=== PATIENT | female | born 1970 | race Caucasian/White ===

== ENCOUNTER → 2020-03-27 08:50 | Outpatient (BNVA) | payer OTHER, SELFPAY | PROVIDERS: PCP Internal Medicine; Visit Provider Student in an Organized Health Care Education/Training Program | DX: Z76.89 Persons encountering health services in other specified circumstances (principal) ==

== ENCOUNTER → 2020-04-16 16:22 | Outpatient (BNVA) | payer OTHER, SELFPAY | PROVIDERS: PCP Internal Medicine; Referring Provider Internal Medicine; Visit Provider Student in an Organized Health Care Education/Training Program | DX: M25.562 Pain in left knee (principal) | CPT/HCPCS: 20610; 99211 ==

== ENCOUNTER → 2020-08-21 09:27 | Outpatient (BNVA) | payer OTHER, SELFPAY | PROVIDERS: PCP Internal Medicine; Visit Provider Student in an Organized Health Care Education/Training Program | DX: M25.562 Pain in left knee (principal) | CPT/HCPCS: 20610; 99212 ==

== ENCOUNTER 2020-08-23 09:09 | Outpatient (REF) | payer OTHER, SELFPAY ==
--- NOTE | ~2020-08-23 | XR_ITS ---
EXAMINATION: XR knee standing BI, XR knee RT 2V, XR knee LT 2V CLINICAL INFORMATION: Reason for Exam M25.569 - Pain in unspecified knee COMPARISON: None available at the time of this dictation. TECHNIQUE: frontal, lateral, tunnel and patella sunrise views FINDINGS: BONES: No fracture or dislocation is present. JOINTS: Narrowing of joint spaces and developed osteophytes from the edges of articular surfaces suggest degenerative osteoarthritis. SOFT TISSUE: Normal XR/XR knee LT 2V IMPRESSION: Bilateral moderate to severe degenerative osteoarthritis involving primarily medial compartments left more than right knee. Degenerative osteoarthritis of the patellofemoral joints. No joint effusions.
--- NOTE | ~2020-08-23 | XR_ITS ---
EXAMINATION: XR knee standing BI, XR knee RT 2V, XR knee LT 2V CLINICAL INFORMATION: Reason for Exam M25.569 - Pain in unspecified knee COMPARISON: None available at the time of this dictation. TECHNIQUE: frontal, lateral, tunnel and patella sunrise views FINDINGS: BONES: No fracture or dislocation is present. JOINTS: Narrowing of joint spaces and developed osteophytes from the edges of articular surfaces suggest degenerative osteoarthritis. SOFT TISSUE: Normal XR/XR knee RT 2V IMPRESSION: Bilateral moderate to severe degenerative osteoarthritis involving primarily medial compartments left more than right knee. Degenerative osteoarthritis of the patellofemoral joints. No joint effusions.
--- NOTE | ~2020-08-23 | XR_ITS ---
EXAMINATION: XR knee standing BI, XR knee RT 2V, XR knee LT 2V CLINICAL INFORMATION: Reason for Exam M25.569 - Pain in unspecified knee COMPARISON: None available at the time of this dictation. TECHNIQUE: frontal, lateral, tunnel and patella sunrise views FINDINGS: BONES: No fracture or dislocation is present. JOINTS: Narrowing of joint spaces and developed osteophytes from the edges of articular surfaces suggest degenerative osteoarthritis. SOFT TISSUE: Normal XR/XR knee standing BI IMPRESSION: Bilateral moderate to severe degenerative osteoarthritis involving primarily medial compartments left more than right knee. Degenerative osteoarthritis of the patellofemoral joints. No joint effusions.
== END 2020-08-23 09:10 | disposition home or self-care (01) ==
LOC: HO.HOSX 09:09
PROVIDERS: Visit Provider Orthopaedic Surgery
DX: M17.0 Bilateral primary osteoarthritis of knee (principal)
CPT/HCPCS: 73560; 73565; 99202

== ENCOUNTER 2020-11-14 10:04 | Outpatient (REF) | payer MEDICARE, MEDICAID, SELFPAY ==
--- NOTE | 2020-11-14 11:30 | ECG_ITS ---
Test Reason : Z01.810 Blood Pressure : / mmHG Vent. Rate : 116 BPM Atrial Rate : 117 BPM P-R Int : 156 ms QRS Dur : 088 ms QT Int : 352 ms P-R-T Axes : 073 061 058 degrees QTc Int : 489 ms Sinus tachycardia Biatrial enlargement Abnormal ECG No previous ECGs available Referred By: John Stewart Electronically Signed By:MALLORY MCNEAL
[2020-11-14 12:23] LABS: MANUAL DIFF FLAG NO
[2020-11-14 12:33] LABS: Basophils Absolute Auto 0.1 X10*3/uL (0.0-0.2); Basophils Percent Auto 0.6 % (0-2); Eosinophils Absolute Auto 0.1 X10*3/uL (0.0-0.4); Hematocrit 47.1 % (37-47); Hemoglobin 16.3 g/dl (12.0-16.0); Imm Gran Abs Auto 0.03 X10*3/uL (0.00-0.03); Imm Gran Pct Auto 0.3 % (0.0-0.4); Lymphocytes Absolute Auto 2.8 X10*3/uL (1.2-4.9); Lymphocytes Percent Auto 27.3 % (20-40); Mean Corpuscular HGB Conc 34.6 g/dl (31.0-35.0); Mean Corpuscular Volume 89.7 fL (80-98); Mean Platelet Volume 9.7 fL (9.4-12.3); Monocytes Absolute Auto 0.7 X10*3/uL (0.1-1.2); Monocytes Percent Auto 6.3 % (2-11); Neutrophils Absolute Auto 6.6 X10*3/uL (2.0-8.3); Neutrophils Percent Auto 64.5 % (45-73); Platelet Count 290 X10*3/uL (160-400); Red Blood Count 5.25 X10*6/uL (4.20-5.50); Red Cell Distribution Width 12.5 % (11.0-16.0); White Blood Count 10.3 X10*3/uL (4.8-10.8)
[2020-11-14 12:44] LABS: Anion Gap 16 (12-20); Blood Urea Nitrogen 12 mg/dL (9-16); Calcium 9.3 mg/dL (8.4-10.2); Carbon Dioxide 21 mmol/L (22-29); Chloride 106 mmol/L (96-108); Estimated Glomerular Filt Rate > 60; Glucose Random 100 mg/dL (60-115); Potassium 4.5 mmol/L (3.3-5.1); Sodium 138 mmol/L (135-145)
== END 2020-11-14 10:05 | disposition home or self-care (01) ==
LOC: HO.LAB 10:04
PROVIDERS: PCP Internal Medicine; Visit Provider Orthopaedic Surgery
DX: Z01.810 Encounter for preprocedural cardiovascular examination (principal); Z01.812 Encounter for preprocedural laboratory examination
CPT/HCPCS: 36415; 80048; 85025; 93005

== ENCOUNTER → 2020-12-16 12:20 | Outpatient (BNVA) | payer MEDICARE, MEDICAID, SELFPAY | PROVIDERS: Visit Provider Physician Assistant | DX: M17.12 Unilateral primary osteoarthritis, left knee (principal) | CPT/HCPCS: 99212 ==

== ENCOUNTER 2020-12-17 08:31 | Inpatient (IN) | payer MEDICARE, MEDICAID, SELFPAY ==
--- NOTE | 2020-11-29 | ECG_ITS ---
Test Reason : PREOP Blood Pressure : / mmHG Vent. Rate : 123 BPM Atrial Rate : 123 BPM P-R Int : 152 ms QRS Dur : 086 ms QT Int : 322 ms P-R-T Axes : 074 057 045 degrees QTc Int : 460 ms Sinus tachycardia Possible Left atrial enlargement Low voltage QRS Nonspecific ST abnormality Borderline ECG When compared with ECG of 14-NOV-2020 11:39, No significant change was found Referred By: Jerrell Quinones Electronically Signed By:MALLORY MCNEAL
[2020-11-29 11:56] VITALS: BP 140/95; PULSE 126; RESP 16; O2SAT 97; BMI 40.7
[2020-11-29 15:21] LABS: MRSA Nasal PCR NEGATIVE (Negative); SA Nasal PCR NEGATIVE (Negative)
[2020-12-17] VITALS (13 sets, daily range): BP systolic 95–139; BP diastolic 50–98; PULSE 68–115; RESP 16–20; TEMP 36.2–36.9; O2SAT 91–99
--- NOTE | ~2020-12-17 | XR_ITS ---
EXAMINATION: XR KNEE, LEFT CLINICAL INFORMATION: Left total knee arthroplasty. COMPARISON: None TECHNIQUE: Portable AP and cross-table lateral views of the left knee. FINDINGS: The left total knee arthroplasty components appear well seated in near-anatomic alignment. There is a moderate joint effusion. There is air in the joint and the surrounding soft tissues. There are anterior skin britany. XR/XR knee LT 2V IMPRESSION: Intact-appearing left total knee arthroplasty. Expected postoperative changes.
--- NOTE | 2020-12-17 08:33 | ECG_ITS ---
Test Reason : RECHECK RHYTHM Blood Pressure : / mmHG Vent. Rate : 116 BPM Atrial Rate : 116 BPM P-R Int : 146 ms QRS Dur : 088 ms QT Int : 356 ms P-R-T Axes : 061 038 035 degrees QTc Int : 494 ms Sinus tachycardia Nonspecific ST and T wave abnormality Abnormal ECG When compared with ECG of 29-NOV-2020 12:34, Nonspecific T wave abnormality now evident in Anterior leads Referred By: Jerrell Quinones Electronically Signed By:MALIKA MILLER
[2020-12-17 09:15] LABS: COVID-19 Test Negative (Negative)
--- NOTE | 2020-12-17 10:10 | MHC.SHP ---
Pre-Procedural Eval Section A Date of Service: 12/17/20 The patient is an INPATIENT: No Changes since office visit: Yes Patient answered all questions; No Cold of Flu in the past 2 weeks, No New Medical Problems and No Changes in Medication The History & Physical has been completed within 30 days and I have reviewed it.: Yes Section B Chief Complaint: Left total knee arthroplasty Allergies: Allergies Allergy/AdvReac Type Severity Reaction Status Date / Time Vicodin Allergy Severe hives Verified 12/17/20 08:38 Plan I have reviewed the history and physical and performed a pertinent physical examination on my patient. No changes have occurred unless specified.
--- NOTE | 2020-12-17 10:55 | HO.ANESPROP2 ---
HPI - Anesthesia Eval Consult details Narrative: [age] female for total knee replacement on the left History of polysubstance abuse, not using anything in recent past PMFSH Active Problems Active Problems: All Active Problems (Updated 12/16/20 @ 12:54 by Evin Fish PA-C) Osteoarthritis of left knee (Acute) Bilateral knee pain (Acute) Trigger finger of right hand (Acute) Trigger finger of left hand (Acute) Left anterior knee pain (Acute) Bilateral primary osteoarthritis of knee (Acute) Bipolar disorder (Acute) HTN (hypertension) (Acute) Back pain (Acute) Past Medical History Medical History Allergic rhinitis Anxiety Back pain Bipolar disorder Depression ETOH abuse HTN (hypertension) Opiate abuse, continuous Polysubstance abuse Tachycardia Family History Family History Mother Cervical cancer Sister Cervical cancer Family history of problems with anesthesia: No Surgical History Surgical History H/O foot surgery H/O: hysterectomy History of back surgery History of carpal tunnel surgery History of Problems with Anesthesia: No Social History Social History Housing: Apartment Are you a primary care worker to a significant other at home: No Do you presently have visiting nurse or other home services: No Alcohol intake: never Patient Tobacco Use Status: Former Tobacco user Quit Date: 07/2020 Tobacco use type: Cigarette e-Cigarette/Vaping Use: Former Use (July 2020) Have you been hit, kicked, punched, or otherwise hurt by someone within the past year? If so, by whom?: No Spiritual Healthcare Practices: none Jehovah'S Witness Healthcare Practices: none Cultural Healthcare Practices: none Are you DNR?: No Advance Directives: No Advance Directives Information Provided: No Advance Directives on File: No Recently lost weight without trying: No Patient : No FDLMP: 2019 : No Poor oral hygiene: No Current occupational status: unemployed Meds Allergies Allergy/AdvReac Type Severity Reaction Status Date / Time Vicodin Allergy Severe hives Verified 12/17/20 08:38 Home Medications Medication Instructions Recorded Confirmed Last Taken Type acamprosate 333 mg tablet,delayed 666 mg PO TID 04/16/20 11/29/20 12/17/20 07:30 History release amitriptyline 100 mg tablet 100 mg PO BEDTIME 11/27/20 11/29/20 Unknown History aripiprazole 20 mg tablet 20 mg PO DAILY 11/27/20 11/29/20 12/17/20 07:30 History trazodone 100 mg tablet 300 mg PO BEDTIME 11/27/20 11/29/20 Unknown History clonidine HCl 0.2 mg tablet 0.2 mg PO TID 11/29/20 11/29/20 12/17/20 07:30 History cyanocobalamin (vitamin B-12) 5,000 mcg SUBLINGUAL DAILY 11/29/20 11/29/20 Unknown History 5,000 mcg sublingual tablet (Vitamin B-12) magnesium oxide 400 mg PO BEDTIME 11/29/20 11/29/20 Unknown History hydroxyzine pamoate 25 mg capsule 25 mg PO BID PRN 12/11/20 12/11/20 12/17/20 07:30 History (Vistaril) Exam Exam Date and Time: December 17, 2020 1055 Height,Weight and Vital Signs: Height 5 ft 5 in Weight 245 lb Last Vital Signs Temp 97.9 F 12/17/20 09:18 Pulse 115 H 12/17/20 09:18 Resp 18 12/17/20 09:18 BP 139/98 H 12/17/20 09:18 Pulse Ox 96 12/17/20 09:18 Pertinent Lab Results Pertinent Lab Results: Laboratory Tests 11/29/20 12/17/20 12/17/20 12:30 08:41 08:49 Nasal Screen MRSA (PCR) NEGATIVE Nasal S. aureus Screen NEGATIVE Nasal MRSA/S.aureus Interp SEE NOTE COVID-19 (ANEL) Negative COVID-19 Clin Com See Note Blood Type O Positive Antibody Screen NEGATIVE Airway Mallampati Class: III TM Dist: >3cm Neck ROM: Full Loose/Missing/Broken Teeth: No Assessment and Plan Assessment Anesthesia Assessment: Anesthesia Plan Discussed and Chart Reviewed Final Anesthetic Review Family History of Problems with Anesthesia: No History of Problems with Anesthesia: No NPO: Yes ASA Class: III Final Preanesthetic Review: No Changes in Pt Med Stat, Meds/Allgs Chart Reviewed, Consent Obtained/Reviewed and Anes Risks/Benef Reviewed Patient Risk: High Procedure Risk: Low Anesthetic Plan Anesthetic Plan: MAC:, Spinal and Regional Block Disposition: Standard PACU
--- NOTE | 2020-12-17 12:22 | PM.OP ---
Brief Operative Note Date of Service: 12/17/20 Pre-op diagnosis: left knee OA Post-op diagnosis: same Procedure: Left TKA Implants: [employer] triathalon press fit CR 07/20/10 Surgeon: John Stewart MD Anesthesia: GETA and regional Was an Sexual Health Physician used for this Procedure?: Yes Sexual Health Physician: Evin Fish Estimated blood loss (mL): 200 IV fluids (mL): 1,100 Pathology: other Condition: stable Disposition: PACU
--- NOTE | 2020-12-17 13:15 | P.OP_ITS ---
Operative Note Operative Note Date of Service: 12/17/20 Narrative: Pre-op diagnosis: left knee OA Post-op diagnosis: same Procedure: Left TKA Implants: [place] triathalon press fit CR 07/20/10 Surgeon: John Stewart MD Anesthesia: GETA and regional Was an Aluminum Molding Machine Operator used for this Procedure?: Yes Aluminum Molding Machine Operator: Evin Fish Estimated blood loss (mL): 200 IV fluids (mL): 1,100 Pathology: other Condition: stable Disposition: PACU Procedure in detail: Patient was brought to the operating room and prepped and draped in standard sterile fashion. A time-out was called to identify proper site, proper procedure, proper surgeon and IV antibiotics were administered. 1 g of IV tranexamic acid was also administered. I began by making a midline incision to the retinaculum and performed a medial parapatellar arthrotomy. The patella was translated laterally and the knee was flexed up. The femur was eburnated medially as was the plateau with abundant osteophytes. I performed a small medial peel and resected the infrapatellar fat pad. [place]'s line was then used to drill my intramedullary femoral guide and my distal femur cut was made in 5 degrees of valgus. An additional 2 mm was taken off the distal femur becasue of a pre-operative flexion contracture of 10 deg. I then measured a # 4 femur and placed my cutting guide and made my anterior, posterior and chamfer cuts protecting the soft tissues at all times. Once I was satisfied with my cut I turned my attention to the tibia. I removed the meniscus and , using an external cutting guide, in line with the tibial crest and the third ray, I made my distal tibial cut ( 3 deg slope) while protecting the PCL the posterior soft tissues at all times. An extension block was used to confirm appropriate amount of bony resection. I then sized a #__3_ tibia and once I was satisfied that there was good tibial coverage I placed my trial and with the trial femur in place took the knee through range of motion. I was satisfied with the extension and flexion as well as the stability at 0, 30 and 90 degrees. I then turned my attention to the patella where I removed 1 cm from the undersurface of the patella and then trialed a __32a____ patella. Again the knee was taken through range of motion I was satisfied with the tracking. I then returned to the femur and drilled my femoral lug holes and prepared the tibia. Femoral bone plug was then placed and the knee was irrigated copiously. I then press fit the patella, tibia and femur in standard fashion. I trialed different inserts until I selected a #__11__ insert. The final insert was placed and a 3 minutes iodine soak with local TXA was performed. The knee was then closed with a running Quill suture, a 3 0 Vicryl and britany on the skin. Patient was then placed in sterile dressing and brought to recovery room in stable condition there were no known complications.
--- NOTE | 2020-12-17 14:52 | P.CONIM_ITS ---
History of Present Illness Data of Consult Service Date: 12/17/20 Primary Care Provider: Henny Huff MD HPI Reason for consult: post op medical mgmt This is a 50 yo F with a PMH as documented below who is admitted post operatively after elective L TKA under the medical services. Hospitalist consulted for post-op medical mgmt. Patient is seen and examined on Med/Surg. She reports no complaints at this time. No pain -- her block is still active. She denies cp or sob. She reports a prior alcohol use history, but has been sober >2 years with medications + therapy. Review of Systems Review of Systems: General - no fevers or chills Cardiovascular - no chest pain Respiratory - no shortness of breath or cough Abdominal- no abdominal pain, nausea, vomiting, diarrhea PMFSH Medical History Allergic rhinitis Anxiety Back pain Bipolar disorder Depression ETOH abuse HTN (hypertension) Opiate abuse, continuous Polysubstance abuse Tachycardia Family History Mother Cervical cancer Sister Cervical cancer Surgical History H/O foot surgery H/O: hysterectomy History of back surgery History of carpal tunnel surgery Social History Housing: Apartment Are you a primary field care advocate to a significant other at home: No Do you presently have visiting nurse or other home services: No Alcohol intake: never Patient Tobacco Use Status: Former Tobacco user Quit Date: 07/2020 Tobacco use type: Cigarette e-Cigarette/Vaping Use: Former Use (July 2020) Current occupational status: unemployed Meds Allergies Allergy/AdvReac Type Severity Reaction Status Date / Time Vicodin Allergy Severe hives Verified 12/17/20 08:38 Active Medications: Current Medications Generic Name Dose Route Start Last Admin Trade Name Freq PRN Reason Stop Dose Admin Acetaminophen 650 mg 12/17/20 14:17 Acetaminophen 325 Mg Tablet PO Q6H PRN Pain, Mild (Pain Scale 1-3) Amitriptyline HCl 100 mg 12/17/20 21:00 Amitriptyline Hcl 50 Mg Tablet PO BEDTIME MIGUELITO Aripiprazole 20 mg 12/18/20 09:00 Aripiprazole 20 Mg Tablet PO DAILY [facility] Celecoxib 200 mg 12/17/20 21:00 Celecoxib 200 Mg Capsule PO BID [facility] Clonidine HCl 0.2 mg 12/17/20 15:00 Clonidine Hcl 0.2 Mg Tablet PO TID [facility] Protocol Docusate Sodium 100 mg 12/17/20 21:00 Docusate Sodium 100 Mg Capsule PO BID [facility] Hydromorphone HCl 0.25 mg 12/17/20 14:17 Hydromorphone Hcl 0.5 Mg/0.5 Ml Syringe IVPUSH Q4H PRN Pain, Severe (Pain Scale 7-10) Protocol Hydroxyzine HCl 25 mg 12/17/20 14:47 Hydroxyzine Hcl 25 Mg Tablet PO BID PRN Anxiety Dextrose/Sodium Chloride 1,000 mls @ 80 mls/hr 12/17/20 14:17 D51/2ns IVCONT .[id number] [facility] Cefazolin Sodium 2 gm/ Sodium 50 mls @ 100 mls/hr 12/17/20 16:00 Chloride IV 12/17/20 16:29 POSTOP ONE Loratadine 10 mg 12/18/20 09:00 Loratadine 10 Mg Tablet PO DAILY [facility] Magnesium Oxide 400 mg 12/17/20 21:00 Magnesium Oxide 400 Mg Tablet PO BEDTIME [facility] Ondansetron HCl 4 mg 12/17/20 14:17 Ondansetron Hcl 4 Mg/2 Ml Vial IVPUSH Q8H PRN Nausea and Vomiting Oxycodone HCl 5 mg 12/17/20 14:17 Oxycodone Hcl Immed Release 5 Mg Tablet PO Q4H PRN Pain, Moderate (Pain Scale 4-6 Oxycodone HCl 10 mg 12/17/20 21:00 Oxycodone Hcl Er 10 Mg Tab.Er.12h PO BID [facility] Sodium Chloride 3 ml 12/17/20 16:00 0.9 % Sodium Chloride Flush 3 Ml Syringe IVFLUSH QSHIFT [facility] Trazodone HCl 300 mg 12/17/20 21:00 Trazodone Hcl 100 Mg Tablet PO BEDTIME [facility] Vitamin D 25 mcg 12/18/20 09:00 Cholecalciferol (Vitamin D3) 25 Mcg Tablet PO DAILY [facility] Home Medications Medication Instructions Recorded Confirmed Last Taken Type acamprosate 333 mg tablet,delayed 666 mg PO TID 12/11/29/20 12/17/20 07:30 History release amitriptyline 100 mg tablet 100 mg PO BEDTIME 11/27/20 11/29/20 Unknown History aripiprazole 20 mg tablet 20 mg PO DAILY 11/27/20 11/29/20 12/17/20 07:30 History trazodone 100 mg tablet 300 mg PO BEDTIME 11/27/20 11/29/20 Unknown History clonidine HCl 0.2 mg tablet 0.2 mg PO TID 11/29/20 11/29/20 12/17/20 07:30 History cyanocobalamin (vitamin B-12) 5,000 mcg SUBLINGUAL DAILY 11/29/20 11/29/20 Unknown History 5,000 mcg sublingual tablet (Vitamin B-12) magnesium oxide 400 mg PO BEDTIME 11/29/20 11/29/20 Unknown History hydroxyzine pamoate 25 mg capsule 25 mg PO BID PRN 12/11/20 12/11/20 12/17/20 07:30 History (Vistaril) Physical Exam Vital Signs and Narrative: Vital Signs: Last Vital Signs Temp 97.2 F 12/17/20 14:00 Pulse 82 12/17/20 14:00 Resp 18 12/17/20 14:00 BP 117/76 12/17/20 14:00 Pulse Ox 98 12/17/20 14:00 Body Mass Index 40.7 Const: Other: General - no acute distress, appears comfortable Cardiovascular - regular rate and rhythm, S1-S2 Lungs - normal respiratory effort, clear to auscultation bilaterally, no wheezin g Abdomen - soft, nontender, no rebound or guarding Extremities - no edema bilaterally Neuro - awake and alert, no focal deficits Results Labs Labs: Laboratory Results - last 24 hr 12/17/20 12/17/20 08:41 08:49 COVID-19 (ANEL) Negative COVID-19 Clin Com See Note Blood Type O Positive Antibody Screen NEGATIVE Imaging Radiologist's Impressions: Impressions Knee X-Ray 12/17/20 12:24 IMPRESSION: Intact-appearing left total knee arthroplasty. Expected postoperative changes. Assessment and Plan (1) Osteoarthritis of left knee: Status: Acute 50 yo F admitted under ortho services for L TKA. 1. HTN hold bp meds today (few low bp readings earlier), will restart tomorrow or upon d/c once bp stable 2. Alcohol use sober >2 years on acamprosate -- NF, can continue if patient able to brin 3. Bipolar disorder continue baseline meds 4. S/P L TKA mgmt per ortho Will follow up tomorrow
[2020-12-17] MEDS: Dextrose 5 % and 0.45 % NaCl 1,000 ML 80 ML IVCONT (14:53)
[2020-12-17] MEDS: oxyCODONE HCl Immed Release 5 MG TABLET PO ×2 (15:01→17:35)
[2020-12-17] MEDS: 0.9 % Sodium Chloride Flush 3 ML SYRINGE IVFLUSH (15:02)
[2020-12-17] MEDS: HYDROmorphone HCl 0.5 MG/0.5 ML SYRINGE 0.25 MG IVPUSH ×2 (15:59→21:56)
[2020-12-17] MEDS: Ketorolac Tromethamine 15 MG/ML VIAL IM (19:34)
[2020-12-17] MEDS: oxyCODONE HCl ER 10 MG TAB.ER.12H PO (21:50)
[2020-12-17] MEDS: Magnesium Oxide 400 MG TABLET PO (21:50)
[2020-12-17] MEDS: Celecoxib 200 MG CAPSULE PO (21:50)
[2020-12-17] MEDS: cloNIDine HCL 0.2 MG TABLET PO (21:50)
[2020-12-17] MEDS: Docusate Sodium 100 MG CAPSULE PO (21:50)
[2020-12-17] MEDS: traZODone HCL 100 MG TABLET 300 MG PO (21:50)
[2020-12-17] MEDS: Amitriptyline HCl 50 MG TABLET 100 MG PO (22:00)
[2020-12-18] VITALS (8 sets, daily range): BP systolic 98–133; BP diastolic 55–79; PULSE 88–102; RESP 14–20; TEMP 36–36.8; O2SAT 95–98
[2020-12-18] MEDS: HYDROmorphone HCl 0.5 MG/0.5 ML SYRINGE 0.25 MG IVPUSH (02:13)
[2020-12-18] MEDS: hydrOXYzine HCL 25 MG TABLET PO (02:16)
[2020-12-18] MEDS: Dextrose 5 % and 0.45 % NaCl 1,000 ML 80 ML IVCONT ×2 (06:41→16:31)
[2020-12-18 07:18] LABS: MANUAL DIFF FLAG NO
--- NOTE | 2020-12-18 07:21 | P.PNOP_ITS ---
Subjective Subjective Date of Service: 12/18/20 Interval history: POD 1 LT TKA No overnight events, resting in bed, has not been out of bed with PT but was given exercises, has attempted use of commode Denies cp, sob, palpitations. No concerns Physical Exam Vital Signs: Vital Signs: Last Vital Signs Temp 97.6 F 12/18/20 03:17 Pulse 88 12/18/20 03:17 Resp 14 12/18/20 03:17 BP 101/67 12/18/20 03:17 Pulse Ox 95 12/18/20 03:17 Body Mass Index 40.7 Const: General: cooperative, healthy appearing and no acute distress Resp: Effort & Inspection: normal respiratory effort and able to speak in complete sentences Cardio: Rate: regular rate Peripheral pulses: Peripheral pulses 2+ throughout GI: Palpation (GI): Soft to palpation Skin: General skin exam: no rashes or lesions noted Extrem: Other: bandage clean dry and intact. No erythema or joint effusion. Calf supple nontender. Neurovascularly intact. Procedures Date of Service Date of Service: 12/18/20 Progress Note: A&P Assessment and plan (1) Status post total left knee replacement: Status: Acute Assessment and Plan: * Continue pain mgmnt * Begin Aspirin for dvt ppx * begin PT for LT TKA * Dispo planning-Pending PT eval, pain mgmnt Fall Risk Details Current Medications: Current Medications Generic Name Dose Route Start Last Admin Trade Name Freq PRN Reason Stop Dose Admin Acetaminophen 650 mg 12/17/20 14:17 Acetaminophen 325 Mg Tablet PO Q6H PRN Pain, Mild (Pain Scale 1-3) Amitriptyline HCl 100 mg 12/17/20 21:00 12/17/20 22:00 Amitriptyline Hcl 50 Mg Tablet PO 100 mg BEDTIME MIGUELITO Administration Aripiprazole 20 mg 12/18/20 09:00 Aripiprazole 20 Mg Tablet PO DAILY MIGUELITO Celecoxib 200 mg 12/17/20 21:00 12/17/20 21:50 Celecoxib 200 Mg Capsule PO 200 mg BID MIGUELITO Administration Clonidine HCl 0.2 mg 12/17/20 15:00 12/17/20 21:50 Clonidine Hcl 0.2 Mg Tablet PO 0.2 mg TID MIGUELITO Administration Protocol Docusate Sodium 100 mg 12/17/20 21:00 12/17/20 21:50 Docusate Sodium 100 Mg Capsule PO 100 mg BID MIGUELITO Administration Hydromorphone HCl 0.25 mg 12/17/20 14:17 12/18/20 02:13 Hydromorphone Hcl 0.5 Mg/0.5 Ml Syringe IVPUSH 0.25 mg Q4H PRN Administration Pain, Severe (Pain Scale 7-10) Protocol Hydroxyzine HCl 25 mg 12/17/20 14:47 12/18/20 02:16 Hydroxyzine Hcl 25 Mg Tablet PO 25 mg BID PRN Administration Anxiety Dextrose/Sodium Chloride 1,000 mls @ 80 mls/hr 12/17/20 14:17 12/18/20 06:41 D51/2ns IVCONT 80 mls/hr .[id number] MIGUELITO Administration Loratadine 10 mg 12/18/20 09:00 Loratadine 10 Mg Tablet PO DAILY MIGUELITO Magnesium Oxide 400 mg 12/17/20 21:00 12/17/20 21:50 Magnesium Oxide 400 Mg Tablet PO 400 mg BEDTIME MIGUELITO Administration Ondansetron HCl 4 mg 12/17/20 14:17 Ondansetron Hcl 4 Mg/2 Ml Vial IVPUSH Q8H PRN Nausea and Vomiting Oxycodone HCl 10 mg 12/17/20 21:00 12/17/20 21:50 Oxycodone Hcl Er 10 Mg Tab.Er.12h PO 10 mg BID MIGUELITO Administration Oxycodone HCl 10 mg 12/17/20 17:02 Oxycodone Hcl Immed Release 5 Mg Tablet PO Q4H PRN Pain, Moderate (Pain Scale 4-6 Sodium Chloride 3 ml 12/17/20 16:00 12/18/20 00:41 0.9 % Sodium Chloride Flush 3 Ml Syringe IVFLUSH Not Given QSHIFT [facility] Trazodone HCl 300 mg 12/17/20 21:00 12/17/20 21:50 Trazodone Hcl 100 Mg Tablet PO 300 mg BEDTIME MIGUELITO Administration Vitamin D 25 mcg 12/18/20 09:00 Cholecalciferol (Vitamin D3) 25 Mcg Tablet PO DAILY [facility] Time Spent With Patient Time: Total time spent is greater than 50% in coordination of care (as docpatin robbie) at patient's floor/unit and/or counseling patient: Time with patient: less than 15 minutes Quality Stroke Does the patient have a stroke diagnosis?: No VTE Prior VTE?: No VTE Risk Level:: Surgical - high VTE Device Contraindication: N/A - Device Ordered VTE Drug Contraindication: N/A - Med Ordered
[2020-12-18 07:29] LABS: Basophils Percent Auto 0.2 % (0-2); Eosinophils Absolute Auto 0.1 X10*3/uL (0.0-0.4); Eosinophils Percent Auto 0.6 % (0-4); Hematocrit 36.4 % (37-47); Hemoglobin 12.2 g/dl (12.0-16.0); Imm Gran Abs Auto 0.06 X10*3/uL (0.00-0.03); Imm Gran Pct Auto 0.5 % (0.0-0.4); Lymphocytes Absolute Auto 2.8 X10*3/uL (1.2-4.9); Mean Corpuscular HGB Conc 33.5 g/dl (31.0-35.0); Mean Corpuscular Hemoglobin 30.7 pg (27.0-33.0); Mean Corpuscular Volume 91.7 fL (80-98); Mean Platelet Volume 9.5 fL (9.4-12.3); Monocytes Absolute Auto 1.2 X10*3/uL (0.1-1.2); Monocytes Percent Auto 9.8 % (2-11); Neutrophils Absolute Auto 8.2 X10*3/uL (2.0-8.3); Neutrophils Percent Auto 65.9 % (45-73); Platelet Count 244 X10*3/uL (160-400); Red Blood Count 3.97 X10*6/uL (4.20-5.50); Red Cell Distribution Width 12.2 % (11.0-16.0); White Blood Count 12.4 X10*3/uL (4.8-10.8)
[2020-12-18 07:50] LABS: Anion Gap 9 (12-20); Blood Urea Nitrogen 13 mg/dL (9-16); Calcium 8.4 mg/dL (8.4-10.2); Carbon Dioxide 25 mmol/L (22-29); Chloride 105 mmol/L (96-108); Creatinine Clr Calc Pharmacy 137.7; Estimated Glomerular Filt Rate > 60; Glucose Fasting 129 mg/dL (60-99); Potassium 3.4 mmol/L (3.3-5.1); Sodium 136 mmol/L (135-145)
[2020-12-18] MEDS: oxyCODONE HCl ER 10 MG TAB.ER.12H PO ×2 (08:41→20:39)
[2020-12-18] MEDS: Loratadine 10 MG TABLET PO (08:41)
[2020-12-18] MEDS: cloNIDine HCL 0.2 MG TABLET PO (08:41)
[2020-12-18] MEDS: Docusate Sodium 100 MG CAPSULE PO ×2 (08:42→20:39)
[2020-12-18] MEDS: ARIPiprazole 20 MG TABLET PO (08:42)
[2020-12-18] MEDS: Aspirin 325 MG TABLET PO ×2 (08:42→20:39)
[2020-12-18] MEDS: Cholecalciferol (Vitamin D3) 25 MCG TABLET PO (08:42)
[2020-12-18] MEDS: Celecoxib 200 MG CAPSULE PO ×2 (08:43→20:39)
[2020-12-18] MEDS: oxyCODONE HCl Immed Release 5 MG TABLET 10 MG PO ×3 (08:43→17:15)
--- NOTE | 2020-12-18 09:35 | HO.POSTANES ---
Post Anesthesia Evaluation Post Anesthesia Evaluation Vital Signs: Vital Signs Temp Pulse Resp BP Pulse Ox 12/18/20 07:52 97.2 F 99 19 133/79 97 12/18/20 03:17 97.6 F 88 14 101/67 95 12/17/20 23:57 97.4 F 96 16 123/78 91 L 12/17/20 21:50 83 135/86 Anesthesia: Spinal and Nerve Block (Left adductor canal block. States block wore off quickly.) Mental Status: Awake Pain Control: Satisfactory Nausea/Vomiting: None Hydration: Adequate Anesthesia-Related Issues: No Anes. Related Issues
--- NOTE | 2020-12-18 12:31 | MHC.CM.PN ---
CM MET WITH PT WHO REPORTS SHE LIVES ALONE AND HAS DAILY [employer] TO ASSIST WITH BOTH HOME AND PERSONAL CARE. PT REPORTS SHE HAS A CANE THAT SHE WAS USING [employer]IN[employer] BUT BEFORE HURTING HER KNEE DID NOT USE DME. PT REPORTS SHE HAS A HCP NAMING HER SISTER HER AGENT AND SHE CONFIRMS HER PCP IS ANAY ALMEIDA. PTS CURRENT DC PLAN IS HOME WITH RESUMPTION OF [employer] AND A NEW REFERRAL TO [facility] FOR HOME PT. PT ALSO REPORTS HER SISTER WILL BE STAYING WITH HER POST DC TO ASSIST PRN. PTS SISTER WILL TRANSPORT AT DC
[2020-12-18] MEDS: Acetaminophen 325 MG TABLET 650 MG PO (13:08)
[2020-12-18] MEDS: Amitriptyline HCl 50 MG TABLET 100 MG PO (20:38)
[2020-12-18] MEDS: Magnesium Oxide 400 MG TABLET PO (20:39)
[2020-12-18] MEDS: traZODone HCL 100 MG TABLET 300 MG PO (20:39)
[2020-12-18] MEDS: 0.9 % Sodium Chloride Flush 3 ML SYRINGE IVFLUSH (20:40)
[2020-12-19] MEDS: oxyCODONE HCl Immed Release 5 MG TABLET 10 MG PO ×2 (01:53→08:23)
[2020-12-19 04:00] VITALS: BP 120/73; PULSE 110; RESP 16; TEMP 36.2; O2SAT 94
[2020-12-19] MEDS: Dextrose 5 % and 0.45 % NaCl 1,000 ML 80 ML IVCONT (05:09)
[2020-12-19 07:25] VITALS: BP 126/73; PULSE 110; RESP 16; TEMP 36.4; O2SAT 95
[2020-12-19 08:20] LABS: MANUAL DIFF FLAG NO
[2020-12-19] MEDS: Cholecalciferol (Vitamin D3) 25 MCG TABLET PO (08:23)
[2020-12-19] MEDS: Aspirin 325 MG TABLET PO (08:23)
[2020-12-19] MEDS: Docusate Sodium 100 MG CAPSULE PO (08:23)
[2020-12-19] MEDS: ARIPiprazole 20 MG TABLET PO (08:23)
[2020-12-19] MEDS: Celecoxib 200 MG CAPSULE PO (08:23)
[2020-12-19 08:24] LABS: Basophils Absolute Auto 0.1 X10*3/uL (0.0-0.2); Basophils Percent Auto 0.6 % (0-2); Eosinophils Absolute Auto 0.3 X10*3/uL (0.0-0.4); Eosinophils Percent Auto 2.7 % (0-4); Hematocrit 34.6 % (37-47); Hemoglobin 11.7 g/dl (12.0-16.0); Imm Gran Abs Auto 0.03 X10*3/uL (0.00-0.03); Imm Gran Pct Auto 0.3 % (0.0-0.4); Lymphocytes Absolute Auto 2.7 X10*3/uL (1.2-4.9); Lymphocytes Percent Auto 27.3 % (20-40); Mean Corpuscular HGB Conc 33.8 g/dl (31.0-35.0); Mean Corpuscular Hemoglobin 30.9 pg (27.0-33.0); Mean Corpuscular Volume 91.3 fL (80-98); Mean Platelet Volume 9.4 fL (9.4-12.3); Monocytes Absolute Auto 0.8 X10*3/uL (0.1-1.2); Monocytes Percent Auto 7.6 % (2-11); Neutrophils Absolute Auto 6.1 X10*3/uL (2.0-8.3); Neutrophils Percent Auto 61.5 % (45-73); Platelet Count 227 X10*3/uL (160-400); Red Blood Count 3.79 X10*6/uL (4.20-5.50); Red Cell Distribution Width 12.3 % (11.0-16.0); White Blood Count 9.9 X10*3/uL (4.8-10.8)
[2020-12-19] MEDS: oxyCODONE HCl ER 10 MG TAB.ER.12H PO (08:24)
[2020-12-19] MEDS: Loratadine 10 MG TABLET PO (08:24)
[2020-12-19] MEDS: hydrOXYzine HCL 25 MG TABLET PO (08:27)
[2020-12-19 08:43] LABS: Anion Gap 10 (12-20); Blood Urea Nitrogen 9 mg/dL (9-16); Calcium 8.1 mg/dL (8.4-10.2); Carbon Dioxide 26 mmol/L (22-29); Chloride 104 mmol/L (96-108); Creatinine Clr Calc Pharmacy 137.7; Estimated Glomerular Filt Rate > 60; Glucose Fasting 132 mg/dL (60-99); Potassium 3.1 mmol/L (3.3-5.1); Sodium 137 mmol/L (135-145)
[2020-12-19 09:08] VITALS: BP 126/73; PULSE 110; O2SAT 95
--- NOTE | 2020-12-19 09:34 | P.DS_ITS ---
DS: Providers Provider Date of Service: 12/19/20 Date of admission: 12/17/20 08:31 Primary care physician: Henny Huff MD Consults: 12/17/20 14:17 Consult to Hospitalist Routine Consulting Provider: Hospitalist Reason For Exam: post op medical managment DS: Diagnosis Discharge Diagnosis (1) Status post total left knee replacement: Status: Acute DS: Summary Hospital Course Hospital Course: The patient underwent a successful left total knee arthroplasty, was transferred to PACU and then to the floor to recover. During their stay, their vitals were stable, afebrile at 97.5. Labs were unremarkable, H/H11.7/34.6 . POD 1 she was started onASA for DVT ppx, they also received PT services twice a day. Prior to discharge, their dressing was change, incision clean dry and intact, new Aquacel dressing applied and the plan was to be discharged home with vna Time Spent with Patient Time attestation: Total time spent providing and/or coordinating discharge services: Discharge coordination time: Less than 30 minutes Quality: Stroke Does the patient have a stroke diagnosis?: No Physical Exam Vital Signs: Vital Signs: Last Vital Signs Temp 97.5 F 12/19/20 07:25 Pulse 110 H 12/19/20 09:08 Resp 16 12/19/20 07:25 BP 126/73 12/19/20 09:08 Pulse Ox 95 12/19/20 09:08 Body Mass Index 40.7 Const: General: cooperative, healthy appearing and no acute distress Resp: Effort & Inspection: normal respiratory effort and able to speak in complete sentences Cardio: Rate: regular rate Peripheral pulses: Peripheral pulses 2+ throughout GI: Palpation (GI): Soft to palpation Skin: General skin exam: no rashes or lesions noted Extrem: Other: incision clean dry and intact. Noemi intact. No erythema or joint effusion. Calf supple nontender. Neurovascularly intact. DS: Data Data Completed and Pending Pending studies at discharge: Pending at discharge 12/17/20 11:52 Surgical [PTH] Routine Labs on day of discharge: Laboratory Results - last 24 hr 12/19/20 12/19/20 08:15 08:15 WBC 9.9 RBC 3.79 L Hgb 11.7 L Hct 34.6 L MCV 91.3 MCH 30.9 MCHC 33.8 RDW 12.3 Plt Count 227 MPV 9.4 Immature Gran % (Auto) 0.3 Neut % (Auto) 61.5 Lymph % (Auto) 27.3 [place] % (Auto) 7.6 Eos % (Auto) 2.7 Baso % (Auto) 0.6 Lymph # (Auto) 2.7 [place] # (Auto) 0.8 Eos # (Auto) 0.3 Baso # (Auto) 0.1 Abs Immat Gran (auto) 0.03 Absolute Neuts (auto) 6.1 Absolute Nucleated RBC 0.000 Nucleated RBC % (auto) 0.0 Sodium 137 Potassium 3.1 L Chloride 104 Carbon Dioxide 26 Anion Gap 10 L BUN 9 Creatinine 0.62 Estim Creat Clear Calc 137.7 Estimated GFR > 60 Fasting Glucose 132 H Calcium 8.1 L Discharge Plan Discharge Patient Disposition: Home Health Service Discharge Diagnosis: LT TKA Referrals: [facility] [Outside] - 1 Week Evin Fish PA-C [Physician Risk Professional] - 2 Weeks (01/02/21 1:45 [facility] [place] [facility] Evin Fish PA-C) Discharge Medications: New docusate sodium 100 mg Capsule 100 mg PO BID 14 Days Qty: 28 RF: 0 celecoxib 200 mg Capsule 200 mg PO BID 30 Days Qty: 60 RF: 0 aspirin 325 mg Tablet 325 mg PO BID@1000,2200 28 Days Qty: 56 RF: 0 acetaminophen 325 mg Tablet 650 mg PO Q6H PRN (Reason: Pain, Mild (Pain Scale 1-3)) 30 Days Qty: 240 RF: 0 Continued hydrochlorothiazide 25 mg tablet 12.5 mg PO DAILY Qty: 28 RF: 6 Hold Instructions: Dose Change amlodipine 2.5 mg tablet 2.5 mg PO DAILY Qty: 90 RF: 3 cetirizine 10 mg tablet 10 mg PO DAILY Qty: 90 RF: 3 cholecalciferol (vitamin D3) 25 mcg (1,000 unit) capsule 25 mcg PO DAILY Qty: 90 RF: 3 clonidine HCl 0.2 mg Tablet 0.2 mg PO TID RF: 0 cyanocobalamin (vitamin B-12) [Vitamin B-12] 5,000 mcg Tablet, Sublingual 5,000 mcg SUBLINGUAL DAILY RF: 0 magnesium oxide 400 mg magnesium Capsule 400 mg PO BEDTIME RF: 0 hydroxyzine pamoate [Vistaril] 25 mg Capsule 25 mg PO BID PRN (Reason: Anxiety) RF: 0 trazodone 100 mg tablet 300 mg PO BEDTIME RF: 0 aripiprazole 20 mg tablet 20 mg PO DAILY RF: 0 amitriptyline 100 mg tablet 100 mg PO BEDTIME RF: 0 acamprosate 333 mg tablet,delayed release (DR/EC) 666 mg PO TID RF: 0 No Action oxycodone 5 mg tablet 10 mg PO Q4H PRN (Reason: Pain, Moderate (Pain Scale 4-6) 7 Days Qty: 84 RF: 0 Discharge Orders: Discharge Order (Routine); Ordered 12/19/20 Ordered By: Evin Fish Diet: regular diet Activity on Discharge: Use cane or walker Stand Alone Forms: Patient Portal Discharge page Care Plan Goals: Restore function of joint Health Concerns: none Plan of Treatment: Physical Therapy Pain management DVT prophylaxis Assessment: * Physical Therapy for Total knee arthroplasty: gait training, ROM 0-12, quad strength * Limit stair climbing * No showering, no tub bath-keep dressing clean, dry and intact * No driving x6 weeks * Continue Aspirin twice a day x 4 weeks * Follow up with [facility] [place] Orth[facility] in 2 weeks Discharge Date/Time: 12/19/20 11:00
--- NOTE | 2020-12-19 09:43 | MHC.CM.PN ---
PT CLEARED TO DC HOME TODAY WITH [facility] FOR HOME PT. PTS SISTER WILL TRANSPORT
== END 2020-12-19 11:00 | disposition home health service (06) | DRG 470 ==
LOC: HO.SSSA 08:37 → HO.S3 13:05
PROVIDERS: Physician Assistant; Admitting Provider Orthopaedic Surgery; PCP Internal Medicine; Visit Provider Orthopaedic Surgery
PROC: 0SRD0JA Replacement of Left Knee Joint with Synthetic Substitute, Uncemented, Open Approach (ICD-10-PCS; CPT 27447; principal; 2020-12-17 10:00)
DX: M17.12 Unilateral primary osteoarthritis, left knee (principal); I10 Essential (primary) hypertension; F31.9 Bipolar disorder, unspecified; Z20.822 Contact with and (suspected) exposure to COVID-19; Z87.891 Personal history of nicotine dependence; Z88.5 Allergy status to narcotic agent; Z79.899 Other long term (current) drug therapy
CPT/HCPCS: 27447; 36415; 73560; 80048; 85025; 86850; 86900; 86901; 87635; 87640; 87641; 88305; 88311; 93005; 97110; 97116; 97161; 99212; C1776; J0690; J1100; J1170; J1885; J2250; J2370; J3010

== ENCOUNTER → 2020-12-26 13:47 | Outpatient (BNVA) | payer MEDICARE, MEDICAID, SELFPAY | PROVIDERS: PCP Internal Medicine; Visit Provider Physician Assistant ==

== ENCOUNTER → 2021-01-02 13:36 | Outpatient (BNVA) | payer MEDICARE, MEDICAID, SELFPAY | PROVIDERS: PCP Internal Medicine; Visit Provider Physician Assistant | DX: Z47.1 Aftercare following joint replacement surgery (principal); Z96.652 Presence of left artificial knee joint | CPT/HCPCS: 99212 ==

== ENCOUNTER → 2021-02-10 14:55 | Outpatient (BNVA) | payer MEDICARE, MEDICAID, SELFPAY | PROVIDERS: Visit Provider Orthopaedic Surgery | DX: Z47.1 Aftercare following joint replacement surgery (principal); Z96.652 Presence of left artificial knee joint | CPT/HCPCS: 99212 ==

== ENCOUNTER 2021-03-24 08:45 | Outpatient (REF) | payer MEDICARE, MEDICAID, SELFPAY | END 2021-03-24 08:46 | disposition home or self-care (01) | LOC: HO.HOSX 08:45 | PROVIDERS: Visit Provider Orthopaedic Surgery | DX: Z13.89 Encounter for screening for other disorder (principal) ==

== ENCOUNTER 2021-07-22 23:03 | Inpatient (IN) | payer MEDICARE, MEDICAID, SELFPAY ==
--- NOTE | ~2021-07-22 | NM_ITS ---
EXAMINATION: PULMONARY PERFUSION STUDY CLINICAL INFORMATION: Shortness of breath, tachycardia, elevated d-dimer COMPARISON: No previous lung scan is available for comparison. A radiograph of the chest dated 07/23/2021, the same date as this lung scan, is available for comparison. TECHNIQUE: Following the intravenous injection of 4.0 mCi Tc-99m MAA, an 8-view perfusion study was performed using a gamma scintillation camera. FINDINGS: No segmental perfusion defects are present. There is homogeneous distribution of activity bilaterally. There are no focal anatomic appearing perfusion defects present. NM/NM pul perfusion IMPRESSION: Normal radionuclide lung perfusion scan.
--- NOTE | ~2021-07-22 | XR_ITS ---
EXAMINATION: XR CHEST CLINICAL INFORMATION: Chest pain COMPARISON: None TECHNIQUE: Frontal view of the chest was obtained. FINDINGS: The lungs are clear with no focal consolidation. No evidence of pneumothorax, pulmonary edema, or pleural effusions. The cardiomediastinal silhouette is unremarkable. No acute osseous findings. Degenerative changes are noted in the spine. XR/XR chest 1V IMPRESSION: No acute cardiopulmonary findings.
--- NOTE | ~2021-07-22 | CT_ITS ---
EXAMINATION: CT ABDOMEN AND PELVIS WITH CONTRAST CLINICAL INFORMATION: Elevated liver enzymes, question cholecystitis or pancreatitis COMPARISON: None TECHNIQUE: Multidetector volumetric images were obtained from the superior aspect of the liver through the pubic symphysis following administration 85 mL of Omnipaque 350 intravenous contrast. Sagittal and coronal reformatted images were obtained on the technologist's workstation. Oral contrast: No This CT examination was performed using dose optimization techniques as appropriate, variously including the following: *Automated exposure control *Adjustment of mA and/or kV according to patient size (this includes techniques or standardized protocols for targeted exams where dose is matched to indication/reason for exam; i.e. extremities or head) *Use of iterative reconstruction technique DLP: 1054 mGy-cm FINDINGS: LUNG BASES: The visualized lung bases are unremarkable. LIVER, GALLBLADDER, AND BILIARY TREE: There is diffuse hepatic hypoattenuation consistent with steatosis. No intrahepatic biliary ductal dilatation. The gallbladder is unremarkable with no evidence of radiopaque gallstones, gallbladder wall thickening, or obvious pericholecystic inflammatory changes. PANCREAS: Mild fatty atrophy noted. No appreciable peripancreatic inflammation. SPLEEN: Unremarkable. ADRENAL GLANDS: Unremarkable. KIDNEYS AND URETERS: Bilateral nephrograms are symmetric. No hydronephrosis or obstructing calculus. BLADDER: Unremarkable. GASTROINTESTINAL TRACT: There is prominent submucosal fat within some segments of the colon, which can be seen as sequelae of prior inflammation. No convincing evidence for acute colitis. No evidence of bowel obstruction. The appendix is unremarkable. No free fluid or free air is seen. ABDOMINAL WALL: No significant hernia is appreciated. LYMPH NODES: Normal. VASCULAR: Trace atherosclerotic calcification is noted. PELVIC VISCERA: Patient is status post hysterectomy. OSSEOUS STRUCTURES: Degenerative changes noted in the spine. CT/CT abdomen pelvis w con IMPRESSION: No acute findings identified in the abdomen/pelvis. Hepatic steatosis. Fleischner guidelines were followed.
[2021-07-22 23:10] VITALS: BP 139/93; BP 141/88; PULSE 124; PULSE 127; RESP 20; TEMP 36.8; O2SAT 95; O2SAT 96; BMI 42.2
[2021-07-23] VITALS (16 sets, daily range): BP systolic 133–149; BP diastolic 84–98; PULSE 96–128; RESP 15–34; TEMP 36–36.9; O2SAT 89–99
[2021-07-23] MEDS: chlordiazePOXIDE HCl 25 MG CAPSULE 50 MG PO (00:03)
[2021-07-23 00:12] LABS: MANUAL DIFF FLAG NO
[2021-07-23 00:13] LABS: Basophils Percent Auto 0.5 % (0-2); Eosinophils Percent Auto 0.2 % (0-4); Hematocrit 43.1 % (37.0-47.0); Hemoglobin 14.5 g/dl (12.0-16.0); Imm Gran Abs Auto 0.01 X10*3/uL (0.00-0.03); Imm Gran Pct Auto 0.2 % (0.0-0.4); Lymphocytes Absolute Auto 1.3 X10*3/uL (1.2-4.9); Lymphocytes Percent Auto 21.8 % (20-40); Mean Corpuscular HGB Conc 33.6 g/dl (31.0-35.0); Mean Corpuscular Hemoglobin 30.6 pg (27.0-33.0); Mean Corpuscular Volume 90.9 fL (80.0-98.0); Mean Platelet Volume 8.9 fL (9.4-12.3); Monocytes Absolute Auto 0.4 X10*3/uL (0.1-1.2); Monocytes Percent Auto 6.1 % (2-11); Neutrophils Absolute Auto 4.1 x10*3/uL (2.0-8.3); Neutrophils Percent Auto 71.2 % (45-73); Platelet Count 154 X10*3/uL (160-400); Red Blood Count 4.74 X10*6/uL (4.20-5.50); White Blood Count 5.7 X10*3/uL (4.8-10.8)
--- NOTE | 2021-07-23 00:31 | ECG_ITS ---
Test Reason : TACHYCARDIA Blood Pressure : / mmHG Vent. Rate : 122 BPM Atrial Rate : 122 BPM P-R Int : 142 ms QRS Dur : 096 ms QT Int : 338 ms P-R-T Axes : 071 056 073 degrees QTc Int : 481 ms Sinus tachycardia Otherwise normal ECG When compared with ECG of 17-DEC-2020 08:41, Nonspecific T wave abnormality no longer evident in Inferior leads Nonspecific T wave abnormality, improved in Anterior leads Referred By: Allan White Electronically Signed By:DARYL BRIGGS MD
[2021-07-23] MEDS: Lidocaine HCl Viscous 2 % 15 ML SOLUTION MUCOUS MEM (00:33)
[2021-07-23] MEDS: PHENobarb/Hyoscy/Atropine/Scop 10 ML ELIXIR PO (00:33)
[2021-07-23] MEDS: Famotidine/PF 20 MG/2 ML VIAL IVPUSH (00:34)
[2021-07-23] MEDS: ondansetron HCL 4 MG/2 ML VIAL IVPUSH (00:34)
[2021-07-23 00:35] LABS: Alanine Aminotransferase 154 U/L (0-31); Albumin Level 4.3 g/dL (3.5-5.0); Alkaline Phosphatase 140 U/L (39-117); Anion Gap 22 (12-20); Aspartate Amino Transferase 231 U/L (5-31); Bilirubin Total 0.9 mg/dL (0.0-1.0); Blood Urea Nitrogen 9 mg/dL (9-16); Calcium 8.6 mg/dL (8.4-10.2); Carbon Dioxide 24 mmol/L (22-29); Chloride 99 mmol/L (96-108); Creatinine Clr Calc Pharmacy 136.1; Estimated Glomerular Filt Rate > 60; Glucose Random 97 mg/dL (60-115); Potassium 3.2 mmol/L (3.3-5.1); Sodium 142 mmol/L (135-145); Total Protein 7.4 g/dL (6.5-8.0)
--- NOTE | 2021-07-23 00:50 | ED.GENADULT ---
HPI - General Adult General Chief complaint: Nausea/Vomiting/Diarrhea Stated complaint: coffee ground emesis Time Seen by Provider: 07/23/21 00:20 Source: patient Mode of arrival: ambulatory Limitations: no limitations History of Present Illness HPI narrative: 50-year-old female with history of alcohol abuse presents to ED for possible coffee-ground emesis. Patient states she drank some great juice and then she vomited the grape and the nurses came into the room and so when she vomited and thought she might have had coffee-ground emesis so they sent her to the ED for evaluation. Patient denies any rectal bleeding. Patient states she vomited juice but the nurses 1 her to be evaluated. Vomiting occurred around 21:00 last night. Related Data Home Medications Medication Instructions Recorded Confirmed acamprosate 333 mg tablet,delayed 666 mg PO TID 04/16/20 11/29/20 release amitriptyline 100 mg tablet 100 mg PO BEDTIME 11/27/20 11/29/20 aripiprazole 20 mg tablet 20 mg PO DAILY 11/27/20 11/29/20 trazodone 100 mg tablet 300 mg PO BEDTIME 11/27/20 11/29/20 clonidine HCl 0.2 mg tablet 0.2 mg PO TID 11/29/20 11/29/20 cyanocobalamin (vitamin B-12) 5,000 mcg SUBLINGUAL DAILY 11/29/20 11/29/20 5,000 mcg sublingual tablet (Vitamin B-12) magnesium oxide 400 mg PO BEDTIME 11/29/20 11/29/20 hydroxyzine pamoate 25 mg capsule 25 mg PO BID PRN 12/11/20 12/11/20 (Vistaril) Previous Rx's Medication Instructions Recorded hydrochlorothiazide 25 mg tablet 12.5 mg PO DAILY #28 tab 08/26/20 amlodipine 2.5 mg tablet 2.5 mg PO DAILY #90 tab 11/09/20 cetirizine 10 mg tablet 10 mg PO DAILY #90 tab 11/09/20 cholecalciferol (vitamin D3) 25 25 mcg PO DAILY #90 cap 11/11/20 mcg (1,000 unit) capsule acetaminophen 325 mg tablet 650 mg PO Q6H PRN 30 Days #240 tab 12/19/20 aspirin 325 mg tablet 325 mg PO BID@1000,2200 28 Days 09/02/21 #56 tab celecoxib 200 mg capsule 200 mg PO BID 30 Days #60 cap 12/19/20 docusate sodium 100 mg capsule 100 mg PO BID 14 Days #28 cap 12/19/20 oxycodone 5 mg tablet 5 mg PO Q6H PRN 7 Days #28 tab 01/13/21 amoxicillin 500 mg tablet 2,000 mg PO ONCE 1 Days #4 tab 01/15/21 Allergies Allergy/AdvReac Type Severity Reaction Status Date / Time Vicodin Allergy Severe hives Verified 12/17/20 08:38 Review of Systems Review of Systems: Vomitted grape juice. Yes all other systems are reviewed and are negative [facility] Past Medical History Medical History (Updated 07/23/21 @ 03:00 by HERVE Pathak) Allergic rhinitis Anxiety Back pain Bipolar disorder Depression ETOH abuse HTN (hypertension) Opiate abuse, continuous Osteoarthritis of left knee Polysubstance abuse Tachycardia Surgical History (Updated 12/18/20 @ 07:23 by Evin Fish PA-C) H/O foot surgery H/O: hysterectomy History of back surgery History of carpal tunnel surgery Family History Family History Mother Cervical cancer Sister Cervical cancer Social History Social History Housing: Apartment Are you a primary resident care director to a significant other at home: No Do you presently have visiting nurse or other home services: No Alcohol intake: never Patient Tobacco Use Status: Former Tobacco user Quit Date: 07/2020 Tobacco use type: Cigarette e-Cigarette/Vaping Use: Former Use (July 2020) Advance Directives: No Patient : No service: No Current occupational status: unemployed Physical Exam ED Vital Signs: Vital Signs - 24 hr 07/22/21 23:10 07/23/21 00:41 07/23/21 02:04 Temperature 98.3 F Pulse Rate 124 H 125 H 126 H Respiratory Rate 20 20 26 H Blood Pressure 141/88 H 144/92 H 133/87 Pulse Oximetry 95 95 95 BMI result Body Mass Index 42.2 Const General: cooperative, healthy appearing, comfortable, no acute distress, well developed, alert, awake and Physically active Orientation/consciousness: patient oriented x3 HENMT Other: Oral exam negative for any dry blood. Head: Yes normal to inspection, Yes No palpable skull fracture present, Yes normocephalic, Yes atraumatic and No abrasion Eyes General: appearance normal, both eyes and all related structures Neck Neck: Yes normal visual inspection, Yes full ROM, Yes no lymphadenopathy, Yes no meningeal signs, Yes trachea midline, Yes supple, No anterior neck swelling and No tender Chest Chest palpation & inspection: normal inspection of the chest and normal palpation of entire chest wall Resp Effort & Inspection: normal respiratory effort and able to speak in complete sentences Auscultation: clear to auscultation bilaterally Cardio Jugular venous distension: no JVD Heart sounds: S1 normal heart sound present and S2 normal heart sound present GI Other: Rectal exam negative for any sina blood, melena, black stool, or bright red blood. Inspection: Yes normal to inspection and No abdominal wall ecchymosis Palpation (GI): Soft to palpation, not firm, nontender, no guarding and not rigid General: No CVA tenderness and Yes no CVA tenderness Back/Spine/Pelvis Back: no CVA tenderness, No CVA tenderness and No back tenderness Skin General skin exam: no rashes or lesions noted and elasticity normal Neuro Other: Tremors. General: patient oriented x3, gait normal, no meningeal signs and CN's II-XI intact bilaterally Cranial nerves: Yes CN's II-XII intact bilaterally Extrem General: Yes normal to inspection and Yes full ROM Psych Appearance: grossly normal, well kempt and not disheveled Course Course Course Narrative: Patient tachycardic and vomiting. Patient last had a drink 15:00 yesterday. Patient is at [facility] detox program but has not been given anything for her alcoholism. Librium ordered. Reevaluation(s) Reevaluation #1: Patient's tremor is getting worse Ativan given. Fluids ordered. Zofran Pepcid ordered. Patient did not have any vomiting of coffee-ground emesis in the ED. EKG sinus tach. First troponin 9.5. Elevated liver enzymes possibly due to alcoholism. Painful lipase. Time: 01:13 Reevaluation #2: Abdominal ultrasound ordered to rule out any cholecystitis. Occult stool negative. Patient never vomited during ED had any coffee emesis. Patient is in withdrawal. Patient having severe tremors of upper extremities and tachycardic. Patient last drink was 15:00 yesterday. Ativan fluids ordered. Time: 01:42 Reevaluation #3: Patient sent for abdominal CT scan is of the ultrasound return for pancreas, liver, and cholecystitis. ( patient states mild epigastric pain during evaluation) Patient given 2nd dose of Ativan. Planus order repeat CBC and repeat troponin. Signed out to Dr. Hodges Patient states she had total hysterectomy. Time: 02:46 Medical Decision Making MDM Narrative Medical decision making narrative: Alcohol withdrawal Lab Data Result diagrams: 07/23/21 00:08 07/23/21 00:08 Labs: Lab Results 07/23/21 07/23/21 07/23/21 Range/Units 00:08 00:08 00:24 WBC 5.7 (4.8-10.8) X10*3/uL RBC 4.74 (4.20-5.50) X10*6/uL Hgb 14.5 (12.0-16.0) g/dl Hct 43.1 (37.0-47.0) % MCV 90.9 (80.0-98.0) fL MCH 30.6 (27.0-33.0) pg MCHC 33.6 (31.0-35.0) g/dl RDW 14.0 (11.0-16.0) % Plt Count 154 L (160-400) X10*3/uL MPV 8.9 L (9.4-12.3) fL Immature Gran % (Auto) 0.2 (0.0-0.4) % Neut % (Auto) 71.2 (45-73) % Lymph % (Auto) 21.8 (20-40) % [place] % (Auto) 6.1 (2-11) % Eos % (Auto) 0.2 (0-4) % Baso % (Auto) 0.5 (0-2) % Lymph # (Auto) 1.3 (1.2-4.9) X10*3/uL [place] # (Auto) 0.4 (0.1-1.2) X10*3/uL Eos # (Auto) 0.0 (0.0-0.4) X10*3/uL Baso # (Auto) 0.0 (0.0-0.2) X10*3/uL Abs Immat Gran (auto) 0.01 (0.00-0.03) X10*3/uL Absolute Neuts (auto) 4.1 (2.0-8.3) x10*3/uL Absolute Nucleated RBC 0.000 (0.0-0.012) X10*3/uL Nucleated RBC % (auto) 0.0 (0.0-0.2) /100WBC PT 12.3 (9.9-13.0) SEC INR 1.1 (0.9-1.1) APTT 35.7 (24.1-38.0) SEC Sodium 142 (135-145) mmol/L Potassium 3.2 L (3.3-5.1) mmol/L Chloride 99 (96-108) mmol/L Carbon Dioxide 24 (22-29) mmol/L Anion Gap 22 H (12-20) BUN 9 (9-16) mg/dL Creatinine 0.64 (0.5-1.4) mg/dL Estim Creat Clear Calc 136.1 Estimated GFR > 60 Random Glucose 97 (60-115) mg/dL Calcium 8.6 D (8.4-10.2) mg/dL Total Bilirubin 0.9 (0.0-1.0) mg/dL AST 231 H (5-31) U/L ALT 154 H (0-31) U/L Alkaline Phosphatase 140 H (39-117) U/L Troponin I High Sens (<3.5-17.0) ng/L Total Protein 7.4 (6.5-8.0) g/dL Albumin 4.3 (3.5-5.0) g/dL Lipase 18 (8-78) U/L Stool Occult Blood (NEGATIVE) 07/23/21 07/23/21 Range/Units 00:24 01:28 WBC (4.8-10.8) X10*3/uL RBC (4.20-5.50) X10*6/uL Hgb (12.0-16.0) g/dl Hct (37.0-47.0) % MCV (80.0-98.0) fL MCH (27.0-33.0) pg MCHC (31.0-35.0) g/dl RDW (11.0-16.0) % Plt Count (160-400) X10*3/uL MPV (9.4-12.3) fL Immature Gran % (Auto) (0.0-0.4) % Neut % (Auto) (45-73) % Lymph % (Auto) (20-40) % [place] % (Auto) (2-11) % Eos % (Auto) (0-4) % Baso % (Auto) (0-2) % Lymph # (Auto) (1.2-4.9) X10*3/uL [place] # (Auto) (0.1-1.2) X10*3/uL Eos # (Auto) (0.0-0.4) X10*3/uL Baso # (Auto) (0.0-0.2) X10*3/uL Abs Immat Gran (auto) (0.00-0.03) X10*3/uL Absolute Neuts (auto) (2.0-8.3) x10*3/uL Absolute Nucleated RBC (0.0-0.012) X10*3/uL Nucleated RBC % (auto) (0.0-0.2) /100WBC PT (9.9-13.0) SEC INR (0.9-1.1) APTT (24.1-38.0) SEC Sodium (135-145) mmol/L Potassium (3.3-5.1) mmol/L Chloride (96-108) mmol/L Carbon Dioxide (22-29) mmol/L Anion Gap (12-20) BUN (9-16) mg/dL Creatinine (0.5-1.4) mg/dL Estim Creat Clear Calc Estimated GFR Random Glucose (60-115) mg/dL Calcium (8.4-10.2) mg/dL Total Bilirubin (0.0-1.0) mg/dL AST (5-31) U/L ALT (0-31) U/L Alkaline Phosphatase (39-117) U/L Troponin I High Sens 9.5 (<3.5-17.0) ng/L Total Protein (6.5-8.0) g/dL Albumin (3.5-5.0) g/dL Lipase (8-78) U/L Stool Occult Blood NEGATIVE (NEGATIVE) ECG Data Interpretation: Sinus tachycardia. Ventricular rate 122. Ferritin 142. QRS 96 QTC 481. Negative STEMI Discharge Plan Discharge Clinical Impression: Alcohol withdrawal Patient Disposition: Still a Patient Prescriptions: No Action hydrochlorothiazide 25 mg tablet 12.5 mg PO DAILY Qty: 28 6RF Hold Instructions: Dose Change amlodipine 2.5 mg tablet 2.5 mg PO DAILY Qty: 90 3RF cetirizine 10 mg tablet 10 mg PO DAILY Qty: 90 3RF cholecalciferol (vitamin D3) 25 mcg (1,000 unit) capsule 25 mcg PO DAILY Qty: 90 3RF oxycodone 5 mg tablet 5 mg PO Q6H PRN (Reason: Pain, Moderate (Pain Scale 4-6) 7 Days Qty: 28 0RF amoxicillin 500 mg tablet 2,000 mg PO ONCE 1 Days Qty: 4 3RF Rx Instructions: take 4 capsules 1 hr prior to dental procedure clonidine HCl 0.2 mg Tablet 0.2 mg PO TID 0RF cyanocobalamin (vitamin B-12) [Vitamin B-12] 5,000 mcg Tablet, Sublingual 5,000 mcg SUBLINGUAL DAILY 0RF magnesium oxide 400 mg magnesium Capsule 400 mg PO BEDTIME 0RF hydroxyzine pamoate [Vistaril] 25 mg Capsule 25 mg PO BID PRN (Reason: Anxiety) 0RF Label Comments: 1 or 2 BID for anxiety-new med given to me by my psychiatrist docusate sodium 100 mg Capsule 100 mg PO BID 14 Days Qty: 28 0RF celecoxib 200 mg Capsule 200 mg PO BID 30 Days Qty: 60 0RF aspirin 325 mg Tablet 325 mg PO BID@1000,2200 28 Days Qty: 56 0RF acetaminophen 325 mg Tablet 650 mg PO Q6H PRN (Reason: Pain, Mild (Pain Scale 1-3)) 30 Days Qty: 240 0RF trazodone 100 mg tablet 300 mg PO BEDTIME 0RF aripiprazole 20 mg tablet 20 mg PO DAILY 0RF amitriptyline 100 mg tablet 100 mg PO BEDTIME 0RF acamprosate 333 mg tablet,delayed release (DR/EC) 666 mg PO TID 0RF
[2021-07-23 00:52] LABS: INTERNATIONAL NORM RATIO 1.1 (0.9-1.1); Prothrombin Time 12.3 SEC (9.9-13.0)
[2021-07-23 00:55] LABS: Partial Thromboplastin Time 35.7 SEC (24.1-38.0)
[2021-07-23 00:56] LABS: Troponin-I High Sensitivity 9.5 ng/L (<3.5-17.0)
[2021-07-23 01:23] LABS: Lipase 18 U/L (8-78)
[2021-07-23 01:32] LABS: OBS Int Ctl Valid YES; OBS1 NEGATIVE (NEGATIVE)
[2021-07-23] MEDS: LORazepam 2 MG/ML VIAL IVPUSH ×2 (01:38→03:22)
[2021-07-23] MEDS: 0.9 % Sodium Chloride 1,000 ML 999 ML IV ×2 (01:39→01:43)
[2021-07-23] MEDS: iohexoL 350 MG/ML 100 ML INFUS..BTL 85 ML IV (03:10)
[2021-07-23] MEDS: Potassium Chloride Packet 20 MEQ PACKET 40 MEQ PO (03:21)
[2021-07-23 03:35] LABS: HCG Quantitative < 2 mIU/mL
[2021-07-23 03:54] LABS: Basophils Percent Auto 0.6 % (0-2); Eosinophils Percent Auto 0.4 % (0-4); Hematocrit 39.1 % (37.0-47.0); Hemoglobin 13.3 g/dl (12.0-16.0); Imm Gran Abs Auto 0.02 X10*3/uL (0.00-0.03); Imm Gran Pct Auto 0.4 % (0.0-0.4); Lymphocytes Absolute Auto 1.3 X10*3/uL (1.2-4.9); MANUAL DIFF FLAG NO; Mean Corpuscular Hemoglobin 31.1 pg (27.0-33.0); Mean Corpuscular Volume 91.6 fL (80.0-98.0); Mean Platelet Volume 8.8 fL (9.4-12.3); Monocytes Absolute Auto 0.3 X10*3/uL (0.1-1.2); Monocytes Percent Auto 6.3 % (2-11); Neutrophils Absolute Auto 3.6 x10*3/uL (2.0-8.3); Neutrophils Percent Auto 68.3 % (45-73); Platelet Count 133 X10*3/uL (160-400); Red Blood Count 4.27 X10*6/uL (4.20-5.50); Red Cell Distribution Width 14.3 % (11.0-16.0); White Blood Count 5.3 X10*3/uL (4.8-10.8)
[2021-07-23 04:13] LABS: Troponin-I High Sensitivity 10.5 ng/L (<3.5-17.0)
[2021-07-23 04:42] LABS: B Type Natriuretic Peptide < 10 pg/mL (<100)
[2021-07-23 06:30] LABS: VBG Base Excess 1.5 mmol/L; VBG HCO3 24 mmol/L (22-26); VBG pCO2 32 mmHg; VBG pH 7.47 (7.32-7.43); VBG pO2 105 mmHg
[2021-07-23 06:33] LABS: Venous Blood Gas Refer to POC result
[2021-07-23 06:39] LABS: COVID-19 Test Negative (Negative); IDNOW Serial# 08D9AD1C; Influenza A Negative (Negative); Influenza B2 Negative (Negative)
[2021-07-23 06:56] LABS: D Dimer High Sensitivity 365 NG/ML
--- NOTE | 2021-07-23 07:26 | PC.NURSE ---
Pt placed on room air per provider request. Pts O2 dropped to 89% when she was removed and fell asleep. MD at bedside. Respiratory called for ordered ABG on pt.
[2021-07-23 07:41] LABS: ABG HCO3 27 mmol/L (22-26); ABG pCO2 38 mmHg (32-45); ABG pH 7.44 (7.35-7.45); ABG pO2 64 mmHg (83-108)
--- NOTE | 2021-07-23 08:14 | PC.NURSE ---
pt heading to nuc med for ordered scan.
[2021-07-23 09:15] LABS: ABG Refer to POC result
[2021-07-23] MEDS: PHENobarbitaL 200 MG, PHENobarbitaL 60 MG, PHENobarbitaL 15 MG 275 MG PO (11:02)
[2021-07-23 11:03] LABS: Magnesium 1.7 mg/dL (1.6-2.6)
--- NOTE | 2021-07-23 11:21 | P.HPHOSP_ITS ---
History of Present Illness Date of Service: 07/23/21 Chief Complaint: vomiting This is a 50 yo F with a PMH as outlined below who presents to the ED from [facility] after she has an episode of coffee ground emesis during the evening/night prior to admission. The patient had checked her-self into alcohol rehab when this occurred. She reports that she has been drinking about 20 nips of vodka for the last 2 months. She reports mild prior alcohol withdrawal symptoms but never any seizures nor DTs. She reports that she had a 3 year period of sobriety, but started drinking again late last year and heavily for the last several months. Upon arrival to the ED -- the patient was evaluated for a upper GI bleed. A s tool occult test was negative. Her H/H was relatively stable x 2. She was given symptomatic treatment including antiemetics, H2 blockers and several doses of ativan. She was observed in the ED overnight, but this AM she had several readings of low oxygenation saturation. She started exhibiting signs of alcohol withdrawal including tachycardia, elevated BP, dizziness/lightheadedness. Her CIWA scale started to increase. She was placed on phenobarbital protocol for this. For her hypoxia, a VQ was completed which was read as normal. She has been placed on oxygen and now ill be admitted for further management. COVID vaccination status: Moderna x 3 Review of Systems Review of Systems: negative except HPI [facility] Medical History (Updated 07/23/21 @ 10:14 by Fidencio Medina MD) Allergic rhinitis Anxiety Back pain Bipolar disorder Depression ETOH abuse HTN (hypertension) Opiate abuse, continuous Osteoarthritis of left knee Polysubstance abuse Tachycardia Family History Mother Cervical cancer Sister Cervical cancer Surgical History (Updated 12/18/20 @ 07:23 by Evin Fish PA-C) H/O foot surgery H/O: hysterectomy History of back surgery History of carpal tunnel surgery Social History (Updated 07/23/21 @ 11:39 by Jett Gould MD) Housing: Apartment Are you a primary personal care home administrator to a significant other at home: No Do you presently have visiting nurse or other home services: No Alcohol intake: current Alcohol intake frequency: 3 or more drinks per day Alcohol type: hard liquor Patient Tobacco Use Status: Former Tobacco user Quit Date: 07/2020 Tobacco use type: Cigarette e-Cigarette/Vaping Use: Former Use (July 2020) Advance Directives: No Patient : No service: No Current occupational status: unemployed Meds Allergies Allergy/AdvReac Type Severity Reaction Status Date / Time Vicodin Allergy Severe hives Verified 12/17/20 08:38 Active Medications: Current Medications Magnesium Oxide (Magnesium Oxide 400 Mg Tablet) 400 mg [facility] [place] Omeprazole (Omeprazole 40 Mg Capsule.Dr) 40 mg PO BID@0630,1630 [facility] Ondansetron HCl (Ondansetron Hcl 4 Mg/2 Ml Vial) 4 mg IVPUSH Q8H PRN PRN Reason: Nausea and Vomiting Pantoprazole Sodium (Pantoprazole Sodium 40 Mg/10 Ml Vial) 40 mg IVPUSH ONCE ONE Stop: 07/23/21 11:16 Pharmacy Consult (Consult Rx Etoh Phenob Po Dose) 1 each MISCELLANE ONCE PRN; Protocol PRN Reason: Consult order Pharmacy Consult (Consult Rx Perform Med Rec) 1 each MISCELLANE ONCE PRN PRN Reason: Consult order Phenobarbital (Phenobarbital 15 Mg Tablet) 45 mg PO BID@1100,2300 [facility] Stop: 07/25/21 11:01 Phenobarbital (Phenobarbital 15 Mg Tablet) 15 mg PO BID@1100,2300 [facility] Stop: 07/27/21 11:01 Phenobarbital (Phenobarbital 15 Mg Tablet) 15 mg PO BEDTIME [facility] Stop: 07/28/21 21:01 Phenobarbital (Phenobarbital 100 Mg Tablet) 200 mg PO Q3H [facility] Stop: 07/23/21 17:01 Sodium Chloride (0.9 % Sodium Chloride Flush 3 Ml Syringe) 3 ml IVFLUSH QSHIFT [facility] Home Medications Medication Instructions Recorded Confirmed Last Taken Type acamprosate 333 mg tablet,delayed 666 mg PO TID 04/16/20 11/29/20 12/17/20 07:30 History release amitriptyline 100 mg tablet 100 mg PO BEDTIME 11/27/20 11/29/20 Unknown History aripiprazole 20 mg tablet 20 mg PO DAILY 11/27/20 11/29/20 12/17/20 07:30 Hi story trazodone 100 mg tablet 300 mg PO BEDTIME 11/27/20 11/29/20 Unknown History clonidine HCl 0.2 mg tablet 0.2 mg PO TID 11/29/20 11/29/20 12/17/20 07:30 History cyanocobalamin (vitamin B-12) 5,000 mcg SUBLINGUAL DAILY 11/29/20 11/29/20 Unknown History 5,000 mcg sublingual tablet (Vitamin B-12) magnesium oxide 400 mg PO BEDTIME 11/29/20 11/29/20 Unknown History hydroxyzine pamoate 25 mg capsule 25 mg PO BID PRN 12/11/20 12/11/20 12/17/20 07:30 History (Vistaril) Physical Exam Vital Signs and Narrative: Vital Signs: Last Vital Signs Temp 98.4 F 07/23/21 06:27 Pulse 115 H 07/23/21 10:00 Resp 22 H 07/23/21 10:00 BP 145/98 H 07/23/21 10:00 Pulse Ox 99 07/23/21 10:00 BMI result Body Mass Index 42.2 Const: Other: Constitutional - Awake and Alert, tremulous Eyes - PERRLA, EOMI, b/l conjunctival hyperemia without any discharge Cardiovascular - S1S2, tachycardic in the 110s Respiratory - Diminished sounds without any wheezing; no accessory muscle use, mild tachypnea with rates in the low 20s Gastrointestinal - NT / ND; +BS; No rebound or guarding - No CVA tenderness Extremities - no calf tenderness bilaterally, no swelling Musculoskeletal - Normal inspection, normal ROM Skin - Warm/Dry Neurological - Alert & oriented x3, No focal deficit Psychological - Appropriate affect Results Labs CBC and Chem 7: 07/23/21 03:50 07/23/21 00:08 Labs: Laboratory Results - last 24 hr 07/23/21 07/23/21 07/23/21 00:08 00:08 00:24 MCV 90.9 MCH 30.6 MCHC 33.6 RDW 14.0 Plt Count 154 L MPV 8.9 L Immature Gran % (Auto) 0.2 Neut % (Auto) 71.2 Lymph % (Auto) 21.8 Florence % (Auto) 6.1 Eos % (Auto) 0.2 Baso % (Auto) 0.5 Lymph # (Auto) 1.3 Florence # (Auto) 0.4 Eos # (Auto) 0.0 Baso # (Auto) 0.0 Abs Immat Gran (auto) 0.01 Absolute Neuts (auto) 4.1 Absolute Nucleated RBC 0.000 Nucleated RBC % (auto) 0.0 PT 12.3 INR 1.1 APTT 35.7 D-Dimer High Sensitivty 365 O2 Saturation ABG pH at Pt Temp ABG pCO2 at Pt Temp ABG pO2 at Pt Temp ABG HCO3 ABG Base Excess (Actual) VBG pH VBG pCO2 VBG pO2 VBG HCO3 VBG O2 Saturation VBG Base Excess Anion Gap 22 H Estim Creat Clear Calc 136.1 Estimated GFR > 60 Random Glucose 97 Calcium 8.6 D Magnesium 1.7 Total Bilirubin 0.9 AST 231 H ALT 154 H Alkaline Phosphatase 140 H Troponin I High Sens B-Natriuretic Peptide Total Protein 7.4 Albumin 4.3 Lipase 18 Beta HCG, Quant < 2 Stool Occult Blood COVID-19 (ANEL) COVID-19 Clin Com Influenza Type A (STEPHEN) Influenza Type B (STEPHEN) Influenza A & B Note 07/23/21 07/23/21 07/23/21 00:24 01:28 03:50 MCV 91.6 MCH 31.1 MCHC 34.0 RDW 14.3 Plt Count 133 L MPV 8.8 L Immature Gran % (Auto) 0.4 Neut % (Auto) 68.3 Lymph % (Auto) 24.0 Florence % (Auto) 6.3 Eos % (Auto) 0.4 Baso % (Auto) 0.6 Lymph # (Auto) 1.3 Florence # (Auto) 0.3 Eos # (Auto) 0.0 Baso # (Auto) 0.0 Abs Immat Gran (auto) 0.02 Absolute Neuts (auto) 3.6 Absolute Nucleated RBC 0.000 Nucleated RBC % (auto) 0.0 PT INR APTT D-Dimer High Sensitivty O2 Saturation ABG pH at Pt Temp ABG pCO2 at Pt Temp ABG pO2 at Pt Temp ABG HCO3 ABG Base Excess (Actual) VBG pH VBG pCO2 VBG pO2 VBG HCO3 VBG O2 Saturation VBG Base Excess Anion Gap Estim Creat Clear Calc Estimated GFR Random Glucose Calcium Magnesium Total Bilirubin AST ALT Alkaline Phosphatase Troponin I High Sens 9.5 B-Natriuretic Peptide Total Protein Albumin Lipase Beta HCG, Quant Stool Occult Blood NEGATIVE COVID-19 (ANEL) COVID-19 Clin Com Influenza Type A (STEPHEN) Influenza Type B (STEPHEN) Influenza A & B Note 07/23/21 07/23/21 07/23/21 03:50 06:15 06:15 MCV MCH MCHC RDW Plt Count MPV Immature Gran % (Auto) Neut % (Auto) Lymph % (Auto) Florence % (Auto) Eos % (Auto) Baso % (Auto) Lymph # (Auto) [place] # (Auto) Eos # (Auto) Baso # (Auto) Abs Immat Gran (auto) Absolute Neuts (auto) Absolute Nucleated RBC Nucleated RBC % (auto) PT INR APTT D-Dimer High Sensitivty O2 Saturation ABG pH at Pt Temp ABG pCO2 at Pt Temp ABG pO2 at Pt Temp ABG HCO3 ABG Base Excess (Actual) VBG pH VBG pCO2 VBG pO2 VBG HCO3 VBG O2 Saturation VBG Base Excess Anion Gap Estim Creat Clear Calc Estimated GFR Random Glucose Calcium Magnesium Total Bilirubin AST ALT Alkaline Phosphatase Troponin I High Sens 10.5 B-Natriuretic Peptide < 10 Total Protein Albumin Lipase Beta HCG, Quant Stool Occult Blood COVID-19 (ANEL) Negative COVID-19 Clin Com See Note Influenza Type A (STEPHEN) Negative Influenza Type B (STEPHEN) Negative Influenza A & B Note See Note 07/23/21 07/23/21 06:23 07:34 MCV MCH MCHC RDW Plt Count MPV Immature Gran % (Auto) Neut % (Auto) Lymph % (Auto) Florence % (Auto) Eos % (Auto) Baso % (Auto) Lymph # (Auto) Florence # (Auto) Eos # (Auto) Baso # (Auto) Abs Immat Gran (auto) Absolute Neuts (auto) Absolute Nucleated RBC Nucleated RBC % (auto) PT INR APTT D-Dimer High Sensitivty O2 Saturation 89.0 ABG pH at Pt Temp 7.44 ABG pCO2 at Pt Temp 38 ABG pO2 at Pt Temp 64 L ABG HCO3 27 H ABG Base Excess (Actual) 3.0 VBG pH 7.47 H VBG pCO2 32 VBG pO2 105 VBG HCO3 24 VBG O2 Saturation 99.0 VBG Base Excess 1.5 Anion Gap Estim Creat Clear Calc Estimated GFR Random Glucose Calcium Magnesium Total Bilirubin AST ALT Alkaline Phosphatase Troponin I High Sens B-Natriuretic Peptide Total Protein Albumin Lipase Beta HCG, Quant Stool Occult Blood COVID-19 (ANEL) COVID-19 [employer] Com Influenza Type A (STEPHEN) Influenza Type B (STEPHEN) Influenza A & B Note Imaging Radiologist's Impressions: Impressions Abdomen/Pelvis CT 07/23/21 03:11 IMPRESSION: No acute findings identified in the abdomen/pelvis. Hepatic steatosis. Fleischner guidelines were followed. Chest X-Ray 07/23/21 05:05 IMPRESSION: No acute cardiopulmonary findings. Pulmonary Perfusion Imaging 07/23/21 08:30 IMPRESSION: Normal radionuclide lung perfusion scan. Assessment and Plan (1) Alcohol withdrawal: Qualifiers: Complication of substance-induced condition: uncomplicated Qualified Code(s): F10.230 - Alcohol dependence with withdrawal, uncomplicated Status: Acute Plan This is a 50 yo F with a PMH of heavy alcohol use and dependence, tobacco use, HTN who presents to the ED after being sent from [facility] for reported coffee ground emesis. She is now in alcohol withdrawal which has not responded to 2 dose of IV ativan and librum. She has been started on phenobarbital. Furthermore, she was incidentally found to be hypoxic. She will be admitted for further work up and treatment. 1. Alcohol dependence and withdrawal Continue Phenobarb per protocol; continue with CIWA monitoring monitor lytes MVI/Thiamin/Folate Alcohol cessation has been strongly advised 2. Acute Respiratory Failure with Hypoxia No evidence of pneumonia / CHF / PE on work up suspect secondary to undiagnosed COPD / obesity hypoventilation syndrome continue O2 by HI hold off steroids as no active wheezing; use scheduled bronchodilators for now 3. 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 HTN BP meds once med rec completed Full Code DVT pptx, mechanical due to reported coffee grounds Endorses her twin sister as HCP In light of the patients multiple active issues (Alcohol withdrawal, respiratory failure, alcoholic gastritis) all of which will require treatment and/or further work up as well as monitoring for response, I anticipate a medically necessary, inpatient hospitalization spanning at least 2 midnights. This cannot be completed in a less acute setting. Quality Stroke Does the patient have a stroke diagnosis?: No VTE Prior VTE?: No VTE Risk Level:: Medical - moderate - high VTE Device Contraindication: N/A - Device Ordered VTE Drug Contraindication: Treatment Not Indicated
--- NOTE | 2021-07-23 12:10 | PHA.MEDREC ---
Pharmacy Consult ? Medication Reconciliation Pharmacy has completed the medication reconciliation. Pt stated that she has not taken her acamprosate because it gives her diarrhea, requested imodium. Janet Skinner, PharmD
[2021-07-23] MEDS: Pantoprazole Sodium 40 MG/10 ML VIAL IVPUSH (12:20)
[2021-07-23] MEDS: amLODIPine Besylate 2.5 MG TABLET PO (14:34)
[2021-07-23] MEDS: Loperamide HCl 2 MG CAPSULE PO (14:35)
[2021-07-23] MEDS: 0.9 % Sodium Chloride Flush 3 ML SYRINGE IVFLUSH ×2 (14:35→20:13)
[2021-07-23] MEDS: Omeprazole 40 MG CAPSULE.DR PO (14:35)
[2021-07-23] MEDS: Gabapentin 100 MG CAPSULE PO ×2 (14:35→20:13)
[2021-07-23] MEDS: Magnesium Oxide 400 MG TABLET PO (17:08)
--- NOTE | 2021-07-23 19:21 | MHC.CM.PN ---
CM met with admitted patient with bed assignment. IMM 07/23. HCP completed. HCP/grandmother Deshawn Mansfield ([phone]). Vax/boosted Moderna. Lives alone. Came from detox at [facility]. Now in ETOH withdrawl. Pt aware that recovery team/CARE will see her during hospital stay. Pt states she will go home at discharge and call detox herself. States she needs clothes to go to detox again. D/C plan: Home without services. Pt to arrange transportation home. CM to follow for d/c needs.
[2021-07-23] MEDS: Amitriptyline HCl 50 MG TABLET 200 MG PO (20:13)
[2021-07-23] MEDS: traZODone HCL 100 MG TABLET 300 MG PO (20:13)
[2021-07-23] MEDS: PHENobarbitaL 15 MG TABLET 45 MG PO (22:50)
[2021-07-24 04:00] VITALS: BP 128/79; PULSE 111; RESP 15; TEMP 36.7; O2SAT 98
[2021-07-24] MEDS: Omeprazole 40 MG CAPSULE.DR PO ×2 (05:05→15:56)
[2021-07-24 07:25] VITALS: BP 119/85; PULSE 110; RESP 19; TEMP 37.8; O2SAT 97
[2021-07-24 07:39] LABS: Alanine Aminotransferase 83 U/L (0-31); Albumin Level 3.6 g/dL (3.5-5.0); Alkaline Phosphatase 109 U/L (39-117); Anion Gap 13 (12-20); Aspartate Amino Transferase 66 U/L (5-31); Bilirubin Direct 0.7 mg/dL (0.0-0.5); Bilirubin Total 1.4 mg/dL (0.0-1.0); Blood Urea Nitrogen 11 mg/dL (9-16); Calcium 8.1 mg/dL (8.4-10.2); Carbon Dioxide 28 mmol/L (22-29); Chloride 96 mmol/L (96-108); Creatinine Clr Calc Pharmacy 145.1; Estimated Glomerular Filt Rate > 60; Glucose Random 87 mg/dL (60-115); Potassium 3.2 mmol/L (3.3-5.1); Sodium 134 mmol/L (135-145); Total Protein 5.9 g/dL (6.5-8.0)
[2021-07-24 09:06] LABS: Hematocrit 38.5 % (37.0-47.0); Hemoglobin 12.6 g/dl (12.0-16.0); Mean Corpuscular HGB Conc 32.7 g/dl (31.0-35.0); Mean Corpuscular Hemoglobin 30.9 pg (27.0-33.0); Mean Corpuscular Volume 94.4 fL (80.0-98.0); Mean Platelet Volume 10.5 fL (9.4-12.3); Platelet Count 111 X10*3/uL (160-400); Red Blood Count 4.08 X10*6/uL (4.20-5.50); Red Cell Distribution Width 13.4 % (11.0-16.0); White Blood Count 5.8 X10*3/uL (4.8-10.8)
[2021-07-24] MEDS: Loratadine 10 MG TABLET PO (09:47)
[2021-07-24] MEDS: Folic Acid 1 MG TABLET PO (09:47)
[2021-07-24] MEDS: Thiamine HCL 100 MG TABLET PO (09:47)
[2021-07-24] MEDS: Magnesium Oxide 400 MG TABLET PO ×2 (09:47→15:56)
[2021-07-24] MEDS: amLODIPine Besylate 2.5 MG TABLET PO (09:47)
[2021-07-24] MEDS: Cholecalciferol (Vitamin D3) 25 MCG TABLET PO (09:47)
[2021-07-24] MEDS: ARIPiprazole 20 MG TABLET PO (09:47)
[2021-07-24] MEDS: Potassium Chloride ER 20 MEQ TAB.ER.PRT 40 MEQ PO (09:47)
[2021-07-24] MEDS: Gabapentin 100 MG CAPSULE PO ×3 (09:47→20:06)
[2021-07-24] MEDS: PHENobarbitaL 15 MG TABLET 45 MG PO ×2 (09:48→22:31)
[2021-07-24] MEDS: 0.9 % Sodium Chloride Flush 3 ML SYRINGE IVFLUSH ×3 (09:48→20:10)
[2021-07-24] MEDS: Cyanocobalamin (Vitamin B-12) 1,000 MCG TABLET 5000 MCG PO (09:48)
[2021-07-24 11:28] VITALS: BP 115/80; PULSE 104; RESP 19; TEMP 37.3; O2SAT 97
[2021-07-24] MEDS: Sulfacetamide Sodium 10 % Oph 15 ML DRBTL 2 DROP EYE-BOTH ×4 (11:45→20:07)
--- NOTE | 2021-07-24 12:34 | HO.PM.IMPN ---
Subjective Subjective Date of Service: 07/24/21 Interval History: complaining of bilateral eye discomfort, no vision impairment no pain in moving eye ball, denies headache, denies fever chills, feels less tremulous, vitals shows persistent tachycardia, BP improved, no acute events overnight, no further episodes of coffee-ground emesis, feels hungry. 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 S1S2, tachycardic in the 110s Respiratory - Diminished breath sounds, no wheeze, no crackles Gastrointestinal -? abdomen soft, nontender, +BS; No rebound or guarding Extremities - no calf tenderness bilaterally, no swelling Musculoskeletal - Normal inspection, normal ROM Skin - Warm/Dry Neurological -? Alert & oriented x3, No focal deficit noted, no tremors. Psychological - Appropriate affect Objective Data Active Medications Amitriptyline HCl (Amitriptyline Hcl 50 Mg Tablet) 200 mg PO BEDTIME COUNT INCLUDES THE [facility] Last Admin: 07/23/21 20:13 Dose: 200 mg Documented by: RAMYA Amlodipine Besylate (Amlodipine Besylate 2.5 Mg Tablet) 2.5 mg PO DAILY COUNT INCLUDES THE [facility]; Protocol Last Admin: 07/24/21 09:47 Dose: 2.5 mg Documented by: JONH Aripiprazole (Aripiprazole 20 Mg Tablet) 20 mg PO DAILY COUNT INCLUDES THE [facility] Last Admin: 07/24/21 09:47 Dose: 20 mg Documented by: JONH Cyanocobalamin (Cyanocobalamin (Vitamin B-12) 1,000 Mcg Tablet) 5,000 mcg PO DAILY COUNT INCLUDES THE [facility] Last Admin: 07/24/21 09:48 Dose: 5,000 mcg Documented by: JONH Folic Acid (Folic Acid 1 Mg Tablet) 1 mg PO DAILY COUNT INCLUDES THE [facility] Last Admin: 07/24/21 09:47 Dose: 1 mg Documented by: JONH Gabapentin (Gabapentin 100 Mg Capsule) 100 mg PO TID COUNT INCLUDES THE [facility] Last Admin: 07/24/21 09:47 Dose: 100 mg Documented by: JONH Hydroxyzine HCl (Hydroxyzine Hcl 25 Mg Tablet) 25 mg PO BID PRN PRN Reason: Anxiety Loperamide HCl (Loperamide Hcl 2 Mg Capsule) 2 mg PO Q6H PRN PRN Reason: Diarrhea Last Admin: 07/23/21 14:35 Dose: 2 mg Documented by: LUIZ Loratadine (Loratadine 10 Mg Tablet) 10 mg PO DAILY COUNT INCLUDES THE [facility] Last Admin: 07/24/21 09:47 Dose: 10 mg Documented by: JONH Magnesium Oxide (Magnesium Oxide 400 Mg Tablet) 400 mg PO BIDPC COUNT INCLUDES THE [facility] Last Admin: 07/24/21 09:47 Dose: 400 mg Documented by: JONH Omeprazole (Omeprazole 40 Mg Capsule.Dr) 40 mg PO BID@0630,1630 COUNT [facility]CLUDES THE [facility] Last Admin: 07/24/21 05:05 Dose: 40 mg Documented by: RAMYA Ondansetron HCl (Ondansetron Hcl 4 Mg/2 Ml Vial) 4 mg IVPUSH Q8H PRN PRN Reason: Nausea and Vomiting Pharmacy Consult (Consult Rx Etoh Phenob Po Dose) 1 each MISCELLANE ONCE PRN; Protocol PRN Reason: Consult order Pharmacy Consult (Consult Rx Perform Med Rec) 1 each MISCELLANE ONCE PRN PRN Reason: Consult order Phenobarbital (Phenobarbital 15 Mg Tablet) 45 mg PO BID@1100,2300 [facility]CLUDES [facility] Stop: 07/25/21 11:01 Last Admin: 07/24/21 09:48 Dose: 45 mg Documented by: JONH Phenobarbital (Phenobarbital 15 Mg Tablet) 15 mg PO BID@1100,2300 [facility]CLUD[facility] Stop: 07/27/21 11:01 Phenobarbital (Phenobarbital 15 Mg Tablet) 15 mg PO BEDTIME COUNT INCLUDES THE [facility] Stop: 07/28/21 21:01 Sodium Chloride (0.9 % Sodium Chloride Flush 3 Ml Syringe) 3 ml IVFLUSH QSHIFT COUNT INCLUDES THE [facility] Last Admin: 07/24/21 09:48 Dose: 3 ml Documented by: JONH Sulfacetamide Sodium (Sulfacetamide Sodium 10 % Oph 15 Ml Drbtl) 2 drop EYE-BOTH Q3H COUNT INCLUDES THE [facility] Last Admin: 07/24/21 11:45 Dose: 2 drop Documented by: JONH Thiamine HCl (Thiamine Hcl 100 Mg Tablet) 100 mg PO DAILY COUNT INCLUDES THE [facility] Last Admin: 07/24/21 09:47 Dose: 100 mg Documented by: JONH Trazodone HCl (Trazodone Hcl 100 Mg Tablet) 300 mg PO BEDTIME COUNT INCLUDES THE [facility] Last Admin: 07/23/21 20:13 Dose: 300 mg Documented by: RAMYA Vitamin D (Cholecalciferol (Vitamin D3) 25 Mcg Tablet) 25 mcg PO DAILY COUNT INCLUDES THE [facility] Last Admin: 07/24/21 09:47 Dose: 25 mcg Documented by: JONH Labs CBC & Chem 7: 07/24/21 06:35 07/24/21 06:35 Labs: Laboratory Results - last 24 hr 07/24/21 07/24/21 07/24/21 06:35 06:35 06:35 MCV 94.4 MCH 30.9 MCHC 32.7 RDW 13.4 Plt Count 111 L MPV 10.5 Absolute Nucleated RBC 0.000 Nucleated RBC % (auto) 0.0 Anion Gap 13 Estim Creat Clear Calc 145.1 Estimated GFR > 60 Random Glucose 87 Calcium 8.1 L Total Bilirubin 1.4 H Direct Bilirubin 0.7 H AST 66 H ALT 83 H Alkaline Phosphatase 109 D Total Protein 5.9 L D Albumin 3.6 Assessment and Plan (1) Alcohol withdrawal: Status: Acute (2) Conjunctival hyperemia of both eyes: Status: Acute Plan 50 yo F with a PMH of heavy alcohol use and dependence, tobacco use, HTN who presents to the ED after being sent from [facility] for reported coffee ground emesis. She is now in alcohol withdrawal which has not responded to 2 dose of IV ativan and librum. She has been started on phenobarbital. Furthermore, she was incidentally found to be hypoxic. She will be admitted for further work up and treatment. 1. Alcohol dependence and withdrawal feels better less tremulous, heart rate improving Continue Phenobarb per protocol; continue with CIWA monitoring Continue MVI/Thiamin/Folate Alcohol cessation has been strongly advised, will obtain care team consult 2. Acute Respiratory Failure with Hypoxia likely secondary to obesity hypoventilation syndrome/ undiagnosed COPD, No evidence of pneumonia / CHF / PE on work up on O2 by NC, wean as tolerated encourage incentive spirometry 3. coffee-ground emesis likely due to alcoholic gastritis no evidence of acute blood loss anemia / no recurrent episodes of vomiting, will advance diet to regular, continue oral PPI 4. Alcohol liver disease evidence seen on CT imaging, LFTs trending down no nausea no vomiting no further workup recommend to abstain from alcohol 5. HTN continue home meds BP stable 6. hypokalemia will replete and follow labs 7.mood disorder continue trazodone, Abilify, and amitriptyline 8. bilateral eye redness likely conjunctivitis will place on antibiotic eyedrops follow clinical course closely, recommend outpatient follow-up with opthalmology. Full Code DVT pptx, mechanical due to reported coffee grounds will need continued inpatient hospitalization due to multiple medical issues including Alcohol withdrawal, respiratory failure, alcoholic gastritis , hypokalemia will require treatment and monitoring for response that cannot be done at home setting. Quality Stroke Does the patient have a stroke diagnosis?: No VTE Prior VTE?: No VTE Risk Level:: Medical - moderate - high VTE Device Contraindication: N/A - Device Ordered VTE Drug Contraindication: Treatment Not Indicated
[2021-07-24 15:48] VITALS: BP 114/86; PULSE 99; RESP 19; TEMP 37.6; O2SAT 96
[2021-07-24 19:56] VITALS: BP 124/83; PULSE 102; RESP 17; TEMP 36.1; O2SAT 98
[2021-07-24] MEDS: traZODone HCL 100 MG TABLET 300 MG PO (20:06)
[2021-07-24] MEDS: Amitriptyline HCl 50 MG TABLET 200 MG PO (20:06)
--- NOTE | 2021-07-24 20:25 | MHC.RECOVSUP ---
? Reason for consult:Recovery Support o ? ? ?Current location: [facility]? o ? ? ?Identified substance use concern: Alcohol? - Withdrawal - Support ? ?Intervention: Office Services Clerk o Community resources provided o Harm reduction discussion ? Additional information:?I was able to connect with patient, she is a 50 year old single woman with an CARL to alcohol. Patient lives alone in an apartment in [place] and was able to obtain 3 years of sobriety. Patient had a recent reoccurrence and was in need of medical assistance for detox along with other health issues. Patient also shared that she wasn't active with a recovery pathway and thought she can do this on her own. I was able to review harm reduction strategies and submit a referral for a Office Services Clerk.
[2021-07-24 23:47] VITALS: BP 135/85; PULSE 68; RESP 20; TEMP 37.3; O2SAT 96
[2021-07-25 04:00] VITALS: BP 121/86; PULSE 107; RESP 20; TEMP 36.8; O2SAT 95
[2021-07-25] MEDS: Omeprazole 40 MG CAPSULE.DR PO (05:39)
[2021-07-25] MEDS: Sulfacetamide Sodium 10 % Oph 15 ML DRBTL 2 DROP EYE-BOTH ×3 (05:39→11:37)
[2021-07-25 07:00] LABS: Hematocrit 38.7 % (37.0-47.0); Mean Corpuscular HGB Conc 33.6 g/dl (31.0-35.0); Mean Corpuscular Hemoglobin 31.2 pg (27.0-33.0); Mean Corpuscular Volume 92.8 fL (80.0-98.0); Mean Platelet Volume 10.2 fL (9.4-12.3); Platelet Count 106 X10*3/uL (160-400); Red Blood Count 4.17 X10*6/uL (4.20-5.50); Red Cell Distribution Width 13.2 % (11.0-16.0); White Blood Count 4.5 X10*3/uL (4.8-10.8)
[2021-07-25 07:23] VITALS: BP 135/81; PULSE 117; RESP 19; TEMP 36.4; O2SAT 94
[2021-07-25 07:26] LABS: Anion Gap 12 (12-20); Blood Urea Nitrogen 6 mg/dL (9-16); Calcium 8.7 mg/dL (8.4-10.2); Carbon Dioxide 27 mmol/L (22-29); Chloride 98 mmol/L (96-108); Creatinine Clr Calc Pharmacy 140.4; Estimated Glomerular Filt Rate > 60; Glucose Random 134 mg/dL (60-115); Sodium 134 mmol/L (135-145)
[2021-07-25] MEDS: Cyanocobalamin (Vitamin B-12) 1,000 MCG TABLET 5000 MCG PO (08:43)
[2021-07-25] MEDS: 0.9 % Sodium Chloride Flush 3 ML SYRINGE IVFLUSH (08:43)
[2021-07-25] MEDS: Gabapentin 100 MG CAPSULE PO ×2 (08:44→13:30)
[2021-07-25] MEDS: Cholecalciferol (Vitamin D3) 25 MCG TABLET PO (08:44)
[2021-07-25] MEDS: Magnesium Oxide 400 MG TABLET PO (08:44)
[2021-07-25] MEDS: Thiamine HCL 100 MG TABLET PO (08:44)
[2021-07-25] MEDS: ARIPiprazole 20 MG TABLET PO (08:44)
[2021-07-25] MEDS: Folic Acid 1 MG TABLET PO (08:48)
[2021-07-25] MEDS: Loratadine 10 MG TABLET PO (08:48)
[2021-07-25] MEDS: amLODIPine Besylate 2.5 MG TABLET PO (08:48)
[2021-07-25 09:00] VITALS: O2SAT 96
[2021-07-25 11:23] VITALS: BP 134/88; PULSE 101; RESP 18; TEMP 36.6; O2SAT 94
--- NOTE | 2021-07-25 11:35 | MHC.RECOVRN ---
Met with pt in 472 on 07/24 after consult placed to CARE Team. Pt sitting in bed, awake, alert, watching TV. Pt reports drinking alcohol, approx 20 nips daily x 2-3 months. Prior to that, pt reports 3 years of recovery. Pt denies other substances. During recovery, pt utilized AA and would like to return and obtain a sponsor. Pt interested in Nurse Anesthesia Program Director (was seen yesterday evening by motorcoach operator). In the past, pt had been prescribed acamprosate and felt it was helpful until it started giving me diarrhea. Pt interested in naltrexone initiation if possible. Discussed and provided pt with other recovery supports and resources, declines other referrals at this time. Pt also provided with t/w contact information if needed. Discussed with Lexi Perla APRN.
[2021-07-25] MEDS: PHENobarbitaL 15 MG TABLET 45 MG PO (11:36)
--- NOTE | 2021-07-25 12:37 | MHC.CM.PN ---
Patient has been medically cleared for dc to home today, self care. Last IMM addressed on 07/23/21.
--- NOTE | 2021-07-25 13:15 | P.DS_ITS ---
DS: Providers Provider Date of Service: 07/25/21 Date of admission: 07/23/21 11:15 Primary care physician: Henny Huff MD Consults: 07/24/21 08:06 Consult to Care Team Routine Comment: Reason for consultation: etoh DS: Diagnosis Discharge Diagnosis (1) Alcohol withdrawal: Status: Acute (2) Conjunctival hyperemia of both eyes: Status: Acute DS: Summary Hospital Course Hospital Course: Chief Complaint: vomiting This is a 50 yo F with a PMH as outlined below who presents to the ED from [facility] after she has an episode of coffee ground emesis during the evening/night prior to admission. The patient had checked her-self into alcohol rehab when this occurred. She reports that she has been drinking about 20 nips of vodka for the last 2 months. She reports mild prior alcohol withdrawal symptoms but never any seizures nor DTs. She reports that she had a 3 year period of sobriety, but started drinking again late last year and heavily for the last several months. Upon arrival to the ED -- the patient was evaluated for a upper GI bleed. A stool occult test was negative. Her H/H was relatively stable x 2. She was given symptomatic treatment including antiemetics, H2 blockers and several doses of ativan. She was observed in the ED overnight, but this AM she had several readings of low oxygenation saturation. She started exhibiting signs of alcohol withdrawal including tachycardia, elevated BP, dizziness/lightheadedness. Her CIWA scale started to increase. She was placed on phenobarbital protocol for this. For her hypoxia, a VQ was completed which was read as normal. She has been placed on oxygen and now ill be admitted for further management. COVID vaccination status: Moderna x 3 Hospital course 50 yo F with a PMH of heavy alcohol use and dependence, tobacco use, HTN who presents to the ED after being sent from [facility] for reported coffee ground emesis. She is now in alcohol withdrawal which has not responded to 2 dose of IV ativan and librum. She has been started on phenobarbital. Furthermore, she was incidentally found to be hypoxic. She will be admitted for further work up and treatment. 1. 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 2. Acute Respiratory Failure with Hypoxia, likely secondary to obesity hypoventilation syndrome/ undiagnosed COPD, No evidence of pneumonia / CHF / PE on work up, oxygenation improved currently 96% on room air 3. Episodes of Coffee-ground emesis prior to arriving to ER, likely due to alcoholic gastritis, had no recurrent episodes, hematocrit remains stable,continue oral PPI 4. Alcohol liver disease, no nausea, no vomiting , LFTs trended down no further workup at this time, recommend to abstain from alcohol. 5. HTN ? Soft BP with hypokalemia recommend to stop hydrochlorothiazide 6. hypokalemia repleted 7.mood? disorder continue trazodone, Abilify, and amitriptyline 8. bilateral eye redness likely conjunctivitis , responded well to antibiotic eyedrops, will recommend to use moxifloxacin 1 drop 3 times a day for 5 more days, recommend ophthalmology eval if symptoms persists. Time Spent with Patient Time attestation: Total time spent providing and/or coordinating discharge services: Discharge coordination time: Greater than 30 minutes Quality: Safe Use of Opioids Does Pt have an Active Cancer Diagnosis on the Problem List?: No Quality: Stroke Does the patient have a stroke diagnosis?: No Physical Exam Vital Signs: Vital Signs: Last Vital Signs Temp 97.8 F 07/25/21 11:23 Pulse 101 H 07/25/21 11:23 Resp 18 07/25/21 11:23 BP 134/88 07/25/21 11:23 Pulse Ox 94 07/25/21 11:23 BMI result Body Mass Index 42.2 Const: Other: Constitutional - Awake and Alert, tremulous Eyes -?b/l conjunctival hyperemia significantly improved, no drainage, no vision impairment. Cardiovascular -? S1S2, tachycardia improving Respiratory - good air entry no wheeze, no rhonchi Gastrointestinal -? abdomen soft, nontender, +BS; No rebound or guarding Extremities - no calf tenderness bilaterally, no swelling Musculoskeletal - Normal inspection, normal ROM Skin - Warm/Dry Neurological -? Alert & oriented x3, No focal deficit noted, no tremors. Psychological - Appropriate affect DS: Data Data Completed and Pending Completed studies during hospitalization [Text1]: Procedures Replacement of Left Knee Joint with Synthetic Substitute, Uncemented, Open Approach (12/17/20) Labs on day of discharge: Laboratory Results - last 24 hr 07/25/21 07/25/21 06:32 06:32 WBC 4.5 L RBC 4.17 L Hgb 13.0 Hct 38.7 MCV 92.8 MCH 31.2 MCHC 33.6 RDW 13.2 Plt Count 106 L MPV 10.2 Absolute Nucleated RBC 0.000 Nucleated RBC % (auto) 0.0 Sodium 134 L Potassium 3.0 L Chloride 98 Carbon Dioxide 27 Anion Gap 12 BUN 6 L Creatinine 0.62 Estim Creat Clear Calc 140.4 Estimated GFR > 60 Random Glucose 134 H Calcium 8.7 D Discharge Plan Discharge Patient Disposition: Home, Self-Care Discharge Diagnosis: alcohol dependence and withdrawal acute respiratory failure with hypoxia bilateral conjunctivitis coffee-ground emesis hypokalemia Referrals: Henny Huff MD [Primary Care Provider] - 1 Week Discharge Medications: New omeprazole magnesium [Prilosec OTC] 20 mg tablet,delayed release (DR/EC) 20 mg PO BID Qty: 60 0RF moxifloxacin 0.5 % Drops 1 drp ophthalmic (eye) TID Qty: 3 0RF Rx Instructions: use for 5 more days Continued amlodipine 2.5 mg tablet 2.5 mg PO DAILY Qty: 90 3RF cetirizine 10 mg tablet 10 mg PO DAILY Qty: 90 3RF cholecalciferol (vitamin D3) 25 mcg (1,000 unit) capsule 25 mcg PO DAILY Qty: 90 3RF cyanocobalamin (vitamin B-12) [Vitamin B-12] 5,000 mcg Tablet, Sublingual 5,000 mcg SUBLINGUAL DAILY 0RF magnesium oxide 400 mg magnesium Capsule 400 mg PO BEDTIME 0RF hydroxyzine pamoate [Vistaril] 25 mg Capsule 25 mg PO BID PRN (Reason: Anxiety) 0RF Label Comments: 1 or 2 BID for anxiety-new med given to me by my psychiatrist gabapentin 100 mg capsule 1 cap PO TID 0RF atomoxetine 80 mg capsule 1 cap PO DAILY 0RF loperamide [Imodium A-D] 2 mg Tablet 2 mg PO Q6H PRN (Reason: Diarrhea) 0RF trazodone 100 mg tablet 300 mg PO BEDTIME 0RF aripiprazole 20 mg tablet 20 mg PO DAILY 0RF amitriptyline 100 mg tablet 200 mg PO BEDTIME 0RF Discontinued hydrochlorothiazide 25 mg tablet 12.5 mg PO DAILY Qty: 28 6RF Hold Instructions: Dose Change Discharge Orders: Discharge Order (Routine); Ordered 07/25/21 Ordered By: Jairo Todd Diet: advance to usual diet Activity on Discharge: As tolerated Stand Alone Forms: Patient Portal Discharge page Care Plan Goals: alcohol use disorder strongly recommend to follow up with motor coach driver, recommend to return to emergency room with recurrent episode of coffee ground emesis take Prilosec for gastritis, stop using hydrochlorothiazide due to soft blood pressure and low potassium, recommend complete abstinence from alcohol in regard to bilateral eye conjunctivitis take eyedrops as prescribed Health Concerns: as above Plan of Treatment: follow-up with primary care physician in 1 week Assessment: per discharge summary
[2021-07-25] MEDS: Potassium Chloride ER 20 MEQ TAB.ER.PRT 60 MEQ PO (13:30)
== END 2021-07-25 14:34 | disposition home or self-care (01) | DRG 392 ==
LOC: HO.ED 07-23 10:14 → HO.EDOVER 07-23 11:24 → HO.IMC 07-23 18:09
PROVIDERS: Internal Medicine; Physician Assistant; Student in an Organized Health Care Education/Training Program; Admitting Provider Family Medicine; Emergency Provider Emergency Medicine Emergency Medical Services; PCP Internal Medicine; Visit Provider Hospitalist
DX: K29.20 Alcoholic gastritis without bleeding (principal); F10.230 Alcohol dependence with withdrawal, uncomplicated; E66.2 Morbid (severe) obesity with alveolar hypoventilation; Z68.41 Body mass index [BMI] 40.0-44.9, adult; Z20.822 Contact with and (suspected) exposure to COVID-19; J44.9 Chronic obstructive pulmonary disease, unspecified; H11.433 Conjunctival hyperemia, bilateral; K70.9 Alcoholic liver disease, unspecified; E87.6 Hypokalemia; F32.A Depression, unspecified; Z87.891 Personal history of nicotine dependence; Z79.899 Other long term (current) drug therapy
CPT/HCPCS: 36415; 71045; 74177; 78580; 80048; 80053; 80076; 82272; 82803; 83690; 83735; 83880; 84484; 84702; 85025; 85027; 85379; 85610; 85730; 87502; 87635; 93005; 94640; 96361; 96374; 96375; 96376; 99285; A9540; J2060; J2405; Q9967

== ENCOUNTER 2022-07-08 14:15 | Outpatient (REF) | payer MEDICARE, SELFPAY | END 2022-07-08 14:16 | disposition home or self-care (01) | LOC: HO.HMGCLDS 14:15 | PROVIDERS: PCP Internal Medicine; Visit Provider Internal Medicine | DX: Z13.89 Encounter for screening for other disorder (principal) ==

== ENCOUNTER 2022-10-06 08:56 | Outpatient (REF) | payer MEDICARE, SELFPAY ==
[2022-10-06 11:23] LABS: MANUAL DIFF FLAG NO
[2022-10-06 11:39] LABS: Basophils Absolute Auto 0.1 X10*3/uL (0.0-0.2); Basophils Percent Auto 0.6 % (0-2); Eosinophils Absolute Auto 0.2 X10*3/uL (0.0-0.4); Eosinophils Percent Auto 1.8 % (0-4); Hematocrit 38.6 % (37.0-47.0); Hemoglobin 12.7 g/dl (12.0-16.0); Imm Gran Abs Auto 0.02 X10*3/uL (0.00-0.03); Imm Gran Pct Auto 0.2 % (0.0-0.4); Lymphocytes Percent Auto 36.2 % (20-40); Mean Corpuscular HGB Conc 32.9 g/dl (31.0-35.0); Mean Corpuscular Hemoglobin 29.6 pg (27.0-33.0); Mean Platelet Volume 9.6 fL (9.4-12.3); Monocytes Absolute Auto 0.6 X10*3/uL (0.1-1.2); Monocytes Percent Auto 7.8 % (2-11); Neutrophils Absolute Auto 4.4 x10*3/uL (2.0-8.3); Neutrophils Percent Auto 53.4 % (45-73); Platelet Count 315 X10*3/uL (160-400); Red Blood Count 4.29 X10*6/uL (4.20-5.50); Red Cell Distribution Width 13.4 % (11.0-16.0); White Blood Count 8.2 X10*3/uL (4.8-10.8)
[2022-10-06 12:14] LABS: B Type Natriuretic Peptide 40 pg/mL (<100)
[2022-10-06 12:30] LABS: Alanine Aminotransferase 85 U/L (0-31); Albumin Level 3.8 g/dL (3.5-5.0); Alkaline Phosphatase 156 U/L (39-117); Anion Gap 13 (12-20); Aspartate Amino Transferase 92 U/L (5-31); Bilirubin Total 0.4 mg/dL (0.0-1.0); Blood Urea Nitrogen 12 mg/dL (9-16); Calcium 9.1 mg/dL (8.4-10.2); Carbon Dioxide 24 mmol/L (22-29); Chloride 106 mmol/L (96-108); Estimated Glomerular Filt Rate > 60; Glucose Random 90 mg/dL (60-115); Magnesium 2.5 mg/dL (1.6-2.6); Potassium 4.2 mmol/L (3.3-5.1); Sodium 139 mmol/L (135-145); Total Protein 6.8 g/dL (6.5-8.0)
== END 2022-10-06 08:57 | disposition home or self-care (01) ==
LOC: HO.HMGCLDS 08:56
PROVIDERS: PCP Internal Medicine; Visit Provider Internal Medicine
DX: E87.6 Hypokalemia (principal); F31.9 Bipolar disorder, unspecified; I50.9 Heart failure, unspecified
CPT/HCPCS: 36415; 80053; 83735; 83880; 85025

== ENCOUNTER 2022-11-18 12:47 | Outpatient (AMB) | payer MEDICARE, SELFPAY ==
--- NOTE | 2022-11-18 12:54 | MHC.PC.OV ---
Vital Signs 11/18/22 12:57 Weight 223 lb BP 100/62 Blood Pressure Location Lt brachial Position Sitting Pulse 88 Pulse Source Pulse Oximeter Pulse Oximetry (%) 98 Oxygen Delivery Method Room Air Intake Visit Reasons: 3m follow up CHF, BP Allergies acetaminophen [From Vicodin] Allergy (Severe, Verified 11/18/22 12:57) Hives hydrocodone [From Vicodin] Allergy (Severe, Verified 11/18/22 12:57) Hives Medication List - Last Reconciled 11/18/22 by Henny Huff MD albuterol sulfate 90 mcg/actuation 2 puffs inhalation Q6H PRN amitriptyline 150 mg PO BEDTIME aripiprazole 20 mg PO DAILY atomoxetine 1 cap PO DAILY blood pressure kit-extra large As directed buspirone 15 mg PO BID carvedilol 3.125 mg PO BID dapagliflozin propanediol (Farxiga) 10 mg PO DAILY fluticasone propionate 50 mcg/actuation (Flonase Allergy Relief) 1 spray intranasal DAILY furosemide 40 mg PO BID gatifloxacin 0.5% 0 drps ophthalmic (eye) hydroxyzine pamoate 50 mg PO BEDTIME loperamide (Imodium A-D) 2 mg PO Q6H PRN loratadine 10 mg PO DAILY magnesium oxide 400 mg PO BEDTIME moxifloxacin 0.5% 1 drp ophthalmic (eye) TID [oximeter As directed] potassium chloride ER 20 mEq (2 x 10 mEq) PO DAILY sacubitril-valsartan 24-26 mg (Entresto) 1 tab PO BID trazodone 100 mg PO BEDTIME trifluridine 1% 2 drps ophthalmic (eye) BID Tobacco use date assessed: 07/28/22 HPI 3m follow up CHF, BP HPI Details Pt presents for f/u CHF secondary to cardiomyopathy. Patient follows up with Cardiology and is contemplating ICD implantation. Patient follows up with Psychiatry for bipolar disorder substance abuse. She complains of declining memory and insomnia. Patient reports witnessed apnea and loud snoring [facility] Medical History Allergic rhinitis Anxiety Back pain Bipolar disorder Depression ETOH abuse Herpes zoster anterior uveitis Opiate abuse, continuous Osteoarthritis of left knee Polysubstance abuse Tachycardia Surgical History H/O foot surgery H/O: hysterectomy History of back surgery History of carpal tunnel surgery Family History Mother Cervical cancer Sister Cervical cancer Social History Household Members: None Housing: Apartment Are you a primary career and transition teacher to a significant other at home: No Do you presently have visiting nurse or other home services: No Alcohol intake: current Alcohol intake frequency: 3 or more drinks per day Alcohol type: hard liquor Patient Tobacco Use Status: Current everyday Tobacco user Tobacco use type: Cigarette e-Cigarette/Vaping Use: Former Use (July 2020) Advance Directives Date on File: 07/24/21 service: No Current occupational status: unemployed Cognitive needs: No Hearing needs: No Vision needs: Yes Questionnaire Thrive Questionnaire Date Thrive assessed: 06/04/22 ANASTASIA-7 AMB Questionnaire ANASTASIA-7 Date ANASTASIA - 7 assessed: 07/28/22 Source: Developed by Drs. Lane Brenner, Naima Harris, Evgeny Em and colleagues, with an educational danita from [employer]. Review of Systems Const All systems reviewed & are unremarkable except as noted in HPI and below Reports no additional complaints Eyes Reports no additional complaints ENT Reports no additional complaints Card Reports no additional complaints Resp Reports no additional complaints GI Reports no additional complaints Reports no additional complaints Physical exam (Primary Care) Vital Signs: Last Vital Signs Pulse 88 11/18/22 12:57 BP 100/62 11/18/22 12:57 Pulse Ox 98 11/18/22 12:57 Oxygen Delivery Method Room Air 11/18/22 12:57 Tobacco/Smoking Status: Tobacco use Status Tobacco use date assessed 07/28/22 11/18/22 12:56 Patient Tobacco Use Status Current everyday Tobacco 11/18/22 12:56 Tobacco use type Cigarette 11/18/22 12:56 e-Cigarette/Vaping Use Former Use (July 2020) 11/18/22 12:56 Thrive Assessment: Date of Thrive Assessment Date Thrive assessed 06/04/22 11/18/22 12:56 Const General: no acute distress HENMT Head: Yes normal to inspection Ears: hearing grossly normal bilaterally Mouth: Normal oral and palatal mucosa present Eyes General: appearance normal, both eyes and all related structures Neck Neck: Yes no lymphadenopathy and Yes supple Resp Effort & Inspection: normal respiratory effort Auscultation: clear to auscultation bilaterally Cardio Rhythm: regular rhythm Heart sounds: S1 normal heart sound present and S2 normal heart sound present GI Inspection: Yes normal to inspection Palpation (GI): Soft to palpation Percussion: Yes normal to percussion Assessment and Plan Assessment & Plan (1) Elevated LFTs: Code(s): R79.89 - Other specified abnormal findings of blood chemistry Plan: Check liver ultrasound and hepatitis screen. Patient was advised to avoid [id number] Tylenol NSAIDs and alcohol (2) Venous insufficiency: Comment: Left lower extremity Code(s): I87.2 - Venous insufficiency (chronic) (peripheral) Plan: Referred to vascular surgeon (3) Sleep apnea: Code(s): G47.30 - Sleep apnea, unspecified Plan: Obtain sleep study (4) CHF (congestive heart failure): Comment: [place] 04/09 EF 20-25%, global hypokinesis, normal coronary angiogram, follow-up with [facility] Cardiology Code(s): I50.9 - Heart failure, unspecified Plan: Continue medications follow-up with Cardiology Orders: Orders Vitamin B12 and Folate Today G47.30 - Sleep apnea, unspecified, I50.9 - Heart failure, unspecified TSH reflex Free T4 Today G47.30 - Sleep apnea, unspecified, I50.9 - Heart failure, unspecified Gamma Glutamyl Transpeptidase Today R79.89 - Other specified abnormal findings of blood chemistry ARTUR Reflex Titer and Pattern Today R79.89 - Other specified abnormal findings of blood chemistry Liver Kidney Microsomal Ab Today R79.89 - Other specified abnormal findings of blood chemistry Hepatitis A,B,C Profile Today R79.89 - Other specified abnormal findings of blood chemistry US abdomen hogan w elastography Today R79.89 - Other specified abnormal findings of blood chemistry RT home sleep study Today G47.30 - Sleep apnea, unspecified Referrals Vascular Surgery Referral I87.2 - Venous insufficiency (chronic) (peripheral) Coding Level of Care Code Est Pt Level 4 (20844) Diagnoses Elevated LFTs R7. Venous insufficiency I87.2 Sleep apnea G47.30 CHF (congestive heart failure) I50.9
[2022-11-18 12:57] VITALS: BP 100/62; PULSE 88; O2SAT 98
== END 2022-11-18 13:23 | disposition home or self-care (01) ==
PROVIDERS: PCP Internal Medicine; Visit Provider Internal Medicine
DX: R79.89 Other specified abnormal findings of blood chemistry (principal); I87.2 Venous insufficiency (chronic) (peripheral); G47.30 Sleep apnea, unspecified; I50.9 Heart failure, unspecified
CPT/HCPCS: 99214

== ENCOUNTER 2022-12-24 08:19 | Outpatient (REF) | payer MEDICARE, SELFPAY ==
--- NOTE | ~2022-12-24 | MM_ITS ---
EXAMINATION: MM SCREENING DIGITAL BREAST TOMOSYNTHESIS, BILATERAL CLINICAL INFORMATION: Screening. Asymptomatic. COMPARISON: Mammography: This is a baseline mammogram TECHNIQUE: Digital breast tomosynthesis is performed in both the craniocaudal and mediolateral oblique views along with computer-aided detection (CAD). Synthesized 2D images are generated from the tomosynthesis. FINDINGS: There are scattered areas of fibroglandular density (ACR BI-RADS breast composition Category b). There are no significant masses, abnormal calcifications, or other abnormalities. MM/MM tomosynthesis screening BI IMPRESSION: No mammographic evidence of malignancy. ASSESSMENT: BI-RADS BI-RADS 1 - Negative RECOMMENDATION: Routine annual mammography screening. 1 year F/U This examination should not preclude the clinical evaluation of a suspicious palpable abnormality. This patient's information was entered into a reminder system with a target due date for their next mammogram.
== END 2022-12-24 08:20 | disposition home or self-care (01) ==
LOC: HO.MAMMO 08:19
PROVIDERS: Visit Provider Internal Medicine
DX: Z12.31 Encounter for screening mammogram for malignant neoplasm of breast (principal)
CPT/HCPCS: 77063; 77067

== ENCOUNTER → 2022-12-24 09:30 | Outpatient (BNV) | payer MEDICARE, SELFPAY | PROVIDERS: Visit Provider Radiology Diagnostic Radiology | DX: Z12.31 Encounter for screening mammogram for malignant neoplasm of breast (principal) | CPT/HCPCS: 77063; 77067 ==

== ENCOUNTER 2023-01-13 08:30 | Outpatient (REF) | payer MEDICARE, MEDICAID, SELFPAY ==
--- NOTE | ~2023-01-13 | US_ITS ---
EXAMINATION: US ABDOMEN LIMITED WITH LIVER ELASTOGRAPHY CLINICAL INFORMATION: Abnormal liver function tests COMPARISON: CT of the abdomen and pelvis July 2021 TECHNIQUE: Real-time imaging of the abdominal viscera. Noninvasive ultrasound liver fibrosis assessment is performed using Ivonne ElastPQ point quantification shear wave elastography (2D-SWE) with a C5-2 MHz transducer. Multiple elastography samples are obtained. FINDINGS: PANCREAS: The visualized pancreatic head and body are normal in appearance. The remainder of the pancreas is obscured from visualization by the overlying bowel gas. LIVER: Liver echotexture is increased probably representing fatty infiltration. The liver is slightly enlarged. The liver contour is normal. No focal lesion or intrahepatic biliary duct dilatation. The right lobe measures 18 cm in length. The left lobe measures 13 cm in length. Portal flow is normal/hepatopedal Shear wave liver elastography median stiffness is 1.8 m/s (reference: normal median stiffness is 1.3 m/s or less). IQR/median stiffness to assess sampling precision is 0.13 (reference: good quality data set is IQR/median stiffness of 0.15 or less). GALLBLADDER: The gallbladder is normal in size. No gallstones are seen. Gallbladder wall thickness is upper normal measuring 0.3 cm. COMMON BILE DUCT: Slightly dilated measuring 1.1 cm in diameter. No common bile duct stone seen. RIGHT KIDNEY: Normal. No hydronephrosis. No renal calculi or focal parenchymal lesions. The kidney measures 11.3 cm in maximum dimension. FREE FLUID: None. US/US abdomen hogan w elastography IMPRESSION: 1. Impression: Slightly enlarged echogenic liver suggestive of fatty infiltration. Normal-appearing gallbladder. Slightly dilated common bile duct measuring 1.1 cm. No stone seen. Limited visualization of the tail the pancreas. 2. Liver elastography: Adequate liver sampling. Slightly increased liver stiffness. REFERENCE: Society of Radiologists in Ultrasound Liver Stiffness Thresholds (2020): LIVER STIFFNESS THRESHOLDS: *Liver Stiffness equal or less than 1.3 m/s: High probability of being normal. *Liver Stiffness less than 1.7 m/s: In the absence of other known clinical signs, rules out compensated advanced chronic liver disease. *Liver Stiffness 1.7-2.1 m/s: Suggestive of compensated advanced chronic liver disease but need further test for confirmation. *Liver Stiffness over 2.1 m/s: Rules in compensated advanced chronic liver disease. *Liver Stiffness over 2.4 m/s: Suggestive of clinically significant portal hypertension. QUALITY OF DATA SET: *IQR/Median value equal or less than 0.15 implies a quality data set. *IQR/Median value over 0.15 implies a poor quality data set. SIGNIFICANT CHANGE FROM PRIOR EXAM: Significant change if liver stiffness measurement is 10% or greater from prior exam. OTHER CONSIDERATIONS: The stage of liver fibrosis may be overestimated in the setting of acute hepatitis, liver inflammation, elevated liver function tests, hepatic vascular congestion, obstructive cholestasis, non-fasting state, and infiltrative diseases such as amyloidosis and lymphoma. In some patients with NAFLD, the liver stiffness thresholds for compensated advanced chronic liver disease may be lower. In causes other than viral hepatitis and NAFLD, liver stiffness thresholds are not well established.
== END 2023-01-13 08:31 | disposition home or self-care (01) ==
LOC: HO.US 08:30
PROVIDERS: PCP Internal Medicine; Visit Provider Internal Medicine
DX: R79.89 Other specified abnormal findings of blood chemistry (principal); G47.30 Sleep apnea, unspecified
CPT/HCPCS: 76705; 76981

== ENCOUNTER 2023-02-04 11:28 | Outpatient (AMB) | payer MEDICARE, SELFPAY ==
--- NOTE | 2023-02-04 11:35 | MHC.OFFVIS ---
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 Complaints include pain over varicosities, swelling of lower extremities, cramping, fatigue, and heaviness of the lower extremities. 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 It is noted more so in left leg. Of note she has lost nearly 60 lb through diet and exercise. Since that time the varicosities have become significantly more pronounced. Patient denies any previous venous surgery or injections. Patient denies any history of DVT/ PE. Patient denies any history of phlebitis. Trial of compression includes - [id number] They now present for vascular evaluation regarding their varicose veins. [facility] Medical History Herpes zoster anterior uveitis Osteoarthritis of left knee Tachycardia Anxiety Depression Back pain Bipolar disorder ETOH abuse Opiate abuse, continuous Polysubstance abuse Allergic rhinitis Surgical History H/O foot surgery H/O: hysterectomy History of back surgery History of carpal tunnel surgery Family History Mother Cervical cancer Sister Cervical cancer Social History Household Members: None Housing: Apartment Are you a primary intensive care medicine specialist to a significant other at home: No Do you presently have visiting nurse or other home services: No Alcohol intake: current Alcohol intake frequency: 3 or more drinks per day Alcohol type: hard liquor Patient Tobacco Use Status: Current everyday Tobacco user Tobacco use type: Cigarette e-Cigarette/Vaping Use: Former Use (July 2020) Advance Directives Date on File: 07/24/21 service: No Current occupational status: unemployed Cognitive needs: No Hearing needs: No Vision needs: Yes Review of Systems Const Reports as per HPI ENT Reports no additional complaints Card Denies chest pain, Denies chest pain at rest and Denies chest pain with activity Resp Denies chest congestion and Denies cough GI Reports no additional complaints Musc Details: pain over varicosities, aching of lower extremities, swelling, cramping, heaviness and tiredness, itching Denies abnormal gait Skin/Breast Reports pruritus and Denies wounds Neuro Reports no additional complaints and Denies abnormal gait Psych Denies no additional complaints Physical Exam Vital Signs: BMI result Body Mass Index 37.1 Const General: cooperative, healthy appearing and comfortable Orientation/consciousness: oriented to person, oriented to place and oriented to time Neck Carotids: no bruits Chest Chest palpation & inspection: normal inspection of the chest and normal palpation of entire chest wall Resp Effort & Inspection: normal respiratory effort and able to speak in complete sentences Cardio Rate: regular rate Heart sounds: S1 normal heart sound present and S2 normal heart sound present Peripheral pulses: Peripheral pulses 2+ throughout GI Inspection: Yes normal to inspection Skin Other: +2 edema, large rope-like varicosities greater than 4 mm CEAP Classification C4 - skin color changes Ep - Etiology Primary As - superficial veins P - reflux General skin exam: dry skin Neuro General: oriented to person, oriented to place and oriented to time Extrem Right lower extremity: full ROM, normal capillary refill and edema Left lower extremity: full ROM, normal capillary refill and edema Psych Mental Status: mental status grossly normal Assessment & Plan Assessment & Plan (1) Varicose veins of left lower extremity with inflammation: Code(s): I83.12 - Varicose veins of left lower extremity with inflammation Plan: In short, the patient has evidence of venous insufficiency. I have discussed the pathophysiology with the patient. In addition I have provided informational material regarding venous disease to the patient. We have discussed conservative measures including compression, elevation, and exercise. I have also provided a handout regarding appropriate use of compression stockings and where to purchase good compression stockings as well. I have taken the liberty of ordering venous insufficiency testing with the patient. They will follow up with me after testing. The patient had an opportunity to ask questions regarding the treatment plan. All questions were answered. Imaging studies, laboratory studies and physical exam results were discussed and reviewed in detail. No major barriers to understanding were identified. The patient expressed understanding and agreement with the above treatment plan. The patient is aware they should contact our office by phone for worsening of the current condition or the appearance of new symptoms. Thank you for allowing me to participate in the vascular care of this patient. If you have any questions or concerns regarding the treatment for the above condition please do not hesitate to contact me. The office telephone contact is [phone]. This note is constructed using voice recognition software. While every effort has been made to ensure accuracy, ordnance officer errors may have been included. Thank you for allowing me to participate in the care of your patient. Yours sincerely, Ralph Brewer MD, FACS, R.P.V.I. Orders: Orders US venous duplex LE BI 1 Week I83.12 - Varicose veins of left lower extremity with inflammation Coding Level of Care Code New Pt Level 4 (76446) Diagnoses Varicose veins of left lower extremity with inflammation I83.12
[2023-02-04 11:37] VITALS: BMI 37.1
== END 2023-02-04 12:10 | disposition home or self-care (01) ==
PROVIDERS: PCP Internal Medicine; Visit Provider Surgery Vascular Surgery
DX: I83.12 Varicose veins of left lower extremity with inflammation (principal)
CPT/HCPCS: 99203

== ENCOUNTER → 2023-02-04 11:28 | Outpatient (BNVA) | payer MEDICARE, SELFPAY | PROVIDERS: PCP Internal Medicine; Visit Provider Surgery Vascular Surgery ==

== ENCOUNTER 2023-02-17 13:02 | Outpatient (REF) | payer MEDICARE, MEDICAID, SELFPAY ==
--- NOTE | ~2023-02-17 | US_ITS ---
EXAMINATION: RIGHT and LEFT LOWER EXTREMITY VENOUS ULTRASOUND (Reflux Exam) CLINICAL INDICATION: Varicose veins COMPARISON: None. TECHNIQUE: Color flow triplex imaging and compression Doppler was performed to evaluate both the deep and the superficial systems bilaterally. To evaluate the superficial system, the examination was performed in the upright position. Color-flow Doppler ultrasound and compression ultrasound were utilized. In addition, maneuvers were utilized to demonstrate reflux. FINDINGS: 1. DEEP VENOUS ULTRASOUND OF THE RIGHT LOWER EXTREMITY: Respiratory variation, normal compression and augmented flow are noted in the right common femoral vein, right femoral vein, as well as the right popliteal vein and there is no evidence of deep venous thrombosis at these locations. There is no evidence of reflux in the deep system in either the common femoral vein or the popliteal vein. . There is no evidence of a Vega's cyst. 2. SUPERFICIAL ULTRASOUND WITH DOPPLER OF RIGHT LOWER EXTREMITY: The right great saphenous vein at the saphenofemoral junction measures 8 mm, at the mid thigh 1 mm, fnroj-ghm-zklx 1 mm, routh-dxa-xbjy 2 mm, at mid calf 2 mm and at the ankle measures 3 mm. There is reflux demonstrated in the right great saphenous vein. Accessory vein noted laterally measuring 5 mm without reflux. The right small saphenous vein measures 3 mm and shows no reflux. Multiple perforators without reflux. Multiple varicose veins without reflux. 3. DEEP VENOUS ULTRASOUND OF THE LEFT LOWER EXTREMITY: Respiratory variation, normal compression and augmented flow are noted in the left common femoral vein, femoral vein as well as the left popliteal vein and there is no evidence of deep venous thrombosis at these locations. There is no evidence of reflux in the deep system in either the common femoral vein or the popliteal vein. . There is no evidence of a Vega's cyst. 4. SUPERFICIAL ULTRASOUND WITH DOPPLER OF LEFT LOWER EXTREMITY: Left great saphenous vein at the saphenofemoral junction measures 9 mm, at the mid thigh 5 mm, dnvjm-vhr-rief for mm, pezql-lod-logk 5 mm, at mid calf 3 mm and at the ankle measures 3 mm. There is reflux demonstrated in the left great saphenous vein. Accessory vein noted medially measuring up to 5 mm without reflux. The left small saphenous vein measures 3 mm and shows no reflux. Multiple perforators without reflux. Multiple varicose veins with reflux. US/US venous duplex LE BI IMPRESSION: 1. RIGHT: No reflux of the deep system. Reflux of the superficial system noted. Multiple perforators and varicose veins without reflux. 2. LEFT: No reflux of the deep system. Reflux of the superficial system noted. Multiple perforators without reflux. Varicose veins with reflux.
== END 2023-02-17 13:03 | disposition home or self-care (01) ==
LOC: HO.US 13:02
PROVIDERS: PCP Internal Medicine; Visit Provider Surgery Vascular Surgery
DX: I83.12 Varicose veins of left lower extremity with inflammation (principal)
CPT/HCPCS: 93970

== ENCOUNTER 2023-03-19 09:59 | Outpatient (AMB) | payer MEDICARE, SELFPAY ==
--- NOTE | 2023-03-19 09:59 | A.OFFPC_ITS ---
Intake Visit Reasons: 4 month follow up [phone] Allergies acetaminophen [From Vicodin] Allergy (Severe, Verified 03/19/23 09:59) Hives hydrocodone [From Vicodin] Allergy (Severe, Verified 03/19/23 09:59) Hives Medication List - Last Reconciled 03/19/23 by Henny Huff MD albuterol sulfate 90 mcg/actuation 2 puffs inhalation Q6H PRN amitriptyline 150 mg PO BEDTIME aripiprazole 20 mg PO DAILY atomoxetine 1 cap PO DAILY blood pressure kit-extra large As directed buspirone 20 mg PO BID carvedilol 6.25 mg PO BID dapagliflozin propanediol (Farxiga) 10 mg PO DAILY fluticasone propionate 50 mcg/actuation (Flonase Allergy Relief) 1 spray intranasal DAILY furosemide 40 mg PO BID hydroxyzine pamoate 50 mg PO BEDTIME loratadine 10 mg PO DAILY magnesium oxide 400 mg PO BEDTIME [oximeter As directed] sacubitril-valsartan 49-51 mg (Entresto) 1 tab PO BID trazodone 100 mg PO BEDTIME Tobacco use date assessed: 03/19/23 Dental Screening Dental Screen Date: 03/19/23 Did you have a dental visit in the last 12 months?: Yes Did you have a dental problem in the last 6 months where you did not have access to dental care?: No Was dental information given to patient?: Patient has dentist HPI 4 month follow up [phone] HPI Details This is a tele health visit. Pt presents for f/u NONISCHEMIC CARDIOMYOPATHY managed by [facility] and chronic depression and anxiety, managed by Psychiatry. Patient reports baseline dyspnea on exertion but denies PND orthopnea. She has a repeat echocardiogram scheduled with [facility] next week. Patient has been sober since April this year. COUNT INCLUDES THE [facility] Medical History Herpes zoster anterior uveitis Osteoarthritis of left knee Tachycardia Anxiety Depression Back pain Bipolar disorder ETOH abuse Opiate abuse, continuous Polysubstance abuse Allergic rhinitis Surgical History H/O foot surgery H/O: hysterectomy History of back surgery History of carpal tunnel surgery Family History (Updated 03/19/23 @ 10:07 by LOLIS Figueroa) Mother Cervical cancer Sister Cervical cancer Social History Household Members: None Housing: Apartment Are you a primary morning caregiver to a significant other at home: No Do you presently have visiting nurse or other home services: No Alcohol intake: current Alcohol intake frequency: 3 or more drinks per day Alcohol type: hard liquor Comment: aware of trip hazard Patient Tobacco Use Status: Current everyday Tobacco user Tobacco use type: Cigarette Cigarettes Per Day: 3 e-Cigarette/Vaping Use: Former Use (July 2020) Advance Directives Date on File: 07/24/21 service: No Current occupational status: unemployed Cognitive needs: No Hearing needs: No Vision needs: Yes Questionnaire Thrive Questionnaire Date Thrive assessed: 06/04/22 AUDIT C Alcohol Use Questionnaire (AUDIT-C) 1. How often do you have a drink containing alcohol?: Never 3. How often do you have six or more drinks on one occasion?: Never Total Score: 0 ANASTASIA-7 AMB Questionnaire ANASTASIA-7 Date ANASTASIA - 7 assessed: 07/28/22 Source: Developed by Drs. Lane Brenner, Naima Harris, Evgeny chatterjee nd colleagues, with an educational danita from [employer]. Review of Systems Const All systems reviewed & are unremarkable except as noted in HPI and below Reports no additional complaints Eyes Reports no additional complaints ENT Reports no additional complaints Card Reports no additional complaints Resp Reports no additional complaints GI Reports no additional complaints Reports no additional complaints Physical exam (Primary Care) Tobacco/Smoking Status: Tobacco use Status Tobacco use date assessed 03/19/23 03/19/23 10:07 Patient Tobacco Use Status Current everyday Tobacco 03/19/23 10:07 Tobacco use type Cigarette 03/19/23 10:07 e-Cigarette/Vaping Use Former Use (July 2020) 03/19/23 10:07 Thrive Assessment: Date of Thrive Assessment Date Thrive assessed 06/04/22 03/19/23 10:07 Telehealth Telehealth Location of provider rendering services: practice address Location of patient: address on file Patient Identification confirmed using: Name, : Yes Telehealth method: voice only Patient verbally consented to treatment: Yes Patient verbally consented to billing insurance company: Yes Patient informed of any privacy concerns related to visit: Yes Minutes spent on Phone/Video with Pt.: 15 Assessment and Plan Assessment & Plan (1) Elevated LFTs: Code(s): R79.89 - Other specified abnormal findings of blood chemistry Plan: Monitor LFT (2) CHF (congestive heart failure): Comment: Ely Alyssa 04/09 EF 20-25%, global hypokinesis, normal coronary angiogram, follow-up with [facility] Code(s): I50.9 - Heart failure, unspecified Plan: Continue current medications and follow-up with Cardiology (3) Bipolar disorder: Comment: follow up with psychiatry Code(s): F31.9 - Bipolar disorder, unspecified Plan: cont meds and f/u with psychiatry Orders: Orders Lipid Panel 6 Months F31.9 - Bipolar disorder, unspecified, I50.9 - Heart failure, unspecified, R79.89 - Other specified abnormal findings of blood chemistry Comprehensive [place]. Panel Fast 6 Months F31.9 - Bipolar disorder, unspecified, I50.9 - Heart failure, unspecified, R79.89 - Other specified abnormal findings of blood chemistry Complete Blood Count Auto Diff 6 Months F31.9 - Bipolar disorder, unspecified, I50.9 - Heart failure, unspecified, R79.89 - Other specified abnormal findings of blood chemistry TSH reflex Free T4 6 Months F31.9 - Bipolar disorder, unspecified, I50.9 - Heart failure, unspecified, R79.89 - Other specified abnormal findings of blood chemistry Medications: New rhubarb root extract (Estroven Complete Menopause Relief) 4 mg PO .QD 90 tabs 1RF fexofenadine (Jacinta Allergy) 180 mg PO DAILY 90 tabs 0RF azelastine administer into each nostril 137 mcg (0.137 mL) intranasal BID 30 mL 4RF Changed From furosemide 40 mg PO BID To furosemide 40 mg PO DAILY Coding Level of Care Code Tele Est Pt Level 3 (34098) Diagnoses Elevated LFTs R79.89 CHF (congestive heart failure) I50.9 Bipolar disorder F31.9
== END 2023-03-19 10:44 | disposition home or self-care (01) ==
LOC: HO.HMGC 09:59
PROVIDERS: PCP Internal Medicine; Visit Provider Internal Medicine
DX: R79.89 Other specified abnormal findings of blood chemistry (principal); I50.9 Heart failure, unspecified; F31.9 Bipolar disorder, unspecified
CPT/HCPCS: 99442

== ENCOUNTER 2023-03-23 11:14 | Outpatient (AMB) | payer MEDICARE, SELFPAY ==
[2023-03-23 11:17] VITALS: BMI 37.1
--- NOTE | 2023-03-23 11:17 | MHC.OFFVIS ---
Intake Vital Signs 03/23/23 11:17 Height 5 ft 5 in Weight 223 lb BMI 37.1 Intake Visit Reasons: follow up Intake Note: follow up US 02/17/23 for bilateral LE VV, Left LE worse than the right LE. Pt states that she has bilateral LE swelling, soreness and RLS. States it started about 3 years ago. Pt has been wearing compression socks and states they do not help, she is even wearing them today. Accompanied by: Self / Same As Patient Allergies acetaminophen [From Vicodin] Allergy (Severe, Verified 03/23/23 11:22) Hives hydrocodone [From Vicodin] Allergy (Severe, Verified 03/23/23 11:22) Hives HPI follow up HPI Details Very pleasant 52-year-old female presents for follow-up regarding venous insufficiency. She reports significant swelling left more so than right. 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 She has been compliant with her compression stockings and she now presents for follow-up with venous insufficiency testing. [facility] Medical History Herpes zoster anterior uveitis Osteoarthritis of left knee Tachycardia Anxiety Depression Back pain Bipolar disorder ETOH abuse Opiate abuse, continuous Polysubstance abuse Allergic rhinitis Surgical History H/O foot surgery H/O: hysterectomy History of back surgery History of carpal tunnel surgery Family History Mother Cervical cancer Sister Cervical cancer Social History (Updated 03/23/23 @ 11:23 by LOLIS Perales) Household Members: None Housing: Apartment Are you a primary primary care nurse practitioner to a significant other at home: No Do you presently have visiting nurse or other home services: No Alcohol intake: current Alcohol intake frequency: 3 or more drinks per day Alcohol type: hard liquor Comment: aware of trip hazard Patient Tobacco Use Status: Current everyday Tobacco user Tobacco use type: Cigarette Cigarettes Per Day: 2 e-Cigarette/Vaping Use: Former Use (July 2020) Advance Directives Date on File: 07/24/21 service: No Current occupational status: unemployed Cognitive needs: No Hearing needs: No Vision needs: Yes Review of Systems Const Reports as per HPI ENT Reports no additional complaints Card Denies chest pain, Denies chest pain at rest and Denies chest pain with activity Resp Denies chest congestion and Denies cough GI Reports no additional complaints Musc Details: pain over varicosities, aching of lower extremities, swelling, cramping, heaviness and tiredness, itching Denies abnormal gait Skin/Breast Reports pruritus and Denies wounds Neuro Reports no additional complaints and Denies abnormal gait Psych Denies no additional complaints Physical Exam Vital Signs: BMI result Body Mass Index 37.1 Const General: cooperative, healthy appearing and comfortable Orientation/consciousness: oriented to person, oriented to place and oriented to time Neck Carotids: no bruits Chest Chest palpation & inspection: normal inspection of the chest and normal palpation of entire chest wall Resp Effort & Inspection: normal respiratory effort and able to speak in complete sentences Cardio Rate: regular rate Heart sounds: S1 normal heart sound present and S2 normal heart sound present Peripheral pulses: Peripheral pulses 2+ throughout GI Inspection: Yes normal to inspection Skin Other: +2 edema, large rope-like varicosities greater than 4 mm CEAP Classification C4 - skin color changes Ep - Etiology Primary As - superficial veins P - reflux General skin exam: dry skin Neuro General: oriented to person, oriented to place and oriented to time Extrem Right lower extremity: full ROM, normal capillary refill and edema Left lower extremity: full ROM, normal capillary refill and edema Psych Mental Status: mental status grossly normal Results Reviewed Results Reviewed: Brief summary of venous insufficiency testing is as follows: right great saphenous vein: Positive right small saphenous vein: negative right accessory vein: none present left great saphenous vein: Positive left small saphenous vein: negative left accessory vein: none present Please note there is no evidence of any venous aneurysms or significant tortuosity Assessment & Plan Assessment & Plan (1) Varicose veins of left lower extremity with inflammation: Code(s): I83.12 - Varicose veins of left lower extremity with inflammation Plan: This patient has varicose veins with inflammation. They continue to be a source of discomfort for the patient. The patient has tried conservative treatment with compression, leg elevation and exercise program for over 3 months time. They have been compliant with all treatment. This has provided minimal relief for the patient. I do not anticipate this course of treatment will alter the underlying etiology. The patient has been scheduled for lower extremity venous treatment inclusive of --- left great saphenous vein Cyanoacralate ablation. Risks, benefits, and complications of this procedure has been discussed in detail with the patient including but not limited to bleeding, infection, and the development of a DVT. The patient has demonstrated a clear understanding and has consented. We will schedule the patient as soon as possible. Thank you for allowing us to participate in this patient's care. If there are any questions or concerns please do not hesitate to contact us. Coding Level of Care Code Est Pt Level 4 (16734) Diagnoses Varicose veins of left lower extremity with inflammation I83.12
== END 2023-03-23 12:17 | disposition home or self-care (01) ==
PROVIDERS: PCP Internal Medicine; Visit Provider Surgery Vascular Surgery
DX: I83.12 Varicose veins of left lower extremity with inflammation (principal)
CPT/HCPCS: 99214

== ENCOUNTER → 2023-03-23 11:14 | Outpatient (BNVA) | payer MEDICARE, SELFPAY | PROVIDERS: PCP Internal Medicine; Visit Provider Surgery Vascular Surgery | DX: I83.12 Varicose veins of left lower extremity with inflammation (principal) | CPT/HCPCS: 99212 ==

== ENCOUNTER 2023-04-23 09:29 | Outpatient (AMB) | payer MEDICARE, SELFPAY ==
[2023-04-23 09:37] VITALS: BMI 37.1
--- NOTE | 2023-04-23 09:37 | MHC.OFFVIS ---
Intake Vital Signs 04/23/23 09:37 Height 5 ft 5 in Weight 223 lb BMI 37.1 Intake Visit Reasons: Left Venaseal Allergies acetaminophen [From Vicodin] Allergy (Severe, Verified 04/23/23 09:37) Hives hydrocodone [From Vicodin] Allergy (Severe, Verified 04/23/23 09:37) Hives PFSH Medical History Herpes zoster anterior uveitis Osteoarthritis of left knee Tachycardia Anxiety Depression Back pain Bipolar disorder ETOH abuse Opiate abuse, continuous Polysubstance abuse Allergic rhinitis Surgical History H/O foot surgery H/O: hysterectomy History of back surgery History of carpal tunnel surgery Family History Mother Cervical cancer Sister Cervical cancer Social History Household Members: None Housing: Apartment Are you a primary childbirth and infant care teacher to a significant other at home: No Do you presently have visiting nurse or other home services: No Alcohol intake: current Alcohol intake frequency: 3 or more drinks per day Alcohol type: hard liquor Comment: aware of trip hazard Patient Tobacco Use Status: Current everyday Tobacco user Tobacco use type: Cigarette Cigarettes Per Day: 2 e-Cigarette/Vaping Use: Former Use (July 2020) Advance Directives Date on File: 07/24/21 service: No Current occupational status: unemployed Cognitive needs: No Hearing needs: No Vision needs: Yes Physical Exam Vital Signs: BMI result Body Mass Index 37.1 Office Procedures Vascular Office Procedure Details Details: Diagnosis: Left Leg varicose veins with inflammation Procedure: Endovenous Ablation of the left Great Saphenous Vein with VenaSeal Closure System Anesthesia: Local infiltration 5 cc, Estimated Blood Loss: min Specimen: none Duplex ultrasound was used to map out the insufficient saphenous vein, and access was determined and marked on the overlying skin. The depth and diameter of the vein(s) to be treated was documented. The patient was placed supine on the procedure table and the leg was prepped and draped using sterile technique. Ultasound guidance was again used to localize the access site. 1% lidocaine was injected as a local anesthetic in the subcutaneous tissues at the target location in the GSV in the lower leg. Using ultrasound guidance, access was gained at this location with the 19 gauge thin walled access needle and followed by introduction of a short guidewire, location confirmed with ultrasound. A small, 3 mm incision was made at the access site to allow for introduction and placement of the 7 Fr x7cm introducer/dilator. The dilator and guidewire were removed. The 0.035 guidewire from the VenaSeal kit was then introduced and positioned at the saphenofemoral junction using ultrasound guidance. The 80 cm 7 Fr introducer sheath/dilator was positioned 5cm from the saphenofemoral junction. The guidewire and dilator were removed, and the remaining sheath was flushed with sterile saline, with the syringe remaining in place prior to the next steps. The cyanoacrylate adhesive was precisely primed into the 5 F delivery catheter and this catheter/syringe combination was attached within the dispenser gun. This assembly was introduced through the 7F sheath and positioned 5 cm caudal of the saphenofemoral junction under ultrasound guidance. The steps from the IFU were followed for dispensing amounts, locations and compression times, 2 aliquots proximally with 3 minutes of compression, and 1 aliquot every 3 cm distally with 30 sec of compression along the course of the vessel. Following the last injection and compression sequence, the catheter and introducer sheath were pulled out from the access site. Hemostasis was achieved with manual compression and an adhesive bandage was applied to the incision. Ultrasound confirmed complete coaptation and closure of the treated segments of the GSV, and the absence of any DVT at the saphenofemoral junction. Treatment time was approximately 7 minutes and the vein length treated was 50 cm. The drapes were removed and the patient cleaned and prepared for discharge. Post op ultrasound check is scheduled for 48-72 hours and the patient was given written post-op instructions. 97907 - Endoven Ther Chem Adhes 1st All charges added?: Procedure code (CPT) selection complete Assessment & Plan Assessment & Plan (1) Varicose veins of left lower extremity with inflammation: Code(s): I83.12 - Varicose veins of left lower extremity with inflammation Plan: See note Coding Level of Care Code Procedure Only Diagnoses Varicose veins of left lower extremity with inflammation I83.12 CPT Codes Details - Vascular 3: 42992 - Endoven Ther Chem Adhes 1st ([id number])
== END 2023-04-23 10:21 | disposition home or self-care (01) ==
PROVIDERS: PCP Internal Medicine; Visit Provider Surgery Vascular Surgery
DX: I83.12 Varicose veins of left lower extremity with inflammation (principal)
CPT/HCPCS: 36482

== ENCOUNTER → 2023-04-23 09:29 | Outpatient (BNVA) | payer MEDICARE, SELFPAY | PROVIDERS: PCP Internal Medicine; Visit Provider Surgery Vascular Surgery | DX: I83.12 Varicose veins of left lower extremity with inflammation (principal) | CPT/HCPCS: 36482 ==

== ENCOUNTER 2023-04-26 10:36 | Outpatient (REF) | payer MEDICARE, MEDICAID, SELFPAY | END 2023-04-26 10:37 | disposition home or self-care (01) | LOC: HO.US 10:36 | PROVIDERS: PCP Internal Medicine; Visit Provider Surgery Vascular Surgery | DX: M79.605 Pain in left leg (principal) | CPT/HCPCS: 93971 ==

== ENCOUNTER 2023-05-06 09:51 | Outpatient (AMB) | payer MEDICARE, SELFPAY ==
[2023-05-06 09:55] VITALS: BP 122/84; PULSE 115; O2SAT 98; BMI 37.1
--- NOTE | 2023-05-06 09:55 | MHC.OFFVIS ---
Intake Vital Signs 05/06/23 09:55 Height 5 ft 5 in Weight 223 lb BMI 37.1 BP 122/84 Blood Pressure Location Rt brachial Position Sitting Pulse 115 H Pulse Source Pulse Oximeter Pulse Oximetry (%) 98 Oxygen Delivery Method Room Air Intake Visit Reasons: 2 week follow up left venaseal Intake Note: Pt presents to the office today for a 2 week follow up left venaseal. Pt states her leg is feeling much better and denies any concerns at this time. Allergies acetaminophen [From Vicodin] Allergy (Severe, Verified 05/06/23 09:56) Hives hydrocodone [From Vicodin] Allergy (Severe, Verified 05/06/23 09:56) Hives HPI 2 week follow up left venaseal HPI Details Very pleasant 52-year-old female presents for follow-up evaluation regarding left great saphenous vein ablation. She reports she is doing significantly better with this. Swelling and discomfort have decreased. She does have some superficial varicosities which have been a source of discomfort for her. She now presents for routine follow-up. Of note postprocedure ultrasound was negative for DVT. [facility] Medical History Herpes zoster anterior uveitis Osteoarthritis of left knee Tachycardia Anxiety Depression Back pain Bipolar disorder ETOH abuse Opiate abuse, continuous Polysubstance abuse Allergic rhinitis Surgical History H/O foot surgery H/O: hysterectomy History of back surgery History of carpal tunnel surgery Family History Mother Cervical cancer Sister Cervical cancer Social History Household Members: None Housing: Apartment Are you a primary career development engineer to a significant other at home: No Do you presently have visiting nurse or other home services: No Alcohol intake: current Alcohol intake frequency: 3 or more drinks per day Alcohol type: hard liquor Comment: aware of trip hazard Patient Tobacco Use Status: Current everyday Tobacco user Tobacco use type: Cigarette Cigarettes Per Day: 2 e-Cigarette/Vaping Use: Former Use (July 2020) Advance Directives Date on File: 07/24/21 service: No Current occupational status: unemployed Cognitive needs: No Hearing needs: No Vision needs: Yes Review of Systems Const Reports as per HPI ENT Reports no additional complaints Card Denies chest pain, Denies chest pain at rest and Denies chest pain with activity Resp Denies chest congestion and Denies cough GI Reports no additional complaints Musc Details: pain over varicosities, aching of lower extremities, swelling, cramping, heaviness and tiredness, itching Denies abnormal gait Skin/Breast Reports pruritus and Denies wounds Neuro Reports no additional complaints and Denies abnormal gait Psych Denies no additional complaints Physical Exam Vital Signs: Last Vital Signs Pulse 115 H 05/06/23 09:55 BP 122/84 05/06/23 09:55 Pulse Ox 98 05/06/23 09:55 Oxygen Delivery Method Room Air 05/06/23 09:55 BMI result Body Mass Index 37.1 Const General: cooperative, healthy appearing and comfortable Orientation/consciousness: oriented to person, oriented to place and oriented to time Neck Carotids: no bruits Chest Chest palpation & inspection: normal inspection of the chest and normal palpation of entire chest wall Resp Effort & Inspection: normal respiratory effort and able to speak in complete sentences Cardio Rate: regular rate Heart sounds: S1 normal heart sound present and S2 normal heart sound present Peripheral pulses: Peripheral pulses 2+ throughout GI Inspection: Yes normal to inspection Skin Other: +2 edema, large rope-like varicosities greater than 4 mm left calf and thigh CEAP Classification C4 - skin color changes Ep - Etiology Primary As - superficial veins P - reflux General skin exam: dry skin Neuro General: oriented to person, oriented to place and oriented to time Extrem Right lower extremity: full ROM, normal capillary refill and edema Left lower extremity: full ROM, normal capillary refill and edema Psych Mental Status: mental status grossly normal Assessment & Plan Assessment & Plan (1) Varicose veins of left lower extremity with inflammation: Comment: 04/23/2023 left great saphenous vein Cyanoacralate ablation Code(s): I83.12 - Varicose veins of left lower extremity with inflammation Plan: This patient has varicose veins with inflammation. They continue to be a source of discomfort for the patient. The patient has tried conservative treatment with compression, leg elevation and exercise program for over 3 months time. They have been compliant with all treatment. This has provided minimal relief for the patient. I do not anticipate this course of treatment will alter the underlying etiology. The patient has been scheduled for lower extremity venous treatment inclusive of --- left leg microphlebectomy. Risks, benefits, and complications of this procedure has been discussed in detail with the patient including but not limited to bleeding, infection, and the development of a DVT. The patient has demonstrated a clear understanding and has consented. We will schedule the patient as soon as possible. Thank you for allowing us to participate in this patient's care. If there are any questions or concerns please do not hesitate to contact us. Coding Level of Care Code Est Pt Level 4 (61834) Diagnoses Varicose veins of left lower extremity with inflammation I83.12
== END 2023-05-06 10:12 | disposition home or self-care (01) ==
PROVIDERS: PCP Internal Medicine; Visit Provider Surgery Vascular Surgery
DX: I83.12 Varicose veins of left lower extremity with inflammation (principal)
CPT/HCPCS: 99214

== ENCOUNTER → 2023-05-06 09:51 | Outpatient (BNVA) | payer MEDICARE, SELFPAY | PROVIDERS: PCP Internal Medicine; Visit Provider Surgery Vascular Surgery | DX: I83.12 Varicose veins of left lower extremity with inflammation (principal) | CPT/HCPCS: 99212 ==

== ENCOUNTER 2023-07-16 09:27 | Outpatient (AMB) | payer MEDICARE, SELFPAY ==
--- NOTE | 2023-07-16 10:23 | MHC.OFFVIS ---
Intake Intake Visit Reasons: Left LE Micro Allergies acetaminophen [From Vicodin] Allergy (Severe, Verified 07/16/23 10:23) Hives hydrocodone [From Vicodin] Allergy (Severe, Verified 07/16/23 10:23) Hives PFSH Medical History Herpes zoster anterior uveitis Osteoarthritis of left knee Tachycardia Anxiety Depression Back pain Bipolar disorder ETOH abuse Opiate abuse, continuous Polysubstance abuse Allergic rhinitis Surgical History H/O foot surgery H/O: hysterectomy History of back surgery History of carpal tunnel surgery Family History Mother Cervical cancer Sister Cervical cancer Social History Household Members: None Housing: Apartment Are you a primary workforce investment act career manager to a significant other at home: No Do you presently have visiting nurse or other home services: No Alcohol intake: current Alcohol intake frequency: 3 or more drinks per day Alcohol type: hard liquor Comment: aware of trip hazard Patient Tobacco Use Status: Current everyday Tobacco user Tobacco use type: Cigarette Cigarettes Per Day: 2 e-Cigarette/Vaping Use: Former Use (July 2020) Advance Directives Date on File: 07/24/21 service: No Current occupational status: unemployed Cognitive needs: No Hearing needs: No Vision needs: Yes Office Procedures Vascular Office Procedure Details Details: Diagnosis: Left Leg varicose veins with inflammation Procedure: Left leg Microphlebectomy Anesthesia: Local Infiltration 20 cc, Tumescent: 0 cc. Varicose veins were marked in the standing position on the left leg and the patient was then placed in the supine position. The left lower extremity was prepared and draped to allow knee flexion in the sterile field. The patient had large superficial varicose veins with significant symptoms of pain. It was therefore determined to perform microphlebectomies of the clusters of varicose veins. The patient had bulging varicose veins which were previously marked in the standing position. A small stab incision was made longitudinally directly overlying the varicose vein in the calf and the varicose vein was grasped with a hemostat aided by a vein hook. It was then dissected as far proximally and distally as possible and avulsed. A total of 21 stab incisions were made and the procedure of stab phlebectomies was repeated 21 times. Hemostasis was checked and stab incision sites were closed with steri-strips and sterile dressing was given with gauze and krilex wrap followed by an sara bandage. There were no complications and blood loss was minimal. Post-Op instructions were given and a follow-up appointment was recommended. 04309 - Stab Phlebectomy >20 All charges added?: Procedure code (CPT) selection complete Assessment & Plan Assessment & Plan (1) Varicose veins of left lower extremity with inflammation: Comment: 04/23/2023 left great saphenous vein Cyanoacralate ablation 07/16/2023 - left leg microphlebectomy Code(s): I83.12 - Varicose veins of left lower extremity with inflammation Plan: See op note Coding Level of Care Code Procedure Only Diagnoses Varicose veins of left lower extremity with inflammation I83.12 CPT Codes Details - Vascular 6: 13722 - Stab Phlebectomy >20 ([id number])
== END 2023-07-16 11:14 | disposition home or self-care (01) ==
PROVIDERS: PCP Internal Medicine; Visit Provider Surgery Vascular Surgery
DX: I83.12 Varicose veins of left lower extremity with inflammation (principal)
CPT/HCPCS: 37766

== ENCOUNTER → 2023-07-16 09:27 | Outpatient (BNVA) | payer MEDICARE, SELFPAY | PROVIDERS: PCP Internal Medicine; Visit Provider Surgery Vascular Surgery | DX: I83.12 Varicose veins of left lower extremity with inflammation (principal) | CPT/HCPCS: 37766 ==

== ENCOUNTER 2024-01-07 10:50 | Outpatient (AMB) | payer MEDICARE, SELFPAY ==
--- NOTE | 2024-01-07 10:59 | MHC.PC.OV ---
Vital Signs 01/07/24 11:00 Height 5 ft 5 in Weight 224 lb BMI 37.3 BP 110/74 Blood Pressure Location Rt brachial Position Sitting Pulse 90 Pulse Source Pulse Oximeter Pulse Oximetry (%) 98 Oxygen Delivery Method Room Air Intake Visit Reasons: PE Intake Note: Pt is here today for PE. Allergies acetaminophen [From Vicodin] Allergy (Severe, Verified 01/07/24 11:01) Hives hydrocodone [From Vicodin] Allergy (Severe, Verified 01/07/24 11:01) Hives Medication List - Last Reconciled 01/07/24 by Henny Huff MD albuterol sulfate 90 mcg/actuation 2 puffs inhalation Q6H PRN amitriptyline 150 mg PO BEDTIME aripiprazole 20 mg PO DAILY atomoxetine 1 cap PO DAILY azelastine 137 mcg (0.137 mL) intranasal BID blood pressure kit-extra large As directed buspirone 20 mg PO BID carvedilol 6.25 mg PO BID dapagliflozin propanediol (Farxiga) 10 mg PO DAILY fexofenadine (Jacinta Allergy) 180 mg PO DAILY fluticasone propionate 50 mcg/actuation (Flonase Allergy Relief) 1 spray intranasal DAILY furosemide 40 mg PO DAILY hydroxyzine pamoate 50 mg PO BEDTIME magnesium oxide 400 mg PO BEDTIME [oximeter As directed] rhubarb root extract (Estroven Complete Menopause Relief) 4 mg PO .QD sacubitril-valsartan 49-51 mg (Entresto) 1 tab PO BID trazodone 100 mg PO BEDTIME Tobacco use date assessed: 01/07/24 Dental Screening Dental Screen Date: 01/07/24 Did you have a dental visit in the last 12 months?: Yes Did you have a dental problem in the last 6 months where you did not have access to dental care?: No Was dental information given to patient?: Patient has dentist HPI PE HPI Details Pt presents for PE. Pt's mother was diagnosed with stage 4 cancer and will be starting treatment in [place]. [facility] Medical History Herpes zoster anterior uveitis Osteoarthritis of left knee Tachycardia Anxiety Depression Back pain Bipolar disorder ETOH abuse Opiate abuse, continuous Polysubstance abuse Allergic rhinitis Surgical History H/O foot surgery H/O: hysterectomy History of back surgery History of carpal tunnel surgery Family History Mother Cervical cancer Sister Cervical cancer Social History Household Members: None Housing: Apartment Are you a primary career representative to a significant other at home: No Do you presently have visiting nurse or other home services: No Alcohol intake: current Alcohol intake frequency: 3 or more drinks per day Alcohol type: hard liquor Comment: aware of trip hazard Patient Tobacco Use Status: Current everyday Tobacco user Tobacco use type: Cigarette Cigarettes Per Day: 2 e-Cigarette/Vaping Use: Former Use (July 2020) Advance Directives Date on File: 07/24/21 service: No Current occupational status: unemployed Cognitive needs: No Hearing needs: No Vision needs: Yes Questionnaire PHQ-9 Over the last 2 weeks, how often have you been bothered by any of the following problems? 1. Little interest or pleasure in doing things: more than half the days 2. Feeling down, depressed, or hopeless: nearly every day 3. Trouble falling or staying asleep, or sleeping too much: several days 4. Feeling tired or having little energy: several days 5. Poor appetite or overeating: nearly every day 6. Feeling bad about yourself - or that you are a failure or have let yourself or your family down: more than half the days 7. Trouble concentrating on things, such as reading the newspaper or watching television: nearly every day 8. Moving or speaking so slowly that other people could have noticed. Or the opposite - being so fidgety or restless that you have been moving around a lot more than usual: nearly every day 9. Thoughts that you would be better off or of hurting yourself in some way: not at all Total score: 18 Depression Screening Interpretation: Positive Depression Screening Follow-up: Existing condition and In treatment Depression Screening Done: Yes 76997 - PHQ-9 Billing: Yes Source: Developed by Drs. Lane Brenner, Naima Harris, Evgeny Em and colleagues, with an educational danita from [employer]. Thrive Questionnaire Date Thrive assessed: 01/07/24 I am a: Patient What is your living situation today?: I have a steady place to live Within the past 12 months, did the food you bought not last and you didn't have the money to get more?: Often true Within the past 12 months, did you worry whether your food would run out before you got money to buy more?: Often true Do you have trouble paying for medicines?: No Do you have trouble getting transportation to medical appointments?: Yes Do you have trouble paying your heating and electricity bill?: No Do you have trouble taking care of your child, family member or friend?: No Do you have trouble with day-to-day activities such as bathing, preparing meals, shopping, managing finances, etc.?: I choose not to answer this question Are you interested in more education?: No Please select the resources that you would like help with: Food and Transportation Currently or been in a relationship where the following occur: No concerns reported THRIVE Score: 3 AUDIT C Alcohol Use Questionnaire (AUDIT-C) 1. How often do you have a drink containing alcohol?: 2-3 times a week 2. How many drinks containing alcohol do you have on a typical day when you are drinking?: 3 or 4 3. How often do you have six or more drinks on one occasion?: Monthly Total Score: 6 ANASTASIA-7 AMB Questionnaire ANASTASIA-7 Date ANASTASIA - 7 assessed: 01/07/24 Feeling nervous, anxious, or on edge: 3 = Nearly every day Not being able to stop or control worryin = Nearly every day Worrying too much about different things: 3 = Nearly every day Trouble relaxin = Nearly every day Being so restless that it is hard to sit still: 2 = More than half the days Becoming easily annoyed or irritable: 3 = Nearly every day Feeling afraid as if something awful might happen: 1 = Several days Total ANASTASIA-7 score (0-4 normal; 5-9 mild; 10-14 moderate; 15-21 severe): 18 Source: Developed by Drs. Lane Brenner, Naima Harris, Evgeny Em and colleagues, with an educational danita from [employer]. ANASTASIA-7 Assessment Billing ANASTASIA-7 Assessment Tool: ANASTASIA-7 Assessment 13280 Review of Systems Const All systems reviewed & are unremarkable except as noted in HPI and below Reports no additional complaints Eyes Reports no additional complaints ENT Reports no additional complaints Card Reports no additional complaints Resp Reports no additional complaints GI Reports no additional complaints Reports no additional complaints Physical exam (Primary Care) Vital Signs: Last Vital Signs Pulse 90 01/07/24 11:00 BP 110/74 01/07/24 11:00 Pulse Ox 98 01/07/24 11:00 Oxygen Delivery Method Room Air 01/07/24 11:00 BMI result Body Mass Index 37.3 Tobacco/Smoking Status: Tobacco use Status Tobacco use date assessed 01/07/24 01/07/24 11:04 Patient Tobacco Use Status Current everyday Tobacco 01/07/24 10:59 Tobacco use type Cigarette 01/07/24 10:59 e-Cigarette/Vaping Use Former Use (July 2020) 01/07/24 10:59 PHQ-9: PHQ-9 Score PHQ-9: Total score 18 01/07/24 11:31 Depression Screening Interpretation: Positive Depression Screening Follow-up: Existing condition and In treatment Thrive Assessment: Date of Thrive Assessment Date Thrive assessed 01/07/24 01/07/24 11:04 Currently or been in a relationship where the following occur: No concerns reported Const General: no acute distress HENMT Head: Yes normal to inspection Ears: hearing grossly normal bilaterally General nose exam: Normal external nose present Mouth: Normal oral and palatal mucosa present Eyes General: appearance normal, both eyes and all related structures Neck Neck: Yes supple Resp Effort & Inspection: normal respiratory effort Auscultation: clear to auscultation bilaterally Cardio Rhythm: regular rhythm Heart sounds: S1 normal heart sound present and S2 normal heart sound present GI Inspection: Yes normal to inspection Palpation (GI): Soft to palpation Percussion: Yes normal to percussion Auscultation: normal bowel sounds Assessment and Plan Assessment & Plan (1) Bipolar disorder: Comment: follow up with psychiatry Code(s): F31.9 - Bipolar disorder, unspecified Plan: Patient is established with a psychiatrist continue current medications (2) Overweight: Code(s): E66.3 - Overweight Plan: Decrease caloric intake increase physical activity weight loss discussed with the patient (3) CHF (congestive heart failure): Comment: Echo Alyssa 04/09 EF 20-25%, global hypokinesis, normal coronary angiogram, follow-up with [facility] Cardiology Code(s): I50.9 - Heart failure, unspecified Plan: Continue current medications follow-up with the Cardiology (4) Annual physical exam: Comment: Patient had hysterectomy and does not need a Pap smear Code(s): Z00.00 - Encounter for general adult medical examination without abnormal findings Plan: Well-balanced diet regular physical activity discussed with the patient she will return for fasting blood work. Patient will schedule mammogram and had negative Cologuard this year Orders: Orders Lipid Panel Today E66.3 - Overweight, F31.9 - Bipolar disorder, unspecified, I50.9 - Heart failure, unspecified, Z00.00 - Encounter for general adult medical examination without abnormal findings Vitamin D 25-OH Total Today E66.3 - Overweight, F31.9 - Bipolar disorder, unspecified, I50.9 - Heart failure, unspecified, Z00.00 - Encounter for general adult medical examination without abnormal findings Comprehensive [place]. Panel Fast Today E66.3 - Overweight, F31.9 - Bipolar disorder, unspecified, I50.9 - Heart failure, unspecified, Z00.00 - Encounter for general adult medical examination without abnormal findings Complete Blood Count Auto Diff Today E66.3 - Overweight, F31.9 - Bipolar disorder, unspecified, I50.9 - Heart failure, unspecified, Z00.00 - Encounter for general adult medical examination without abnormal findings Hemoglobin A1c Today E66.3 - Overweight, F31.9 - Bipolar disorder, unspecified, I50.9 - Heart failure, unspecified, Z00.00 - Encounter for general adult medical examination without abnormal findings Vitamin B12 and Folate Today E66.3 - Overweight, F31.9 - Bipolar disorder, unspecified, I50.9 - Heart failure, unspecified, Z00.00 - Encounter for general adult medical examination without abnormal findings Vitamin B1 Today E66.3 - Overweight, F31.9 - Bipolar disorder, unspecified, I50.9 - Heart failure, unspecified, Z00.00 - Encounter for general adult medical examination without abnormal findings Coding Level of Care Code Est Pt Prev Care 40-64y(66030) Diagnoses Bipolar disorder F31.9 Overweight E66.3 CHF (congestive heart failure) I50.9 Annual physical exam Z00.00 Additional Codes ANASTASIA-7 Assessment Billing - ANASTASIA-7 Assessment Tool: ANASTASIA-7 Assessment 55933 ([id number])
[2024-01-07 11:00] VITALS: BP 110/74; PULSE 90; O2SAT 98; BMI 37.3
== END 2024-01-07 13:05 | disposition home or self-care (01) ==
PROVIDERS: PCP Internal Medicine; Visit Provider Internal Medicine
DX: F31.9 Bipolar disorder, unspecified (principal); E66.3 Overweight; I50.9 Heart failure, unspecified; Z00.00 Encounter for general adult medical examination without abnormal findings

== ENCOUNTER → 2024-01-07 10:50 | Outpatient (BNVA) | payer MEDICARE, SELFPAY | PROVIDERS: PCP Internal Medicine; Visit Provider Internal Medicine | DX: Z00.01 Encounter for general adult medical examination with abnormal findings (principal); F31.9 Bipolar disorder, unspecified; E66.3 Overweight; I50.9 Heart failure, unspecified | CPT/HCPCS: 96127 ==

== ENCOUNTER 2025-01-01 10:05 | Outpatient (AMB) | payer MEDICARE, MEDICAID, SELFPAY ==
[2025-01-01 10:08] VITALS: BP 114/70; PULSE 115; RESP 18; TEMP 36.9; O2SAT 97; BMI 30.9
--- NOTE | 2025-01-01 10:08 | MHC.PC.OV ---
Vital Signs 01/01/25 10:08 Height 5 ft 5 in Weight 186 lb BMI 30.9 BP 114/70 Blood Pressure Location Lt brachial Position Sitting Respiration 18 Pulse 115 H Pulse Source Pulse Oximeter Temp 98.5 F Temp Source Oral Pulse Oximetry (%) 97 Oxygen Delivery Method Room Air Intake Visit Reasons: HDF Intake Note: Pt is here today for HDF. Allergies acetaminophen (From Vicodin) Allergy (Severe, Verified 01/01/25 10:10) Hives hydrocodone (From Vicodin) Allergy (Severe, Verified 01/01/25 10:10) Hives Medication List - Last Reconciled 01/01/25 by Henny Huff MD albuterol sulfate 90 mcg/actuation 2 puffs inhalation Q6H PRN azelastine 137 mcg (0.137 mL) intranasal BID blood pressure kit-extra large As directed Entresto 24-26 mg (sacubitril-valsartan) 1 tab PO BID NS fexofenadine (Jacinta Allergy) 180 mg PO DAILY folic acid 1 mg PO DAILY furosemide 40 mg PO DAILY furosemide (Lasix) 20 mg PO DAILY magnesium oxide 400 mg PO BEDTIME [oximeter As directed] trazodone 100 mg PO BEDTIME Tobacco use date assessed: 01/01/25 Dental Screening Dental Screen Date: 01/01/25 Did you have a dental visit in the last 12 months?: Yes Did you have a dental problem in the last 6 months where you did not have access to dental care?: No Was dental information given to patient?: Patient has dentist HPI HDF HPI Details Pt presents for HDF. Patient was admitted to [facility] from November 06 to November 16 then [facility] [place] [facility]. Patient was admitted for ETOH abuse, weakness, decompensated liver cirrhosis, nonischemic cardiomyopathy, depression anxiety. Since the discharge patient has been staying with her sister and denies any recurrent ETOH abuse. She has been tolerating regular diet. She reports increasing in abdomen swelling but denies diarrhea constipation abdominal pain nausea vomiting. Patient denies PND orthopnea chest pain palpitations. She has been getting home physical therapy and ambulation has improved. Patient was discharged home on furosemide and midodrine by ran out of both medications about a week ago. Entresto carvedilol and Farxiga were discontinued during hospitalization. 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 She was also referred to for liver cirrhosis. Patient is established with psychiatrist for chronic depression and anxiety and has been taking trazodone and Lamictal. [facility] Medical History (Updated 01/01/25 @ 11:02 by Henny Huff MD) Liver cirrhosis, alcoholic Heart failure with reduced ejection fraction Herpes zoster anterior uveitis Osteoarthritis of left knee Tachycardia Anxiety Depression Back pain Bipolar disorder ETOH abuse Opiate abuse, continuous Polysubstance abuse Allergic rhinitis Surgical History H/O foot surgery H/O: hysterectomy History of back surgery History of carpal tunnel surgery Family History Mother Cervical cancer Sister Cervical cancer Social History Household Members: None Housing: Apartment Are you a primary care management specialist to a significant other at home: No Do you presently have visiting nurse or other home services: No Alcohol intake: current Alcohol intake frequency: 3 or more drinks per day Alcohol type: hard liquor Comment: aware of trip hazard Patient Tobacco Use Status: Current everyday Tobacco user Tobacco use type: Cigarette Cigarettes Per Day: 2 e-Cigarette/Vaping Use: Former Use (July 2020) Advance Directives Date on File: 07/24/21 service: No Current occupational status: unemployed Cognitive needs: No Hearing needs: No Vision needs: Yes Questionnaire PHQ-9 Over the last 2 weeks, how often have you been bothered by any of the following problems? 1. Little interest or pleasure in doing things: nearly every day 2. Feeling down, depressed, or hopeless: more than half the days 3. Trouble falling or staying asleep, or sleeping too much: more than half the days 4. Feeling tired or having little energy: nearly every day 5. Poor appetite or overeating: more than half the days 6. Feeling bad about yourself - or that you are a failure or have let yourself or your family down: more than half the days 7. Trouble concentrating on things, such as reading the newspaper or watching television: more than half the days 8. Moving or speaking so slowly that other people could have noticed. Or the opposite - being so fidgety or restless that you have been moving around a lot more than usual: not at all 9. Thoughts that you would be better off or of hurting yourself in some way: not at all Total score: 16 Depression Screening Interpretation: Positive (Established with Psychiatry) Depression Screening Follow-up: Existing condition and In treatment Depression Screening Done: Yes 65556 - PHQ-9 Billing: Yes Source: Developed by Drs. Lane Brenner, Naima Harris, Evgeny Em and colleagues, with an educational danita from [email or web address]. Thrive Questionnaire Date Thrive assessed: 01/01/25 I am a: Patient What is your living situation today?: I have a steady place to live Within the past 12 months, did the food you bought not last and you didn't have the money to get more?: Never true Within the past 12 months, did you worry whether your food would run out before you got money to buy more?: Never true Do you have trouble paying for medicines?: No Do you have trouble getting transportation to medical appointments?: No Do you have trouble paying your heating and electricity bill?: No Do you have trouble taking care of your child, family member or friend?: No Do you have trouble with day-to-day activities such as bathing, preparing meals, shopping, managing finances, etc.?: No Are you currently unemployed and looking for a job?: No Are you interested in more education?: No Please select the resources that you would like help with: None Currently or been in a relationship where the following occur: No concerns reported THRIVE Score: 0 AUDIT C Alcohol Use Questionnaire (AUDIT-C) 1. How often do you have a drink containing alcohol?: Never 3. How often do you have six or more drinks on one occasion?: Never Total Score: 0 ANASTASIA-7 AMB Questionnaire ANASTASIA-7 Date ANASTASIA - 7 assessed: 01/01/25 Feeling nervous, anxious, or on edge: 3 = Nearly every day Not being able to stop or control worryin = Nearly every day Worrying too much about different things: 3 = Nearly every day Trouble relaxin = Nearly every day Being so restless that it is hard to sit still: 1 = Several days Becoming easily annoyed or irritable: 3 = Nearly every day Feeling afraid as if something awful might happen: 1 = Several days Total ANASTASIA-7 score (0-4 normal; 5-9 mild; 10-14 moderate; 15-21 severe): 17 Source: Developed by Drs. Lane Brenner, Naima Harris, Evgeny Em and colleagues, with an educational danita from [email or web address]. ANASTASIA-7 Assessment Billing ANASTASIA-7 Assessment Tool: ANASTASIA-7 Assessment 91589 Review of Systems Const All systems reviewed & are unremarkable except as noted in HPI and below Eyes Reports no additional complaints ENT Reports no additional complaints Card Reports no additional complaints Resp Reports no additional complaints GI Reports no additional complaints Reports no additional complaints Physical exam (Primary Care) Vital Signs: Last Vital Signs Temp 98.5 F 01/01/25 10:08 Pulse 115 H 01/01/25 10:08 Resp 18 01/01/25 10:08 BP 114/70 01/01/25 10:08 Pulse Ox 97 01/01/25 10:08 Oxygen Delivery Method Room Air 01/01/25 10:08 BMI result Body Mass Index 30.9 Tobacco/Smoking Status: Tobacco use Status Tobacco use date assessed 01/01/25 01/01/25 10:15 Patient Tobacco Use Status Current everyday Tobacco 01/01/25 10:15 Tobacco use type Cigarette 01/01/25 10:15 e-Cigarette/Vaping Use Former Use (July 2020) 01/01/25 10:15 PHQ-9: PHQ-9 Score PHQ-9: Total score 16 01/01/25 10:21 Depression Screening Interpretation: Positive (Established with Psychiatry) Depression Screening Follow-up: Existing condition and In treatment Thrive Assessment: Date of Thrive Assessment Date Thrive assessed 01/01/25 01/01/25 10:21 Currently or been in a relationship where the following occur: No concerns reported Const General: no acute distress HENMT Head: Yes normal to inspection Eyes General: appearance normal, both eyes and all related structures Neck Neck: Yes supple Resp Effort & Inspection: normal respiratory effort Auscultation: clear to auscultation bilaterally Cardio Rate: tachycardic Rhythm: regular rhythm Heart sounds: S1 normal heart sound present and S2 normal heart sound present GI Inspection: Yes obesity Palpation (GI): Soft to palpation, nontender and no guarding Percussion: No Fluid wave present Auscultation: normal bowel sounds Extrem General: Yes no clubbing, cyanosis or edema Coding Level of Care Code Est Pt Level 4 (65185) Diagnoses Ascites R18.8 Bipolar disorder F31.9 Heart failure with reduced ejection fraction I50.20 Liver cirrhosis, alcoholic K70.30 Additional Codes ANASTASIA-7 Assessment Billing - ANASTASIA-7 Assessment Tool: ANASTASIA-7 Assessment 91106 ([id number]) PHQ-9 - 17750 - PHQ-9 Billing: Yes ([id number]) Assessment & Plan Assessment & Plan (1) Ascites: Code(s): R18.8 - Other ascites Category: Medical Plan: Obtain abdominal ultrasound to evaluate for ascites. Furosemide 20 mg daily will be restarted but if there is no significant ascites the dose will be decreased (2) Bipolar disorder: Comment: follow up with psychiatry Code(s): F31.9 - Bipolar disorder, unspecified Category: Medical Plan: Follow-up with psychiatry (3) Heart failure with reduced ejection fraction: Comment: f/u RICO Shah, , Echo 2021 EF 25%, GLOBAL HYPOKINESIS. Normal coronaries on catheterization 2021 Code(s): I50.20 - Unspecified systolic (congestive) heart failure Category: Medical Plan: Restart Entresto 24-26 mg twice a day follow-up in 1 week (4) Liver cirrhosis, alcoholic: Code(s): K70.30 - Alcoholic cirrhosis of liver without ascites Category: Medical Plan: Patient was referred to GI and is waiting for an appointment Orders: Orders US abdomen limited Today R18.8 - Other ascites Medications: New Entresto 24-26 mg (sacubitril-valsartan) 1 tab PO BID 60 tabs 1RF NS furosemide (Lasix) 20 mg PO DAILY 30 tabs 1RF thiamine HCl (vitamin B1) 100 mg PO DAILY 90 tabs 3RF
--- OUTSIDE RECORDS SUMMARY | 2025-01-01 12:42 | XMS_ITS ---
Author Name [facility] Organization Unknown Results Test Name/Text Value Interpretation Date Range Source WBC 6-10 Abnormal 03/24/2024 0 - 5 [facility] RBC 3-5 Abnormal 03/24/2024 - [facility] BACTERIA Many Abnormal 03/24/2024 - [facility] URINE CLARITY Turbid Normal 03/24/2024 [facility] pH 6.0 Normal 03/24/2024 5 - 9 [facility] SPECIFIC GRAVITY 1.015 Normal 03/24/2024 1 - 1.099 [facility] KETONE Negative Normal 03/24/2024 - [facility] GLUCOSE Negative Normal 03/24/2024 - [facility] URINE COLOR Yellow Normal 03/24/2024 [facility] LEUKOCYTE ESTERASE Trace Abnormal 03/24/2024 - [facility] BLOOD Negative Normal 03/24/2024 - [facility] PROTEIN Negative Normal 03/24/2024 - [facility] NITRITE Positive Abnormal 03/24/2024 - [facility] BENZODIAZEPINE, URINE, QUAL POSITIVE Abnormal 03/24/2024 - [facility] BARBITUATES, URINE, QUAL NEGATIVE Normal 03/24/2024 - [facility] OPIATES, URINE, QUAL NEGATIVE Normal 03/24/2024 - [facility] AMPHETAMINES, URINE, QUAL NEGATIVE Normal 03/24/2024 - [facility] COCAINE, URINE, QUAL POSITIVE Abnormal 03/24/2024 - [facility] CANNABINOIDS, URINE, QUAL POSITIVE Abnormal 03/24/2024 - [facility] LIPASE 10.0 U/L Below low normal 03/24/2024 13 - 60 [facility] ANION GAP 20.0 MMOL/L Above high normal 03/24/2024 - [facility] BLOOD UREA NITROGEN 19.0 MG/DL Normal 03/24/2024 6 - 20 [facility] SODIUM 139.0 MMOL/L Normal 03/24/2024 136 - 145 [facility] POTASSIUM 4.1 MMOL/L Normal 03/24/2024 3.5 - 4.9 [facility] CHLORIDE 98.0 MMOL/L Normal 03/24/2024 98 - 107 [facility] TOTAL PROTEIN 7.2 G/DL Normal 03/24/2024 6.6 - 8.7 [facility] BUN/CREATININE RATIO 13.5 Normal 03/24/2024 [facility] EST. GLOMERULAR FILTRATION 40.0 Normal 03/24/2024 [facility] CREATININE 1.4 MG/DL Above high normal 03/24/2024 0.5 - 0.9 [facility] BILIRUBIN, TOTAL 0.6 MG/DL Normal 03/24/2024 0.3 - 1.2 [facility] AST 283.0 U/L Above high normal 03/24/2024 6 - 32 [facility] EST CREATININE CLEARANCE CALC 55.7 mL/min Normal 03/24/2024 [facility] CALCIUM 9.5 MG/DL Normal 03/24/2024 8.6 - 10.4 [facility] ALBUMIN 4.0 G/DL Normal 03/24/2024 3.5 - 5.2 [facility] ALKALINE PHOSPHATASE 128.0 U/L Above high normal 03/24/2024 35 - 105 [facility] ALT 195.0 U/L Above high normal 03/24/2024 5 - 33 [facility] GLUCOSE, RANDOM 99.0 MG/DL Normal 03/24/2024 70 - 139 [facility] CO2 25.0 MMOL/L Normal 03/24/2024 22 - 29 [facility] ETHYL ALCOHOL 284.0 MG/DL Above high normal 03/24/2024 - 11 [facility] MAGNESIUM 2.2 MG/DL Normal 03/24/2024 1.6 - 2.6 [facility] RBC 4.28 M/UL Normal 03/24/2024 4.2 - 5.4 [facility] ABSOLUTE NEUTROPHILS 3.1 K/UL Normal 03/24/2024 1.8 - 7. 8 [facility] ABSOLUTE BASOS 0.1 K/UL Normal 03/24/2024 0 - 0.2 [facility] WBC 8.3 K/UL Normal 03/24/2024 4 - 10.5 [facility] BASOPHILS 1.7 % Normal 03/24/2024 [facility] MCHC 33.6 GM/DL Normal 03/24/2024 32 - 36 [facility] LYMPHOCYTES 50.1 % Normal 03/24/2024 [facility] ABSOLUTE LYMPHS 4.1 K/UL Normal 03/24/2024 1 - 4.8 [facility] RDW 14.0 % Normal 03/24/2024 11.5 - 14.5 [facility] MEAN PLATELET VOLUME 9.4 fL Normal 03/24/2024 8.8 - 13 .6 [facility] ABSOLUTE EOS 0.2 K/UL Normal 03/24/2024 0 - 0.5 [facility] HEMATOCRIT 41.7 % Normal 03/24/2024 37 - 47 [facility] PLATELET COUNT 289.0 K/UL Normal 03/24/2024 150 - 450 [facility] MCH 32.7 PG Above high normal 03/24/2024 27 - 31 [facility] ABSOLUTE IMMATURE GRANULOCYTE 0.02 K/UL Normal 03/24/2024 0 - 0.08 [facility] NEUTROPHILS 37.7 % Normal 03/24/2024 [facility] IMMATURE GRANULOCYTE PERCENT 0.2 % Normal 03/24/2024 0 - 0.8 [facility] HEMOGLOBIN 14.0 GM/DL Normal 03/24/2024 12.5 - 16 [facility] EOSINOPHILS 2.8 % Normal 03/24/2024 [facility] ABSOLUTE MONOS 0.6 K/UL Normal 03/24/2024 0 - 0.8 [facility] MCV 97.4 FL Normal 03/24/2024 78 - 100 [facility] MONOCYTES 7.5 % Normal 03/24/2024 [facility] History of Medication Use Medication Directions Dispensed Refills Start Date End Date Stat us Cephalexin (Keflex) 500 MG Cap 03/24/2024 active Problems Problem Status Onset Date Problem Type Date of Resoluti on Source Abnormal computed tomography scan active ProblemAct [facility] Urinary tract infection active ProblemAct [facility] Closed head injury active ProblemAct [facility] Encounters Encounter Type Encounter Reason Primary Diagnosis Location Date Emergency DETOX ALCOHOL ABUSE WI TH INTOXICATION, UNSPECIFIED [facility] 03/24/2024 Care Team Organization Name Specialty Phone Email Start Date End Da te [facility] 03/26/20242024 [facility] PHYSICIAN NO Primary Care 024
--- OUTSIDE RECORDS SUMMARY | 2025-01-01 12:42 | XMS_ITS | Clinical Summary ---
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 30 each 5 Active midodrine (PROAMATINE) 5 mg tablet Take 1 tablet (5 mg total) by mouth 3 (three) times a day before meals. 90 each 5 Active furosemide (LASIX) 20 mg tablet Take 1 tablet (20 mg total) by mouth every other day for 10 days. 5 Active naltrexone (DEPADE) 50 mg tablet Take 1 tablet (50 mg total) by mouth 1 (one) time each day. 30 each 5 12/13/19 25 multivitamin tablet Take 1 tablet by mouth 1 (one) time each day. 30 each 5 12/22/19 25 folic acid (FOLVITE) 1 mg tablet Take 1 tablet (1 mg total) by mouth 1 (one) time each day. 30 each 5 12/22/19 25 thiamine 100 mg tablet Take 1 tablet (100 mg total) by mouth 1 (one) time each day. 30 tablet 5 12/22/19 25 senna (SENOKOT) 8.6 mg tablet Take 2 tablets (17.2 mg total) by mouth at bedtime as needed for constipation for up to 10 days. 5 12/07/19 25 magnesium lactate (MAGTAB) 84 mg CR tablet Take 1 tablet (84 mg total) by mouth 2 (two) times a day with meals for 7 days. 5 12/04/19 25 Active Problems Problem Noted Date Diagnosed Date C. difficile colitis 11/20/2024 Decompensated liver disease ([facility] V24, [facility] C V28) 10/10/2024 DVT (deep venous thrombosis) ([facility] V24, [facility] V28) 09/05/2024 HFrEF (heart failure with re duced ejection fraction) ([facility] V24, [facility] V28) 08/04/2024 Hypotension 07/28/2024 Bipolar disorder ([facility] V24, [facility] V28) 08/18 Alcohol abuse 09/08/2022 Acute pancreatitis 09/08/2022 Overview (06/02/2024): Hospitalized at [facility] in 05/2022 with alcohol induced pancreatitis and had cardiomyopathy meds held transiently in setting of volume depletion Cardiomyopathy ([facility] V24, [facility] V28) 2022 Overview (06/02/2024): -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 -Presented to the hospital March 2022 with lower extremity edema and dyspnea echo revealed severe cardiomyopathy with mild concentric LVH severely reduced LVEF to 20 to 25% global hypokinesis -S/p cardiac cath in Mar 2022 showed normal cors -We have slowly uptitrated myopathy meds but have been limited by hypotension/orthostasis -She has abstained from alcohol since April 2022 -Most recent echo on June 2022 on maximally tolerated meds up until that point showed mild left ventricular cavity enlargement with normal wall thickness severe global LVH dysfunction with persistently reduced EF 20 to 25%, Normal right ventricular systolic function no hemodynamically significant valve disease Last Assessment & Plan: Agree that her palpitations are likely because her heart actually races with minimal activity- her heart rate in the office is over 100 beats a minute on carvedilol- I would like to get her on the maximum dose of carvedilol but will do so stepwise- I have asked her to increase to 12.5 twice daily-if she tolerates this for 2 weeks, I asked her to either [employer] message me or call our office to let me know so that I can refill her at the 25 mg twice daily dose, at that point, I believe we will have her on enough goal-directed medical therapy that we can repeat her echo sometime around late June into July 2023-depending on the results of this echo, we will determine whether or not she warrants a defibrillator for primary prevention Assessment & Plan (09/07/2024 1:40 PM EDT): Euvolemic on exam. Patient was taken off most of her meds following the most recent hospitalization. She is utilizing Entresto, will reinitiate low-dose metoprolol, 25 mg p.o. daily. Patient has dizziness exacerbated by diuretics in the future so we will withhold from this. Would like her to limit her sodium intake. Reach out to the office if you gain more than 2 pounds in a day or 5 pounds in a week. Going to update an echocardiogram. Tachycardia 05/27/2022 Overview (06/02/2024): Last Assessment & Plan: She appears to have baseline tachycardia she states she has had this for some time. She can feel this is a sense of racing heartbeats. She is on a beta-mode. She states she has had no alcohol in 3 weeks. She believes she is drinking the 64 ounces of water that she is allowed. Again emphasized that she needs to follow through as a priority with her labs to be sure she is not volume depleted and thus having a reactive elevated heart rate. She states she will provide labs tomorrow. Continue to monitor and may be able to increase her carvedilol if it does not contribute to worsened depression. CHF (congestive heart failure) ([facility] V24, [facility] V28) 04/22/2022 Overview (06/02/2024): Last Assessment & Plan: She appears euvolemic on exam today. Her overall weight in the last 5 months has increased up to is much as 10 pounds but it is variable. There does not appear to be a general weight gain of 5 pounds in 1 week or 3 pounds overnight. She reports to be following a fluid restriction of 62 ounces. She is not reporting orthopnea. We discussed given her history of depression and recent family loss I am going to avoid increasing her carvedilol, it was just increased last month. Though arguably given her elevated heart rate this can certainly be considered. For a stepwise approach we I am going to increase her Entresto further. She has been advised on the potential side effects and she should be following her blood pressure at home and making sure she is not having symptoms of hypotension. She is aware to be following a strict low-sodium diet as well. We did discuss that she may be a candidate for a defibrillator in the future and she has understood this to be the case. If the Entresto causes undesirable side effects she will need to reduce back to the starting dose. We could then consider increasing her carvedilol or adding spironolactone. I have emphasized the importance that her labs be provided regularly as ordered. HTN (hypertension) 04/22/2022 Overview (06/02/2024): Last Assessment & Plan: Blood pressure on repeat by me 124/82. We discussed advancing medications for her heart failure reduced ejection fraction. I have repeatedly cautioned her that I am increasing her Entresto which is going to result in lowering her blood pressure further. I am hopeful that she will tolerate this. And if not we will have to return back to the starting dose. As well she needs to drink the fluid that she is allowed. She is agreed to follow her blood pressure at home. If she has symptoms of hypotension she will send me a [employer] message. I am aware that she has had low blood pressure issues in the past. Assessment & Plan (09/07/2024 1:40 PM EDT): Well-controlled the appointment today. I am adding in metoprolol, as patient notices her heart rate goes up into the 120s or 130s with just light exercise. Also beneficial for the cardiomyopathy. Like her to keep taking blood pressure measurements at home and reach out if she consistently gets rates outside of normal limits. Educated on the importance of diet lifestyle to help further assist in reducing blood pressure. The patient was encouraged to follow low-salt low-fat diet, make purposeful strides towards weight loss, and engage in routine aerobic exercise as tolerated. Resolved Problems Problem Noted Date Diagnosed Date Resolved Date Alcohol withdrawal syndrome without complication ([facility] V24, [facility] V28) 11/07/2024 11/11/2024 Septic shock ([facility] V24, [facility] V28) 10/10/2024 10/14/2024 Electrolyte abnormality 10/10/202409/18 LONG (acute kidney injury) ([facility] V24) 10/10/2024 10/14/2024 Encounters Date Type Department Care Team Description 12/12/2024 Telephone [facility] [address] [phone] Sundeep Kunz NP 12/07/2024 Telephone [facility] [address] [phone] Sundeep Kunz NP 11/16/2024 9:19 AM EDT - 11/26/2024 5:14 PM EDT Hospital Encounter [facility] [address] [place] [address] Jasen Jay DO Flores, Carlos M, MD Mersier, Jasmine, DO Nasser, Nada S, MD Surendran, Anupama, MD Alcohol use disorder (Primary Dx); Elevated bilirubin; LONG (acute kidney injury) ([facility] V24) Discharge Disposition: Custodial Facility 11/07/2024 9:24 AM EDT - 11/11/2024 1:09 PM EDT Hospital Encounter [facility] [address] [place] [id number] Geetha Gonzalez MD Seralathan, Manikandan, MD Alcohol withdrawal syndrome without complication ([facility] V24, [facility] V28) (Primary Dx) Discharge Disposition: Home-Health Care c 10/10/2024 3:09 PM EDT - 10/15/2024 2:02 PM EDT Hospital Encounter [facility] [address] [place] [address] Paola Hodges DO Levrault, Richard, DO Flores, Carlos M, MD Japaridze, Anna, MD Septic shock ([facility] V24, [facility] V28) (Primary Dx); Hypotension, unspecified hypotension type; Liver failure without hepatic coma, unspecified chronicity ([facility] V24, [facility] V28); Traumatic injury of head, initial encounter; Rib pain Discharge Disposition: Home-Health Care [facility] [place] 3 Months Surgical History Surgery Date Site/Laterality Comments OTHER SURGICAL HISTORY PROCEDURE: SPINAL FUSION, EA ADD'L INTERSPACE; COMMENT: cervical CARPAL TUNNEL RELEASE PROCEDURE: HISTORICAL CARPAL TUNNEL REL OTHER SURGICAL HISTORY PROCEDURE: SPINAL FUSION, EA ADD'L INTERSPACE; COMMENT: lumbar Medical History Medical History Date Comments Alcohol withdrawal ([facility] V24, [facility] V28) DX:Alcohol withdrawal ([facility]) Bipolar disorder, unspecifie d ([facility] V24, [facility] V28) DX:Bipolar disorder, unspeci fied ([facility]) Insomnia DX:Insomnia Obesity DX:Obesity Depressive disorder DX:Depressiv e disorder Anxiety CHF (congestive heart failur e) ([facility] V24, [facility] V28) Dizziness due to hypotensi on versus polypharmacy Pancreatitis Family History Medical History Relation Name Comments Alcohol abuse Other Relation Name Status Comments Other Social History Tobacco Use Types Packs/Day Years Used Date Smoking Tobacco: Former Cigarettes Smokeless Tobacco: Never Tobacco Cessation:Counseling Given: Not Answered Alcohol Use Standard Drinks/Week Comments Yes 0 (1 standard drink = 0.6 oz pur e alcohol) 1 pt vodka/day Housing Instability Answer Date Recorde d Are you worried that in the next 2 months you may not have stable housing? No 11/16/2024 Food Access & Nutrition Answer Date Rec orded Do you have access to a vari ety of food including fruits and vegetables? Yes 11/16/2024 Access to Healthcare Answer Date Record ed Within the last 3 months, ho w many times did you visit the emergency department for your medical care? 5 11/16/2024 Health Literacy Answer Date Recorded How often do you need to hav e someone help you when you read instructions, pamphlets, or other written material from your doctor or pharmacy? Always 11/16/2024 Caregiver: How often do you need to have someone help you when you read instructions, pamphlets, or other written material from your doctor or pharmacy? Not on file 11/16/2024 Financial Risk Answer Date Recorded How hard is it for you to pa y for the very basics like food, housing, medical care, and air conditioning / heating? Not very hard 11/16/2024 Transportation Answer Date Recorded Has the lack of transportati on kept you from meetings, work, or from getting things needed for daily living? Yes Has the lack of transportati on kept you from medical appointments or from getting medications? Yes 11/16/2024 Social Isolation Answer Date Recorded How often do you feel lonely or isolated from th ose around you? Often 11/16/2024 Food Risk Answer Date Recorded Within the past 12 months we worried whether our food would run out before we got money to buy more. Never true 11/16/2024 Within the past 12 months th e food we bought just didn't last and we didn't have money to get more. Never true 11/16/2024 Dependent Care Answer Date Recorded Do you need help finding or paying for care for your loved ones. For example, teacher early childhood development or elderly care for an older adult? No 11/16/2024 Education Answer Date Recorded Do you think completing more education or training, like finishing a GED, going to college, or learning a trade, would be helpful for you? N/A 11/16/2024 Employment and Income Answer Date Recor ded During the last four weeks, have you been actively looking for work? No 11/16/2024 Living Situation Answer Date Recorded What is your living situation? 0 11/16/2024 Interpersonal Safety Answer Date Record ed Physical Abuse 11/16/2024 Verbal Abuse 11/16/2024 Comments No Sex and Gender Information Value Date Recorded Sex Assigned at Female 07/28/2024 11:02 AM EDT Legal Sex Female 8:02 AM EST Gender Identity Female 07/28/2024 11:02 AM EDT Sexual Orientation Straight 07/28/2024 11 :02 AM EDT Obstetrics History Last Filed Vital Signs Vital Sign Reading Time Taken Comments Blood Pressure 96/54 11/26/2024 3:13 PM EDT Pulse 91 11/26/2024 3:16 PM EDT Temperature 36.1 C (97 F) 11/26/2024 3:13 PM EDT Respiratory Rate 18 11/26/2024 3:13 PM EDT Oxygen Saturation 100% 11/26/2024 3:16 PM EDT Inhaled Oxygen Concentration - - Weight 88.6 kg (195 lb 6.4 oz) 11/26/2024 6:20 A M EDT Height 167.6 cm (5' 6 ) 11/16/2024 8:09 PM EDT Body Mass Index 31.54 11/16/2024 8:09 PM EDT Plan of Treatment Upcoming Encounters Date Type Department Care Team (Late st Contact Info) Description 03/12/2025 11:00 AM EST Ancillary Procedure [facility] [address] [place] [address] Health Maintenance Due Date Last Done Comments Breast Cancer Screening 1972 DTaP,Tdap,and Td Vaccines (1 - Tdap) 09/11/1991 Hepatitis A Vaccines (1 of 2 - Risk 2-dose series) 09/11/1991 Hepatitis B Vaccines (1 of 3 - 19+ 3-dose series) 09/11/1991 Cervical Cancer Screening: Pap Smear 1993 HIV Screening 03/22/2022 Medicare Annual Wellness Visit 03/22/2022 Zoster Vaccines (1 of 2) 2022 Depression Screening 04/19/2024 COVID-19 Vaccine ( - season) 2024 04/15/2021, 08/07/2020, 07/10/2020 Influenza Vaccine (#1) 2024 , 03/07/2023, 03/23/2022, Additional history exists Colorectal Cancer Screening: Stool Based Tests (FOBT/FIT) 11/11/2025 11/11/2024, 10/11/2024 Social Influencers of Health Screening 11/16/2025 11/16/2024 Hypertension/CHF/CAD Annual BMP Blood Test 11/25/2025 11/25/2024, 11/21/2024, 11/20/2024, Additional history exists Cholesterol Screening (Lipid Panel) 05/13/2027 05/13/2022, 05/13/2022 Pneumococcal Vaccine: 50+ Years Completed 03/07/2023, 02/02/2018 Hepatitis C Screening Completed 11/07/2024 , 10/10/2024, 05/14/2022, Additional history exists HIB Vaccines Aged Out No longer eligi ble based on patient's age to complete this topic HPV Vaccines Aged Out No longer eligi ble based on patient's age to complete this topic IPV Vaccines Aged Out No longer eligi ble based on patient's age to complete this topic MMR Vaccines Aged Out No longer eligi ble based on patient's age to complete this topic Meningococcal ACWY Vaccine Aged Out N o longer eligible based on patient's age to complete this topic Meningococcal B Vaccine Aged Out No l onger eligible based on patient's age to complete this topic RSV Immunization Patients Under 20 months Aged Out No longer eligible based on patient's age to complete this topic Varicella Vaccines Aged Out No longer eligible based on patient's age to complete this topic Procedures Procedure Name Priority Date/Time Associated Diagnosis Comments PHOSPHORUS Add-On 11/25/2024 5:14 AM EDT MAGNESIUM Add-On 11/25/2024 5:14 AM EDT CBC WITH AUTO DIFFERENTIAL Routine 11/25/2024 5:14 AM EDT BASIC METABOLIC PANEL Routine 11/25/2024 5:14 AM EDT CBC AND DIFFERENTIAL Routine 11/25/2024 5:14 AM EDT DIFFERENTIAL BODY FLUID Routine 11/25/19 1:08 PM EDT PROTEIN, BODY FLUID Routine 11/24/2024 1 :08 PM EDT GLUCOSE, BODY FLUID Routine 11/24/2024 1 :08 PM EDT ALBUMIN, BODY FLUID Routine 11/24/2024 1 :08 PM EDT CELL COUNT WITH REFLEX DIFFERENTIAL, BODY FLUID Routine 11/24/2024 1:08 PM EDT CULTURE BODY FLUID WITH GRAM STAIN Routine 11/24/2024 1:08 PM EDT US PARACENTESIS W IMAGE GUIDANCE Routine 11/24/2024 1:06 PM EDT LAVENDER - EDTA Routine 11/21/2024 5:49 AM EDT EXTRA TUBES Routine 11/21/2024 5:49 AM EDT MAGNESIUM Routine 11/21/2024 5:49 AM EDT BASIC METABOLIC PANEL Routine 11/21/2024 5:49 AM EDT HEPATIC FUNCTION PANEL Routine 5:49 AM EDT CBC WITH AUTO DIFFERENTIAL Routine 11/20/2024 5:30 AM EDT PHOSPHORUS Routine 11/20/2024 5:30 AM EDT MAGNESIUM Timed 11/20/2024 5:30 AM EDT CBC AND DIFFERENTIAL Routine 11/20/2024 5:30 AM EDT COMPREHENSIVE METABOLIC PANEL Timed 11/20/2024 5:30 AM EDT POCT GLUCOSE BLOOD Routine 11/19/2024 7: 08 AM EDT BILIRUBIN DUPLICATE PROCEDURE TO ORDER Routine 11/19/2024 5:34 AM EDT CBC WITH AUTO DIFFERENTIAL Routine 11/19/2024 5:34 AM EDT PHOSPHORUS Routine 11/19/2024 5:34 AM EDT MAGNESIUM Timed 11/19/2024 5:34 AM EDT CBC AND DIFFERENTIAL Routine 11/19/2024 5:34 AM EDT COMPREHENSIVE METABOLIC PANEL Timed 11/19/2024 5:34 AM EDT POCT GLUCOSE BLOOD Routine 11/19/2024 3: 17 AM EDT POCT GLUCOSE BLOOD Routine 11/18/2024 7: 27 PM EDT POCT GLUCOSE BLOOD Routine 11/18/2024 3: 16 PM EDT POCT GLUCOSE BLOOD Routine 11/18/2024 11 :19 AM EDT POCT GLUCOSE BLOOD Routine 11/18/2024 7: 45 AM EDT CBC WITH AUTO DIFFERENTIAL Routine 11/18/2024 5:40 AM EDT MAGNESIUM Timed 11/18/2024 5:40 AM EDT CBC AND DIFFERENTIAL Routine 11/18/2024 5:40 AM EDT COMPREHENSIVE METABOLIC PANEL Timed 11/18/2024 5:40 AM EDT POCT GLUCOSE BLOOD Routine 11/18/2024 2: 42 AM EDT POCT GLUCOSE BLOOD Routine 11/18/2024 1: 27 AM EDT POCT GLUCOSE BLOOD Routine 11/17/2024 8: 05 PM EDT POCT GLUCOSE BLOOD Routine 11/17/2024 5: 15 PM EDT NON-GYNECOLOGIC CYTOLOGY Routine 11/17/2024 3:39 PM EDT DIFFERENTIAL BODY FLUID Routine 11/18/19 3:39 PM EDT CELL COUNT WITH REFLEX DIFFERENTIAL, BODY FLUID Routine 11/17/2024 3:39 PM EDT PROTEIN, BODY FLUID Routine 11/17/2024 3 :39 PM EDT LACTATE DEHYDROGENASE, BODY FLUID Routine 11/17/2024 3:39 PM EDT GLUCOSE, BODY FLUID Routine 11/17/2024 3 :39 PM EDT ALBUMIN, BODY FLUID Routine 11/17/2024 3 :39 PM EDT CULTURE BODY FLUID WITH GRAM STAIN Routine 11/17/2024 3:39 PM EDT US PARACENTESIS W IMAGE GUIDANCE Routine 11/17/2024 3:38 PM EDT CLOSTRIDIUM DIFFICILE PCR Routine 11/17/2024 3:18 PM EDT CLOSTRIDIUM DIFFICILE TOXIN Routine 11/17/2024 3:18 PM EDT GASTROINTESTINAL PATHOGENS BY PCR Routine 11/17/2024 3:18 PM EDT XR ABDOMEN 1 VIEW STAT 11/17/2024 2:1 6 PM EDT NM HEPATOBILIARY SYSTEM IMAGING STAT 11/17/2024 12:48 PM EDT HEMOCHROMATOSIS MUTATION Routine 11/17/2024 12:21 PM EDT POCT GLUCOSE BLOOD Routine 11/17/2024 11 :26 AM EDT POCT GLUCOSE BLOOD Routine 11/17/2024 7: 52 AM EDT CREATINE KINASE STAT Add-on 11/17/2024 6:03 AM EDT LACTATE DEHYDROGENASE Add-On 11/17/2024 6:03 AM EDT LACTATE, WITH REFLEX Routine 11/17/2024 6:03 AM EDT CBC WITH AUTO DIFFERENTIAL Routine 11/17/2024 6:03 AM EDT MAGNESIUM Routine 11/17/2024 6:03 AM EDT COMPREHENSIVE METABOLIC PANEL Routine 11/17/2024 6:03 AM EDT CBC AND DIFFERENTIAL Routine 11/17/2024 6:03 AM EDT POCT GLUCOSE BLOOD Routine 11/17/2024 12 :29 AM EDT POCT GLUCOSE BLOOD Routine 11/16/2024 10 :39 PM EDT LAMOTRIGINE LEVEL Timed 11/16/2024 8:5 1 PM EDT PROTHROMBIN TIME WITH INR Routine 11/16/2024 8:51 PM EDT MAGNESIUM Routine 11/16/2024 8:51 PM EDT BASIC METABOLIC PANEL Routine 11/16/2024 8:51 PM EDT CULTURE BLOOD STAT 11/16/2024 8:51 PM EDT CULTURE BLOOD STAT 11/16/2024 8:[address] CERVICAL SPINE WO CONTRAST STAT 11/16/2024 8:[address] ABDOMEN PELVIS WO CONTRAST STAT 11/16/2024 8:[address] HEAD WO CONTRAST STAT 11/16/2024 8 :15 PM EDT POCT GLUCOSE BLOOD Routine 11/16/2024 4: 13 PM EDT POCT GLUCOSE BLOOD Routine 11/16/2024 3: 04 PM EDT LACTATE, WITH REFLEX STAT 11/16/2024 2:33 PM EDT US ABDOMEN LIMITED STAT 11/16/2024 2: 30 PM EDT XR CHEST 2 VIEWS STAT 11/16/2024 12:0 8 PM EDT XR ANKLE 3+ VIEWS LEFT STAT 12:08 PM EDT POCT GLUCOSE BLOOD Routine 11/16/2024 11 :33 AM EDT POCT GLUCOSE BLOOD Routine 11/16/2024 10 :51 AM EDT LACTATE STAT 11/16/2024 10:23 AM EDT MANUAL DIFFERENTIAL - SYSMEX WAM STAT 11/16/2024 10:20 AM EDT MAGNESIUM Add-On 11/16/2024 10:20 AM EDT BASIC METABOLIC PANEL Add-On 11/16/2024 10:20 AM EDT ETHANOL STAT Add-on 11/16/2024 10:20 AM EDT HEPATIC FUNCTION PANEL STAT 10:20 AM EDT AMMONIA STAT 11/16/2024 10:20 AM EDT CBC WITH AUTO DIFFERENTIAL STAT 11/16/2024 10:20 AM EDT MAGNESIUM STAT 11/16/2024 10:20 AM EDT BASIC METABOLIC PANEL STAT 11/16/2024 10:20 AM EDT CBC AND DIFFERENTIAL STAT 11/16/2024 10:20 AM EDT ECG 12-LEAD STAT 11/16/2024 10:03 AM EDT ID CRITICAL CARE 30-74 MINUTES Routine 11/16/2024 9:17 AM EDT ECG ANNOTATED 11/13/2024 CBC WITH AUTO DIFFERENTIAL Routine 11/11/2024 6:41 AM EDT CBC AND DIFFERENTIAL Routine 11/11/2024 6:41 AM EDT BASIC METABOLIC PANEL Routine 11/11/2024 6:41 AM EDT MAGNESIUM Routine 11/11/2024 6:41 AM EDT PHOSPHORUS Routine 11/11/2024 6:41 AM EDT OCCULT BLOOD STOOL, GUAIAC Routine 11/11/2024 12:06 AM EDT CBC WITH AUTO DIFFERENTIAL Routine 11/10/2024 5:42 AM EDT CBC AND DIFFERENTIAL Routine 11/10/2024 5:42 AM EDT BASIC METABOLIC PANEL Routine 11/10/2024 5:42 AM EDT MAGNESIUM Routine 11/10/2024 5:42 AM EDT PHOSPHORUS Routine 11/10/2024 5:42 AM EDT CBC WITH AUTO DIFFERENTIAL Routine 11/09/2024 8:23 AM EDT LACTATE Routine 11/09/2024 8:23 AM EDT CBC AND DIFFERENTIAL Routine 11/09/2024 8:23 AM EDT BASIC METABOLIC PANEL Routine 11/09/2024 8:23 AM EDT MAGNESIUM Routine 11/09/2024 8:23 AM EDT PHOSPHORUS Routine 11/09/2024 8:23 AM EDT DRUG ABUSE SCREEN 8A PANEL, URINE Routine 11/08/2024 11:41 AM EDT BANDA URINE CULTURE TUBE STAT 11/09/19 11:41 AM EDT URINALYSIS WITH REFLEX MICROSCOPIC AND CULTURE STAT 11/08/2024 11:41 AM EDT URINALYSIS WITH REFLEX MICROSCOPIC AND CULTURE STAT 11/08/2024 11:41 AM EDT CULTURE URINE STAT 11/08/2024 11:41 AM EDT COMPLETE BLOOD COUNT Routine 11/08/2024 5:43 AM EDT BASIC METABOLIC PANEL Routine 11/08/2024 5:43 AM EDT LACTATE, WITH REFLEX Timed 11/07/2024 5:43 PM EDT TROPONIN I HIGH SENSITIVITY Timed 11/07/2024 5:43 PM EDT XR CHEST 2 VIEWS STAT 11/07/2024 12:4 5 PM EDT TROPONIN I HIGH SENSITIVITY Timed 11/07/2024 11:58 AM EDT ECG 12-LEAD STAT 11/07/2024 11:30 AM EDT RESPIRATORY VIRUS PANEL MOLECULAR STUDY STAT 11/07/2024 11:17 AM EDT HEPATITIS PANEL, ACUTE WITH REFLEX TO CONFIRMATION Add-On 11/07/2024 11:11 AM EDT LACTATE, WITH REFLEX STAT 11/07/2024 11:11 AM EDT AMMONIA STAT 11/07/2024 11:11 AM EDT ETHANOL STAT 11/07/2024 11:11 AM EDT PROTHROMBIN TIME WITH INR STAT 11/07/2024 11:11 AM EDT ACTIVATED PARTIAL THROMBOPLASTIN TIME STAT 11/07/2024 11:11 AM EDT CBC WITH AUTO DIFFERENTIAL STAT 11/07/2024 11:11 AM EDT VITAMIN B12 AND FOLATE STAT 11:11 AM EDT MAGNESIUM STAT 11/07/2024 11:11 AM EDT LIPASE STAT 11/07/2024 11:11 AM EDT COMPREHENSIVE METABOLIC PANEL STAT 11/07/2024 11:11 AM EDT CBC AND DIFFERENTIAL STAT 11/07/2024 11:11 AM EDT CULTURE BLOOD STAT 11/07/2024 11:11 AM EDT CULTURE BLOOD STAT 11/07/2024 11:[address] HEAD WO CONTRAST STAT 11/07/2024 1 0:[address] CERVICAL SPINE WO CONTRAST STAT 11/07/2024 10:29 AM EDT ECG OUTSIDE 10/16/2024 ECG ANNOTATED 10/16/2024 POCT GLUCOSE BLOOD Routine 10/15/2024 11 :03 AM EDT POCT GLUCOSE BLOOD Routine 10/15/2024 7: 58 AM EDT POCT GLUCOSE BLOOD Routine 10/14/2024 7: 26 PM EDT POCT GLUCOSE BLOOD Routine 10/14/2024 3: 56 PM EDT POCT GLUCOSE BLOOD Routine 10/14/2024 11 :23 AM EDT CBC WITH AUTO DIFFERENTIAL Routine 10/14/2024 8:29 AM EDT PROTHROMBIN TIME WITH INR Routine 10/14/2024 8:29 AM EDT MAGNESIUM Routine 10/14/2024 8:29 AM EDT HEPATIC FUNCTION PANEL Routine 8:29 AM EDT CBC AND DIFFERENTIAL Routine 10/14/2024 8:29 AM EDT BASIC METABOLIC PANEL Routine 10/14/2024 8:29 AM EDT POCT GLUCOSE BLOOD Routine 10/14/2024 7: 52 AM EDT POCT GLUCOSE BLOOD Routine 10/13/2024 7: 38 PM EDT POCT GLUCOSE BLOOD Routine 10/13/2024 3: 24 PM EDT POCT GLUCOSE BLOOD Routine 10/13/2024 11 :55 AM EDT POCT GLUCOSE BLOOD Routine 10/13/2024 7: 30 AM EDT CBC WITH AUTO DIFFERENTIAL Routine 10/13/2024 5:30 AM EDT CBC AND DIFFERENTIAL Routine 10/13/2024 5:30 AM EDT AMMONIA Routine 10/13/2024 5:30 AM EDT HEPATIC FUNCTION PANEL Routine 5:30 AM EDT PHOSPHORUS Routine 10/13/2024 5:30 AM EDT MAGNESIUM Routine 10/13/2024 5:30 AM EDT CALCIUM, IONIZED Routine 10/13/2024 5:30 AM EDT BASIC METABOLIC PANEL Routine 10/13/2024 5:30 AM EDT POCT GLUCOSE BLOOD Routine 10/12/2024 7: 17 PM EDT POCT GLUCOSE BLOOD Routine 10/12/2024 3: 49 PM EDT PHOSPHORUS Routine 10/12/2024 3:18 PM EDT MAGNESIUM Routine 10/12/2024 3:18 PM EDT CALCIUM, IONIZED Routine 10/12/2024 3:18 PM EDT BASIC METABOLIC PANEL Routine 10/12/2024 3:18 PM EDT POCT GLUCOSE BLOOD Routine 10/12/2024 11 :20 AM EDT IRON AND TIBC Add-On 10/12/2024 4:01 AM EDT FERRITIN Add-On 10/12/2024 4:01 AM EDT RETICULOCYTE COUNT Add-On 10/12/2024 4: 01 AM EDT HAPTOGLOBIN Add-On 10/12/2024 4:01 AM EDT CBC WITH AUTO DIFFERENTIAL Routine 10/12/2024 4:01 AM EDT CBC AND DIFFERENTIAL Routine 10/12/2024 4:01 AM EDT AMMONIA Routine 10/12/2024 4:01 AM EDT PROTHROMBIN TIME WITH INR Routine 10/12/2024 4:01 AM EDT HEPATIC FUNCTION PANEL Routine 4:01 AM EDT PROCALCITONIN Routine 10/12/2024 4:01 AM EDT PHOSPHORUS Routine 10/12/2024 4:01 AM EDT MAGNESIUM Routine 10/12/2024 4:01 AM EDT CALCIUM, IONIZED Routine 10/12/2024 4:01 AM EDT BASIC METABOLIC PANEL Routine 10/12/2024 4:01 AM EDT POCT GLUCOSE BLOOD Routine 10/11/2024 11 :21 PM EDT OCCULT BLOOD STOOL, GUAIAC STAT 10/11/2024 5:24 PM EDT POCT GLUCOSE BLOOD Routine 10/11/2024 5: 00 PM EDT PHOSPHORUS Routine 10/11/2024 3:43 PM EDT MAGNESIUM Routine 10/11/2024 3:43 PM EDT CALCIUM, IONIZED Routine 10/11/2024 3:43 PM EDT BASIC METABOLIC PANEL Routine 10/11/2024 3:43 PM EDT POCT GLUCOSE BLOOD Routine 10/11/2024 1: 56 PM EDT ECG 12-LEAD Routine 10/11/2024 10:03 AM EDT TRANSTHORACIC ECHOCARDIOGRAM (TTE) COMPLETE W/ CONTRAST STAT 10/11/2024 9:01 AM EDT Hypotension, unspecified hypotension type ECG 12-LEAD Routine 10/11/2024 6:25 AM EDT FOLATE Add-On 10/11/2024 4:57 AM EDT VITAMIN B12 Add-On 10/11/2024 4:57 AM EDT TREPONEMA PALLIDUM ANTIBODY WITH REFLEX TO RPR AND PARTICLE AGGLUTINATION Add-On 10/11/2024 4:57 AM EDT CBC WITH AUTO DIFFERENTIAL Routine 10/11/2024 4:57 AM EDT AMMONIA Routine 10/11/2024 4:57 AM EDT PROCALCITONIN Routine 10/11/2024 4:57 AM EDT PHOSPHORUS Routine 10/11/2024 4:57 AM EDT MAGNESIUM Routine 10/11/2024 4:57 AM EDT CALCIUM, IONIZED Routine 10/11/2024 4:57 AM EDT COMPREHENSIVE METABOLIC PANEL Routine 10/11/2024 4:57 AM EDT CBC AND DIFFERENTIAL Routine 10/11/2024 4:57 AM EDT VAS US HEPATIC PORTAL FLOW LIMITED STAT 10/11/2024 2:27 AM EDT Hypotension, unspecified hypotension type LACTATE Routine 10/11/2024 1:20 AM EDT PHOSPHORUS Routine 10/11/2024 1:20 AM EDT MAGNESIUM Routine 10/11/2024 1:20 AM EDT CALCIUM, IONIZED Routine 10/11/2024 1:20 AM EDT BASIC METABOLIC PANEL Routine 10/11/2024 1:20 AM EDT XR CHEST 1 VIEW STAT 10/11/2024 1:04 AM EDT ID CATHETERIZATION/CANNULA TION ARTERIAL SAMPLE/MONITORING/TRANS FUSION PERC Routine 10/11/2024 12:51 AM EDT Septic shock (CMS/HCC V24, CMS/HCC V28) ID INSERTION NON-TUNNELED CENTRALLY INSERTED CENTRAL VENOUS CATH 5 YRS/> Routine 10/11/2024 12:48 AM EDT Hypotension, unspecified hypotension type POCT GLUCOSE BLOOD Routine 10/10/2024 11 :54 PM EDT RESPIRATORY VIRUS PANEL MOLECULAR STUDY STAT 10/10/2024 10:14 PM EDT MRSA PCR STAT 10/10/2024 10:14 PM EDT POCT GLUCOSE BLOOD Routine 10/10/2024 10 :03 PM EDT ACETAMINOPHEN LEVEL Timed 10/10/2024 1 0:00 PM EDT SALICYLATE LEVEL Timed 10/10/2024 10:0 0 PM EDT B-TYPE NATRIURETIC PEPTIDE STAT 10/10/2024 10:00 PM EDT LACTATE, WITH REFLEX Timed 10/10/2024 7:40 PM EDT US ABDOMEN LIMITED STAT 10/10/2024 7: [address] CHEST/ABDOMEN/PELVIS W CONTRAST STAT 10/10/2024 6:[address] CERVICAL SPINE WO CONTRAST STAT 10/10/2024 6:[address] HEAD WO CONTRAST STAT 10/10/2024 6 :[address] MAXILLOFACIAL WO CONTRAST STAT 10/10/2024 6:18 PM EDT DRUG ABUSE SCREEN 8A PANEL, URINE STAT 10/10/2024 5:00 PM EDT BANDA URINE CULTURE TUBE STAT 10/11/19 5:00 PM EDT URINALYSIS WITH REFLEX MICROSCOPIC AND CULTURE STAT 10/10/2024 5:00 PM EDT URINALYSIS WITH REFLEX MICROSCOPIC AND CULTURE STAT 10/10/2024 5:00 PM EDT CULTURE URINE STAT 10/10/2024 5:00 PM EDT ACTIVATED PARTIAL THROMBOPLASTIN TIME STAT 10/10/2024 4:38 PM EDT PROTHROMBIN TIME WITH INR STAT 10/10/2024 4:38 PM EDT TYPE AND SCREEN STAT 10/10/2024 4:38 PM EDT LACTATE, WITH REFLEX STAT 10/10/2024 4:38 PM EDT CULTURE BLOOD STAT 10/10/2024 4:38 PM EDT CULTURE BLOOD STAT 10/10/2024 4:38 PM EDT XR CHEST 1 VIEW STAT 10/10/2024 3:51 PM EDT ECG 12-LEAD STAT 10/10/2024 3:44 PM EDT ALPHA FETOPROTEIN TUMOR MARKER STAT Add-on 10/10/2024 3:41 PM EDT HEPATITIS PANEL, ACUTE WITH REFLEX TO CONFIRMATION STAT Add-on 10/10/2024 3:41 PM EDT PROCALCITONIN STAT Add-on 10/10/2024 3:41 PM EDT ETHANOL Add-On 10/10/2024 3:41 PM EDT PROCALCITONIN Add-On 10/10/2024 3:41 PM EDT CORTISOL Add-On 10/10/2024 3:41 PM EDT THYROID STIMULATING HORMONE WITH REFLEX TO FREE T4 AND FREE T3 Add-On 10/10/2024 3:41 PM EDT LIPASE Add-On 10/10/2024 3:41 PM EDT ETHANOL Add-On 10/10/2024 3:41 PM EDT HEPATIC FUNCTION PANEL STAT 3:41 PM EDT CBC WITH AUTO DIFFERENTIAL STAT 10/10/2024 3:41 PM EDT TROPONIN I HIGH SENSITIVITY STAT 10/10/2024 3:41 PM EDT MAGNESIUM STAT 10/10/2024 3:41 PM EDT BASIC METABOLIC PANEL STAT 10/10/2024 3:41 PM EDT CBC AND DIFFERENTIAL STAT 10/10/2024 3:41 PM EDT ID CRITICAL CARE 30-74 MINUTES Routine 10/10/2024 3:04 PM EDT LIPID PANEL Routine 05/13/2022 from Last 3 Months or Most Recently Relevant to Health Maintenance Results * (ABNORMAL) CBC auto differential (11/25/2024 5:14 AM EDT) Only the most recent of15 resultswithin the time period is included. [facility] WBC 9.2 4.8 - 10.8 K/mcL LAB HEMETOLOGY METHOD 11/25/2024 7:[address] [facility] RBC 2.40(L) 3.80 - 4.80 M/mcL LAB HEMETOLOGY METHOD 11/25/2024 7:[address] [facility] Hemoglobin 7.6(L) 11.5 - 16.0 g/dL LAB HEMETOLOGY METHOD 11/25/2024 7:[address] [facility] Hematocrit 23.1(L) 35.0 - 47.0 % LAB HEMETOLOGY METHOD 11/25/2024 7:[address] [facility] MCV 97.9 79.0 - 98.0 FL LAB HEMETOLOGY METHOD 11/25/2024 7:[address] [facility] MCH 32.2(H) 27.0 - 32.0 pcg LAB HEMETOLOGY METHOD 11/25/2024 7:[address] [facility] MCHC 32.9 32.0 - 37.0 g/dL LAB HEMETOLOGY METHOD 11/25/2024 7:[address] [facility] RDW 19.8(H) 11.0 - 15.0 % LAB HEMETOLOGY METHOD 11/25/2024 7:[address] [facility] Platelets 108(L) 130 - 400 K/mcL LAB HEMETOLOGY METHOD 11/25/2024 7:[address] [facility] MPV 11.5(H) 7.0 - 11.0 FL LAB HEMETOLOGY METHOD 11/25/2024 7:[address] [facility] NRBC 0.0 <1.0 % LAB HEMETOLOGY METHOD 11/25/2024 7:[address] [facility] NRBC Absolute 0.00 <0.10 K/mcL LAB HEMETOLOGY METHOD 11/25/2024 7:[address] [facility] Neutrophils Relative 63.5 % LAB HEMETOLOGY METHOD 11/25/2024 7:[address] [facility] Lymphocytes Relative 21.5 % LAB HEMETOLOGY METHOD 11/25/2024 7:[address] [facility] Monocytes Relative 11.3 % LAB HEMETOLOGY METHOD 11/25/2024 7:[address] [facility] Eosinophils Relative 2.7 % LAB HEMETOLOGY METHOD 11/25/2024 7:[address] [facility] Basophils Relative 0.5 % LAB HEMETOLOGY METHOD 11/25/2024 7:[address] [facility] Immature Granulocytes Relative 0.5 % LAB HEMETOLOGY METHOD 11/25/2024 7:[address] [facility] Neutrophils Absolute 5.81 1.50 - 7.00 K/mcL LAB HEMETOLOGY METHOD 11/25/2024 7:[address] [facility] Lymphocytes Absolute 1.97 1.00 - 5.00 K/mcL LAB HEMETOLOGY METHOD 11/25/2024 7:[address] [facility] Monocytes Absolute 1.04(H) 0.20 - 1.00 K/mcL LAB HEMETOLOGY METHOD 11/25/2024 7:[address] [facility] Eosinophils Absolute 0.25 0.00 - 0.50 K/mcL LAB HEMETOLOGY METHOD 11/25/2024 7:[address] [facility] Basophils Absolute 0.05 0.00 - 0.20 K/mcL LAB HEMETOLOGY METHOD 11/25/2024 7:[address] [facility] Immature Granulocytes Absolute 0.05(H) 0.00 - 0.03 K/mcL LAB HEMETOLOGY METHOD 11/25/2024 7:56 AM EDT [facility] Blood Venous blood specimen / Unknown Venipuncture / Unknown 11/25/2024 5:14 AM EDT 11/25/2024 6:33 AM EDT Inna Angel MD LAB BLOOD ORDERABLES Final Result Performing Organization Address City/[facility]/ZIP Co de Phone Number [facility] [address] [place] [address], [place] [phone] * Phosphorus (11/25/2024 5:14 AM EDT) Only the most recent of12 resultswithin the time period is included. Phosphorus 3.0 2.5 - 4.5 mg/dL LAB CHEMISTRY METHOD 11/25/2024 9:33 AM EDT [facility] Blood Venous blood specimen / Unknown Venipuncture / Unknown 11/25/2024 5:14 AM EDT 11/25/2024 6:33 AM EDT Inna Angel MD LAB BLOOD ORDERABLES Final Result Performing Organization Address [facility] de Phone Number [facility] [address] [place] [address], [place] [phone] * (ABNORMAL) Magnesium (11/25/2024 5:14 AM EDT) Only the most recent of21 resultswithin the time period is included. Magnesium 1.2(L) 1.9 - 2.6 mg/dL LAB CHEMISTRY METHOD 11/25/2024 9:40 AM EDT [facility] Comment:Results verified by repeat testing Blood Venous blood specimen / Unknown Venipuncture / Unknown 11/25/2024 5:14 AM EDT 11/25/2024 6:33 AM EDT Inna Angel MD LAB BLOOD ORDERABLES Final Result Performing Organization Address City/[facility] Co de Phone Number [facility] [address] [place] [address], [place] [phone] * (ABNORMAL) Basic metabolic panel (11/25/2024 5:14 AM EDT) Only the most recent of16 resultswithin the time period is included. Sodium 137 133 - 145 mmol/L LAB CHEMISTRY METHOD 11/25/2024 7:[address] [facility] Potassium 3.4(L) 3.5 - 5.5 mmol/L LAB CHEMISTRY METHOD 11/25/2024 7:[address] [facility] Chloride 103 96 - 110 mmol/L LAB CHEMISTRY METHOD 11/25/2024 7:[address] [facility] CO2 30 21 - 32 mmol/L LAB CHEMISTRY METHOD 11/25/2024 7:[address] [facility] Anion Gap 4 3 - 11 LAB CHEMISTRY METHOD 11/25/2024 7:[address] [facility] Glucose 119(H) 70 - 100 mg/dL LAB CHEMISTRY METHOD 11/25/2024 7:[address] [facility] BUN 4(L) 5 - 25 mg/dL LAB CHEMISTRY METHOD 11/25/2024 7:[address] [facility] Creatinine 0.48(L) 0.50 - 1.10 mg/dL LAB CHEMISTRY METHOD 11/25/2024 7:[address] [facility] eGFR 114 >=60 mL/min/1. 73m2 LAB CHEMISTRY METHOD 11/25/2024 7:[address] [facility] Comment:Calculation based on the Chronic Kidney Disease Epidemiology Collaboration (CKD-EPI) equation refit without adjustment for race. BUN/Creatinine Ratio 8.3 LAB CHEMISTRY METHOD 11/25/2024 7:[address] [facility] Calcium 8.0(L) 8.5 - 10.5 mg/dL LAB CHEMISTRY METHOD 11/25/2024 7:11 AM EDT [facility] Blood Venous blood specimen / Unknown Venipuncture / Unknown 11/25/2024 5:14 AM EDT 11/25/2024 6:33 AM EDT us Inna Angel MD LAB BLOOD ORDERABLES Final Result Performing Organization Address [facility]/ZIP Co de Phone Number [facility] [address] [place] [address], [place] [phone] * Cell count with reflex differential, body fluid (11/24/2024 1:08 PM EDT) Only the most recent of2 resultswithin the time period is included. Body Fluid Total Nucleated Cells 162 /mm3 LAB HEMETOLOGY METHOD 11/24/2024 2:26 PM EDT [facility] Body Fluid RBC <1,000 /mm3 LAB HEMETOLOGY METHOD 11/24/2024 2:26 PM EDT [facility] Body Fluid Color Yellow 11/24/2024 2:26 PM EDT [facility] Body Fluid Clarity Clear 11/24/2024 2:26 PM EDT [facility] Body Fluid Source Peritoneal 11/24/2024 2:26 PM EDT [facility] Peritoneal Fluid Non-blood Collection / Unknown 11/24/2024 1:08 PM EDT 11/24/2024 1:17 PM EDT Narrative [facility] - 11/24/2024 2:26 PM EDT No reference ranges have been established for body fluids. Clinical correlation recommended. us Inna Angel MD LAB BODY FLUIDS AND STOOLS ORDERABLES Final Result Performing Organization Address City/[facility]/ZIP Co de Phone Number [facility] [address] [place] [address], [place] [phone] * Culture body fluid with gram stain (11/24/2024 1:08 PM EDT) Only the most recent of2 resultswithin the time period is included. Fluid Culture No growth LAB MICROBIOLOGY METHOD 11/27/2024 12:43 PM EDT [facility] Gram Stain Result No polymorphonuclear leukocytes, No epithelial cells, and No organisms noted 11/27/2024 12:43 PM EDT [facility] Ascites Peritoneal cavity structure / Unknown 11/24/2024 1:08 PM EDT 11/24/2024 1:17 PM EDT Inna Angel MD LAB MICROBIOLOGY - GENERAL ORDERABLES Final Result [facility] [address] [place] [address], [place] [phone] * Differential body fluid (11/24/2024 1:08 PM EDT) Only the most recent of2 resultswithin the time period is included. Fluid Neutrophils % 20 % 11/24/2024 2:26 PM EDT [facility] Fluid Lymphocytes % 21 % 11/24/2024 2:26 PM EDT [facility] Fluid Monocytes/Macrop hages 57 % 11/24/2024 2:26 PM EDT [facility] Fluid Eosinophils % 0 % 11/24/2024 2:26 PM EDT [facility] Fluid Basophils % 2 % 11/24/2024 2:26 PM EDT [facility] Fluid Other Cells % 0 % 11/24/2024 2:26 PM EDT [facility] Peritoneal Fluid Non-blood Collection / Unknown 11/24/2024 1:08 PM EDT 11/24/2024 1:17 PM EDT Narrative [facility] - 11/24/2024 2:26 PM EDT No reference ranges have been established for body fluids. Clinical correlation recommended. us Inna Angel MD LAB BODY FLUIDS AND STOOLS ORDERABLES Final Result Performing Organization Address [facility] de Phone Number [facility] [address] [place] [address], [place] [phone] * Protein, body fluid (11/24/2024 1:08 PM EDT) Only the most recent of2 resultswithin the time period is included. Protein, Fluid 1.4 See Comment g/dL LAB CHEMISTRY METHOD 11/24/2024 2:40 PM EDT [facility] Ascites Peritoneal cavity structure / Unknown 11/24/2024 1:08 PM EDT 11/24/2024 1:17 PM EDT [facility] - 11/24/2024 2:40 PM EDT No reference ranges have been established for body fluids. Clinical correlation recommended. us Inna Angel MD LAB BODY FLUIDS AND STOOLS ORDERABLES Final Result Performing Organization Address [facility] de Phone Number [facility] [address] [place] [address], [place] [phone] * Glucose, body fluid (11/24/2024 1:08 PM EDT) Only the most recent of2 resultswithin the time period is included. Glucose, Fluid 123 See Comment mg/dL LAB CHEMISTRY METHOD 11/24/2024 2:40 PM EDT [facility] Ascites Peritoneal cavity structure / Unknown 11/24/2024 1:08 PM EDT 11/24/2024 1:17 PM EDT [facility] - 11/24/2024 2:40 PM EDT No reference ranges have been established for body fluids. Clinical correlation recommended. Inna Angel MD LAB BODY FLUIDS AND STOOLS ORDERABLES Final Result Performing Organization Address [facility]/ZIP Co de Phone Number [facility] [address] [place] [address], [place] [phone] * Albumin, body fluid (11/24/2024 1:08 PM EDT) Only the most recent of2 resultswithin the time period is included. Albumin, Fluid 0.7 See Comment g/dL LAB CHEMISTRY METHOD 11/24/2024 2:40 PM EDT [facility] Ascites Peritoneal cavity structure / Unknown 11/24/2024 1:08 PM EDT 11/24/2024 1:17 PM EDT Narrative [facility] - 11/24/2024 2:40 PM EDT No reference ranges have been established for body fluids. Clinical correlation recommended. Inna Angel MD LAB BODY FLUIDS AND STOOLS ORDERABLES Final Result Performing Organization Address [facility] Co de Phone Number [facility] [address] [place] [address], [place] [phone] * [place] Paracentesis w Image Guidance (11/24/2024 1:06 PM EDT) Only the most recent of2 resultswithin the time period is included. Anatomical Region Laterality Modality Abdomen Ultrasound 11/24/2024 4:15 PM EDT Impressions 11/24/2024 4:16 PM EDT Successful paracentesis of 800 cc of mildly cloudy yellow ascitic fluid without complications. -------- FINAL REPORT -------- Dictated By: Paddy June Dictated Date: 11/24/2024 16:15 ET Assigned Physician: Paddy June Reviewed and Electronically Signed By: Paddy June Signed Date: 11/24/2024 16:16 ET Workstation ID: [id number] Transcribed By: Self Edit Transcribed Date: 11/24/2024 16:15 ET Narrative 11/24/2024 4:16 PM EDT HISTORY: Large volume ascites. TECHNIQUE: After written informed consent was obtained the patient was placed supine on the ultrasound stretcher and multiple images were obtained for characterization and localization of ascites. The skin was marked, prepped and draped in the usual sterile fashion. 2% lidocaine was used as local anesthetic. A paracentesis needle was advanced under gentle suction. When fluid aspirated the paracentesis catheter was threaded over the needle into the ascitic fluid. The needle was removed and the catheter was attached to tubing and then vacuum bottles. After completion of drainage the catheter was removed and a bandage was applied. The patient tolerated the procedure well and left the department in stable condition without any immediate complications. FINDINGS: Initial ultrasound images demonstrate large volume ascites. Pocket in left lower quadrant localized for drainage. Procedure Note Paddy June MD - 11/24/2024 HISTORY: Large volume ascites. TECHNIQUE: After written informed consent was obtained the patient wasplaced supine on the ultrasound stretcher and multiple images wereobtained for characterization and localization of ascites. The skin wasmarked, prepped and draped in the usual sterile fashion. 2% lidocaine wasused as local anesthetic. A paracentesis needle was advanced under gentlesuction. When fluid aspirated the paracentesis catheter was threaded overthe needle into the ascitic fluid. The needle was removed and the catheterwas attached to tubing and then vacuum bottles. After completion ofdrainage the catheter was removed and a bandage was applied. The patienttolerated the procedure well and left the department in stable conditionwithout any immediate complications. FINDINGS: Initial ultrasound images demonstrate large volume ascites. Pocket in leftlower quadrant localized for drainage. IMPRESSION: Successful paracentesis of 800 cc of mildly cloudy yellow ascitic fluidwithout complications. -------- FINAL REPORT -------- Dictated By: Paddy June Dictated Date: 11/24/2024 16:15 ET Assigned Physician: Paddy June Reviewed and Electronically Signed By: Paddy June Signed Date: 11/24/2024 16:16 ET Workstation ID: [id number] Transcribed By: Self Edit Transcribed Date: 11/24/2024 16:15 ET us Inna Angel MD IMG US PROCEDURES Final Res ult * Lavender tube (11/21/2024 5:49 AM EDT) [facility] Extra Tube Hold for add-ons. 11/21/2024 8:01 AM EDT [facility] Comment:Auto resulted. Blood Venous blood specimen / Unknown 11/21/2024 5:49 AM EDT 11/21/2024 6:29 AM EDT us Inna Angel MD LAB BLOOD ORDERABLES Final Result [facility] [address] [place] [address], [place] [phone] * (ABNORMAL) Hepatic function panel (11/21/2024 5:49 AM EDT) Only the most recent of6 resultswithin the time period is included. [facility] Total Protein 5.4(L) 6.0 - 8.0 g/dL LAB CHEMISTRY METHOD 11/21/2024 7:[address] [facility] Albumin 2.8(L) 3.2 - 5.0 g/dL LAB CHEMISTRY METHOD 11/21/2024 7:[address] [facility] Total Bilirubin 6.5(H) 0.0 - 1.4 mg/dL LAB CHEMISTRY METHOD 11/21/2024 7:[address] [facility] Bilirubin, Direct 5.0(H) 0.0 - 0.3 mg/dL LAB CHEMISTRY METHOD 11/21/2024 7:[address] [facility] Comment:Results verified by repeat testing Bilirubin, Indirect 1.5(H) 0.0 - 1.1 mg/dL LAB CHEMISTRY METHOD 11/21/2024 7:[address] [facility] ALT (SGPT) 46 10 - 60 unit/L LAB CHEMISTRY METHOD 11/21/2024 7:[address] [facility] AST (SGOT) 54(H) 10 - 42 unit/L LAB CHEMISTRY METHOD 11/21/2024 7:[address] [facility] Alkaline Phosphatase 189(H) 42 - 121 unit/L LAB CHEMISTRY METHOD 11/21/2024 7:[address] [facility] Blood Venous blood specimen / Unknown Venipuncture / Unknown 11/21/2024 5:49 AM EDT 11/21/2024 6:28 AM EDT Inna Angel MD LAB BLOOD ORDERABLES Final Result [facility] [address] [place] [address], [place] [phone] * (ABNORMAL) Comprehensive metabolic panel (11/20/2024 5:30 AM EDT) Only the most recent of6 resultswithin the time period is included. Sodium 141 133 - 145 mmol/L LAB CHEMISTRY METHOD 11/20/2024 7:[address] [facility] Potassium 3.4(L) 3.5 - 5.5 mmol/L LAB CHEMISTRY METHOD 11/20/2024 7:[address] [facility] Chloride 106 96 - 110 mmol/L LAB CHEMISTRY METHOD 11/20/2024 7:[address] [facility] CO2 27 21 - 32 mmol/L LAB CHEMISTRY METHOD 11/20/2024 7:[address] [facility] Anion Gap 8 3 - 11 LAB CHEMISTRY METHOD 11/20/2024 7:[address] [facility] Glucose 162(H) 70 - 100 mg/dL LAB CHEMISTRY METHOD 11/20/2024 7:[address] [facility] BUN 4(L) 5 - 25 mg/dL LAB CHEMISTRY METHOD 11/20/2024 7:[address] [facility] Creatinine 0.77 0.50 - 1.10 mg/dL LAB CHEMISTRY METHOD 11/20/2024 7:[address] [facility] eGFR 93 >=60 mL/min/1. 73m2 LAB CHEMISTRY METHOD 11/20/2024 7:[address] [facility] Comment:Calculation based on the Chronic Kidney Disease Epidemiology Collaboration (CKD-EPI) equation refit without adjustment for race. BUN/Creatinine Ratio 5.2 LAB CHEMISTRY METHOD 11/20/2024 7:[address] [facility] Calcium 8.3(L) 8.5 - 10.5 mg/dL LAB CHEMISTRY METHOD 11/20/2024 7:[address] [facility] AST (SGOT) 76(H) 10 - 42 unit/L LAB CHEMISTRY METHOD 11/20/2024 7:[address] [facility] ALT (SGPT) 60 10 - 60 unit/L LAB CHEMISTRY METHOD 11/20/2024 7:[address] [facility] Alkaline Phosphatase 213(H) 42 - 121 unit/L LAB CHEMISTRY METHOD 11/20/2024 7:[address] [facility] Total Protein 5.4(L) 6.0 - 8.0 g/dL LAB CHEMISTRY METHOD 11/20/2024 7:[address] [facility] Albumin 2.5(L) 3.2 - 5.0 g/dL LAB CHEMISTRY METHOD 11/20/2024 7:[address] [facility] Total Bilirubin 8.7(H) 0.0 - 1.4 mg/dL LAB CHEMISTRY METHOD 11/20/2024 7:[address] [facility] Blood Venous blood specimen / Unknown Venipuncture / Unknown 11/20/2024 5:30 AM EDT 11/20/2024 6:12 AM EDT us Nathaly A Lookner PA LAB BLOOD ORDERABLES Final Result Performing Organization Address [place] Hospital/[facility]/ZIP Co de Phone Number [facility] [address] [place] [address], * (ABNORMAL) POCT Glucose, blood (11/19/2024 7:08 AM EDT) Only the most recent of36 resultswithin the time period is included. Glucose POCT 205(H) 70 - 100 mg/dL 11/19/2024 7:10 AM EDT [facility] POCT Comment RN Notified 11/19/2024 7:10 AM EDT [facility] Blood Capillary blood specimen / Unknown 11/19/2024 7:08 AM EDT 11/20/2024 9:03 AM EDT Inna Angel MD LAB POINT OF CARE T EST DOCKED DEVICE UNSOLICITED RESULTS Final Result Performing Organization Address City/[facility]/ZIP Co de Phone Number [facility] [address] [place] [address], * (ABNORMAL) Bilirubin duplicate procedure to order (11/19/2024 5:34 AM EDT) Total Bilirubin 13.4(H) 0.0 - 1.4 mg/dL LAB CHEMISTRY METHOD 11/19/2024 7:55 AM EDT [facility] Bilirubin, Direct 9.5(H) 0.0 - 0.3 mg/dL LAB CHEMISTRY METHOD 11/19/2024 7:55 AM EDT [facility] Bilirubin, Indirect 3.9(H) 0.0 - 1.1 mg/dL LAB CHEMISTRY METHOD 11/19/2024 7:55 AM EDT [facility] Blood Venous blood specimen / Unknown Venipuncture / Unknown 11/19/2024 5:34 AM EDT 11/19/2024 6:39 AM EDT Inna Angel MD LAB BLOOD ORDERABLES Final Result Performing Organization Address City/[facility]/ZIP Co de Phone Number [facility] [address] [place] [address], [place] [phone] * Lactate dehydrogenase, body fluid (11/17/2024 3:39 PM EDT) LD, Fluid 32 See Comment unit/L LAB CHEMISTRY METHOD 11/17/2024 4:30 PM EDT [facility] Ascites Peritoneal cavity structure / Unknown 11/17/2024 3:39 PM EDT 11/17/2024 3:45 PM EDT Narrative [facility] - 11/17/2024 4:30 PM EDT No reference ranges have been established for body fluids. Clinical correlation recommended. Nathaly [facility] BODY FLUIDS AND STOOLS ORDERABLES Final Result Performing Organization Address [facility] Co de Phone Number [facility] [address] [place] [address], [place] [phone] * Non-gynecologic cytology (11/17/2024 3:39 PM EDT) Pathologist [facility] Final Diagnosis A. Peritoneal Fluid, Paracentesis, (ThinPrep): Negative for malignant cells. Acute inflammatory cells are present. 11/27/2024 10:44 AM EDT [facility] Specimen A Adequacy Satisfactory for evaluation 11/27/2024 10:44 AM EDT [facility] Gross Description A. Peritoneal Cavity, peritoneal: Received .5ml of yellow cloudy fluid I thin prep, cell block is QNS 11/27/2024 10:44 AM EDT [facility] Disclaimer Unless otherwise specified, all tissue is 10% NB formalin fixed and paraffin embedded. Technical cytopathology services provided by [facility], at [address] [place] [address] (CLIA # [id number]/Jina Floyd MD, Building Insulation Installer.) 11/27/2024 10:44 AM EDT [facility] Ascites Peritoneal cavity structure / Unknown 11/17/2024 3:39 PM EDT 11/20/2024 8:34 AM EDT Nathaly EDGAR LAB CYTOLOGY ORDERABLES Fi nal Result [facility] [address] [place] [address], * Gastrointestinal pathogens molecular study (11/17/2024 3:18 PM EDT) Campylobacter Detection by PCR Not Detected Not Detected LAB MICROBIOLOGY METHOD 5 5:01 PM EDT [facility] Plesiomonas shigelloides Detection by PCR Not Detected Not Detected LAB MICROBIOLOGY METHOD 5 5:01 PM EDT [facility] Salmonella Detection by PCR Not Detected Not Detected LAB MICROBIOLOGY METHOD 5 5:01 PM EDT [facility] Vibrio Detection by PCR Not Detected Not Detected LAB MICROBIOLOGY METHOD 5 5:01 PM EDT [facility] Vibrio cholerae Detection by PCR Not Detected Not Detected LAB MICROBIOLOGY METHOD 5 5:01 PM EDT [facility] Yersinia enterocolitica Detection by PCR Not Detected Not Detected LAB MICROBIOLOGY METHOD 5 5:01 PM EDT [facility] Enteroaggregative E coli EAEC Detection by PCR Not Detected Not Detected LAB MICROBIOLOGY METHOD 5 5:01 PM EDT [facility] Enteropathogenic E coli EPEC Detection Not Detected Not Detected LAB MICROBIOLOGY METHOD 5 5:01 PM EDT [facility] Enterotoxigenic E coli ETEC LTST Detection Not Detected Not Detected [facility] Shiga-like toxin producing E coli STEC STX1 STX2 Det Not Detected Not Detected LAB MICROBIOLOGY METHOD 5 5:[address] [facility] Shigella Enteroinvasive E coli EIEC Detection Not Detected Not Detected LAB MICROBIOLOGY METHOD 5 5:[address] [facility] Cryptosporidium Detection by PCR Not Detected Not Detected [facility] Cyclospora cayetanensis Detection by PCR Not Detected Not Detected LAB MICROBIOLOGY METHOD 5 5:[address] [facility] Entamoeba histolytica Detection by PCR Not Detected Not Detected [facility] Giardia lamblia Detection by PCR Not Detected Not Detected LAB MICROBIOLOGY METHOD 5 5:[address] [facility] Adenovirus F 40 41 Detection by PCR Not Detected Not Detected LAB MICROBIOLOGY METHOD 5 5:[address] [facility] Astrovirus Detection by PCR Not Detected Not Detected [facility] Norovirus GI GII Detection by PCR Not Detected LAB MICROBIOLOGY METHOD 5 5:[address] [facility] Sapovirus Detection by PCR Not Detected Not Detected LAB MICROBIOLOGY METHOD 5 5:[address] [facility] Rotavirus A Detection by PCR Not Detected Not Detected LAB MICROBIOLOGY METHOD 5 5:[address] [facility] Stool Rectum structure / Unknown Non-blood Collection / Unknown 11/17/2024 3:18 PM EDT 11/17/2024 3:27 PM EDT Narrative [facility] - 11/17/2024 5:01 PM EDT PCR testing is much more sensitive than traditional techniques and allows for the detection of low numbers of stool pathogens. The clinical correlation of PCR results with the need for treatment and clinical outcomes has not been established. Therefore the results of PCR testing for stool pathogens must be taken into clinical context when making treatment decisions. This is a diagnostic test only, repeat testing for cure is not advised. You may consider infectious disease consult for additional guidance. Testing Performed by [facility] Maria [facility] LAB MICROBIOLOGY - GENERAL OR DERABLES Final Result Performing Organization Address [facility] Co de Phone Number [facility] [address] [place] [address], [place] [phone] * (ABNORMAL) Clostridium difficile molecular study (11/17/2024 3:18 PM EDT) Pathologist [facility] Clostridium difficile PCR Positive (AA) Negative LAB MICROBIOLOGY METHOD 11/17/2024 5:17 PM EDT [facility] Comment: CRITICAL RESULT POSITIVE FOR TOXIN PRODUCING CLOSTRIDIOIDES DIFFICILE, NO ADDITIONAL TESTING IS NECESSARY. REPEAT SAMPLES SHOULD NOT BE SUBMITTED FOR TEST OF CURE. Stool Rectum structure / Unknown Non-blood Collection / Unknown 11/17/2024 3:18 PM EDT 11/17/2024 4:16 PM EDT Maria [facility] MICROBIOLOGY - GENERAL OR DERABLES Final Result Performing Organization Address City/[facility]/ZIP Co de Phone Number [facility] [address] [place] [address], [place] [phone] * Clostridium difficile toxin (11/17/2024 3:18 PM EDT) C difficile Toxins A+B, EIA 11/17/2024 4:16 PM EDT [facility] Comment:Refer to C. difficil e PCR assay for results. Stool Rectum structure / Unknown Non-blood Collection / Unknown 11/17/2024 3:18 PM EDT 11/17/2024 3:27 PM EDT us Maria EDG[facility] LAB MICROBIOLOGY - GENERAL OR DERABLES Final Result [facility] [address] [place] [address], [place] [phone] * XR Abdomen 1 View (11/17/2024 2:16 PM EDT) Anatomical Region Laterality Modality Body Radiographic Justina ging 11/17/2024 2:41 PM EDT Impressions 11/17/2024 2:41 PM EDT FINDINGS/IMPRESSION: Nonspecific bowel gas pattern. No free air. -------- FINAL REPORT -------- Dictated By: Kari Del Cid Dictated Date: 11/17/2024 14:41 ET Assigned Physician: Kari Del Cid Reviewed and Electronically Signed By: Kari Del Cid Signed Date: 11/17/2024 14:41 ET Workstation ID: [id number] Transcribed By: Self Edit Transcribed Date: 11/17/2024 14:41 ET Narrative 11/17/2024 2:41 PM EDT XR ABDOMEN 1 VIEW INDICATION: Bowel obstruction suspected TECHNIQUE: XR ABDOMEN 1 VIEW COMPARISON: No priors available. Procedure Note Kari Del Cid MD - 11/17/2024 XR ABDOMEN 1 VIEW INDICATION: Bowel obstruction suspected TECHNIQUE: XR ABDOMEN 1 VIEW COMPARISON: No priors available. IMPRESSION: FINDINGS/IMPRESSION: Nonspecific bowel gas pattern. No free air. -------- FINAL REPORT -------- Dictated By: Kari Del Cid Dictated Date: 11/17/2024 14:41 ET Assigned Physician: Kari Del Cid Reviewed and Electronically Signed By: Kari Del Cid Signed Date: 11/17/2024 14:41 ET Workstation ID: [id number] Transcribed By: Self Edit Transcribed Date: 11/17/2024 14:41 ET us Nathaly A Lookner PA IMG XR PROCEDURES Final Re sult * NM Hepatobiliary System Imaging (11/17/2024 12:48 PM EDT) Anatomical Region Laterality Modality Body Nuclear Medicine 11/17/2024 1:20 PM EDT Impressions 11/17/2024 1:22 PM EDT Radiotracer uptake is noted in the gallbladder on the 4 hour delayed film excluding cystic duct obstruction. Patent common bile duct. -------- FINAL REPORT -------- Dictated By: Kari Del Cid Dictated Date: 11/17/2024 13:20 ET Assigned Physician: Kari Del Cid Reviewed and Electronically Signed By: Kari Del Cid Signed Date: 11/17/2024 13:22 ET Workstation ID: [id number] Transcribed By: Self Edit Transcribed Date: 11/17/2024 13:20 ET Narrative 11/17/2024 1:22 PM EDT NM HEPATOBILIARY SYSTEM IMAGING CLINICAL HISTORY: Cholelithiasis Comparison: None. TECHNIQUE: Sequential images of the abdomen were obtained for 60 minutes following injection of 5.5 mCi of technetium 99m mebrofenin. Additional delayed views were obtained at 4 hours. FINDINGS: The initial images show uniform, tracer extraction by the liver. The gallbladder is not visualized in the 1st hour imaging however some radiotracer uptake in the gallbladder on the 4 hour view. Tracer is seen in the intestine confirming patency of the common bile duct. Procedure Note Kari Del Cid MD - 11/17/2024 NM HEPATOBILIARY SYSTEM IMAGING CLINICAL HISTORY: Cholelithiasis Comparison: None. TECHNIQUE: Sequential images of the abdomen were obtained for 60 minutes followinginjection of 5.5 mCi of technetium 99m mebrofenin. Additional delayedviews were obtained at 4 hours. FINDINGS: The initial images show uniform, tracer extraction by the liver. Thegallbladder is not visualized in the 1st hour imaging however someradiotracer uptake in the gallbladder on the 4 hour view. Tracer is seen in the intestine confirming patency of the common bileduct. IMPRESSION: Radiotracer uptake is noted in the gallbladder on the 4 hour delayed filmexcluding cystic duct obstruction. Patent common bile duct. -------- FINAL REPORT -------- Dictated By: Kari Del Cid Dictated Date: 11/17/2024 13:20 ET Assigned Physician: Kari Del Cid Reviewed and Electronically Signed By: Kari Del Cid Signed Date: 11/17/2024 13:22 ET Workstation ID: [id number] Transcribed By: Self Edit Transcribed Date: 11/17/2024 13:20 ET Jasen Jay DO IM NM PROCEDURES Final Result * Hemochromatosis mutation (11/17/2024 12:21 PM EDT) Hereditary Hemochromatosis See Below 11/28/2024 10:39 AM EDT [facility] Comment: RESULT: NEGATIVE Interpretation: DNA testing indicates that this individual is negative for the C282Y and H63D pathogenic variants in the HFE gene. This negative result significantly reduces the likelihood of hereditary hemochromatosis (HH) in this individual. However, it does not rule out the presence of other pathogenic variants within the HFE gene or a diagnosis of HH. The risk of this individual to carry an HFE pathogenic variant other than those tested in this assay depends greatly on family and clinical history as well as ethnicity. This assay does not test for other primary or secondary iron overload disorders. Laboratory results and submitted clinical information reviewed by Keri Shoemaker, Ph.D., [facility], [facility]. DETAILED ASSAY INFORMATION: Hereditary hemochromatosis (HH) is an autosomal recessive disorder of iron metabolism that can result in iron overload and potential organ failure. It is one of the most common genetic disorders in individuals of - ancestry, with an estimated carrier frequency of 10%. HH is caused by pathogenic variants in the HFE gene. Most individuals with HH (60-90%) are homozygous for the C282Y pathogenic variant. A smaller percentage of affected individuals are either compound heterozygous for the C282Y and H63D pathogenic variants (3%-8%), or homozygous for the H63D pathogenic variant (approximately 1%). METHODOLOGY: This assay detects two pathogenic variants in the HFE gene, C282Y (NM 062221.2: c.845G>A, p.Mnj647Tds) and H63D (NM 010877.2: c.187C>G, p.Fmk06Jna), that are commonly associated with HH. These variants are detected by multiplex-polymerase chain reaction (PCR) amplification, followed by restriction enzyme digestion and capillary electrophoresis. LIMITATIONS: This assay does not detect other pathogenic variants in the HFE gene that may be associated with HH. Although rare, false positive or false negative results may occur. All results should be interpreted in the context of clinical findings, relevant history, and other laboratory data. Health care providers, please contact your local [facility] genetic counselor or call [phone] ( [phone] for assistance with the interpretation of these results. This test was developed and its analytical performance characteristics have been determined by [facility]. It has not been cleared or approved by FDA. This assay has been validated pursuant to the CLIA regulations and is used for clinical purposes. For more information, please refer to http://education.[employer]/faq/hemochromatosis. (This link is being provided for informational/educational purposes only.) A portion of the testing was [place] at [facility]. Reviewed and signed by Laboratory results and submitted clinical information reviewed by Keri Shoemaker, Ph.D., [facility], [facility], Signed on 11/28/2024 at 07:03 Test Performed at: [facility] [address] [address] Odalys Mcclure MD, PhD, [facility] Blood Venous blood specimen / Unknown Venipuncture / Unknown 11/17/2024 12:21 PM EDT 11/17/2024 12:45 PM EDT Henny Patton MD LAB MOLECULAR DIAGNOSTICS GONZÁLEZ ZHAO Final Result [facility] [address] [place] [address] * Lactate, with reflex (11/17/2024 6:03 AM EDT) Only the most recent of6 resultswithin the time period is included. LACTIC ACID 1.8 0.4 - 2.0 mmol/L LAB CHEMISTRY METHOD 11/17/2024 6:50 AM EDT [facility] Blood Venous blood specimen / Unknown Venipuncture / Unknown 11/17/2024 6:03 AM EDT 11/17/2024 6:18 AM EDT Mayur Ruiz MD LAB BLOOD ORDERABLES Final Re sult Performing Organization Address [facility]/ZIP Co de Phone Number [facility] [address] [place] [address], [place] [phone] * Lactate dehydrogenase (11/17/2024 6:03 AM EDT) Pathologist [facility] LDH 222 120 - 246 unit/L LAB CHEMISTRY METHOD 11/17/2024 2:38 PM EDT [facility] Blood Venous blood specimen / Unknown Venipuncture / Unknown 11/17/2024 6:03 AM EDT 11/17/2024 6:19 AM EDT us Nathaly EDGAR LAB BLOOD ORDERABLES Final Result Performing Organization Address [facility]/ZIP Co de Phone Number [facility] [address] [place] [address], [place] [phone] * Creatine kinase (11/17/2024 6:03 AM EDT) [facility] Total CK 68 22 - 269 unit/L LAB CHEMISTRY METHOD 11/17/2024 3:20 PM EDT [facility] Blood Venous blood specimen / Unknown Venipuncture / Unknown 11/17/2024 6:03 AM EDT 11/17/2024 6:19 AM EDT us Nathaly EDGAR LAB BLOOD ORDERABLES Final Result Performing Organization Address City/[facility]/ZIP Co de Phone Number [facility] [address] [place] [address], [place] [phone] * (ABNORMAL) Lamotrigine level (11/16/2024 8:51 PM EDT) Lamotrigine (Lamictal) Level 1.3(L) 2.0 - 15.0 ug/mL 11/20/2024 6:34 AM EDT [facility] Comment: Lamotrigine toxic level: >20 ug/mL The reference range is not well established. It may be as wide as 1 - 20 ug/mL. If applicable, any drug confirmation testing reported here was developed and the performance characteristics determined by [facility]. This confirmation testing has not been cleared or approved by the FDA. The laboratory is regulated under CLIA as qualified to perform high-complexity testing. This test is used for patient testing purposes. It should not be regarded as investigational or for research. Test performed at [facility], [address] , [place] [address] Kristi Brown MD, PhD - Building Insulation Installer Blood Venous blood specimen / Unknown Venipuncture / Unknown 11/16/2024 8:51 PM EDT 11/16/2024 8:51 PM EDT Maria EDGAR LAB BLOOD ORDERABLES Final Re sult [facility] [address] [place] [address] * Culture blood (11/16/2024 8:51 PM EDT) Only the most recent of6 resultswithin the time period is included. Culture, Blood No growth at 5 days 11/21/2024 9:01 PM EDT [facility] Blood Venous blood specimen / Unknown Venipuncture / Unknown 11/16/2024 8:51 PM EDT 11/16/2024 8:52 PM EDT Maria [facility] MICROBIOLOGY - GENERAL OR DERABLES Final Result Performing Organization Address City/[facility]/ZIP Co de Phone Number [facility] [address] [place] [address], [place] [phone] * (ABNORMAL) Prothrombin time with INR (11/16/2024 8:51 PM EDT) Only the most recent of5 resultswithin the time period is included. Protime 23.3(H) 10.6 - 13.9 sec LAB COAGULATION METHOD 11/16/2024 9:03 PM EDT [facility] INR 1.9 LAB COAGULATION METHOD 11/16/2024 9:03 PM EDT [facility] Blood Venous blood specimen / Unknown Venipuncture / Unknown 11/16/2024 8:51 PM EDT 11/16/2024 8:51 PM EDT us Maria EDGAR LAB BLOOD ORDERABLES Final Re sult [facility] [address] [place] [address], * CT Cervical Spine wo Contrast (11/16/2024 8:15 PM EDT) Only the most recent of3 resultswithin the time period is included. Anatomical Region Laterality Modality Spine, C-spine Computed Tomogra phy 11/16/2024 8:43 PM EDT Impressions 11/16/2024 8:43 PM EDT No acute findings. This document has been electronically signed by: Christo Levine MD on 11/16/2024 20:43:35 Narrative 11/16/2024 8:43 PM EDT INDICATION: fall CT cervical spine without contrast Comparison: CT - CT C SPINE WO CONTRAST - 10/10/24 18:12 EDT Findings: Vertebral alignment is within normal limits. No significant degenerative change. No acute fractures or dislocations. No acute findings on limited view of the intracranial contents. No cervical fluid collections or masses. No consolidation or effusion at the lung apices. Procedure Note Christo Levine MD - 11/16/2024 INDICATION: fall CT cervical spine without contrast Comparison: CT - CT C SPINE WO CONTRAST - 10/10/24 18:12 EDT Findings: Vertebral alignment is within normal limits. No significant degenerative change. No acute fractures or dislocations. No acute findings on limited view of the intracranial contents. No cervical fluid collections or masses. No consolidation or effusion at the lung apices. IMPRESSION: No acute findings. This document has been electronically signed by: Christo Levine MD on 11/16/2024 20:43:[address] PROCEDURES Final Resul t * CT Head wo Contrast (11/16/2024 8:15 PM EDT) Only the most recent of3 resultswithin the time period is included. Anatomical Region Laterality Modality Head and Neck Computed Tomogra phy 11/16/2024 8:36 PM EDT Impressions 11/16/2024 8:36 PM EDT 1. No acute intracranial findings. This document has been electronically signed by: Christo Levine MD on 11/16/2024 20:36:37 Narrative 11/16/2024 8:36 PM EDT INDICATION: fall, dizziness CT head without contrast Comparison: CT - CT HEAD WO CONTRAST - 10/10/24 18:12 EDT Findings: No intra-axial mass, midline shift, hydrocephalus, or acute hemorrhage. No significant atrophy-like change or white matter disease. The visualized paranasal sinuses and mastoid air cells are normal. The orbits are within normal limits. There is no acute fracture. Procedure Note Christo Levine MD - 11/16/2024 INDICATION: fall, dizziness CT head without contrast Comparison: CT - CT HEAD WO CONTRAST - 10/10/24 18:12 EDT Findings: No intra-axial mass, midline shift, hydrocephalus, or acute hemorrhage. No significant atrophy-like change or white matter disease. The visualized paranasal sinuses and mastoid air cells are normal. The orbits are within normal limits. There is no acute fracture. IMPRESSION: 1. No acute intracranial findings. This document has been electronically signed by: Christo Levine MD on 11/16/2024 20:36:[address] PROCEDURES Final Resul t * CT Abdomen Pelvis wo Contrast (11/16/2024 8:15 PM EDT) Anatomical Region Laterality Modality Body Computed Tomogra phy 11/16/2024 8:54 PM EDT Impressions 11/16/2024 8:54 PM EDT Diffuse wall thickening of the colon concerning for colitis. No evidence of kidney stone or hydronephrosis. Hepatic steatosis and small ascites. Distention of the gallbladder without calcified gallstone. Additional findings as above. This document has been electronically signed by: Christo Levine MD on 11/16/2024 20:54:19 Narrative 11/16/2024 8:54 PM EDT INDICATION: assess for renal obs and ascites (long and cirrhosis ) CT abdomen and pelvis without contrast Comparison: CT - CT CHEST ABD PEL W CONTRAST - 10/10/24 18:18 EDT Findings: Examination is limited by without contrast. Small left pleural effusion and basilar atelectasis. Hepatic steatosis and hepatomegaly. Pancreas, Spleen and both adrenals show normal size, shape and attenuation on present unenhanced scan. No CBD dilatation. No calcified gallstone in the gallbladder. Gallbladder is distended. Both kidneys reveal normal in size, shape, position and attenuation. No kidney stone. No hydronephrosis. The IVC, aorta and portal vein are within normal position and caliber. No evidence of retroperitoneal lymphadenopathy. Small ascites. There is soft tissue anasarca. There is diffuse wall thickening of the colon. Appendix is not visualized. No bowel obstruction. Urinary bladder reveals normal lumen and roque. Post hysterectomy. Visualized osseous structures appear unremarkable. No lytic or sclerotic bony lesion. Procedure Note Christo Levine MD - 11/16/2024 INDICATION: assess for renal obs and ascites (long and cirrhosis ) CT abdomen and pelvis without contrast Comparison: CT - CT CHEST ABD PEL W CONTRAST - 10/10/24 18:18 EDT Findings: Examination is limited by without contrast. Small left pleural effusion and basilar atelectasis. Hepatic steatosis and hepatomegaly. Pancreas, Spleen and both adrenals show normal size, shape and attenuation on present unenhanced scan. NoCBD dilatation. No calcified gallstone in the gallbladder. Gallbladder is distended. Both kidneys reveal normal in size, shape, position and attenuation. No kidney stone. No hydronephrosis. The IVC, aorta and portal vein are within normal position and caliber.No evidence of retroperitoneal lymphadenopathy. Small ascites. There issoft tissue anasarca. There is diffuse wall thickening of the colon. Appendix is notvisualized. No bowel obstruction. Urinary bladder reveals normal lumen and roque. Post hysterectomy. Visualized osseous structures appear unremarkable. No lytic or sclerotic bony lesion. IMPRESSION: Diffuse wall thickening of the colon concerning for colitis. No evidence of kidney stone or hydronephrosis. Hepatic steatosis and small ascites. Distention of the gallbladder without calcified gallstone. Additional findings as above. This document has been electronically signed by: Christo Levine MD on 11/16/2024 20:54:19 us Maria EDGAR IM CT PROCEDURES Final Resul t * US Abdomen Limited (11/16/2024 2:30 PM EDT) Only the most recent of2 resultswithin the time period is included. Anatomical Region Laterality Modality Body Ultrasound 11/16/2024 1:57 PM EDT Impressions 11/16/2024 1:59 PM EDT 1. GALLBLADDER IS DISTENDED WITH WALL THICKENING BUT THERE ARE NO GALLSTONES. ACALCULOUS CHOLECYSTITIS IS NOT EXCLUDED AND HIDA SCAN SHOULD BE PERFORMED IF THERE IS PERSISTENT CLINICAL CONCERN. 2. MILD ASCITES. -------- FINAL REPORT -------- Dictated By: Kari Del Cid Dictated Date: 11/16/2024 13:57 ET Assigned Physician: Kari Del Cid Reviewed and Electronically Signed By: Kari Del Cid Signed Date: 11/16/2024 13:59 ET Workstation ID: [id number] Transcribed By: Self Edit Transcribed Date: 11/16/2024 13:57 ET Narrative 11/16/2024 1:59 PM EDT Exam: US ABDOMEN LIMITED Date of Study: 11/16/2024 12:40 PM CLINICAL INFORMATION: alcohol use disorder jaundice TECHNIQUE: Real-time ultrasound scanning of the region of interest performed by the plating inspector. Hand Polisher static images and video clips are submitted for review. FINDINGS: IVC is unremarkable. The pancreas is obscured. The liver is enlarged and echogenic measuring 18.8 cm. There is normal direction of flow within the portal vein. There is a mild amount of ascites. The common bile duct is not visualized. The gallbladder is significantly distended with wall thickening. Absent sonographic Wallace's sign, though patient is on medication which confounds the finding. The right kidney measures 10.8 cm without evidence for mass or hydronephrosis. Procedure Note Kari Del Cid MD - 11/16/2024 Exam: US ABDOMEN LIMITED Date of Study: 11/16/2024 12:40 PM CLINICAL INFORMATION: alcohol use disorder jaundice TECHNIQUE: Real-time ultrasound scanning of the region of interestperformed by the plating inspector. Hand Polisher static images and video clipsare submitted for review. FINDINGS: IVC is unremarkable. The pancreas is obscured. The liver is enlarged andechogenic measuring 18.8 cm. There is normal direction of flow within theportal vein. There is a mild amount of ascites. The common bile duct isnot visualized. The gallbladder is significantly distended with wallthickening. Absent sonographic Wallace's sign, though patient is onmedication which confounds the finding. The right kidney measures 10.8 cmwithout evidence for mass or hydronephrosis. IMPRESSION: 1. GALLBLADDER IS DISTENDED WITH WALL THICKENING BUT THERE ARE NOGALLSTONES. ACALCULOUS CHOLECYSTITIS IS NOT EXCLUDED AND HIDA SCAN SHOULDBE PERFORMED IF THERE IS PERSISTENT CLINICAL CONCERN. 2. MILD ASCITES. -------- FINAL REPORT -------- Dictated By: Kari Del Cid Dictated Date: 11/16/2024 13:57 ET Assigned Physician: Kari Del Cid Reviewed and Electronically Signed By: Kari Del Cid Signed Date: 11/16/2024 13:59 ET Workstation ID: [id number] Transcribed By: Self Edit Transcribed Date: 11/16/2024 13:57 ET us Jasen CENTENO US PROCEDURES Final Result * XR Ankle 3+ Views Left (11/16/2024 12:08 PM EDT) Anatomical Region Laterality Modality Lower Extremities, Ankle Left Radiogr aphic Imaging 11/16/2024 12:1 3 PM EDT Impressions 11/16/2024 12:15 PM EDT No acute findings. 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 Code 87578 -------- FINAL REPORT -------- Dictated By: Darren Stafford Dictated Date: 11/16/2024 12:13 ET Assigned Physician: Darren Stafford Reviewed and Electronically Signed By: Darren Stafford Signed Date: 11/16/2024 12:15 ET Workstation ID: [id number] Transcribed By: Self Edit Transcribed Date: 11/16/2024 12:13 ET Narrative 11/16/2024 12:15 PM EDT HISTORY: The patient is a 54-year-old female with left ankle pain. No history of trauma is provided. FINDINGS: AP, lateral, and oblique views of the left ankle are obtained. 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 There is no evidence of recent fracture and there is no dislocation or significant arthritic change. Small to moderate-sized inferior and superior calcaneal osteophytes are noted. Procedure Note Darren Stafford MD - 11/16/2024 HISTORY: The patient is a 54-year-old female with left ankle pain. Nohistory of trauma is provided. 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 There is no evidence of recent fracture and there is nodislocation or significant arthritic change. Small to moderate-sizedinferior and superior calcaneal osteophytes are noted. IMPRESSION: No acute findings. 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 Code 61858 -------- FINAL REPORT -------- Dictated By: Darren Stafford Dictated Date: 11/16/2024 12:13 ET Assigned Physician: Darren Stafford Reviewed and Electronically Signed By: Darren Stafford Signed Date: 11/16/2024 12:15 ET Workstation ID: [id number] Transcribed By: Self Edit Transcribed Date: 11/16/2024 12:13 ET Jasen Jay DO IMG XR PROCEDURES Final Result * XR Chest 2 Views (11/16/2024 12:08 PM EDT) Only the most recent of2 resultswithin the time period is included. Anatomical Region Laterality Modality Body Radiographic Justina ging 11/16/2024 12:1 6 PM EDT Impressions 11/16/2024 12:18 PM EDT No acute pulmonary disease. No change since 11/07/2024. Code 94700 -------- FINAL REPORT -------- Dictated By: Darren Stafford Dictated Date: 11/16/2024 12:16 ET Assigned Physician: Darren Stafford Reviewed and Electronically Signed By: Darren Stafford Signed Date: 11/16/2024 12:18 ET Workstation ID: [id number] Transcribed By: Self Edit Transcribed Date: 11/16/2024 12:16 ET Narrative 11/16/2024 12:18 PM EDT HISTORY: The patient is a 54-year-old female with history of smoking, presenting with hypotension. FINDINGS: AP and lateral radiographs of the thoracic spine are obtained. The frontal view is in apical lordotic projection is also seen on the most recent prior study performed 11/07/2024. Again seen are degenerative changes of the thoracic spine. The cardiac and mediastinal contours are within normal limits. The lungs and costophrenic angles are clear. Procedure Note Darren Stafford MD - 11/16/2024 HISTORY: The patient is a 54-year-old female with history of smoking,presenting with hypotension. FINDINGS: AP and lateral radiographs of the thoracic spine are obtained.The frontal view is in apical lordotic projection is also seen on the mostrecent prior study performed 11/07/2024. Again seen are degenerativechanges of the thoracic spine. The cardiac and mediastinal contours arewithin normal limits. The lungs and costophrenic angles are clear. IMPRESSION: No acute pulmonary disease. No change since 11/07/2024. Code 61254 -------- FINAL REPORT -------- Dictated By: Darren Stafford Dictated Date: 11/16/2024 12:16 ET Assigned Physician: Darren Stafford Reviewed and Electronically Signed By: Darren Stafford Signed Date: 11/16/2024 12:18 ET Workstation ID: [id number] Transcribed By: Self Edit Transcribed Date: 11/16/2024 12:16 ET Jasen Jay DO IMG XR PROCEDURES Final Result * (ABNORMAL) Lactate (11/16/2024 10:23 AM EDT) Only the most recent of3 resultswithin the time period is included. [facility] Lactate 2.8(H) 0.4 - 2.0 mmol/L LAB CHEMISTRY METHOD 11/16/2024 12:04 PM EDT [facility] Blood Venous blood specimen / Unknown Venipuncture / Unknown 11/16/2024 10:23 AM EDT 11/16/2024 11:21 AM EDT Jasen Jay DO LAB BLOOD ORDERABLES Final Resu lt [facility] [address] [place] [address], * (ABNORMAL) Manual differential (11/16/2024 10:20 AM EDT) [facility] Neutrophils % 61.0 % LAB HEMETOLOGY METHOD 11/16/2024 1:30 PM EDT [facility] Lymphocytes % 26.0 % LAB HEMETOLOGY METHOD 11/16/2024 1:30 PM EDT [facility] Monocytes % 13.0 % LAB HEMETOLOGY METHOD 11/16/2024 1:30 PM EDT [facility] Eosinophils % 0.0 % LAB HEMETOLOGY METHOD 11/16/2024 1:30 PM EDT [facility] Basophils % 0.0 % LAB HEMETOLOGY METHOD 11/16/2024 1:30 PM EDT [facility] Neutrophils Absolute Manual 7.20(H) 1.50 - 7.00 K/mcL LAB HEMETOLOGY METHOD 11/16/2024 1:30 PM EDT [facility] Lymphocytes Absolute 3.07 1.00 - 5.00 K/mcL LAB HEMETOLOGY METHOD 11/16/2024 1:30 PM EDT [facility] Monocytes Absolute Manual 1.53(H) 0.20 - 1.00 K/mcL LAB HEMETOLOGY METHOD 11/16/2024 1:30 PM EDT [facility] Eosinophils Absolute Manual 0.00 0.00 - 0.50 K/[facility] LAB HEMETOLOGY METHOD 11/16/2024 1:30 PM EDT [facility] Basophils Absolute Manual 0.00 0.00 - 0.20 K/mcL LAB HEMETOLOGY METHOD 11/16/2024 1:30 PM EDT [facility] Rbc Morphology Consistent with indices Consistent with indices, Normal for [place] LAB HEMETOLOGY METHOD 11/16/2024 1:30 PM EDT [facility] Platelet Morphology - WAM Normal Normal LAB HEMETOLOGY METHOD 11/16/2024 1:30 PM EDT [facility] Blood Venous blood specimen / Unknown Venipuncture / Unknown 11/16/2024 10:20 AM EDT 11/16/2024 11:22 AM EDT us Jasen Jay DO LAB BLOOD ORDERABLES Final Resu lt [facility] [address] [place] [address], * Ammonia (11/16/2024 10:20 AM EDT) Only the most recent of5 resultswithin the time period is included. Ammonia 13 11 - 35 mcmol/L LAB CHEMISTRY METHOD 11/16/2024 11:59 AM EDT [facility] Blood Venous blood specimen / Unknown Venipuncture / Unknown 11/16/2024 10:20 AM EDT 11/16/2024 11:21 AM EDT [facility] BLOOD ORDERABLES Final Resu lt Performing Organization Address [facility]/ZIP Co de Phone Number [facility] [address] [place] [address], [place] [phone] * (ABNORMAL) Ethanol (11/16/2024 10:20 AM EDT) Only the most recent of4 resultswithin the time period is included. Pathologist [facility] Ethanol Level 147(H) 0 - 10 mg/dL LAB CHEMISTRY METHOD 11/16/2024 11:59 AM EDT [facility] Blood Venous blood specimen / Unknown Venipuncture / Unknown 11/16/2024 10:20 AM EDT 11/16/2024 11:22 AM EDT [facility] BLOOD ORDERABLES Final Resu lt Performing Organization Address [facility] de Phone Number [facility] [address] [place] [address], [place] [phone] * ECG 12 lead (11/16/2024 10:03 AM EDT) Only the most recent of5 resultswithin the time period is included. Ventricular Rate ECG 90 BPM GEMUSE Atrial Rate 90 BPM GEMUSE P-R Interval 190 ms GEMUSE QRS Duration 102 ms GEMUSE Q-T Interval 434 ms GEMUSE QTc 530 ms GEMUSE P Wave Anderson 53 degrees GEMUSE R Anderson 34 degrees GEMUSE T Anderson 52 degrees GEMUSE ECG Interpretation Normal sinus rhythm Poor R wave progression Prolonged QT Abnormal ECG When compared with ECG of 07-NOV-2024 11:30, Nonspecific T wave abnormality, improved in Inferior leads Nonspecific T wave abnormality, improved in Anterolateral leads Confirmed by Galileo GUEVARA JAMES ([id number]) on 11/16/2024 6:02:36 PM MARKELLUSE 11/16/2024 10:0 3 AM EDT 11/16/2024 6:02 PM EDT Jasen Jay DO ECG ORDERABLES Final Result GERRY * ID CRITICAL CARE 30-74 MINUTES (11/16/2024 9:17 AM EDT) Narrative Jasen Jay DO - 11/16/2024 9:17 AM EDT Jasen Jay DO 11/17/2024 7:24 PM Critical Care Performed by: Jasen Jay DO Authorized by: Jasen Jay DO Critical care provider statement: Critical care time (minutes): 100 Total face to face critical care time (minutes): 75 Critical care time was exclusive of: Separately billable procedures and treating other patients and teaching time Critical care was necessary to treat or prevent imminent or life-threatening deterioration of the following conditions: Circulatory failure and sepsis Critical care was time spent personally by me on the following activities: Review of old charts, re-evaluation of patient's condition, pulse oximetry, ordering and review of radiographic studies, ordering and review of laboratory studies, ordering and performing treatments and interventions, development of treatment plan with patient or surrogate, evaluation of patient's response to treatment, examination of patient and obtaining history from patient or surrogate Face to face critical care was time spent personally by me on the following activities: Development of treatment plan with patient or surrogate, obtaining history from patient or surrogate, examination of patient, evaluation of patient's response to treatment, re-evaluation of patient's condition and pulse oximetry I assumed direction of critical care for this patient from another provider in my specialty: no Care discussed with: admitting provider Jasen Jay DO IN CLINIC/BEDSIDE ORDERABLES Fi nal Result * ECG-Annotated (11/13/2024) Only the most recent of2 resultswithin the time period is included. Provider Onbase MD ECG ORDERABLES Final Result * Occult blood stool, guaiac (11/11/2024 12:06 AM EDT) Only the most recent of2 resultswithin the time period is included. [facility] Occult Blood, Stool #1 Negative Negative 11/11/2024 12:39 AM EDT [facility] Stool Rectum structure / Unknown Non-blood Collection / Unknown 11/11/2024 12:06 AM EDT 11/11/2024 12:12 AM EDT Sam Perez MD LAB BODY FLUIDS AND STO OLS ORDERABLES Final Result [facility] [address] [place] [address], [place] [phone] * (ABNORMAL) Urinalysis with reflex microscopic and culture (11/08/2024 11:41 AM EDT) Only the most recent of2 resultswithin the time period is included. [facility] Specific [place] Urine 1.026 1.003 - 1.030 LAB URINALYSIS - AUTOMATED METHOD 11/08/2024 1:[address] [facility] pH, Urine 5.5 5.0 - 8.0 pH LAB URINALYSIS - AUTOMATED METHOD 11/08/2024 1:[address] [facility] Leukocytes, Urine Moderate(A) Negative LAB URINALYSIS - AUTOMATED METHOD 11/08/2024 1:[address] [facility] Nitrite, Urine Positive(A) Negative LAB URINALYSIS - AUTOMATED METHOD 11/08/2024 1:[address] [facility] Protein, Urine 100(A) <=Trace mg/dL LAB URINALYSIS - AUTOMATED METHOD 11/08/2024 1:[address] [facility] Glucose, Urine Negative Negative mg/dL LAB URINALYSIS - AUTOMATED METHOD 11/08/2024 1:[address] [facility] Ketones, Urine Negative Negative mg/dL LAB URINALYSIS - AUTOMATED METHOD 11/08/2024 1:[address] [facility] Urobilinogen , Urine 2.0(A) 0.2 - 1.0 mg/dL LAB URINALYSIS - AUTOMATED METHOD 11/08/2024 1:[address] [facility] Bilirubin, Urine Large(A) Negative LAB URINALYSIS - AUTOMATED METHOD [facility] Blood, Urine Negative Negative LAB URINALYSIS - AUTOMATED METHOD 11/08/2024 1:[address] [facility] RBC, Urine 0.7 0 - 4 /HPF LAB URINALYSIS - AUTOMATED METHOD 11/08/2024 1:[address] [facility] WBC, Urine 10.3(H) 0 - 4 /HPF LAB URINALYSIS - AUTOMATED METHOD 11/08/2024 1:[address] [facility] Squamous Epithelial, Urine >100(H) 0 - 60 /LPF LAB URINALYSIS - AUTOMATED METHOD 11/08/2024 1:[address] [facility] Bacteria, Urine Few(A) Negative /HPF LAB URINALYSIS - AUTOMATED METHOD 11/08/2024 1:[address] [facility] Hyaline Casts, Urine 29.3(H) 0 - 3 /LPF LAB URINALYSIS - AUTOMATED METHOD 11/08/2024 1:[address] [facility] Urine Urine specimen obtained by clean catch procedure / Unknown Non-blood Collection / Unknown 11/08/2024 11:41 AM EDT 11/08/2024 11:48 AM EDT us Krystyna EDGAR LAB URINE ORDERABLES Fin al Result [facility] [address] [place] [address], [place] [phone] * Banda urine culture tube (11/08/2024 11:41 AM EDT) Only the most recent of2 resultswithin the time period is included. Extra Tube Hold for add-ons. 11/08/2024 1:01 PM EDT [facility] Comment:Auto resulted. Urine Urine specimen obtained by clean catch procedure / Unknown Non-blood Collection / Unknown 11/08/2024 11:41 AM EDT 11/08/2024 11:48 AM EDT us Krystyna EDGAR LAB URINE ORDERABLES Fin al Result [facility] [address] [place] [address], * (ABNORMAL) Drug abuse screen 8a panel, urine (11/08/2024 11:41 AM EDT) Only the most recent of2 resultswithin the time period is included. Pathologist [facility] Amphetamine Screen, Ur Negative Negative LAB CHEMISTRY METHOD 12:18 PM EDT [facility] Comment:Certain OTC medicati ons containing ephedrine, phenylephrine, pseudoephedrine and phenylpropanolamine can cause false positive results. Barbiturate Screen, Ur Positive(A ) Negative LAB CHEMISTRY METHOD 5 12:18 PM EDT [facility] Benzodiazepine Screen, Ur Positive(A ) Negative LAB CHEMISTRY METHOD 5 12:[address] [facility] Cocaine Screen, Ur Positive(A ) Negative LAB CHEMISTRY METHOD 5 12:18 PM EDT [facility] Opiate Screen, Ur Negative Negative LAB CHEMISTRY METHOD 5 12:[address] [facility] Cannabinoid (THC) Screen, Ur Positive(A ) Negative LAB CHEMISTRY METHOD 5 12:18 PM EDT [facility] Comment:Specimens from patie nts taking pantoprazole sodium (Protonix) have been shown to produce false positive results. Oxycodone Screen, Ur Negative Negative LAB CHEMISTRY METHOD 12:18 PM EDT [facility] Fentanyl, Ur Negative Negative LAB CHEMISTRY METHOD 12:18 PM EDT [facility] Urine Urine specimen obtained by clean catch procedure / Unknown Non-blood Collection / Unknown 11/08/2024 11:41 AM EDT 11/08/2024 11:48 AM EDT Narrative [facility] - 11/08/2024 12:18 PM EDT Assay cutoffs: Amphetamines 1000 ng/mL Barbiturates 200 ng/mL Benzodiazepines 200 ng/mL Cocaine 300 ng/mL Fentanyl 1 ng/mL Opiates 300 ng/mL Oxycodone 100 ng/mL THC 50 ng/mL Semi-quantitative assay for screening purposes only. Unconfirmed screening result should not be used for non-medical purposes. *ALTERNATE METHOD CONFIRMATION DONE UPON REQUEST ONLY* Betty Collins NP LAB URINE ORDERABLES Fin al Result [facility] [address] [place] [address], [place] [phone] * Culture urine (11/08/2024 11:41 AM EDT) Only the most recent of2 resultswithin the time period is included. Culture, Urine 10,000-49,000 CFU/mL Mixed bacterial morphotypes present suggestive of possible contamination during collection. Suggest appropriate recollection if clinically indicated. 11/09/2024 7:23 AM EDT [facility] Urine Urine specimen obtained by clean catch procedure / Unknown Non-blood Collection / Unknown 11/08/2024 11:41 AM EDT 11/08/2024 1:13 PM EDT Krystyna EDGAR LAB MICROBIOLOGY - GENER AL ORDERABLES Final Result [facility] [address] [place] [address], * (ABNORMAL) Complete blood count (11/08/2024 5:43 AM EDT) WBC 13.0(H) 4.8 - 10.8 K/mcL LAB HEMETOLOGY METHOD 11/08/2024 6:43 AM EDT [facility] RBC 2.60(L) 3.80 - 4.80 M/mcL LAB HEMETOLOGY METHOD 11/08/2024 6:43 AM EDT [facility] Hemoglobin 8.4(L) 11.5 - 16.0 g/dL LAB HEMETOLOGY METHOD 11/08/2024 6:43 AM EDT [facility] Hematocrit 25.1(L) 35.0 - 47.0 % LAB HEMETOLOGY METHOD 11/08/2024 6:43 AM EDT [facility] MCV 95.4 79.0 - 98.0 FL LAB HEMETOLOGY METHOD 11/08/2024 6:43 AM EDT [facility] MCH 31.9 27.0 - 32.0 pcg LAB HEMETOLOGY METHOD 11/08/2024 6:43 AM EDT [facility] MCHC 33.5 32.0 - 37.0 g/dL LAB HEMETOLOGY METHOD 11/08/2024 6:43 AM EDT [facility] RDW 15.4(H) 11.0 - 15.0 % LAB HEMETOLOGY METHOD 11/08/2024 6:43 AM EDT [facility] Platelets 134 130 - 400 K/mcL LAB HEMETOLOGY METHOD 11/08/2024 6:43 AM EDT [facility] MPV 11.1(H) 7.0 - 11.0 FL LAB HEMETOLOGY METHOD 11/08/2024 6:43 AM EDT [facility] NRBC 0.0 <1.0 % LAB HEMETOLOGY METHOD 11/08/2024 6:43 AM EDT [facility] NRBC Absolute 0.00 <0.10 K/mcL LAB HEMETOLOGY METHOD 11/08/2024 6:43 AM EDT [facility] Blood Venous blood specimen / Unknown Venipuncture / Unknown 11/08/2024 5:43 AM EDT 11/08/2024 5:59 AM EDT Geetha Gonzalez MD LAB BLOOD ORDERABLES Final Res ult Performing Organization Address [facility]/ZIP Co de Phone Number [facility] [address] [place] [address], [place] [phone] * Troponin I high sensitivity (11/07/2024 5:43 PM EDT) Only the most recent of3 resultswithin the time period is included. [facility] High Sensitivity Troponin I 9 <=54 ng/L LAB CHEMISTRY METHOD 11/07/2024 6:48 PM EDT [facility] Blood Venous blood specimen / Unknown Venipuncture / Unknown 11/07/2024 5:43 PM EDT 11/07/2024 6:20 PM EDT Narrative [facility] - 11/07/2024 6:48 PM EDT High levels of biotin in samples may falsely decrease hsTroponin values. Use caution when interpreting hsTroponin results in patients taking biotin who exhibit renal impairment (eGFR <60) or in patients taking more than 20 mg/day of biotin. us Krystyna EDGAR LAB BLOOD ORDERABLES Fin al Result Performing Organization Address City/[facility]/ZIP Co de Phone Number [facility] [address] [place] [address], [place] [phone] * Respiratory virus panel molecular study (11/07/2024 11:17 AM EDT) Only the most recent of2 resultswithin the time period is included. [facility] Adenovirus Detection by PCR Not Detected Not Detected LAB MICROBIOLOGY METHOD 11/07/2024 12:25 PM EDT [facility] Influenza A PCR Not Detected Not Detected LAB MICROBIOLOGY METHOD 11/07/2024 12:25 PM EDT [facility] Influenza B PCR Not Detected Not Detected LAB MICROBIOLOGY METHOD 11/07/2024 12:25 PM EDT [facility] Coronavirus 229E Not Detected Not Detected LAB MICROBIOLOGY METHOD 11/07/2024 12:25 PM EDT [facility] Coronavirus HKU1 Not Detected Not Detected LAB MICROBIOLOGY METHOD 11/07/2024 12:25 PM EDT [facility] Coronavirus OC43 Not Detected Not Detected LAB MICROBIOLOGY METHOD 11/07/2024 12:25 PM EDT [facility] Coronavirus NL63 Not Detected Not Detected LAB MICROBIOLOGY METHOD 11/07/2024 12:25 PM EDT [facility] Parainfluenza Virus 1 Not Detected Not Detected LAB MICROBIOLOGY METHOD 11/07/2024 12:25 PM EDT [facility] Parainfluenza Virus 2 Not Detected Not Detected LAB MICROBIOLOGY METHOD 11/07/2024 12:25 PM EDT [facility] Parainfluenza Virus 3 Not Detected Not Detected LAB MICROBIOLOGY METHOD 11/07/2024 12:25 PM EDT [facility] Parainfluenza Virus 4 Not Detected Not Detected LAB MICROBIOLOGY METHOD 11/07/2024 12:25 PM EDT [facility] RSV PCR Not Detected Not Detected LAB MICROBIOLOGY METHOD 11/07/2024 12:25 PM EDT [facility] Human Metapneumovirus A and B Not Detected Not Detected LAB MICROBIOLOGY METHOD 11/07/2024 12:25 PM EDT [facility] Rhinovirus/Entero virus Not Detected Not Detected LAB MICROBIOLOGY METHOD 11/07/2024 12:25 PM EDT [facility] Bordetella pertussis Not Detected Not Detected LAB MICROBIOLOGY METHOD 11/07/2024 12:25 PM EDT [facility] Bordetella parapertussis Not Detected Not Detected LAB MICROBIOLOGY METHOD 11/07/2024 12:25 PM EDT [facility] Mycoplasma pneumo by PCR Not Detected Not Detected LAB MICROBIOLOGY METHOD 11/07/2024 12:25 PM EDT [facility] Chlamydia pneumoniae Not Detected Not Detected LAB MICROBIOLOGY METHOD 11/07/2024 12:25 PM EDT [facility] SARS COV-2 Not Detected Not Detected LAB MICROBIOLOGY METHOD 11/07/2024 12:25 PM EDT [facility] Swab Both anterior nares / Unknown Non-blood Collection / Unknown 11/07/2024 11:17 AM EDT 11/07/2024 11:22 AM EDT Narrative [facility] - 11/07/2024 12:25 PM EDT Testing was performed using the impok Respiratory Pathogen PCR Assay. All results must be correlated with the clinical findings. Results should not be used as the sole basis for diagnosis. False Negative results may occur from the presence of sequence variants in the region targeted by the assay or the presence of inhibitors. Results may be affected by concurrent antiviral/antimicrobial therapy or levels of organisms that are below the limit of detection. us Krystyna EDGAR LAB MICROBIOLOGY - GENER AL ORDERABLES Final Result [facility] [address] [place] [address], * (ABNORMAL) Vitamin B12 and folate (11/07/2024 11:11 AM EDT) [facility] Vitamin B-12 1,635(H) 250 - 900 pcg/mL LAB CHEMISTRY METHOD 11/07/2024 12:31 PM EDT [facility] Folate 11.8 2.8 - 17.0 ng/ml LAB CHEMISTRY METHOD 11/07/2024 12:31 PM EDT [facility] Blood Venous blood specimen / Unknown Venipuncture / Unknown 11/07/2024 11:11 AM EDT 11/07/2024 11:24 AM EDT us Krystyna EDGAR LAB BLOOD ORDERABLES Fin al Result Performing Organization Address [facility]/ZIP Co de Phone Number [facility] [address] [place] [address], [place] [phone] * Hepatitis panel, acute with reflex to confirmation (11/07/2024 11:11 AM EDT) Only the most recent of2 resultswithin the time period is included. Hepatitis B Surface Ag Negative Negative LAB CHEMISTRY METHOD 11/07/2024 3:57 PM EDT [facility] Hepatitis A Antibody IgM Negative Negative LAB CHEMISTRY METHOD 11/07/2024 3:57 PM EDT [facility] Hep B Core IgM Negative Negative LAB CHEMISTRY METHOD 11/07/2024 3:57 PM EDT [facility] Hepatitis C Antibody Negative Negative LAB CHEMISTRY METHOD 11/07/2024 3:57 PM EDT [facility] Blood Venous blood specimen / Unknown Venipuncture / Unknown 11/07/2024 11:11 AM EDT 11/07/2024 11:24 AM EDT us Krystyna EDGAR LAB BLOOD ORDERABLES Fin al Result [facility] [address] [place] [address], [place] [phone] * Activated partial thromboplastin time (11/07/2024 11:11 AM EDT) Only the most recent of2 resultswithin the time period is included. aPTT 34.6 24.1 - 39.3 sec LAB COAGULATION METHOD 11/07/2024 11:50 AM EDT [facility] Blood Venous blood specimen / Unknown Venipuncture / Unknown 11/07/2024 11:11 AM EDT 11/07/2024 11:25 AM EDT [facility]AB[facility] Fin al Result Performing Organization Address City/[facility]/ZIP Co de Phone Number [facility] [address] [place] [address], * (ABNORMAL) Lipase (11/07/2024 11:11 AM EDT) Only the most recent of2 resultswithin the time period is included. [facility] Lipase <10(L) 13 - 75 unit/L LAB CHEMISTRY METHOD 11/07/2024 12:05 PM EDT [facility] Blood Venous blood specimen / Unknown Venipuncture / Unknown 11/07/2024 11:11 AM EDT 11/07/2024 11:24 AM EDT Krystyna Rojas [place] LAB BLOOD ORDERABLES Fin al Result Performing Organization Address [facility]/ZIP Co de Phone Number [facility] [address] [place] [address], [place] [phone] * ECG-Outside (10/16/2024) Provider Onbase MD ECG ORDERABLES Final Result * Calcium, ionized (10/13/2024 5:30 AM EDT) Only the most recent of6 resultswithin the time period is included. Calcium Ionized 4.89 4.50 - 5.30 mg/dL 10/13/2024 6:02 AM EDT [facility] Blood Venous blood specimen / Unknown Venipuncture / Unknown 10/13/2024 5:30 AM EDT 10/13/2024 5:56 AM EDT Gordy Herrera DO LAB BLOOD ORDERABLES Final R esult [facility] [address] [place] [address], * (ABNORMAL) Procalcitonin (10/12/2024 4:01 AM EDT) Only the most recent of4 resultswithin the time period is included. Procalcitonin 0.44(H) <=0.16 ng/mL LAB CHEMISTRY METHOD 10/12/2024 8:24 AM EDT [facility] Blood Venous blood specimen / Unknown Venipuncture / Unknown 10/12/2024 4:01 AM EDT 10/12/2024 4:19 AM EDT Narrative [facility] - 10/12/2024 8:24 AM EDT Procalcitonin > 2.00 ng/ml: Procalcitonin Levels above 2.00 ng/ml, on the first day of ICU admission represent a high risk for progression to severe sepsis and/or septic shock. Procalcitonin < 0.50 ng/ml: Procalcitonin levels below 0.50 ng/ml on the first day of ICU admission represent a low risk for progression to severe sepsis and/or septic shock. Concentrations <0.5 ng/mL do not exclude an infection, on account of local ized infections (without systemic signs) which can be associated with such low concentrations, or a systemic infection in its initial stages (<6 hours). Furthermore, increased procalcitonin can occur without infection. PCT concentrations between 0.5 and 2.0 ng/mL should be interpreted taking into account the patient's history. It is recommended to retest PCT within 6-24 hours if any concentrations <2.0 ng/mL are obtained. Gordy Uriosteguipepe DO LAB BLOOD ORDERABLES Final R esult [facility] [address] [place] [address], * (ABNORMAL) Iron and TIBC (10/12/2024 4:01 AM EDT) Iron 54 40 - 150 mcg/dL LAB CHEMISTRY METHOD 10/12/2024 1:15 PM EDT [facility] TIBC 55(L) 250 - 450 mcg/dL LAB CHEMISTRY METHOD 10/12/2024 1:15 PM EDT [facility] Iron Saturation 98(H) 15 - 50 % LAB CHEMISTRY METHOD 10/12/2024 1:15 PM EDT [facility] Blood Venous blood specimen / Unknown Venipuncture / Unknown 10/12/2024 4:01 AM EDT 10/12/2024 4:19 AM EDT Mayur Ruiz MD LAB BLOOD ORDERABLES Final Re sult Performing Organization Address [facility]/ZIP Co de Phone Number [facility] [address] [place] [address], * Reticulocyte count (10/12/2024 4:01 AM EDT) Retic Ct Abs 0.040 0.030 - 0.090 M/mcL LAB HEMETOLOGY METHOD 10/12/2024 10:35 AM EDT [facility] Retic Ct Pct 1.7 0.7 - 1.7 % LAB HEMETOLOGY METHOD 10/12/2024 10:35 AM EDT [facility] Immature Retic Fract 10.8 2.3 - 15.9 % LAB HEMETOLOGY METHOD 10/12/2024 10:35 AM EDT [facility] Reticulocyte Hemoglobin 36.2 >29.0 pcg LAB HEMETOLOGY METHOD 10/12/2024 10:35 AM EDT [facility] Blood Venous blood specimen / Unknown Venipuncture / Unknown 10/12/2024 4:01 AM EDT 10/12/2024 4:19 AM EDT us Mayur Ruiz MD LAB BLOOD ORDERABLES Final Re sult Performing Organization Address [facility]/ZIP Co de Phone Number [facility] [address] [place] [address], [place] [phone] * Haptoglobin (10/12/2024 4:01 AM EDT) Haptoglobin 83 16 - 200 mg/dL LAB CHEMISTRY METHOD 10/12/2024 1:15 PM EDT [facility] Blood Venous blood specimen / Unknown Venipuncture / Unknown 10/12/2024 4:01 AM EDT 10/12/2024 4:19 AM EDT us Mayur Ruiz MD LAB BLOOD ORDERABLES Final Re sult Performing Organization Address [facility]/ZIP Co de Phone Number [facility] [address] [place] [address], [place] [phone] * (ABNORMAL) Ferritin (10/12/2024 4:01 AM EDT) Ferritin 2,534(H) 8 - 252 ng/mL LAB CHEMISTRY METHOD 10/12/2024 1:15 PM EDT [facility] Blood Venous blood specimen / Unknown Venipuncture / Unknown 10/12/2024 4:01 AM EDT 10/12/2024 4:19 AM EDT us Mayur Ruiz MD LAB BLOOD ORDERABLES Final Re sult Performing Organization Address City/[facility]/ZIP Co de Phone Number [facility] [address] [place] [address], [place] [phone] * (ABNORMAL) TRANSTHORACIC ECHOCARDIOGRAM (TTE) COMPLETE W/ CONTRAST (10/11/2024 9:01 AM EDT) LV EDV (A2C) 122 mL CV PACS LV EDV (A4C) 171 mL CV PACS LV Diastolic Volume (BP) 147(A) 46 - 106 mL CV PACS LV ESV (A2C) 66 mL CV PACS LV ESV (A4C) 101 mL CV PACS LV Systolic Volume (BP) 84(A) 14 - 42 mL CV PACS IVSD 0.9 0.6 - 0.9 cm CV PACS LVIDD 5.0 3.8 - 5.2 cm CV PACS LVIDS 4.0(A) 2.2 - 3.5 cm CV PACS LVOT Diameter 2.0 cm CV PACS LVOT Mean Fuentes 0.5 m/s CV PACS LVOT Mean Grad 1 mmHg CV PACS LVOT Peak VTI 16.0 cm CV PACS LVOT Peak Fuentes 0.8 m/s CV PACS LVOT Peak Gradient 3 mmHg CV PACS LVPWD 0.9 0.6 - 0.9 cm CV PACS Ejection Fraction (A2C) 46 % CV PACS Ejection Fraction (A4C) 41 % CV PACS Ejection Fraction (BP) 43 % CV PACS LVOT Area 3.1 cm2 CV PACS LVOT Stroke Volume 50 mL CV PACS Left Atrium Minor Anderson 5.2 cm CV PACS Left Atrium Major Anderson 6.3 cm CV PACS LA Area Sys (A2C) 18 cm2 CV PACS LA Area Sys (A4C) 17 cm2 CV PACS LA Volume (BP) 47 mL CV PACS RA Area 12.0 cm2 CV PACS RA 2D Volume 25 mL CV PACS AV Mean Gradient 3 mmHg CV PACS Ao VTI 23.6 cm CV PACS AV Peak Fuentes 1.2 m/s CV PACS AV Peak Gradient 6 mmHg CV PACS AV Area Continuity Equation 2.1 cm2 CV PACS AV Area Peak Velocity 2.1 cm2 CV PACS Aortic Sinus Valsalva 3.3 cm CV PACS Ascending Aorta 3.1 cm CV PACS IVC Proximal 2.6 cm CV PACS MR PISA Nyquist Fuentes 32 cm/s CV PACS PISA MR Radius 0.50 cm CV PACS MV Mean Gradient 6 mmHg CV PACS MR VTI 147.0 cm CV PACS MV VTI 24.1 cm CV PACS MR PISA Max Velocity 4.5 m/s CV PACS MR Peak Gradient 81 mmHg CV PACS Mitral Valve Max Velocity 1.6 m/s CV PACS MV Peak Gradient 10 mmHg CV PACS PISA MR EROA 0.11 cm2 CV PACS MV Area Continuity Equation 2.1 cm2 CV PACS PISA Regurgitant Volume 16 mL CV PACS RV Diastolic Basal Dimension 2.7 2.5 - 4.1 cm CV PACS RV S' 10 cm/s CV PACS TAPSE 22 mm CV PACS LV ESV Index (A4C) 52 mL/m2 CV PACS LV EDV Index (A4C) 89 mL/m2 CV PACS LVOT Stroke Index 26 mL/m2 CV PACS Relative Wall Thickness ratio 0.36 CV PACS LVOT:AV VTI Index 0.68 CV PACS FS 20 % CV PACS LV Mass 2D 158 g CV PACS Ascending Aorta Index 1.61 cm/m2 CV PACS MV VTI:LVOT VTI ratio 1.5 CV PACS LVOT flow 157 mL/s CV PACS RA 2D Volume Index 13 mL/m2 CV PACS AURA Index (VTI) 1.10 cm2/m2 CV PACS AURA Index (Pk Fuentes) 1.09 cm2/m2 CV PACS LVIDD Index 2.59 cm/m2 CV PACS LVIDS Index 2.07 cm/m2 CV PACS AV Velocity Ratio 0.67 CV PACS LV Systolic Volume Index (BP) 44 mL/m2 CV PACS LV Diastolic Volume Index (BP) 76 mL/m2 CV PACS LA Volume Index (BP) 24 mL/m2 CV PACS LV Mass Index 2D 82 g/m2 CV PACS LV EDV Index (A2C) 63 mL/m2 CV PACS LV ESV Index (A2C) 34 mL/m2 CV PACS BSA 1.99 m2 CV PACS Est. RA Pressure 8 mmHg CV PACS Anatomical Region Laterality Modality Ultrasound Narrative 10/11/2024 9:32 AM EDT Left ventricle cavity size is normal. Wall thickness is normal. Systolic function is mildly decreased with an ejection fraction of 40-45%. Hypokinesis of inferior wall, inferoseptum and mid inferolateral wall. Right ventricle cavity appears normal. Systolic function is normal. Mild mitral regurgitation IVC is dilated. Tricuspid regurgitation is inadequate for estimation of right ventricular systolic pressure. Comparison cannot be made to previous study of 08/03/2023 due to poor images in the previous study. Left Ventricle Left ventricle cavity size is normal. Wall thickness is normal. Systolic function is mildly decreased with an ejection fraction of 40-45%. Hypokinesis of inferior wall, inferoseptum and mid inferolateral wall. Unable to assess diastolic function due to E-A fusion. Right Ventricle Right ventricle cavity appears normal. Systolic function is normal. Left Atrium Left atrium cavity size is normal. Right Atrium Right atrium cavity is normal. IVC/SVC Inferior vena cava is dilated. RA pressures is estimated to be 8 mmHg (IVC diameter >21 mm and decreases >50% during inspiration). Mitral Valve The leaflets are mildly thickened. There is annular calcification. There is mild regurgitation. There is no evidence of mitral valve stenosis. Tricuspid Valve Tricuspid valve structure is normal. Tricuspid regurgitation is inadequate for estimation of right ventricular systolic pressure. There is no evidence of tricuspid valve stenosis. Aortic Valve The aortic valve is trileaflet. Thickened aortic valve leaflets. There is no regurgitation or stenosis. Pulmonic Valve Pulmonic valve structure is normal. There is trace pulmonic valve regurgitation. There is no evidence of pulmonic valve stenosis. Ascending Aorta The aorta appears normal in size. Transverse aorta not well visualized. Pericardium There is an anterior fat pad. There is no pericardial effusion. Study Details Overall the study quality was technically difficult. Definity contrast was given to enhance imaging. Michael EDGAR CV ECHO PROCEDURES Final Result * Treponema pallidum antibody with reflex to RPR and particle agglutination (10/11/2024 4:57 AM EDT) T. Pallidum Antibodies Negative Negative LAB CHEMISTRY METHOD 10/11/2024 11:35 AM EDT [facility] Blood Venous blood specimen / Unknown Venipuncture / Unknown 10/11/2024 4:57 AM EDT 10/11/2024 5:05 AM EDT Gordy Herrera DO LAB BLOOD ORDERABLES Final R esult Performing Organization Address City/[facility]/ZIP Co de Phone Number [facility] [address] [place] [address], [place] [phone] * Folate (10/11/2024 4:57 AM EDT) Folate 13.2 2.8 - 17.0 ng/ml LAB CHEMISTRY METHOD 10/11/2024 9:32 AM EDT [facility] Blood Venous blood specimen / Unknown Venipuncture / Unknown 10/11/2024 4:57 AM EDT 10/11/2024 5:05 AM EDT Gordy Herrera LAB BLOOD ORDERABLES Final R esult Performing Organization Address [facility] Co de Phone Number [facility] [address] [place] [address], [place] [phone] * (ABNORMAL) Vitamin B12 (10/11/2024 4:57 AM EDT) Pathologist [facility] Vitamin B-12 1,395(H) 250 - 900 pcg/mL LAB CHEMISTRY METHOD 10/11/2024 9:33 AM EDT [facility] Blood Venous blood specimen / Unknown Venipuncture / Unknown 10/11/2024 4:57 AM EDT 10/11/2024 5:05 AM EDT [facility]AB[facility] Final R esult Performing Organization Address City/[facility]/ZIP Co de Phone Number [facility] [address] [place] [address], [place] [phone] * Vascular US duplex hepatic/portal limited evaluation (10/11/2024 2:27 AM EDT) Anatomical Region Laterality Modality Vascular, Abdomen Ultrasound 10/11/2024 3:07 AM EDT Impressions 10/11/2024 3:07 AM EDT Patent portal vein with antegrade flow. This document has been electronically signed by: Elke Iqbal MD on 10/11/2024 03:07:27 Narrative 10/11/2024 3:07 AM EDT INDICATION: r/o portal vein thrombus US - VAS US HEPATIC PORTAL FLOW LIMITED Comparison: US/ID - US ABD LIMITED - 10/10/24 19:[address] - CT CHEST ABD PEL W CONTRAST - 10/10/24 18:18 EDT Findings: The portal vein is patent with normal waveform and appropriate flow direction. Procedure Note Elke Iqbal MD - 10/11/2024 INDICATION: r/o portal vein thrombus US - VAS US HEPATIC PORTAL FLOW LIMITED Comparison: US/ID - US ABD LIMITED - 10/10/24 19:[address] - CT CHEST ABD PEL W CONTRAST - 10/10/24 18:18 EDT Findings: The portal vein is patent with normal waveform and appropriate flow direction. IMPRESSION: Patent portal vein with antegrade flow. This document has been electronically signed by: Elke Iqbal MD on 10/11/2024 03:07:27 us Michael Krystina EDGAR CV VASCULAR PROCEDURES Final Res ult * XR Chest 1 View (10/11/2024 1:04 AM EDT) Only the most recent of2 resultswithin the time period is included. Anatomical Region Laterality Modality Body Radiographic Justina ging 10/11/2024 8:41 AM EDT Impressions 10/11/2024 8:46 AM EDT New left internal jugular central venous catheter. No postprocedural pneumothorax. -------- FINAL REPORT -------- Dictated By: Shan Franco Dictated Date: 10/11/2024 08:41 ET Assigned Physician: Shan Franco Reviewed and Electronically Signed By: Shan Franco Signed Date: 10/11/2024 08:46 ET Workstation ID: [id number] Transcribed By: Self Edit Transcribed Date: 10/11/2024 08:41 ET Narrative 10/11/2024 8:46 AM EDT PROCEDURE: AP chest radiograph. HISTORY: OTHER TLC placement. COMPARISON: 10/10/2024. FINDINGS: Left internal jugular central venous catheter with tip in the right atrium. No postprocedural pneumothorax. Mildly hypoventilatory inspiratory effort. Cardiomediastinal contours are unchanged. Lungs are clear. Procedure Note Shan Franco MD - 10/11/2024 PROCEDURE: AP chest radiograph. HISTORY: OTHER TLC placement. COMPARISON: 10/10/2024. FINDINGS: Left internal jugular central venous catheter with tip in the rightatrium. No postprocedural pneumothorax. Mildly hypoventilatoryinspiratory effort. Cardiomediastinal contours are unchanged. Lungs areclear. IMPRESSION: New left internal jugular central venous catheter. No postproceduralpneumothorax. -------- FINAL REPORT -------- Dictated By: Shan Franco Dictated Date: 10/11/2024 08:41 ET Assigned Physician: Shan Franco Reviewed and Electronically Signed By: Shan Franco Signed Date: 10/11/2024 08:46 ET Workstation ID: [id number] Transcribed By: Self Edit Transcribed Date: 10/11/2024 08:41 ET Gordy Herrera DO IMG XR PROCEDURES Final Resu lt * ID CATHETERIZATION/CANNULATION ARTERIAL SAMPLE/MONITORING/TRANSFUSION PERC (10/11/2024 12:51 AM EDT) Gordy Maloney DO - 10/11/2024 12:51 AM EDT HERVE Merida 10/11/2024 12:58 AM Arterial Line Insertion Date/Time: 10/11/2024 12:51 AM Performed by: HERVE Merida Authorized by: HERVE Merida Consent: Consent obtained: Verbal Consent given by: Patient Risks, benefits, and alternatives were discussed: yes [place] protocol: Patient identity confirmed: Verbally with patient and arm band Indications: Indications: hemodynamic monitoring Pre-procedure details: Skin preparation: Chlorhexidine Anesthesia: Anesthesia method: Local infiltration Local anesthetic: Lidocaine 1% w/o epi Procedure details: Location: R radial Placement technique: Seldinger Number of attempts: 2 Transducer: waveform confirmed Post-procedure details: Post-procedure: Sutured, sterile dressing applied and biopatch applied Procedure completion: Tolerated well, no immediate complications Michael EDGAR IV THERAPY ORDERABLES Final Resu lt * ID INSERTION NON-TUNNELED CENTRALLY INSERTED CENTRAL VENOUS CATH 5 YRS/> (10/11/2024 12:48 AM EDT) Narrative Gordy HerreraDO - 10/11/2024 12:48 AM EDT HERVE Merida 10/11/2024 12:57 AM Central Line Insertion Date/Time: 10/11/2024 12:48 AM Performed by: HERVE Merida Authorized by: HERVE Merida Consent: Consent obtained: Verbal Consent given by: Patient Risks, benefits, and alternatives were discussed: yes [place] protocol: Patient identity confirmed: Verbally with patient and arm band Pre-procedure details: Indication(s): central venous access and insufficient peripheral access Hand hygiene: Hand hygiene performed prior to insertion Sterile barrier technique: All elements of maximal sterile technique followed Skin preparation: Chlorhexidine Skin preparation agent: Skin preparation agent completely dried prior to procedure Sedation: Sedation type: Anxiolysis (Ativan 2mg) Anesthesia: Anesthesia method: Local infiltration Local anesthetic: Lidocaine 1% w/o epi Procedure details: Location: L internal jugular Procedural supplies: Triple lumen Landmarks identified: yes Ultrasound guidance: yes Ultrasound guidance timing: prior to insertion Sterile ultrasound techniques: Sterile gel and sterile probe covers were used Number of attempts: 1 Successful placement: yes Post-procedure details: Post-procedure: Dressing applied and line sutured Assessment: Blood return through all ports, free fluid flow, placement verified by x-ray and no pneumothorax on x-ray Procedure completion: Tolerated well, no immediate complications Comments: Placement confirmed via CXR, catheter tip terminates in SVC us Michael EDGAR IN CLINIC/BEDSIDE ORDERABLES Fin al Result * MRSA molecular study (10/10/2024 10:14 PM EDT) [facility] MRSA Screen PCR Not Detected Not Detected LAB MICROBIOLOGY METHOD 10/11/2024 12:03 AM EDT [facility] Swab Both anterior nares / Unknown Non-blood Collection / Unknown 10/10/2024 10:14 PM EDT 10/10/2024 10:41 PM EDT us Michael EDGAR LAB MICROBIOLOGY - GENERAL ORDER JAIME Final Result Performing Organization Address [facility] Co de Phone Number [facility] [address] [place] [address], [place] [phone] * B-type natriuretic peptide (10/10/2024 10:00 PM EDT) BNP 98 <=100 pcg/mL LAB CHEMISTRY METHOD 10/10/2024 10:36 PM EDT [facility] Blood Venous blood specimen / Unknown Venipuncture / Unknown 10/10/2024 10:00 PM EDT 10/10/2024 10:05 PM EDT us Michael EDGAR LAB BLOOD ORDERABLES Final Resul t Performing Organization Address [facility] Co de Phone Number [facility] [address] [place] [address], [place] [phone] * (ABNORMAL) Acetaminophen level (10/10/2024 10:00 PM EDT) Acetaminophen Level <2.0(L) 10.0 - 30.0 mcg/mL LAB CHEMISTRY METHOD 10/10/2024 10:38 PM EDT [facility] Blood Venous blood specimen / Unknown Venipuncture / Unknown 10/10/2024 10:00 PM EDT 10/10/2024 10:05 PM EDT us Michael EDGAR LAB BLOOD ORDERABLES Final Resul t Performing Organization Address City/[facility]/ZIP Co de Phone Number [facility] [address] [place] [address], [place] [phone] * (ABNORMAL) Salicylate level (10/10/2024 10:00 PM EDT) Salicylate Level <1.7(L) 2.0 - 29.0 mg/dL LAB CHEMISTRY METHOD 10/10/2024 10:38 PM EDT [facility] Blood Venous blood specimen / Unknown Venipuncture / Unknown 10/10/2024 10:00 PM EDT 10/10/2024 10:05 PM EDT us Michael EDGAR LAB BLOOD ORDERABLES Final Resul t [facility] [address] [place] [address], [place] [phone] * CT Chest/Abdomen/Pelvis w Contrast (10/10/2024 6:19 PM EDT) Anatomical Region Laterality Modality Body Computed Tomogra phy 10/10/2024 7:17 PM EDT Impressions 10/10/2024 7:17 PM EDT 1. No acute trauma related findings in the chest, abdomen and pelvis. 2. Abnormal nonacute findings as described. This document has been electronically signed by: Saba Ward MD on 10/10/2024 19:17:29 Narrative 10/10/2024 7:17 PM EDT INDICATION: Trauma, shortness of breath, hypotensive CT chest, abdomen and pelvis with contrast Comparison: None provided Findings: The heart is normal size. No pericardial effusion. No aneurysm of thoracic aorta. No consolidation, pleural effusion or pneumothorax. Mild bilateral basilar atelectasis. Thyroid within normal limits. Wall thickening in mid to distal thoracic esophagus and a small hiatal hernia. Gallbladder within normal limits. No biliary ductal dilatation. Hepatomegaly and significant low-attenuation of liver parenchyma consistent with steatosis. The spleen is unremarkable. Pancreas is atrophic. Adrenal glands are normal. Enhancement of bilateral kidneys with no ureteral stones and no hydronephrosis or hydroureter. No perinephric stranding or fluid. No bowel obstruction, pneumoperitoneum, or pneumatosis. Normal appendix. No free fluid. No loculated fluid collection and no adenopathy. Uterus is absent. Urinary bladder is unremarkable. Mild atherosclerotic vascular disease. No aneurysm of the abdominal aorta No acute fracture. Procedure Note Saba Ward MD - 10/10/2024 INDICATION: Trauma, shortness of breath, hypotensive CT chest, abdomen and pelvis with contrast Comparison: None provided Findings: The heart is normal size. No pericardial effusion. No aneurysm of thoracic aorta. No consolidation, pleural effusion or pneumothorax. Mild bilateralbasilar atelectasis. Thyroid within normal limits. Wall thickening in mid to distal thoracic esophagus and a small hiatal hernia. Gallbladder within normal limits. No biliary ductal dilatation. Hepatomegaly and significant low-attenuation of liver parenchyma consistent with steatosis. The spleen is unremarkable. Pancreas is atrophic. Adrenal glands are normal. Enhancement of bilateral kidneys with no ureteral stones and no hydronephrosis or hydroureter. No perinephric stranding or fluid. No bowel obstruction, pneumoperitoneum, or pneumatosis. Normal appendix. No free fluid. No loculated fluid collection and no adenopathy. Uterus is absent. Urinary bladder is unremarkable. Mild atherosclerotic vascular disease. No aneurysm of the abdominal aorta No acute fracture. IMPRESSION: 1. No acute trauma related findings in the chest, abdomen and pelvis. 2. Abnormal nonacute findings as described. This document has been electronically signed by: Saba Ward MD on 10/10/2024 19:17:[address] PROCEDURES Final Result * CT Maxillofacial wo Contrast (10/10/2024 6:18 PM EDT) Anatomical Region Laterality Modality Head and Neck Computed Tomogra phy 10/10/2024 7:06 PM EDT Impressions 10/10/2024 7:06 PM EDT 1. No acute facial bone fracture. 2. Mild left supraorbital soft tissue swelling. No globe rupture and no retrobulbar hematoma. 3. Sinus inflammatory disease as described. This document has been electronically signed by: Saba Ward MD on 10/10/2024 19:06:46 Narrative 10/10/2024 7:06 PM EDT INDICATION: l orbit trauma CT maxillofacial without contrast Comparison: None provided Findings: No acute facial bone fracture. Temporomandibular joints are intact with no dislocation. Minimal left supraorbital soft tissue swelling. Unremarkable orbital contents with no evidence of retrobulbar hematoma or globe rupture. Mucosal thickening in left frontal sinus, left ethmoid air cells and left maxillary sinuses and in the sphenoid sinuses. Mastoid air cells are clear bilaterally. Procedure Note Saba Ward MD - 10/10/2024 INDICATION: l orbit trauma CT maxillofacial without contrast Comparison: None provided Findings: No acute facial bone fracture. Temporomandibular joints are intact with no dislocation. Minimal left supraorbital soft tissue swelling. Unremarkable orbital contents with no evidence of retrobulbar hematomaor globe rupture. Mucosal thickening in left frontal sinus, left ethmoid air cells andleft maxillary sinuses and in the sphenoid sinuses. Mastoid air cells are clear bilaterally. IMPRESSION: 1. No acute facial bone fracture. 2. Mild left supraorbital soft tissue swelling. No globe rupture and no retrobulbar hematoma. 3. Sinus inflammatory disease as described. This document has been electronically signed by: Saba Ward MD on 10/10/2024 19:06:46 us [address]AR IMG CT PROCEDURES Final Result * Type and screen (10/10/2024 4:38 PM EDT) ABO Group O 10/10/2024 6:09 PM EDT [facility] Rh Type Positive 10/10/2024 6:09 PM EDT [facility] Antibody Screen Negative 10/10/2024 6:09 PM EDT [facility] Blood Venous blood specimen / Unknown Venipuncture / Unknown 10/10/2024 4:38 PM EDT 10/10/2024 4:56 PM EDT us Estephania EDGAR LAB BLOOD BANK TEST ORDERABLES Final Result [facility] [address] [place] [address], [place] [phone] * Thyroid stimulating hormone with reflex to free t4 and free t3 (10/10/2024 3:41 PM EDT) TSH 3.26 0.40 - 4.00 mcIU/mL LAB CHEMISTRY METHOD 10/10/2024 7:01 PM EDT [facility] Blood Venous blood specimen / Unknown Venipuncture / Unknown 10/10/2024 3:41 PM EDT 10/10/2024 3:45 PM EDT Gordy Herrera DO LAB BLOOD ORDERABLES Final R esult Performing Organization Address City/[facility]/ZIP Co de Phone Number [facility] [address] [place] [address], * Alpha fetoprotein tumor marker (10/10/2024 3:41 PM EDT) [facility] AFP 2.6 0.0 - 8.0 ng/mL LAB CHEMISTRY METHOD 10/10/2024 9:44 PM EDT [facility] Blood Venous blood specimen / Unknown Venipuncture / Unknown 10/10/2024 3:41 PM EDT 10/10/2024 3:45 PM EDT Narrative [facility] - 10/10/2024 9:44 PM EDT The Siemens Advia Centaur Chemiluminescent Immunoassay is used. Results obtained with different assay methods or kits cannot be used interchangeably. Results cannot be interpreted as absolute evidence of the presence or absence of malignant disease. Michael Flaherty PA LAB BLOOD ORDERABLES Final Resul t Performing Organization Address City/[facility]/ZIP Co de Phone Number [facility] [address] [place] [address], * Cortisol (10/10/2024 3:41 PM EDT) Pathologist [facility] Cortisol 19.9 mcg/dL LAB CHEMISTRY METHOD 10/10/2024 7:01 PM EDT [facility] Blood Venous blood specimen / Unknown Venipuncture / Unknown 10/10/2024 3:41 PM EDT 10/10/2024 3:45 PM EDT [facility] - 10/10/2024 7:01 PM EDT CORTISOL REFERENCE RANGE 8 AM SPEC: 5.0-23.0 mcg/dL 4 PM SPEC: 3.0-16.0 mcg/dL 8 PM SPEC: <5.0 mcg/dL Gordy Herrera DO LAB BLOOD ORDERABLES Final R esult [facility] [address] [place] [address], [place] [phone] * ID CRITICAL CARE 30-74 MINUTES (10/10/2024 3:04 PM EDT) Paola Pires DO - 10/10/2024 3:04 PM EDT HERVE Luther 10/10/2024 10:26 PM Critical Care Performed by: HERVE Luther Authorized by: Paola Hodges DO Critical care provider statement: Critical care time (minutes): 45 Total face to face critical care time (minutes): 45 Critical care was necessary to treat or prevent imminent or life-threatening deterioration of the following conditions: Shock, circulatory failure and hepatic failure Critical care was time spent personally by me on the following activities: Development of treatment plan with patient or surrogate, discussions with consultants, evaluation of patient's response to treatment, examination of patient, obtaining history from patient or surrogate, review of old charts, re-evaluation of patient's condition, ordering and review of radiographic studies, ordering and review of laboratory studies and ordering and performing treatments and interventions Face to face critical care was time spent personally by me on the following activities: Examination of patient, evaluation of patient's response to treatment, re-evaluation of patient's condition and obtaining history from patient or surrogate us Paola Hodges DO IN CLINIC/BEDSIDE ORDERAB LES Final Result * Lipid panel (05/13/2022) LDL/HDL Ratio 0 Comment:abstracted Triglycerides 0 mg/dL Comment:abstracted Cholesterol 0 mg/dL Comment:abstracted HDL 0 mg/dL Comment:abstracted LDL Cholesterol 0 mg/dL Comment:abstracted Blood Venous blood specimen / Unknown Historical Provider LAB BLOOD ORDERABLES Josefina meza Result from Last 3 Months or Most Recently Relevant to Health Maintenance Insurance [employer] MEDICARE ADVANTAGE MEDICAID - [place] Advance Directives Documents on File Type Date Recorded 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 Health Care Decision (hx) 12/15/2016 ADVANCE DIRECTIVE Health Care Decision (hx) 12/15/2016 ADVANCE DIRECTIVE Health Care Decision (hx) 12/15/2016 ADVANCE DIRECTIVE Health Care Decision (hx) 12/15/2016 ADVANCE DIRECTIVE Health Care Decision (hx) 12/15/2016 ADVANCE DIRECTIVE Health Care Decision (hx) 12/15/2016 ADVANCE DIRECTIVE Health Care Decision (hx) 12/15/2016 ADVANCE DIRECTIVE Health Care Decision (hx) 12/15/2016 ADVANCE DIRECTIVE Health Care Decision (hx) 12/15/2016 Caro Ramos ADVANCE DIRECTIVE * Full Code - Confirmed (Latest Code Status on File) Date Activated Date Inactivated Comments 11/16/2024 7:47 PM 11/26/2024 7:[address] atus was ascertained in the following way: Code status discussion: per living will or healthcare instructions To update the patient's code status, place a code status order. Do not modify or discontinue any currently active code status orders. * Full Code - Default Date Activated Date Inactivated Comments 11/16/2024 6:25 PM 11/16/2024 7:47 PM This is orde r is used when code status has not been discussed with the patient, or code status is otherwise unknown/unconfirmed To update the patient's code status, place a code status order. Do not modify or discontinue any currently active code status orders. * Full Code - Default Date Activated Date Inactivated Comments 11/07/2024 3:44 PM 11/11/2024 3:15 PM This is orde r is used when code status has not been discussed with the patient, or code status is otherwise unknown/unconfirmed To update the patient's code status, place a code status order. Do not modify or discontinue any currently active code status orders. * Full Code - Default Date Activated Date Inactivated Comments 10/10/2024 8:27 PM 10/15/2024 4:46 PM This is orde r is used when code status has not been discussed with the patient, or code status is otherwise unknown/unconfirmed To update the patient's code status, place a code status order. Do not modify or discontinue any currently active code status orders. * Full Code - Default Date Activated Date Inactivated Comments 07/28/2024 1:22 PM 07/30/2024 5:38 PM This is orde r is used when code status has not been discussed with the patient, or code status is otherwise unknown/unconfirmed To update the patient's code status, place a code status order. Do not modify or discontinue any currently active code status orders. Healthcare Agents on File Name Relationship Healthcare Agent [facility] Communication Carolulu Javier Relative Health Care Agent Rosalva Ramos Relative First Alternate Health Care Agent Care Teams Hand Buffing Wheel Former Relationship Specialty Start Date End Date Henny Huff MD [address] [place] [id number] PCP - General Internal Medicine 11/07/24
--- OUTSIDE RECORDS SUMMARY | 2025-01-01 12:42 | XMS_ITS | Clinical Summary ---
Author Organization [facility] Address [address] [place] [address] Care Team Providers Care Video Game Engineer Name Role Phone Gloria Jonas Primary Care Provider Unavailabl e Allergies Active Allergy Reactions Criticality Noted Date Comments Hydrocodone-Acetaminophen Hives 12/16/2021 Tolerates acetaminophen Medications ARIPiprazole (ABILIFY) 20 mg tablet Take 20 mg by mouth once a day. Active fluticasone propionate (FLONASE) 50 mcg/actuation nasal spray Administer 1 spray into each nostril daily as needed for seasonal allergies or rhinitis. 2 Active BD Insulin Syringe 1 mL 25 x 1 syringe BRING TO OFFICE FOR DOCTOR TO USE FOR INTRALESIONAL INJECTION IN THE OFFICE 2 Active cholecalcifero l (VITAMIN D3) 1,000 unit tablet Take 1,000 Units by mouth once a day. Active fish oil 340-1,000 mg capsule Take 1,000 mg by mouth once a day. Active cetirizine (ZyrTEC) 10 mg tablet Take 10 mg by mouth once a day. Active gabapentin (NEURONTIN) 100 mg capsule gabapentin 100 mg capsule TAKE 1 CAPSULE BY MOUTH THREE TIMES DAILY Active magnesium oxide 400 mg magnesium tablet Take 1 tablet by mouth nightly. 3 Active amitriptyline (ELAVIL) 10 mg tablet Take 1 tablet (10 mg total) by mouth nightly. 30 tablet 3 Active losartan (COZAAR) 25 mg tablet Take 1 tablet (25 mg total) by mouth once a day. 30 tablet 3 Active metoprolol tartrate (LOPRESSOR) 25 mg tablet Take 1 tablet (25 mg total) by mouth every 12 hours. 60 tablet 3 Active spironolactone (ALDACTONE) 25 mg tablet Take 0.5 tablets (12.5 mg total) by mouth once a day. 15 tablet 3 Active Active Problems Problem Noted Date Diagnosed Date Tachycardia 05/20/2022 Assessment & Plan (05/21/2022 2:32 PM EST): Patient has had sinus tachycardia since admission. Differential includes volume depletion, alcohol withdrawal, and benzo withdrawal. Started lopressor in order to address heart rate and also protective for HFrEF patients. She continues to be slightly tachycardic as her mentation improves. - lopressor 12.5mg po q12H Ejection fraction < 50% 05/15/2022 Assessment & Plan (05/18/2022 1:43 PM EST): Echo obtained during this hospitalization revealed dilated LV with ejection fraction less than <20%. No known history of heart failure per chart review. On exam, she is volume overloaded, however, this could be due to continous IVF she has been receiving since presentation. The patient is saturating well on 1 L oxygen, suspicion for pulmonary edema is low. The patient is on low dose Amlodipine, though not clear for HTN vs heart failure. Plan - Monitor vitals - will ensure heart failure follow up outpatient - encourage po fluid intake and limit iv Opioid abuse 12/16/2021 Anxiety 12/16/2021 Carpal tunnel syndrome 12/16/2021 Deep vein thrombosis (DVT) of upper extremity Depressive disorder 12/16/2021 Assessment & Plan (05/15/2022 2:01 PM EST): Home meds: Amitriptyline 100mg daily, Abilify 20mg daily Plan -Continue home meds Assessment & Plan (05/14/2022 11:06 AM EST): -Continue home dose amitriptyline, Abilify, atomoxetine Hay fever 12/16/2021 Thrombus 12/16/2021 Polysubstance abuse 12/16/2021 Severe obesity 12/16/2021 Stress incontinence of urine 12/16/2021 Primary hypertension 12/16/2021 Assessment & Plan (05/15/2022 2:16 PM EST): Home meds: Amlodipine 2.5mg daily, hydrochlorothiazide 25mg daily Plan - Hold home meds -Can restart these meds once has more sustained elevated BP's. Assessment & Plan (05/14/2022 11:06 AM EST): - Hold home blood pressure medication amlodipine, hydrochlorothiazide for low blood pressure now -Can restart these meds once has more sustained elevated BP's. Assessment & Plan (12/16/2021 9:18 PM EDT): Takes norvasc and hydrochlorothiazide. - hold hydrochlorothiazide in setting of hypoK Bipolar mixed affective disorder, moderate 12/16 Assessment & Plan (12/16/2021 9:17 PM EDT): Follows with psychiatry in [place], outpatient regimen of acamprosate, amitriptyline, Abilify, atomoxetine and hydroxyzine. Also takes trazodone 300mg HS for sleep. All meds and doses verified with two of her outpatient pharmacies. Denies SI/HI. - holding amitriptyline and trazodone in setting of encephalopathy - holding acamprosate due to mildly elevated LFTs, will trend LFTs - continue other outpatient regimen as noted Former cigarette smoker 06/10/2012 Resolved Problems Problem Noted Date Diagnosed Date Resolved Date Hypophosphatemia 05/15/2022 05/22/2022 Assessment & Plan (05/15/2022 2:26 PM EST): The patient is with history of alcohol use disorder. She presented to the ED with RUQ abdominal pain and alcohol intoxication, found to have phosphate level less than 1. Repeat labs trended upwards to 1.8 and 1.9 but still less than target range. Somnolent, unable to get a thorough history, so refeeding syndrome in the setting of alcohol use and malnutrition should be considered. Plan - Trend phosphorous level daily Encephalopathy 05/15/2022 05/22/2022 Assessment & Plan (05/21/2022 2:32 PM EST): The patient presented to the ED with RUQ pain in the setting of alcohol intoxication. Initial labs revealed elevated liver enzymes, and lipase concerning for alcohol induced hepatitis and acute pancreatitis.Per chart review, the patient's status improved with initial intervention at the ED, but she became more somnolent with time. Differential diagnosis is broad and includes includes hepatic encephalopathy, Wernicke's encephalopathy, metabolic encephalopathy, infectious encephalopathy, drug intoxication. Hepatic encephalopathy is likely given in the setting of recent alcohol intoxication and history of multiple hospitalizations for alcohol withdrawal although US abdomen did not show any signs of cirrhosis, and patients ammonia level is not elevated. Metabolic encephalopathy is less likely given patient's normal kidney function, and VBG with mild hypercapnia. Infectious/septic etiology should be considered in the setting of change in acute mental status and recent fever even though and her lactic level is within normal range, CXR with no signs of consolidation and acute process Additionally, urine culture is with no growth to date. Drug-induced encephalopathy should remain on the differential until more thorough history can be obtained from the patient. UA negative. Started on broad spectrum antibiotics, Vanc/Zosyn 05/15. CT head shows no evidence for acute intracranial hemorrhage, acute cortical infarct, or intracranial mass effect allowing for partially obscuring metallic streak artifacts. Patient started on lactulose 20mg 3 times a day in setting of concern for hepatic encephalopathy. Patient mentation now improving. MRSA swab negative. Vancomycin discontinued. On 05/19, patient was more alert and pushing out rectal tube. Ongoing liquid stool. Lactulose frequency was decreased to 20g daily. Plan for psychiatry consult for medication management in setting of encephalopathy and bipolar disorder. - Lactulose 20g daily on HOLD iso watery stools - Blood cultures NGTD - discontinued constant observation - psychiatry consulted, appreciate recs Alcohol-induced acute pancre atitis, unspecified complication status 05/13/2022 05/22/19 23 Assessment & Plan (05/21/2022 2:33 PM EST): The patient presented with RUQ pain with elevated lipase in the setting of alcohol intoxication most concerning for acute pancreatitis. CT scan with evidence of acute pancreatitis. - regular cardiac diet -CIWA/ Alcohol withdrawal protocol discontinued Assessment & Plan (05/14/2022 11:06 AM EST): -On admission did complain of right upper quadrant, epigastric region pain -Continue aggressive IV fluid resuscitation with LR at 150/h for 1 to 2 days -Pain control - Currently on clear liquid diet which can be advanced to full liquid diet advance as tolerated provided she is more awake to decrease risk of aspiration -CIWA/ Alcohol withdrawal protocol Disorientation 05/13/2022 05/22/2022 Assessment & Plan (05/13/2022 11:23 PM EST): Likely secondary to alcohol, metabolic, inflammatory, substance abuse. Alcohol withdrawal syndrome with complication 12/17/19 22 05/22/2022 Assessment & Plan (05/21/2022 2:34 PM EST): Patient with multiple prior hospitalizations for alcohol intoxication. Recent history of relapse in the setting of loss of her grandmother. Unable to verify her last drink due to level of sedation. She arrived tachycardic, and tachypnic meeting SIRS criteria. In the ED, alcohol withdrawal protocol initiated with Ativan, folate, thiamine, IV fluids and PRN Ativan. Found to have elevated lipase and liver enzymes. Differential includes acute pancreatitis vs alcohol induced hepatitis vs cholecystitis which is unlikely given US abdomen revealed mildly echogenic liver with no cholelithiasis, acute cholecystitis, or intrahepatic biliary ductal dilatation. On 05/19, ativan prn order was discontinued. - 500mg IV Thiamine - s/p CIWA protocol - Trend PT/INR - Hold home medications including trazodone, other sedating medications. - Trend LFTs - cardiac diet Assessment & Plan (05/14/2022 11:23 AM EST): - Significant history of drinking for the last couple of days given her loss of grandmother - Unable to verify the last drink was last night or 24 hours ago, although she told me that she drank alcohol about 2 days ago -Still has significant tachycardia, tachypnea -Continue alcohol withdrawal protocol with Ativan, folate, thiamine, IV fluids -As needed Valium, CIWA protocol -Will hold home medications including trazodone, other sedating medications. -Will await SW consult for ETOH use disorder, can consider addiction psych consult -Patient did have evidence of pancreatitis with elevated LFTs, transaminitis which could be just alcohol induced hepatitis. -We will order acute hepatitis panel, will order right upper quadrant ultrasound to rule out choledocholithiasis or cholelithiasis as a cause of her pancreatitis -Trend LFTs for now, will not advance diet yet but continue on clear liquid diet may be advanced to full liquid diet when more awake and alert. Assessment & Plan (12/16/2021 9:13 PM EDT): Hx of EtOH dependence with intermittent sobriety. Currently with large volume alcohol consumption of ~20 nips of vodka per day. Denies prior withdrawal related seizures or ICU admission. Initially scoring 32 on CIWA, loaded with phenobarb in the ED then started on taper. - Continue CIWA, PO ativan, contact provider if CIWA > 20 as not ordered for rescue dosing valium - High dose thiamine - folate and magnesium - addiction psych consulted - social work consult for etoh dependance, patient's clothes are still at [facility] if someone can help her get them Toxic metabolic encephalopathy 12/16/2021 12/19/2021 Assessment & Plan (12/16/2021 9:10 PM EDT): In setting of alcohol intoxication, was receiving valium and atarax at [facility] and became altered with possible hallucinations/delirium. Patient feels the valium was contributing given her inability to tolerate it in the past however she does have large volume alcohol consumption of ~20 nips of vodka per day. Denies prior withdrawal related seizures or ICU admission. Initially scoring 32 on CIWA, loaded with phenobarb in the ED then started on taper. Mental status improving by the time I evaluated her, no longer needs 1:[address] head and CXR negative. No urinary complaints. No mew medications other than valium at the [facility]. - check B12, TSH, folate - Continue CIWA, PO ativan, contact provider if CIWA > 20 as not ordered for rescue dosing valium - High dose thiamine - folate and magnesium - monitor mental status Hypokalemia 12/16/2021 12/19/2021 Assessment & Plan (12/16/2021 9:22 PM EDT): 3.0, EKG nonischemic. Mag 1.7. received 30mEq of K IV in ED. - replete K PO 40mEq x 2, total of 110mEq - replete mad PO 3 times a day and one time IV - follow BMP - holding hydrochlorothiazide in setting of hypoK LFTs abnormal 12/16/2021 12/19/2021 Assessment & Plan (12/16/2021 9:18 PM EDT): Mildly elevated LFTs, likely in setting of EtOH dependence. Abdominal exam is benign. - trend LFTs - hold acamprosate until LFTs improve Social History Tobacco Use Types Packs/Day Years Used Date Smoking Tobacco: Every Day Smokeless Tobacco: Current Tobacco Cessation:Ready to Q uit: Not Asked; Counseling Given: Not Answered Comments:: Alcohol Use Standard Drinks/Week Comments Not Currently 0 (1 standard drink = 0.6 oz pure alcohol) 1 pint of vodka a day, last drink 05/12 Comments No Sex and Gender Information Value Date Recorded Sex Assigned at Not on file Legal Sex Female 12:05 AM EDT Gender Identity Not on file Sexual Orientation Not on file Last Filed Vital Signs Vital Sign Reading Time Taken Comments Blood Pressure 105/75 05/22/2022 12:08 PM EST Pulse 98 05/22/2022 12:08 PM EST Temperature 36.5 C (97.7 F) 05/22/2022 12:08 PM EST Respiratory Rate 16 05/22/2022 12:0 8 PM EST Oxygen Saturation 98% 05/22/2022 12: 08 PM EST Inhaled Oxygen Concentration - - Weight 119.1 kg (262 lb 9.1 oz) 05/22/2022 4:11 AM EST Height 162.6 cm (5' 4 ) 05/15/2022 7:13 AM EST Body Mass Index 45.07 05/15/2022 7:13 AM EST Plan of Treatment Health Maintenance Due Date Last Done Comments Cervical Cancer Screening 1972 Cologuard 1972 Colon Cancer Screening 1972 Colonoscopy 1972 FOBT / Fit Test 1972 HIV Screening 1972 HPV and Pap Smear 1972 Pap Smear 1972 Sigmoidoscopy 1972 Hepatitis B Vaccines (1 of 3 - 19+ 3-dose series) 09/11/1991 DTaP,Tdap,and Td Vaccines (1 - Tdap) 1994 Mammogram 2012 Pneumococcal Vaccine: 50+ Ye ars (2 of 2 - PCV) 02/02/2019 02/02/2018 CT Lung Cancer Screening (Baseline) 2022 Zoster Vaccines (1 of 2) 2022 Basic Metabolic Panel 05/22/2023 05/22/2022 , 05/21/2022, 05/20/2022, Additional history exists Alcohol/Substance Use Screening 04/19/2024 Depression Screening and Follow-Up 04/19/2024 Social Drivers of Health Radha ual Screening 04/19/2024 COVID-19 Vaccine (4 - 2024-2 6 season) 2024 04/15/2021, 08/07/2020, 07/10/2020 Influenza Vaccine (#1) 2024 , 02/28/2021, 02/15/2020, Additional history exists RSV Vaccine (60+ years old a nd patients) (1 - 1-dose 75+ series) 09/11/2047 Hepatitis C Screening Completed 05/14/2022, 023 Procedures * Due to [place] [employer] law, this organization might not be sharing negative HIV tests. Procedure Name Priority Date/Time Associated Diagnosis Comments COMPREHENSIVE METABOLIC PANEL Routine 05/22/2022 5:36 AM EST HEPATITIS PANEL, ACUTE STAT 4:13 PM EST from Last 3 Months or Most Recently Relevant to Health Maintenance Results * Due to [place] [employer] law, this organization might not be sharing negative HIV tests. * (ABNORMAL) Comprehensive Metabolic Panel (05/22/2022 5:36 AM EST) NA 137 135 - 145 mmol/L 05/22/2022 6:35 AM EST [facility] K 3.5 3.5 - 5.3 mmol/L 05/22/2022 6:35 AM [facility] Cl 103 97 - 110 mmol/L 05/22/2022 6:35 AM [facility] CO2 25 24 - 32 mmol/L 05/22/2022 6:35 AM [facility] Anion Gap 9 5 - 15 05/22/2022 6:35 AM [facility] Glucose 112(H) 70 - 99 mg/dL 05/22/2022 6:35 AM [facility] Creatinine 0.50 0.50 - 1.20 mg/dL 05/22/2022 6:35 AM [facility] Calcium 8.7 8.7 - 10.7 mg/dL 05/22/2022 6:35 AM [facility] Total Protein 5.9(L) 6.0 - 8.0 g/dL 05/22/2022 6:35 AM [facility] Albumin 3.0(L) 3.5 - 4.8 g/dL 05/22/2022 6:35 AM [facility] Bilirubin, Total 0.6 0.3 - 1.2 mg/dL 05/22/2022 6:35 AM [facility] Alkaline Phosphatase 123(H) 30 - 115 U/L 05/22/2022 6:35 AM [facility] AST 30 10 - 40 U/L 05/22/2022 6:35 AM [facility] ALT 44(H) 10 - 40 U/L 05/22/2022 6:35 AM [facility] BUN 5(L) 7 - 23 mg/dL 05/22/2022 6:35 AM [facility] eGFR >90 >=90 mL/min/1. 73m2 05/22/2022 6:35 AM EST [facility] Comment: Estimated Glomerular Filtration Rate (GFR) calculated using the CKD-EPI refit equation. The different stages of CKD form a continuum. The stages of CKD are classified as follows : Stage 1: Normal or increased GFR (>90 mL/min/1.73 m2) Stage 2: Mild reduction in GFR (60-89 mL/min/1.73 m2) Stage 3a: Moderate reduction in GFR (45-59 mL/min/1.73 m2) Stage 3b: Moderate reduction in GFR (30-44 mL/min/1.73 m2) Stage 4: Severe reduction in GFR (15-29 mL/min/1.73 m2) Stage 5: Kidney failure (GFR < 15 mL/min/1.73 m2 or dialysis) Blood Structure of peripheral vein / Unknown Venipuncture / Unknown 05/22/2022 5:36 AM EST 05/22/2022 6:05 AM EST us Reji Martinez MD PhD LAB BLOOD ORDERABLES Final Resu lt [facility] [address] [place] [address], * Hepatitis Panel, Acute (05/14/2022 4:13 PM EST) Hepatitis A IgM NON-REACT TRANG NON-REACT TRANG 05/15/2022 5:50 PM EST [facility] Hepatitis B Surface Antigen NON-REACT TRANG NON-REACT TRANG 05/15/2022 5:50 PM EST [facility] Hepatitis B Core Antibody NON-REACT TRANG NON-REACT TRANG 05/15/2022 5:50 PM EST [facility] Hepatitis C Antibody NON-REACT TRANG NON-REACT TRANG 05/15/2022 5:50 PM EST [facility] Signal To Cut-Off 0.02 <1.00 05/15/2022 5:50 PM EST [facility] Comment: HCV antibody was non-reactive. There is no laboratory evidence of HCV infection. In most cases, no further action is required. However, if recent HCV exposure is suspected, a test for HCV RNA (test code 05929) is suggested. For additional information please refer to http://education.quest[facility].com/faq/PXV93j9 (This link is being provided for informational/ educational purposes only.) For additional information, please refer to http://Casetext.Nascentric/faq/BGE183 (This link is being provided for informational/ educational purposes only.) Blood Structure of peripheral vein / Unknown Venipuncture / Unknown 05/14/2022 4:13 PM EST 05/14/2022 4:19 PM EST Narrative [facility] - 05/15/2022 5:50 PM EST [facility] Received Date: Jonh Plascencia MD LAB BLOOD ORDERABLES Final Result [facility]ON[facility] S[facility]ANNA[facility] [address] [facility] [address] [facility], [place] [address], [facility] [address] [facility] [address], [place] [address], from Last 3 Months or Most Recently Relevant to Health Maintenance Insurance [address] [place] [address] [facility] Advance Directives Documents on File Type Date Recorded Patient Classroom Instructor Expl anation Health Care Proxy 05/22/2022 1:35 PM 2022 Health Care Proxy 05/21/2022 1:42 PM 2016 * Full Code (Latest Code Status on File) Date Activated Date Inactivated Comments 05/13/2022 9:49 PM 05/22/2022 5:00 PM * Full Code Date Activated Date Inactivated Comments 12/16/2021 6:18 AM 12/19/2021 7:55 PM Healthcare Agents on File Name Relationship Healthcare Agent Relationshi p Communication Rosalva mother Mother Alternate Health Care Agent Care Teams Video Game Engineer Relationship Specialty Start Date End Date Gloria Jonas PCP - General Internal Medicine 12/16/21
== END 2025-01-01 11:09 | disposition home or self-care (01) ==
LOC: HO.HMCC 10:06
PROVIDERS: PCP Internal Medicine; Visit Provider Internal Medicine
DX: R18.8 Other ascites (principal); F31.9 Bipolar disorder, unspecified; I50.20 Unspecified systolic (congestive) heart failure; K70.30 Alcoholic cirrhosis of liver without ascites

== ENCOUNTER → 2025-01-01 10:05 | Outpatient (BNVA) | payer MEDICARE, MEDICAID, SELFPAY | PROVIDERS: PCP Internal Medicine; Visit Provider Internal Medicine | DX: I50.20 Unspecified systolic (congestive) heart failure (principal); R18.8 Other ascites; F31.9 Bipolar disorder, unspecified; K70.30 Alcoholic cirrhosis of liver without ascites | CPT/HCPCS: 96127; 99212 ==

== ENCOUNTER 2025-01-03 09:36 | Outpatient (REF) | payer MEDICARE, MEDICAID, SELFPAY ==
--- NOTE | ~2025-01-03 | US_ITS ---
EXAMINATION: US ABDOMEN LIMITED CLINICAL INFORMATION: Ascites. COMPARISON: 01/13/2023 TECHNIQUE: Real-time imaging of the right upper quadrant abdominal viscera. FINDINGS: FREE FLUID: Moderate ascites is demonstrated throughout the abdomen and pelvis. A single image of the liver shows it to be hyperechogenic. US/US abdomen limited IMPRESSION: Moderate ascites. Echogenic liver is likely related to hepatic steatosis and/or hepatocellular disease. No ascites was present on ultrasound 01/13/2023 Electronically signed by: Ray Bansal MD 01/03/2025 09:59 AM EDT
--- OUTSIDE RECORDS SUMMARY | 2025-01-03 11:23 | XMS_ITS | Clinical Summary ---
Author Organization [facility] Address [address] [place] [address] Care Team Providers Care Certified Lactation Educator Name Role Phone Gloria Jonas Primary Care [...] 9:17 PM EDT): Follows with psychiatry in [place], outpatient regimen of acamprosate, amitriptyline, Abilify, atomoxetine [...] etoh dependance, patient's clothes are still at [facility] if someone can help her get them Toxic metabolic encephalopathy 12/16/2021 12/19/2021 Assessment & Plan (12/16/2021 9:10 PM EDT): In setting of alcohol intoxication, was receiving valium and atarax at [facility] and became altered with possible hallucinations/delirium. [...] No mew medications other than valium at [facility]. - check B12, TSH, folate - [...] Completed 05/14/2022, 023 Procedures * Due to [place] DataVote law, this organization might not be sharing negative HIV tests. Procedure Name Priority Date/Time Associated Diagnosis Comments COMPREHENSIVE METABOLIC PANEL Routine 05/22/2022 5:36 AM EST HEPATITIS PANEL, ACUTE STAT 4:13 PM EST from Last 3 Months or Most Recently Relevant to Health Maintenance Results * Due to [place] DataVote law, this organization might not be sharing negative HIV tests. * (ABNORMAL) Comprehensive Metabolic Panel (05/22/2022 5:36 AM EST) NA 137 135 - 145 mmol/L 05/22/2022 6:35 AM EST [facility] K 3.5 3.5 - 5.3 mmol/L 05/22/2022 6:35 AM [facility] Cl 103 97 - 110 mmol/L 05/22/2022 6:35 AM [facility] CO2 25 24 - 32 mmol/L 05/22/2022 6:35 AM [facility] Anion Gap 9 5 - 15 05/22/2022 6:35 AM [facility] Glucose 112(H) 70 - 99 mg/dL 05/22/2022 6:35 AM [facility] Creatinine 0.50 0.50 - 1.20 mg/dL 05/22/2022 6:35 AM [facility] Calcium 8.7 8.7 - 10.7 mg/dL 05/22/2022 6:35 AM [facility] Total Protein 5.9(L) 6.0 - 8.0 g/dL 05/22/2022 6:35 AM [facility] Albumin 3.0(L) 3.5 - 4.8 g/dL 05/22/2022 6:35 AM [facility] Bilirubin, Total 0.6 0.3 - 1.2 mg/dL 05/22/2022 6:35 AM [facility] Alkaline Phosphatase 123(H) 30 - 115 U/L 05/22/2022 6:35 AM [facility] AST 30 10 - 40 U/L 05/22/2022 6:35 AM [facility] ALT 44(H) 10 - 40 U/L 05/22/2022 6:35 AM [facility] BUN 5(L) 7 - 23 mg/dL 05/22/2022 6:35 AM [facility] eGFR >90 >=90 mL/min/1. [...] PhD LAB BLOOD ORDERABLES Final Resu lt [facility] [address] [place] [address], * Hepatitis Panel, Acute (05/14/2022 4:13 PM EST) Hepatitis A IgM NON-REACT TRANG NON-REACT TRANG 05/15/2022 5:50 PM EST [facility] Hepatitis B Surface Antigen NON-REACT TRANG NON-REACT TRAGN 05/15/2022 5:50 PM EST [facility] Hepatitis B Core Antibody NON-REACT TRANG NON-REACT TRANG 05/15/2022 5:50 PM EST [facility] Hepatitis C Antibody NON-REACT TRANG NON-REACT TRANG 05/15/2022 5:50 PM EST [facility] Signal To Cut-Off 0.02 <1.00 05/15/2022 5:50 PM EST [facility] Comment: HCV antibody was non-reactive. There is no laboratory evidence of HCV infection. In most cases, no further action is required. However, if recent HCV exposure is suspected, a test for HCV RNA (test code 63879) is suggested. For additional information please refer to http://education.[facility].com/faq/ZQM02i5 (This link is being provided for informational/ educational purposes only.) For additional information, please refer to http://[employer]/faq/TWA639 (This link is being provided for informational/ educational purposes only.) Blood Structure of peripheral vein / Unknown Venipuncture / Unknown 05/14/2022 4:13 PM EST 05/14/2022 4:19 PM EST Narrative [facility] - 05/15/2022 5:50 PM EST [facility] Received Date: Jonh Plascencia MD LAB BLOOD ORDERABLES Final Result [facility] [address] [facility] [address], [place] [address], [facility] [employer] [facility] [address] [facility] [address], [place] [address], from Last 3 Months or Most Recently Relevant to Health Maintenance Insurance [address] [place] [address] [facility] Advance Directives Documents on File Type Date Recorded Patient Bundle Collector Expl anation Health Care Proxy 05/22/2022 1:35 [...] Mother Alternate Health Care Agent Care Teams Certified Lactation Educator Relationship Specialty Start Date End Date Gloria Jonas PCP - General Internal Medicine 12/16/21
--- OUTSIDE RECORDS SUMMARY | 2025-01-03 11:23 | XMS_ITS | Clinical Summary ---
Author Organization [facility] Address [address] [place] [phone] Phone Care Team Providers Care Tile Layer Drainage Name Role Phone Henny Huff MD Primary Care Provider [phone] Allergies Active Allergy Reactions Criticality Noted Date [...] up to 10 days. 5 12/07/19 25 Active Problems Problem Noted Date Diagnosed Date C. difficile colitis 11/20/2024 Decompensated liver disease ([facility] V24, [facility]/ C V28) 10/10/2024 DVT (deep venous thrombosis) ([facility] V24, [facility]/H CC V28) 09/05/2024 HFrEF (heart failure with re duced ejection fraction) ([facility] V24, [facility] V28) 08/04/2024 Hypotension 07/28/2024 Bipolar disorder ([facility] V24, [facility] V28) 08/18 Alcohol abuse 09/08/2022 Acute pancreatitis 09/08/2022 Overview (06/02/2024): Hospitalized at [facility] in 05/2022 with alcohol induced pancreatitis and had cardiomyopathy meds held transiently in setting of volume depletion Cardiomyopathy ([facility] V24, [facility] V28) 2022 Overview (06/02/2024): -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 CHF (congestive heart failure) ([facility] V24, [facility] V28) 04/22/2022 Overview (06/02/2024): Last Assessment & [...] of hypotension she will send me a Alt[employer] message. I am aware that she has [...] Resolved Date Alcohol withdrawal syndrome without complication ([facility] V24, [facility] V28) 11/07/2024 11/11/2024 Septic shock ([facility] V24, [facility] V28) 10/10/2024 10/14/2024 Electrolyte abnormality 10/10/202409/18 LONG (acute kidney injury) ([facility] V24) 10/10/2024 10/14/2024 Encounters Date Type Department Care Team Description 12/12/2024 Telephone [facility] [address] [phone] Sundeep Kunz NP 12/07/2024 [facility]phone [facility] [address] [phone] Sundeep Kunz NP 11/16/2024 9:19 AM EDT - 11/26/2024 5:14 PM EDT Hospital Encounter [facility] [address] [place] [address] Jasen Jay DO Flores, Carlos M, MD Mersier, Jasmine, DO Nasser, Nada S, MD Surendran, Anupama, MD Alcohol use disorder (Primary Dx); Elevated bilirubin; LONG (acute kidney injury) ([facility] V24) [facility]charge Disposition[facility] 11/07/2024 9:24 AM EDT - 11/11/2024 1:09 PM EDT Hospital Encounter [facility] [address] [place] [address] Geetha Gonzalez MD Seralathan, Manikandan, MD Alcohol withdrawal syndrome without complication ([facility] V24, [facility] V28) (Primary Dx) [place]charge Disposition[place] [facility] [place]/10/2024 3:09 PM EDT - 10/15/2024 2:02 PM EDT Hospital Encounter [facility] [address] [place] [address] Paola Hodges DO Levrault, Richard, DO Flores, Carlos M, MD Japaridze, Anna, MD Septic shock ([facility] V24, [facility] V28) (Primary Dx); Hypotension, unspecified hypotension type; Liver failure without hepatic coma, unspecified chronicity ([facility] V24, [facility] V28); Traumatic injury of head, initial encounter; Rib pain Discharge Disposition: [place] [facility] [place] 3 Months Surgical History Surgery Date Site/Laterality Comments OTHER SURGICAL HISTORY PROCEDURE: SPINAL FUSION, EA ADD'L INTERSPACE; COMMENT: cervical CARPAL TUNNEL RELEASE PROCEDURE: HISTORICAL CARPAL TUNNEL REL OTHER SURGICAL HISTORY PROCEDURE: SPINAL FUSION, EA ADD'L INTERSPACE; COMMENT: lumbar Medical History Medical History Date Comments Alcohol withdrawal ([facility] V24, [facility] V28) DX:Alcohol withdrawal ([facility]) Bipolar disorder, unspecifie d ([facility] V24, [facility] V28) DX:Bipolar disorder, unspeci fied ([facility]) Insomnia DX:Insomnia Obesity DX:Obesity Depressive disorder DX:Depressiv e disorder Anxiety CHF (congestive heart failur e) ([facility] V24, [facility] V28) Dizziness due to hypotensi on versus [...] Record ed Within the last 3 months, stevan hamm many times did you visit the emergency [...] care for your loved ones. For example, child therapist or elderly care for an older adult? [...] Description 03/12/2025 11:00 AM EST Ancillary Procedure [facility] [address] [facility] [address] [place] [address] Health Maintenance Due Date Last [...] Depression Screening 04/19/2024 COVID-19 Vaccine ( - 2024- season) 2024 04/15/2021, 08/07/2020, 07/10/2020 Influenza Vaccine [...] ECG 12-LEAD STAT 11/16/2024 10:03 AM EDT [facility] 30-74 MINUTES Routine 11/16/2024 9:17 [...] 1 VIEW STAT 10/11/2024 1:04 AM EDT GA CATHETERIZATION/CANNULA TION ARTERIAL SAMPLE/MONITORING/TRANS FUSION PERC Routine 10/11/2024 12:51 AM EDT Septic shock (CMS/HCC V24, CMS/HCC V28) GA INSERTION NON-TUNNELED CENTRALLY INSERTED CENTRAL VENOUS CATH [...] AND DIFFERENTIAL STAT 10/10/2024 3:41 PM EDT [facility] CRITICAL CARE 30-74 MINUTES Routine 10/10/2024 3:04 PM EDT LIPID PANEL Routine 05/13/2022 from Last 3 Months or Most Recently Relevant to Health Maintenance Results * (ABNORMAL) CBC auto differential (11/25/2024 5:14 AM EDT) Only the most recent of15 resultswithin the time period is included. [facility] Signature WBC 9.2 4.8 - 10.8 K/[facility] LAB HEMETOLOGY METHOD 11/25/2024 7:56 AM EDT [facility] RBC 2.40(L) 3.80 - 4.80 M/mcL LAB HEMETOLOGY METHOD 11/25/2024 7:56 AM [facility] Hemoglobin 7.6(L) 11.5 - 16.0 g/dL LAB HEMETOLOGY METHOD 11/25/2024 7:56 AM [facility] Hematocrit 23.1(L) 35.0 - 47.0 % LAB HEMETOLOGY METHOD 11/25/2024 7:56 AM [facility] LAB MCV 97.9 79.0 - 98.0 FL LAB HEMETOLOGY METHOD 11/25/2024 7:56 AM [facility] LAB MCH 32.2(H) 27.0 - 32.0 pcg LAB HEMETOLOGY METHOD 11/25/2024 7:56 AM [facility] LAB MCHC 32.9 32.0 - 37.0 g/dL LAB HEMETOLOGY METHOD 11/25/2024 7:56 AM [facility] RDW 19.8(H) 11.0 - 15.0 % LAB HEMETOLOGY METHOD 11/25/2024 7:56 AM [facility] Platelets 108(L) 130 - 400 K/mcL LAB HEMETOLOGY METHOD 11/25/2024 7:56 AM [facility] LAB MPV 11.5(H) 7.0 - 11.0 FL LAB HEMETOLOGY METHOD 11/25/2024 7:56 AM [facility] LAB NRBC 0.0 <1.0 % LAB HEMETOLOGY METHOD 11/25/2024 7:56 AM [facility] LAB NRBC Absolute 0.00 <0.10 K/mcL LAB HEMETOLOGY METHOD 11/25/2024 7:56 AM [facility] Neutrophils Relative 63.5 % LAB HEMETOLOGY METHOD 11/25/2024 7:56 AM [facility] Lymphocytes Relative 21.5 % LAB HEMETOLOGY METHOD 11/25/2024 7:56 AM [facility] Monocytes Relative 11.3 % LAB HEMETOLOGY METHOD 11/25/2024 7:56 AM [facility] Eosinophils Relative 2.7 % LAB HEMETOLOGY METHOD 11/25/2024 7:56 AM [facility] Basophils Relative 0.5 % LAB HEMETOLOGY METHOD 11/25/2024 7:56 AM [facility] Immature Granulocytes Relative 0.5 % LAB HEMETOLOGY METHOD 11/25/2024 7:56 AM [facility] Neutrophils Absolute 5.81 1.50 - 7.00 K/mcL LAB HEMETOLOGY METHOD 11/25/2024 7:56 AM [facility] Lymphocytes Absolute 1.97 1.00 - 5.00 K/mcL LAB HEMETOLOGY METHOD 11/25/2024 7:56 AM [facility] Monocytes Absolute 1.04(H) 0.20 - 1.00 K/mcL LAB HEMETOLOGY METHOD 11/25/2024 7:56 AM [facility] Eosinophils Absolute 0.25 0.00 - 0.50 K/mcL LAB HEMETOLOGY METHOD 11/25/2024 7:56 AM [facility] Basophils Absolute 0.05 0.00 - 0.20 K/mcL LAB HEMETOLOGY METHOD 11/25/2024 7:56 AM [facility] Immature Granulocytes Absolute 0.05(H) 0.00 - 0.03 K/mcL LAB HEMETOLOGY METHOD 11/25/2024 7:56 AM [facility] Blood Venous blood specimen / Unknown Venipuncture / Unknown 11/25/2024 5:14 AM EDT 11/25/2024 6:33 AM EDT us Inna Angel MD LAB BLOOD ORDERABLES Final Result Performing Organization Address [facility] Co de Phone Number [facility] [address] [place] [address], [place] [phone] * Phosphorus (11/25/2024 5:14 AM EDT) Only the most recent of12 resultswithin the time period is included. Phosphorus 3.0 2.5 - 4.5 mg/dL LAB CHEMISTRY METHOD 11/25/2024 9:33 AM EDT [facility] Blood Venous blood specimen / Unknown Venipuncture / Unknown 11/25/2024 5:14 AM EDT 11/25/2024 6:33 AM EDT us Inna Angel MD LAB BLOOD ORDERABLES Final Result Performing Organization Address [facility] de Phone Number [facility] [address] [place] [address], [place] [phone] * (ABNORMAL) Magnesium (11/25/2024 5:14 AM EDT) Only the most recent of21 resultswithin the time period is included. Magnesium 1.2(L) 1.9 - 2.6 mg/dL LAB CHEMISTRY METHOD 11/25/2024 9:40 AM EDT [facility] LAB Comment:Results verified by repeat testing Blood Venous blood specimen / Unknown Venipuncture / Unknown 11/25/2024 5:14 AM EDT 11/25/2024 6:33 AM EDT us Inna Angel MD LAB BLOOD ORDERABLES Final Result Performing Organization Address [facility] Co de Phone Number [facility] [address] [place] [address], [place] [phone] * (ABNORMAL) Basic metabolic panel (11/25/2024 5:14 AM EDT) Only the most recent of16 resultswithin the time period is included. Sodium 137 133 - 145 mmol/L LAB CHEMISTRY METHOD 11/25/2024 7:11 AM [facility] Potassium 3.4(L) 3.5 - 5.5 mmol/L LAB CHEMISTRY METHOD 11/25/2024 7:11 AM [facility] Chloride 103 96 - 110 mmol/L LAB CHEMISTRY METHOD 11/25/2024 7:11 AM [facility] CO2 30 21 - 32 mmol/L LAB CHEMISTRY METHOD 11/25/2024 7:11 AM [facility] Anion Gap 4 3 - 11 LAB CHEMISTRY METHOD 11/25/2024 7:11 AM [facility] Glucose 119(H) 70 - 100 mg/dL LAB CHEMISTRY METHOD 11/25/2024 7:11 AM [facility] BUN 4(L) 5 - 25 mg/dL LAB CHEMISTRY METHOD 11/25/2024 7:11 AM [facility] Creatinine 0.48(L) 0.50 - 1.10 mg/dL LAB CHEMISTRY METHOD 11/25/2024 7:11 AM [facility] LAB eGFR 114 >=60 mL/min/1. 73m2 LAB CHEMISTRY METHOD 11/25/2024 7:11 AM [facility] LAB Comment:Calculation based on the Chronic Kidney Disease Epidemiology Collaboration (CKD-EPI) equation refit without adjustment for race. BUN/Creatinine Ratio 8.3 LAB CHEMISTRY METHOD 11/25/2024 7:11 AM [facility] Calcium 8.0(L) 8.5 - 10.5 mg/dL LAB CHEMISTRY METHOD 11/25/2024 7:11 AM [facility] Blood Venous blood specimen / Unknown Venipuncture / Unknown 11/25/2024 5:14 AM EDT 11/25/2024 6:33 AM EDT us Inna Angel MD LAB BLOOD ORDERABLES Final Result Performing Organization Address [facility] Co de Phone Number [facility] [address] [place] [address], [place] [phone] * Cell count with reflex differential, body fluid (11/24/2024 1:08 PM EDT) Only the most recent of2 resultswithin the time period is included. Body Fluid Total Nucleated Cells 162 /mm3 LAB HEMETOLOGY METHOD 11/24/2024 2:26 PM EDT [facility] Body Fluid RBC <1,000 /mm3 LAB HEMETOLOGY METHOD 11/24/2024 2:26 PM EDT [facility] Body Fluid Color Yellow 11/24/2024 2:26 PM EDT [facility] Body Fluid Clarity Clear 11/24/2024 2:26 PM EDT [facility] Body Fluid Source Peritoneal 11/24/2024 2:26 PM EDT [facility] Peritoneal Fluid Non-blood Collection / Unknown 11/24/2024 1:08 PM EDT 11/24/2024 1:17 PM EDT Narrative [facility] - 11/24/2024 2:26 PM EDT No reference ranges have been established for body fluids. Clinical correlation recommended. us Inna Angel MD LAB BODY FLUIDS AND STOOLS ORDERABLES Final Result Performing Organization Address City/[facility]/ZIP Co de Phone Number [facility] [address] [place] [address], [place] [phone] * Culture body fluid with gram stain (11/24/2024 1:08 PM EDT) Only the most recent of2 resultswithin the time period is included. Fluid Culture No growth LAB MICROBIOLOGY METHOD 11/27/2024 12:43 PM EDT [facility] Gram Stain Result No polymorphonuclear leukocytes, No epithelial cells, and No organisms noted 11/27/2024 12:43 PM EDT [facility] Ascites Peritoneal cavity structure / Unknown 11/24/2024 1:08 PM EDT 11/24/2024 1:17 PM EDT Inna Angel MD LAB MICROBIOLOGY - GENERAL ORDERABLES Final Result [facility] [address] [place] [address], [place] [phone] * Differential body fluid (11/24/2024 1:08 PM EDT) Only the most recent of2 resultswithin the time period is included. Fluid Neutrophils % 20 % 11/24/2024 2:26 PM EDT [facility] Fluid Lymphocytes % 21 % 11/24/2024 2:26 PM EDT [facility] Fluid Monocytes/Macrop hages 57 % 11/24/2024 2:26 PM EDT [facility] Fluid Eosinophils % 0 % 11/24/2024 2:26 PM EDT [facility] Fluid Basophils % 2 % 11/24/2024 2:26 PM EDT [facility] Fluid Other Cells % 0 % 11/24/2024 2:26 PM EDT [facility] Peritoneal Fluid Non-blood Collection / Unknown 11/24/2024 1:08 PM EDT 11/24/2024 1:17 PM EDT Narrative [facility] - 11/24/2024 2:26 PM EDT No reference ranges have been established for body fluids. Clinical correlation recommended. Inna Angel MD LAB BODY FLUIDS AND STOOLS ORDERABLES Final Result Performing Organization Address [facility] de Phone Number [facility] [address] [place] [address], [place] [phone] * Protein, body fluid (11/24/2024 1:08 PM EDT) Only the most recent of2 resultswithin the time period is included. Protein, Fluid 1.4 See Comment g/dL LAB CHEMISTRY METHOD 11/24/2024 2:40 PM EDT [facility] Ascites Peritoneal cavity structure / Unknown 11/24/2024 1:08 PM EDT 11/24/2024 1:17 PM EDT [facility] - 11/24/2024 2:40 PM EDT No reference ranges have been established for body fluids. Clinical correlation recommended. Inna Angel MD LAB BODY FLUIDS AND STOOLS ORDERABLES Final Result Performing Organization Address [facility] de Phone Number [facility] [address] [place] [address], [place] [phone] * Glucose, body fluid (11/24/2024 1:08 PM EDT) Only the most recent of2 resultswithin the time period is included. Glucose, Fluid 123 See Comment mg/dL LAB CHEMISTRY METHOD 11/24/2024 2:40 PM EDT [facility] Ascites Peritoneal cavity structure / Unknown 11/24/2024 1:08 PM EDT 11/24/2024 1:17 PM EDT [facility] - 11/24/2024 2:40 PM EDT No reference ranges have been established for body fluids. Clinical correlation recommended. us Inna Angel MD LAB BODY FLUIDS AND STOOLS ORDERABLES Final Result Performing Organization Address [facility] Co de Phone Number [facility] [address] [place] [address], [place] [phone] * Albumin, body fluid (11/24/2024 1:08 PM EDT) Only the most recent of2 resultswithin the time period is included. Albumin, Fluid 0.7 See Comment g/dL LAB CHEMISTRY METHOD 11/24/2024 2:40 PM EDT [facility] Ascites Peritoneal cavity structure / Unknown 11/24/2024 1:08 PM EDT 11/24/2024 1:17 PM EDT Narrative [facility] - 11/24/2024 2:40 PM EDT No reference ranges have been established for body fluids. Clinical correlation recommended. us Inna Angel MD LAB BODY FLUIDS AND STOOLS ORDERABLES Final Result [facility] [address] [place] [address], [place] [phone] * [place] Paracentesis w Image Guidance (11/24/2024 [...] Signed Date: 11/24/2024 16:16 ET Workstation ID: [id number] Transcribed By: Self Edit Transcribed Date: 11/24/2024 [...] Signed Date: 11/24/2024 16:16 ET Workstation ID: [id number] Transcribed By: Self Edit Transcribed Date: 11/24/2024 16:15 ET us Inna Stanley MENDOZA IMG US PROCEDURES Final Res ult * Lavender tube (11/21/2024 5:49 AM EDT) [facility] Extra Tube Hold for add-ons. 11/21/2024 8:01 AM EDT [facility] Comment:Auto resulted. Blood Venous blood specimen / Unknown 11/21/2024 5:49 AM EDT 11/21/2024 6:29 AM EDT Inna Angel MD LAB BLOOD ORDERABLES Final Result [facility] [address] [place] [address], [place] [phone] * (ABNORMAL) Hepatic function panel (11/21/2024 5:49 AM EDT) Only the most recent of6 resultswithin the time period is included. [facility] Total Protein 5.4(L) 6.0 - 8.0 g/dL LAB CHEMISTRY METHOD 11/21/2024 7:31 AM [facility] Albumin 2.8(L) 3.2 - 5.0 g/dL LAB CHEMISTRY METHOD 11/21/2024 7:31 AM [facility] Total Bilirubin 6.5(H) 0.0 - 1.4 mg/dL LAB CHEMISTRY METHOD 11/21/2024 7:31 AM [facility] Bilirubin, Direct 5.0(H) 0.0 - 0.3 mg/dL LAB CHEMISTRY METHOD 11/21/2024 7:31 AM [facility] Comment:Results verified by repeat testing Bilirubin, Indirect 1.5(H) 0.0 - 1.1 mg/dL LAB CHEMISTRY METHOD 11/21/2024 7:31 AM [facility] ALT (SGPT) 46 10 - 60 unit/L LAB CHEMISTRY METHOD 11/21/2024 7:31 AM [facility] AST (SGOT) 54(H) 10 - 42 unit/L LAB CHEMISTRY METHOD 11/21/2024 7:31 AM [facility] Alkaline Phosphatase 189(H) 42 - 121 unit/L LAB CHEMISTRY METHOD 11/21/2024 7:31 AM [facility] Blood Venous blood specimen / Unknown Venipuncture / Unknown 11/21/2024 5:49 AM EDT 11/21/2024 6:28 AM EDT Inna Angel MD LAB BLOOD ORDERABLES Final Result [facility] [address] [place] [address], [place] [phone] * (ABNORMAL) Comprehensive metabolic panel (11/20/2024 5:30 AM EDT) Only the most recent of6 resultswithin the time period is included. Sodium 141 133 - 145 mmol/L LAB CHEMISTRY METHOD 11/20/2024 7:00 AM [facility] Potassium 3.4(L) 3.5 - 5.5 mmol/L LAB CHEMISTRY METHOD 11/20/2024 7:00 AM [facility] Chloride 106 96 - 110 mmol/L LAB CHEMISTRY METHOD 11/20/2024 7:00 AM [facility] CO2 27 21 - 32 mmol/L LAB CHEMISTRY METHOD 11/20/2024 7:00 AM [facility] Anion Gap 8 3 - 11 LAB CHEMISTRY METHOD 11/20/2024 7:00 AM [facility] Glucose 162(H) 70 - 100 mg/dL LAB CHEMISTRY METHOD 11/20/2024 7:00 AM [facility] BUN 4(L) 5 - 25 mg/dL LAB CHEMISTRY METHOD 11/20/2024 7:00 AM [facility] Creatinine 0.77 0.50 - 1.10 mg/dL LAB CHEMISTRY METHOD 11/20/2024 7:00 AM [facility] eGFR 93 >=60 mL/min/1. 73m2 LAB CHEMISTRY METHOD 11/20/2024 7:00 AM [facility] Comment:Calculation based on the Chronic Kidney Disease Epidemiology Collaboration (CKD-EPI) equation refit without adjustment for race. BUN/Creatinine Ratio 5.2 LAB CHEMISTRY METHOD 11/20/2024 7:00 AM [facility] Calcium 8.3(L) 8.5 - 10.5 mg/dL LAB CHEMISTRY METHOD 11/20/2024 7:00 AM [facility] AST (SGOT) 76(H) 10 - 42 unit/L LAB CHEMISTRY METHOD 11/20/2024 7:00 AM [facility] ALT (SGPT) 60 10 - 60 unit/L LAB CHEMISTRY METHOD 11/20/2024 7:00 AM [facility] Alkaline Phosphatase 213(H) 42 - 121 unit/L LAB CHEMISTRY METHOD 11/20/2024 7:00 AM [facility] Total Protein 5.4(L) 6.0 - 8.0 g/dL LAB CHEMISTRY METHOD 11/20/2024 7:00 AM [facility] Albumin 2.5(L) 3.2 - 5.0 g/dL LAB CHEMISTRY METHOD 11/20/2024 7:00 AM [facility] Total Bilirubin 8.7(H) 0.0 - 1.4 mg/dL LAB CHEMISTRY METHOD 11/20/2024 7:00 AM [facility] Blood Venous blood specimen / Unknown Venipuncture / Unknown 11/20/2024 5:30 AM EDT 11/20/2024 6:12 AM EDT us Nathaly EDGAR LAB BLOOD ORDERABLES Final Result [facility] [address] [place] [address], [place] [phone] * (ABNORMAL) POCT Glucose, blood (11/19/2024 7:08 AM EDT) Only the most recent of36 resultswithin the time period is included. Glucose POCT 205(H) 70 - 100 mg/dL 11/19/2024 7:10 AM EDT [facility] POCT Comment RN Notified 11/19/2024 7:10 AM EDT [facility] Blood Capillary blood specimen / Unknown 11/19/2024 7:08 AM EDT 11/20/2024 9:03 AM EDT us Inna Angel MD LAB POINT OF CARE T EST DOCKED DEVICE UNSOLICITED RESULTS Final Result Performing Organization Address City/[facility]/ZIP Co de Phone Number [facility] [address] [place] [address], [place] [phone] * (ABNORMAL) Bilirubin duplicate procedure to order (11/19/2024 5:34 AM EDT) Pathologist [facility] [place] Total Bilirubin 13.4(H) 0.0 - 1.4 mg/dL LAB CHEMISTRY METHOD 11/19/2024 7:55 AM EDT [facility] Bilirubin, Direct 9.5(H) 0.0 - 0.3 mg/dL LAB CHEMISTRY METHOD 11/19/2024 7:55 AM EDT [facility] Bilirubin, Indirect 3.9(H) 0.0 - 1.1 mg/dL LAB CHEMISTRY METHOD 11/19/2024 7:55 AM EDT [facility] Blood Venous blood specimen / Unknown Venipuncture / Unknown 11/19/2024 5:34 AM EDT 11/19/2024 6:39 AM EDT us Inna Angel MD LAB BLOOD ORDERABLES Final Result [facility] [address] [place] [address], [place] [phone] * Lactate dehydrogenase, body fluid (11/17/2024 3:39 PM EDT) LD, Fluid 32 See Comment unit/L LAB CHEMISTRY METHOD 11/17/2024 4:30 PM EDT [facility] Ascites Peritoneal cavity structure / Unknown 11/17/2024 3:39 PM EDT 11/17/2024 3:45 PM EDT Narrative [facility] - 11/17/2024 4:30 PM EDT No reference ranges have been established for body fluids. Clinical correlation recommended. Nathaly EDGAR LAB BODY FLUIDS AND STOOLS ORDERABLES Final Result [facility] [address] [place] [address], [place] [phone] * Non-gynecologic cytology (11/17/2024 3:39 PM EDT) Pathologist [facility] [place] Final Diagnosis A. Peritoneal Fluid, Paracentesis, (ThinPrep): Negative for malignant cells. Acute inflammatory cells are present. 11/27/2024 10:44 AM EDT [facility] Specimen A Adequacy Satisfactory for evaluation 11/27/2024 10:44 AM EDT [facility] Gross Description A. Peritoneal Cavity, peritoneal: Received .5ml of yellow cloudy fluid I thin prep, cell block is QNS 11/27/2024 10:44 AM EDT [facility] Disclaimer Unless otherwise specified, all tissue is 10% NB formalin fixed and paraffin embedded. Technical cytopathology services provided by [facility], at [address] [place] [address] (CLIA # [id number]/Jina Floyd MD, Performance Test Consultant.) 11/27/2024 10:44 AM EDT [facility] Ascites Peritoneal cavity structure / Unknown 11/17/2024 3:39 PM EDT 11/20/2024 8:34 AM EDT Nathaly EDGAR LAB CYTOLOGY ORDERABLES Fi nal Result [facility] [address] [place] [address], * Gastrointestinal pathogens molecular study (11/17/2024 3:18 PM EDT) Campylobacter Detection by PCR Not Detected Not Detected LAB MICROBIOLOGY METHOD 5 5:01 PM EDT [facility] Plesiomonas shigelloides Detection by PCR Not Detected Not Detected LAB MICROBIOLOGY METHOD 5 5:01 PM EDT [facility] Salmonella Detection by PCR Not Detected Not Detected LAB MICROBIOLOGY METHOD 5 5:01 PM EDT [facility] Vibrio Detection by PCR Not Detected Not Detected LAB MICROBIOLOGY METHOD 5 5:01 PM EDT [facility] Vibrio cholerae Detection by PCR Not Detected Not Detected LAB MICROBIOLOGY METHOD 5 5:01 PM EDT [facility] Yersinia enterocolitica Detection by PCR Not Detected Not Detected LAB MICROBIOLOGY METHOD 5 5:01 PM EDT [facility] Enteroaggregative E coli EAEC Detection by PCR Not Detected Not Detected LAB MICROBIOLOGY METHOD 5 5:01 PM EDT [facility] Enteropathogenic E coli EPEC Detection Not Detected Not Detected LAB MICROBIOLOGY METHOD 5 5:01 PM EDT [facility] Enterotoxigenic E coli ETEC LTST Detection Not Detected Not Detected LAB MICROBIOLOGY METHOD 5 5:01 PM EDT [facility] Shiga-like toxin producing E coli STEC STX1 STX2 Det Not Detected Not Detected LAB MICROBIOLOGY METHOD 5 5:01 PM EDT [facility] Shigella Enteroinvasive E coli EIEC Detection Not Detected Not Detected LAB MICROBIOLOGY METHOD 5 5:01 PM EDT [facility] Cryptosporidium Detection by PCR Not Detected Not Detected LAB MICROBIOLOGY METHOD 5 5:01 PM EDT [facility] Cyclospora cayetanensis Detection by PCR Not Detected Not Detected [facility] 5 5:[facility] Entamoeba histolytica Detection by PCR Not Detected Not Detected LAB MICROBIOLOGY METHOD 5 5:01 [facility] Giardia lamblia Detection by PCR Not Detected Not Detected LAB MICROBIOLOGY METHOD 5 5:01 PM [facility] Adenovirus F 40 41 Detection by PCR Not Detected Not Detected LAB MICROBIOLOGY METHOD 5 5:01 PM [facility] Astrovirus Detection by PCR Not Detected Not Detected LAB MICROBIOLOGY METHOD 5 5:01 PM [facility] Norovirus GI GII Detection by PCR Not Detected LAB MICROBIOLOGY METHOD 5 5:01 PM [facility] Sapovirus Detection by PCR Not Detected Not Detected LAB MICROBIOLOGY METHOD 5 5:01 PM [facility] Rotavirus A Detection by PCR Not Detected Not Detected LAB MICROBIOLOGY METHOD 5 5:01 PM [facility] Stool Rectum structure / Unknown Non-blood Collection / Unknown 11/17/2024 3:18 PM EDT 11/17/2024 3:27 PM EDT [facility] - 11/17/2024 5:01 PM EDT PCR [...] OR DERABLES Final Result Performing Organization Address [facility] de Phone Number [facility] [address] [place] [address], [place] [phone] * (ABNORMAL) Clostridium difficile molecular study (11/17/2024 3:18 PM EDT) [facility] Clostridium difficile PCR Positive (AA) Negative LAB MICROBIOLOGY METHOD 11/17/2024 5:17 PM EDT [facility] Comment: CRITICAL RESULT POSITIVE FOR TOXIN PRODUCING CLOSTRIDIOIDES DIFFICILE, NO ADDITIONAL TESTING IS NECESSARY. REPEAT SAMPLES SHOULD NOT BE SUBMITTED FOR TEST OF CURE. Stool Rectum structure / Unknown Non-blood Collection / Unknown 11/17/2024 3:18 PM EDT 11/17/2024 4:16 PM EDT Maria EDGAR LAB MICROBIOLOGY - GENERAL OR DERABLES Final Result Performing Organization Address [facility] de Phone Number [facility] [address] [place] [address], [place] [phone] * Clostridium difficile toxin (11/17/2024 3:18 PM EDT) Pathologist [facility] [place] C difficile Toxins A+B, EIA 11/17/2024 4:16 PM EDT [facility] Comment:Refer to C. difficil e PCR assay for results. Stool Rectum structure / Unknown Non-blood Collection / Unknown 11/17/2024 3:18 PM EDT 11/17/2024 3:27 PM EDT us Maria EDGAR LAB MICROBIOLOGY - GENERAL OR DERABLES Final Result [facility] [address] [place] [address], [place] [phone] * XR Abdomen 1 View (11/17/2024 2:16 PM EDT) Anatomical Region Laterality Modality Body Radiographic Justina ging 11/17/2024 2:41 PM EDT Impressions 11/17/2024 2:41 PM EDT FINDINGS/IMPRESSION: Nonspecific bowel gas pattern. No free air. -------- FINAL REPORT -------- Dictated By: Kari Del Cid Dictated Date: 11/17/2024 14:41 ET Assigned Physician: aKri Del Cid Reviewed and Electronically Signed By: Kari Del Cid Signed Date: 11/17/2024 14:41 ET Workstation ID: [id number] Transcribed By: Self Edit Transcribed Date: 11/17/2024 [...] Signed Date: 11/17/2024 14:41 ET Workstation ID: [id number] Transcribed By: Self Edit Transcribed Date: 11/17/2024 14:41 ET Nathaly EDGAR IMG XR PROCEDURES Final Re sult * [...] Signed Date: 11/17/2024 13:22 ET Workstation ID: [id number] Transcribed By: Self Edit Transcribed Date: 11/17/2024 [...] Signed Date: 11/17/2024 13:22 ET Workstation ID: [id number] Transcribed By: Self Edit Transcribed Date: 11/17/2024 13:20 ET us Jasen Jay DO [facility] NM PROCEDURES Final Result * Hemochromatosis mutation [...] clinical information reviewed by Keri Shoemaker, Ph.D., [facility], [facility]. DETAILED ASSAY INFORMATION: Hereditary hemochromatosis (HH) [...] variants in the HFE gene, C282Y (NM [id number]: c.845G>A, p.[id number]) and H63D (NM 422093.2: c.187C>G, p.Mcs94Rsm), that are commonly associated with HH. These [...] Health care providers, please contact your local [facility] genetic counselor or call [phone] ( ) for assistance with the interpretation of these results. This test was developed and its analytical performance characteristics have been determined by [facility]. It has not been cleared or approved by FDA. This assay has been validated pursuant to the CLIA regulations and is used for clinical purposes. For more information, please refer to http://education.ITDatabase/faq/hemochromatosis. (This link is being provided for informational/educational purposes only.) A portion of the testing was performed at [facility]. Reviewed and signed by Laboratory results and submitted clinical information reviewed by Keri Shoemaker, Ph.D., [facility], [facility], Signed on 11/28/2024 at 07:03 Test Performed at: [facility] [address] [address] Odalys Mcclure MD, PhD, [facility] Blood Venous blood specimen / Unknown Venipuncture / Unknown 11/17/2024 12:21 PM EDT 11/17/2024 12:45 PM EDT Henny Patton MD LAB MOLECULAR DIAGNOSTICS GONZÁLEZ ZHAO Final Result [facility] [address] [place] [address] * Lactate, with reflex (11/17/2024 6:03 AM EDT) Only the most recent of6 resultswithin the time period is included. LACTIC ACID 1.8 0.4 - 2.0 mmol/L LAB CHEMISTRY METHOD 11/17/2024 6:50 AM EDT [facility] Blood Venous blood specimen / Unknown Venipuncture / Unknown 11/17/2024 6:03 AM EDT 11/17/2024 6:18 AM EDT us Mayur Ruiz MD LAB BLOOD ORDERABLES Final Re sult Performing Organization Address [facility] Co de Phone Number [facility] [address] [place] [address], [place] [phone] * Lactate dehydrogenase (11/17/2024 6:03 AM EDT) LDH 222 120 - 246 unit/L LAB CHEMISTRY METHOD 11/17/2024 2:38 PM EDT [facility] Blood Venous blood specimen / Unknown Venipuncture / Unknown 11/17/2024 6:03 AM EDT 11/17/2024 6:19 AM EDT Nathaly EDGAR LAB BLOOD ORDERABLES Final Result Performing Organization Address [facility] de Phone Number [facility] [address] [place] [address], [place] [phone] * Creatine kinase (11/17/2024 6:03 AM EDT) Total CK 68 22 - 269 unit/L LAB CHEMISTRY METHOD 11/17/2024 3:20 PM EDT [facility] Blood Venous blood specimen / Unknown Venipuncture / Unknown 11/17/2024 6:03 AM EDT 11/17/2024 6:19 AM EDT Nathaly EDGAR LAB BLOOD ORDERABLES Final Result Performing Organization Address [facility]/ZIP Co de Phone Number [facility] [address] [place] [address], [place] [phone] * (ABNORMAL) Lamotrigine level (11/16/2024 8:51 PM EDT) Lamotrigine (Lamictal) Level 1.3(L) 2.0 - 15.0 ug/mL 11/20/2024 6:34 AM EDT [facility] Comment: Lamotrigine toxic level: >20 ug/mL The reference range is not well established. It may be as wide as 1 - 20 ug/mL. If applicable, any drug confirmation testing reported here was developed and the performance characteristics determined by [facility]. This confirmation testing has not been cleared or approved by the FDA. The laboratory is regulated under CLIA as qualified to perform high-complexity testing. This test is used for patient testing purposes. It should not be regarded as investigational or for research. Test performed at [facility], [address] , [place] [address] Kristi Brown MD, PhD - Performance Test Consultant Blood Venous blood specimen / Unknown Venipuncture / Unknown 11/16/2024 8:51 PM EDT 11/16/2024 8:51 PM EDT Maria EDGAR LAB BLOOD ORDERABLES Final Re sult Performing Organization Address City/[facility]/ZIP Co de Phone Number [facility] [address] [address] * Culture blood (11/16/2024 8:51 PM EDT) Only the most recent of6 resultswithin the time period is included. [facility] Culture, Blood No growth at 5 days 11/21/2024 9:01 PM EDT [facility] Blood Venous blood specimen / Unknown Venipuncture / Unknown 11/16/2024 8:51 PM EDT 11/16/2024 8:52 PM EDT Maria EDGAR LAB MICROBIOLOGY - GENERAL OR DERABLES Final Result Performing Organization Address City/[facility]/ZIP Co de Phone Number [facility] [address] [place] [address], [place] [phone] * (ABNORMAL) Prothrombin time with INR (11/16/2024 8:51 PM EDT) Only the most recent of5 resultswithin the time period is included. [facility] Protime 23.3(H) 10.6 - 13.9 sec LAB COAGULATION METHOD 11/16/2024 9:03 PM EDT [facility] INR 1.9 LAB COAGULATION METHOD 11/16/2024 9:03 PM EDT [facility] Blood Venous blood specimen / Unknown Venipuncture / Unknown 11/16/2024 8:51 PM EDT 11/16/2024 8:51 PM EDT us Maria EDGAR LAB BLOOD ORDERABLES Final Re sult [facility]) [facility] [address] [place] [address], * CT Cervical Spine wo Contrast (11/16/2024 [...] MD on 11/16/2024 20:54:19 us Maria EDGAR IMEliud CT PROCEDURES Final Resul t * US [...] Signed Date: 11/16/2024 13:59 ET Workstation ID: [id number] Transcribed By: Self Edit Transcribed Date: 11/16/2024 13:57 ET Narrative 11/16/2024 1:59 PM EDT Exam: US ABDOMEN LIMITED Date of Study: 11/16/2024 12:40 PM CLINICAL INFORMATION: alcohol use disorder jaundice TECHNIQUE: Real-time ultrasound scanning of the region of interest performed by the quality inspector. Director Of Social Work static images and video clips are submitted [...] of the region of interestperformed by the quality inspector. Director Of Social Work static images and video clipsare submitted for [...] Signed Date: 11/16/2024 13:59 ET Workstation ID: [id number] Transcribed By: Self Edit Transcribed Date: 11/16/2024 13:57 ET us Jasen Jay DO [facility] US PROCEDURES Final Result * XR Ankle 3+ Views Left (11/16/2024 12:08 PM EDT) Anatomical Region Laterality Modality Lower Extremities, Ankle Left Radiogr aphic Imaging 11/16/2024 12:1 3 PM EDT Impressions 11/16/2024 12:15 PM EDT No acute findings. 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 Code 07268 -------- FINAL REPORT -------- Dictated By: Darren Stafford Dictated Date: 11/16/2024 12:13 ET Assigned Physician: Darren Stafford Reviewed and Electronically Signed By: Darren Stafford Signed Date: 11/16/2024 12:15 ET Workstation ID: [id number] Transcribed By: Self Edit Transcribed Date: 11/16/2024 [...] nonunited chip fractures of themedial malleolus. Code 29115 -------- FINAL REPORT -------- Dictated By: Darren Stafford Dictated Date: 11/16/2024 12:13 ET Assigned Physician: Darren Stafford Reviewed and Electronically Signed By: Darren Stafford Signed Date: 11/16/2024 12:15 ET Workstation ID: [id number] Transcribed By: Self Edit Transcribed Date: 11/16/2024 [...] pulmonary disease. No change since 11/07/2024. Code 31104 -------- FINAL REPORT -------- Dictated By: Darren Stafford Dictated Date: 11/16/2024 12:16 ET Assigned Physician: Darren Stafford Reviewed and Electronically Signed By: Darren Stafford Signed Date: 11/16/2024 12:18 ET Workstation ID: [id number] Transcribed By: Self Edit Transcribed Date: 11/16/2024 [...] pulmonary disease. No change since 11/07/2024. Code 08455 -------- FINAL REPORT -------- Dictated By: Darren Stafford Dictated Date: 11/16/2024 12:16 ET Assigned Physician: Darren Stafford Reviewed and Electronically Signed By: Darren Stafford Signed Date: 11/16/2024 12:18 ET Workstation ID: [id number] Transcribed By: Self Edit Transcribed Date: 11/16/2024 12:16 ET Jasen Jay DO IMG XR PROCEDURES Final Result * (ABNORMAL) Lactate (11/16/2024 10:23 AM EDT) Only the most recent of3 resultswithin the time period is included. Pathologist [facility] [place] Lactate 2.8(H) 0.4 - 2.0 mmol/L LAB CHEMISTRY METHOD 11/16/2024 12:04 PM EDT [facility] Blood Venous blood specimen / Unknown Venipuncture / Unknown 11/16/2024 10:23 AM EDT 11/16/2024 11:21 AM EDT Jasen Jay DO LAB BLOOD ORDERABLES Final Resu lt [facility] [address] [place] [address], * (ABNORMAL) Manual differential (11/16/2024 10:20 AM EDT) [facility] Neutrophils % 61.0 % LAB HEMETOLOGY METHOD 11/16/2024 1:30 PM EDT [facility] Lymphocytes % 26.0 % LAB HEMETOLOGY METHOD 11/16/2024 1:30 PM EDT [facility] Monocytes % 13.0 % LAB HEMETOLOGY METHOD 11/16/2024 1:30 PM EDT [facility] Eosinophils % 0.0 % LAB HEMETOLOGY METHOD 11/16/2024 1:30 PM EDT [facility] Basophils % 0.0 % LAB HEMETOLOGY METHOD 11/16/2024 1:30 PM EDT [facility] Neutrophils Absolute Manual 7.20(H) 1.50 - 7.00 K/mcL LAB HEMETOLOGY METHOD 11/16/2024 1:30 PM EDT [facility] Lymphocytes Absolute 3.07 1.00 - 5.00 K/mcL LAB HEMETOLOGY METHOD 11/16/2024 1:30 PM EDT [facility] Monocytes Absolute Manual 1.53(H) 0.20 - 1.00 K/mcL LAB HEMETOLOGY METHOD 11/16/2024 1:30 PM EDT [facility] Eosinophils Absolute Manual 0.00 0.00 - 0.50 K/[facility] LAB HEMETOLOGY METHOD 11/16/2024 1:30 PM EDT [facility] Basophils Absolute Manual 0.00 0.00 - 0.20 K/mcL LAB HEMETOLOGY METHOD 11/16/2024 1:30 PM EDT [facility] Rbc Morphology Consistent with indices Consistent with indices, Normal for LAB HEMETOLOGY METHOD 11/16/2024 1:30 PM EDT [facility] Platelet Morphology - WAM Normal Normal LAB HEMETOLOGY METHOD 11/16/2024 1:30 PM EDT [facility] Blood Venous blood specimen / Unknown Venipuncture / Unknown 11/16/2024 10:20 AM EDT 11/16/2024 11:22 AM EDT us Jasen Jay DO LAB BLOOD ORDERABLES Final Resu lt [facility] [address] [place] [address], * Ammonia (11/16/2024 10:20 AM EDT) Only the most recent of5 resultswithin the time period is included. Ammonia 13 11 - 35 mcmol/L LAB CHEMISTRY METHOD 11/16/2024 11:59 AM EDT [facility] Blood Venous blood specimen / Unknown Venipuncture / Unknown 11/16/2024 10:20 AM EDT 11/16/2024 11:21 AM EDT Jasen Jay LAB BLOOD ORDERABLES Final Resu lt Performing Organization Address City/[facility]/ZIP Co de Phone Number [facility] [address] [place] [address], [place] [phone] * (ABNORMAL) Ethanol (11/16/2024 10:20 AM EDT) Only the most recent of4 resultswithin the time period is included. Pathologist [facility] [place] Ethanol Level 147(H) 0 - 10 mg/dL LAB CHEMISTRY METHOD 11/16/2024 11:59 AM EDT [facility] Blood Venous blood specimen / Unknown Venipuncture / Unknown 11/16/2024 10:20 AM EDT 11/16/2024 11:22 AM EDT [facility] BLOOD ORDERABLES Final Resu lt Performing Organization Address [facility] Co de Phone Number [facility] [address] [place] [address], [place] [phone] * ECG 12 lead (11/16/2024 10:03 AM EDT) Only the most recent of5 resultswithin the time period is included. Ventricular Rate ECG 90 BPM GEMUSE Atrial Rate 90 BPM GEMUSE P-R Interval 190 ms GEMUSE QRS Duration 102 ms GEMUSE Q-T Interval 434 ms GEMUSE QTc 530 ms GEMUSE P Wave [place] 53 degrees GEMUSE R [place] 34 degrees GEMUSE T [place] 52 degrees GEMUSE ECG Interpretation Normal sinus rhythm Poor R wave progression Prolonged QT Abnormal ECG When compared with ECG of 07-NOV-2024 11:30, Nonspecific T wave abnormality, improved in Inferior leads Nonspecific T wave abnormality, improved in Anterolateral leads Confirmed by Galileo GUEVARA JAMES ([id number]) on 11/16/2024 6:02:36 PM GEMUSE 11/16/2024 10:0 3 AM EDT 11/16/2024 6:02 PM EDT Jasen Jay DO ECG ORDERABLES Final Result GEMUSE * [facility] 30-74 MINUTES (11/16/2024 9:17 AM [...] of2 resultswithin the time period is included. [facility] Occult Blood, Stool #1 Negative Negative 11/11/2024 12:39 AM EDT [facility] Stool Rectum structure / Unknown Non-blood Collection / Unknown 11/11/2024 12:06 AM EDT 11/11/2024 12:12 AM EDT Sam Perez MD LAB BODY FLUIDS AND STO OLS ORDERABLES Final Result [facility] [address] [place] [address], [place] [phone] * (ABNORMAL) Urinalysis with reflex microscopic and culture (11/08/2024 11:41 AM EDT) Only the most recent of2 resultswithin the time period is included. [facility] Specific [place] Urine 1.026 1.003 - 1.030 LAB URINALYSIS - AUTOMATED METHOD 11/08/2024 1:13 PM [facility] pH, Urine 5.5 5.0 - 8.0 pH LAB URINALYSIS - AUTOMATED METHOD 11/08/2024 1:13 PM [facility] Leukocytes, Urine Moderate(A) Negative LAB URINALYSIS - AUTOMATED METHOD 11/08/2024 1:13 PM [facility] Nitrite, Urine Positive(A) Negative LAB URINALYSIS - AUTOMATED METHOD 11/08/2024 1:13 PM [facility] Protein, Urine 100(A) <=Trace mg/dL LAB URINALYSIS - AUTOMATED METHOD 11/08/2024 1:13 PM [facility] Glucose, Urine Negative Negative mg/dL LAB URINALYSIS - AUTOMATED METHOD 11/08/2024 1:13 PM [facility] Ketones, Urine Negative Negative mg/dL LAB URINALYSIS - AUTOMATED METHOD 11/08/2024 1:13 PM [facility] Urobilinogen , Urine 2.0(A) 0.2 - 1.0 mg/dL LAB URINALYSIS - AUTOMATED METHOD 11/08/2024 1:13 PM EDT [facility] Bilirubin, Urine Large(A) Negative LAB URINALYSIS - AUTOMATED METHOD 11/08/2024 1:13 PM EDT [facility] Blood, Urine Negative Negative LAB URINALYSIS - AUTOMATED METHOD 11/08/2024 1:13 PM EDT [facility] RBC, Urine 0.7 0 - 4 /HPF LAB URINALYSIS - AUTOMATED METHOD 11/08/2024 1:13 PM EDT [facility] WBC, Urine 10.3(H) 0 - 4 /HPF LAB URINALYSIS - AUTOMATED METHOD 11/08/2024 1:13 PM [facility] Squamous Epithelial, Urine >100(H) 0 - 60 /LPF LAB URINALYSIS - AUTOMATED METHOD 11/08/2024 1:13 [facility] Bacteria, Urine Few(A) Negative /HPF LAB URINALYSIS - AUTOMATED METHOD 11/08/2024 1:13 PM [facility] Hyaline Casts, Urine 29.3(H) 0 - 3 /LPF LAB URINALYSIS - AUTOMATED METHOD 11/08/2024 1:13 PM [facility] Urine Urine specimen obtained by clean catch procedure / Unknown Non-blood Collection / Unknown 11/08/2024 11:41 AM EDT 11/08/2024 11:48 AM EDT us Krystyna EDGAR LAB URINE ORDERABLES Fin al Result [facility] [address] [place] [address], * Banda urine culture tube (11/08/2024 11:41 AM EDT) Only the most recent of2 resultswithin the time period is included. Extra Tube Hold for add-ons. 11/08/2024 1:01 PM EDT [facility] Comment:Auto resulted. Urine Urine specimen obtained by clean catch procedure / Unknown Non-blood Collection / Unknown 11/08/2024 11:41 AM EDT 11/08/2024 11:48 AM EDT Krystyna EDGAR LAB URINE ORDERABLES Fin al Result [facility] [address] [place] [address], [place] [phone] * (ABNORMAL) Drug abuse screen 8a panel, urine (11/08/2024 11:41 AM EDT) Only the most recent of2 resultswithin the time period is included. [facility] Amphetamine Screen, Ur Negative Negative LAB CHEMISTRY METHOD 5 12:18 PM EDT [facility] Comment:Certain OTC medicati ons containing ephedrine, phenylephrine, pseudoephedrine and phenylpropanolamine can cause false positive results. Barbiturate Screen, Ur Positive(A ) Negative LAB CHEMISTRY METHOD 5 12:18 PM EDT [facility] Benzodiazepine Screen, Ur Positive(A ) Negative LAB CHEMISTRY METHOD 5 12:18 PM [facility] Cocaine Screen, Ur Positive(A ) Negative LAB CHEMISTRY METHOD 5 12:18 PM EDT [facility] Opiate Screen, Ur Negative Negative LAB CHEMISTRY METHOD 5 12:18 PM [facility] Cannabinoid (THC) Screen, Ur Positive(A ) Negative LAB CHEMISTRY METHOD 5 12:18 PM [facility] Comment:Specimens from patie nts taking pantoprazole sodium (Protonix) have been shown to produce false positive results. Oxycodone Screen, Ur Negative Negative LAB CHEMISTRY METHOD 5 12:18 PM EDT [facility] Fentanyl, Ur Negative Negative LAB CHEMISTRY METHOD 12:18 PM EDT [facility] Urine Urine specimen obtained by clean catch procedure / Unknown Non-blood Collection / Unknown 11/08/2024 11:41 AM EDT 11/08/2024 11:48 AM EDT Narrative [facility] - 11/08/2024 12:18 PM EDT Assay [...] NP LAB URINE ORDERABLES Fin al Result Performing Organization Address City/[facility]/ZIP Co de Phone Number [facility] [address] [place] [address], [place] [phone] * Culture urine (11/08/2024 11:41 AM EDT) Only the most recent of2 resultswithin the time period is included. Culture, Urine 10,000-49,000 CFU/mL Mixed bacterial morphotypes present suggestive of possible contamination during collection. Suggest appropriate recollection if clinically indicated. 11/09/2024 7:23 AM EDT [facility] Urine Urine specimen obtained by clean catch procedure / Unknown Non-blood Collection / Unknown 11/08/2024 11:41 AM EDT 11/08/2024 1:13 PM EDT Krystyna EDGAR LAB MICROBIOLOGY - GENER AL ORDERABLES Final Result Performing Organization Address [facility]/ZIP Co de Phone Number [facility] [address] [place] [address], [place] [phone] * (ABNORMAL) Complete blood count (11/08/2024 5:43 AM EDT) [facility] WBC 13.0(H) 4.8 - 10.8 K/mcL LAB HEMETOLOGY METHOD 11/08/2024 6:43 AM [facility] RBC 2.60(L) 3.80 - 4.80 M/mcL LAB HEMETOLOGY METHOD 11/08/2024 6:43 AM [facility] Hemoglobin 8.4(L) 11.5 - 16.0 g/dL LAB HEMETOLOGY METHOD 11/08/2024 6:43 AM [facility] Hematocrit 25.1(L) 35.0 - 47.0 % LAB HEMETOLOGY METHOD 11/08/2024 6:43 AM [facility] MCV 95.4 79.0 - 98.0 FL LAB HEMETOLOGY METHOD 11/08/2024 6:43 AM [facility] MCH 31.9 27.0 - 32.0 pcg LAB HEMETOLOGY METHOD 11/08/2024 6:43 AM [facility] MCHC 33.5 32.0 - 37.0 g/dL LAB HEMETOLOGY METHOD 11/08/2024 6:43 AM [facility] RDW 15.4(H) 11.0 - 15.0 % LAB HEMETOLOGY METHOD 11/08/2024 6:43 AM [facility] Platelets 134 130 - 400 K/mcL LAB HEMETOLOGY METHOD 11/08/2024 6:43 AM [facility] MPV 11.1(H) 7.0 - 11.0 FL LAB HEMETOLOGY METHOD 11/08/2024 6:43 AM [facility] NRBC 0.0 <1.0 % LAB HEMETOLOGY METHOD 11/08/2024 6:43 AM EDT [facility] NRBC Absolute 0.00 <0.10 K/mcL LAB HEMETOLOGY METHOD 11/08/2024 6:43 AM EDT [facility] Blood Venous blood specimen / Unknown Venipuncture / Unknown 11/08/2024 5:43 AM EDT 11/08/2024 5:59 AM EDT Geetha Gonzalez MD LAB BLOOD ORDERABLES Final Res ult [facility] [address] [place] [address], * Troponin I high sensitivity (11/07/2024 5:43 PM EDT) Only the most recent of3 resultswithin the time period is included. [facility] High Sensitivity Troponin I 9 <=54 ng/L LAB CHEMISTRY METHOD 11/07/2024 6:48 PM EDT [facility] Blood Venous blood specimen / Unknown Venipuncture / Unknown 11/07/2024 5:43 PM EDT 11/07/2024 6:20 PM EDT Narrative [facility] - 11/07/2024 6:48 PM EDT High levels of biotin in samples may falsely decrease hsTroponin values. Use caution when interpreting hsTroponin results in patients taking biotin who exhibit renal impairment (eGFR <60) or in patients taking more than 20 mg/day of biotin. Krystyna EDGAR LAB BLOOD ORDERABLES Fin al Result Performing Organization Address City/[facility]/ZIP Co de Phone Number [facility] [address] [place] [address], * Respiratory virus panel molecular study (11/07/2024 11:17 AM EDT) Only the most recent of2 resultswithin the time period is included. [facility] Adenovirus Detection by PCR Not Detected Not Detected LAB MICROBIOLOGY METHOD 11/07/2024 12:25 PM EDT [facility] Influenza A PCR Not Detected Not Detected LAB MICROBIOLOGY METHOD 11/07/2024 12:25 PM EDT [facility] Influenza B PCR Not Detected Not Detected LAB MICROBIOLOGY METHOD 11/07/2024 12:25 PM EDT [facility] Coronavirus 229E Not Detected Not Detected LAB MICROBIOLOGY METHOD 11/07/2024 12:25 PM EDT [facility] Coronavirus HKU1 Not Detected Not Detected LAB MICROBIOLOGY METHOD 11/07/2024 12:25 PM EDT [facility] Coronavirus OC43 Not Detected Not Detected LAB MICROBIOLOGY METHOD 11/07/2024 12:25 PM EDT [facility] Coronavirus NL63 Not Detected Not Detected LAB MICROBIOLOGY METHOD 11/07/2024 12:25 PM EDT [facility] Parainfluenza Virus 1 Not Detected Not Detected LAB MICROBIOLOGY METHOD 11/07/2024 12:25 PM EDT [facility] Parainfluenza Virus 2 Not Detected Not Detected LAB MICROBIOLOGY METHOD 11/07/2024 12:25 PM EDT [facility] Parainfluenza Virus 3 Not Detected Not Detected LAB MICROBIOLOGY METHOD 11/07/2024 12:25 PM EDT [facility] Parainfluenza Virus 4 Not Detected Not Detected LAB MICROBIOLOGY METHOD 11/07/2024 12:25 PM EDT [facility] RSV PCR Not Detected Not Detected LAB MICROBIOLOGY METHOD 11/07/2024 12:25 PM EDT [facility] Human Metapneumovirus A and B Not Detected Not Detected LAB MICROBIOLOGY METHOD 11/07/2024 12:25 PM EDT [facility] Rhinovirus/Entero virus Not Detected Not Detected LAB MICROBIOLOGY METHOD 11/07/2024 12:25 PM EDT [facility] Bordetella pertussis Not Detected Not Detected LAB MICROBIOLOGY METHOD 11/07/2024 12:25 PM EDT [facility] Bordetella parapertussis Not Detected Not Detected LAB MICROBIOLOGY METHOD 11/07/2024 12:25 PM EDT [facility] Mycoplasma pneumo by PCR Not Detected Not Detected LAB MICROBIOLOGY METHOD 11/07/2024 12:25 PM EDT [facility] Chlamydia pneumoniae Not Detected Not Detected LAB MICROBIOLOGY METHOD 11/07/2024 12:25 PM EDT [facility] SARS COV-2 Not Detected Not Detected LAB MICROBIOLOGY METHOD 11/07/2024 12:25 PM EDT [facility] Swab Both anterior nares / Unknown Non-blood Collection / Unknown 11/07/2024 11:17 AM EDT 11/07/2024 11:22 AM EDT Narrative [facility] - 11/07/2024 12:25 PM EDT Testing was performed using the [employer] Respiratory Pathogen PCR Assay. All results must [...] MICROBIOLOGY - GENER AL ORDERABLES Final Result [facility] [address] [place] [address], * (ABNORMAL) Vitamin B12 and folate (11/07/2024 11:11 AM EDT) Pathologist [facility] [place] Vitamin B-12 1,635(H) 250 - 900 pcg/mL LAB CHEMISTRY METHOD 11/07/2024 12:31 PM EDT [facility] Folate 11.8 2.8 - 17.0 ng/ml LAB CHEMISTRY METHOD 11/07/2024 12:31 PM EDT [facility] Blood Venous blood specimen / Unknown Venipuncture / Unknown 11/07/2024 11:11 AM EDT 11/07/2024 11:24 AM EDT Krystyna Rojas Jordan EDGAR LAB BLOOD ORDERABLES Fin al Result Performing Organization Address [facility]/ZIP Co de Phone Number [facility] [address] [place] [address], [place] [phone] * Hepatitis panel, acute with reflex to confirmation (11/07/2024 11:11 AM EDT) Only the most recent of2 resultswithin the time period is included. Pathologist [facility] [place] Hepatitis B Surface Ag Negative Negative LAB CHEMISTRY METHOD 11/07/2024 3:57 PM EDT [facility] Hepatitis A Antibody IgM Negative Negative LAB CHEMISTRY METHOD 11/07/2024 3:57 PM EDT [facility] Hep B Core IgM Negative Negative LAB CHEMISTRY METHOD 11/07/2024 3:57 PM EDT [facility] Hepatitis C Antibody Negative Negative LAB CHEMISTRY METHOD 11/07/2024 3:57 PM EDT [facility] Blood Venous blood specimen / Unknown Venipuncture / Unknown 11/07/2024 11:11 AM EDT 11/07/2024 11:24 AM EDT Krystyna Bob EDGAR LAB BLOOD ORDERABLES Fin al Result Performing Organization Address City/[facility]/ZIP Co de Phone Number [facility] [address] [place] [address], [place] [phone] * Activated partial thromboplastin time (11/07/2024 11:11 AM EDT) Only the most recent of2 resultswithin the time period is included. aPTT 34.6 24.1 - 39.3 sec LAB COAGULATION METHOD 11/07/2024 11:50 AM EDT [facility] Blood Venous blood specimen / Unknown Venipuncture / Unknown 11/07/2024 11:11 AM EDT 11/07/2024 11:25 AM EDT Krystyna Rojas Jordan EDGAR LAB BLOOD ORDERABLES Fin al Result Performing Organization Address [facility]/ZIP Co de Phone Number [facility] [address] [place] [address], [place] [phone] * (ABNORMAL) Lipase (11/07/2024 11:11 AM EDT) Only the most recent of2 resultswithin the time period is included. Lipase <10(L) 13 - 75 unit/L LAB CHEMISTRY METHOD 11/07/2024 12:05 PM EDT [facility] Blood Venous blood specimen / Unknown Venipuncture / Unknown 11/07/2024 11:11 AM EDT 11/07/2024 11:24 AM EDT Krystyna Rojas Jordan EDGAR LAB BLOOD ORDERABLES Fin al Result Performing Organization Address [facility] Co de Phone Number [facility] [address] [place] [address], [place] [phone] * ECG-Outside (10/16/2024) Provider Onbase MD ECG ORDERABLES Final Result * Calcium, ionized (10/13/2024 5:30 AM EDT) Only the most recent of6 resultswithin the time period is included. Calcium Ionized 4.89 4.50 - 5.30 mg/dL 10/13/2024 6:02 AM EDT [facility] Blood Venous blood specimen / Unknown Venipuncture / Unknown 10/13/2024 5:30 AM EDT 10/13/2024 5:56 AM EDT Gordy Herrera LAB BLOOD ORDERABLES Final R esult Performing Organization Address [facility]/ZIP Co de Phone Number [facility] [address] [place] [address], [place] [phone] * (ABNORMAL) Procalcitonin (10/12/2024 4:01 AM EDT) Only the most recent of4 resultswithin the time period is included. Procalcitonin 0.44(H) <=0.16 ng/mL LAB CHEMISTRY METHOD 10/12/2024 8:24 AM EDT [facility] Blood Venous blood specimen / Unknown Venipuncture / Unknown 10/12/2024 4:01 AM EDT 10/12/2024 4:19 AM EDT Narrative [facility] - 10/12/2024 8:24 AM EDT Procalcitonin [...] any concentrations <2.0 ng/mL are obtained. Gordy Herrera LAB BLOOD ORDERABLES Final R esult Performing Organization Address [facility]/ZIP Co de Phone Number [facility] [address] [place] [address], [place] [phone] * (ABNORMAL) Iron and TIBC (10/12/2024 4:01 AM EDT) Iron 54 40 - 150 mcg/dL LAB CHEMISTRY METHOD 10/12/2024 1:15 PM EDT [facility] TIBC 55(L) 250 - 450 mcg/dL LAB CHEMISTRY METHOD 10/12/2024 1:15 PM EDT [facility] Iron Saturation 98(H) 15 - 50 % LAB CHEMISTRY METHOD 10/12/2024 1:15 PM EDT [facility] Blood Venous blood specimen / Unknown Venipuncture / Unknown 10/12/2024 4:01 AM EDT 10/12/2024 4:19 AM EDT Mayur Ruiz MD LAB BLOOD ORDERABLES Final Re sult [facility] [address] [place] [address], * Reticulocyte count (10/12/2024 4:01 AM EDT) Retic Ct Abs 0.040 0.030 - 0.090 M/mcL LAB HEMETOLOGY METHOD 10/12/2024 10:35 AM EDT [facility] Retic Ct Pct 1.7 0.7 - 1.7 % LAB HEMETOLOGY METHOD 10/12/2024 10:35 AM EDT [facility] Immature Retic Fract 10.8 2.3 - 15.9 % LAB HEMETOLOGY METHOD 10/12/2024 10:35 AM EDT [facility] Reticulocyte Hemoglobin 36.2 >29.0 pcg LAB HEMETOLOGY METHOD 10/12/2024 10:35 AM EDT [facility] Blood Venous blood specimen / Unknown Venipuncture / Unknown 10/12/2024 4:01 AM EDT 10/12/2024 4:19 AM EDT us Mayur Ruiz MD LAB BLOOD ORDERABLES Final Re sult Performing Organization Address [facility]/ZIP Co de Phone Number [facility] [address] [place] [address], [place] [phone] * Haptoglobin (10/12/2024 4:01 AM EDT) [facility] Haptoglobin 83 16 - 200 mg/dL LAB CHEMISTRY METHOD 10/12/2024 1:15 PM EDT [facility] Blood Venous blood specimen / Unknown Venipuncture / Unknown 10/12/2024 4:01 AM EDT 10/12/2024 4:19 AM EDT us Mayur Ruiz MD LAB BLOOD ORDERABLES Final Re sult Performing Organization Address [facility] de Phone Number [facility] [address] [place] [address], [place] [phone] * (ABNORMAL) Ferritin (10/12/2024 4:01 AM EDT) [facility] Ferritin 2,534(H) 8 - 252 ng/mL LAB CHEMISTRY METHOD 10/12/2024 1:15 PM EDT [facility] Blood Venous blood specimen / Unknown Venipuncture / Unknown 10/12/2024 4:01 AM EDT 10/12/2024 4:19 AM EDT us Mayur Ruiz MD LAB BLOOD ORDERABLES Final Re sult Performing Organization Address City/[facility]/ZIP Co de Phone Number [facility] [address] [place] [address], [place] [phone] * (ABNORMAL) TRANSTHORACIC ECHOCARDIOGRAM (TTE) COMPLETE W/ CONTRAST (10/11/2024 9:01 AM EDT) [facility] LV EDV (A2C) 122 mL CV PACS [...] 50 mL CV PACS Left [facility] [place] 5.2 cm CV PACS Left [facility] [place] 6.3 cm CV PACS LA Area Sys [...] LAB CHEMISTRY METHOD 10/11/2024 11:35 AM EDT [facility] Blood Venous blood specimen / Unknown Venipuncture / Unknown 10/11/2024 4:57 AM EDT 10/11/2024 5:05 AM EDT Gordy Herrera DO LAB BLOOD ORDERABLES Final R esult [facility] [address] [place] [address], [place] [phone] * Folate (10/11/2024 4:57 AM EDT) Folate 13.2 2.8 - 17.0 ng/ml LAB CHEMISTRY METHOD 10/11/2024 9:32 AM EDT [facility] Blood Venous blood specimen / Unknown Venipuncture / Unknown 10/11/2024 4:57 AM EDT 10/11/2024 5:05 AM EDT Gordy [facility] LAB BLOOD ORDERABLES Final R esult [facility] [address] [place] [address], [place] [phone] * (ABNORMAL) Vitamin B12 (10/11/2024 4:57 AM EDT) Pathologist [facility] [place] Vitamin B-12 1,395(H) 250 - 900 pcg/mL LAB CHEMISTRY METHOD 10/11/2024 9:33 AM EDT [facility] Blood Venous blood specimen / Unknown Venipuncture / Unknown 10/11/2024 4:57 AM EDT 10/11/2024 5:05 AM EDT [facility] BLOOD ORDERABLES Final R esult [facility] [address] [place] [address], [place] [phone] * Vascular US duplex hepatic/portal limited evaluation [...] VAS US HEPATIC PORTAL FLOW LIMITED Comparison: US/GA - US ABD LIMITED - 10/10/24 19:[address] - CT CHEST ABD PEL W CONTRAST - 10/10/24 18:18 EDT Findings: The portal vein is patent with normal waveform and appropriate flow direction. Procedure Note Elke Iqbal MD - 10/11/2024 INDICATION: r/o portal vein thrombus US - VAS US HEPATIC PORTAL FLOW LIMITED Comparison: US/GA - US ABD LIMITED - 10/10/24 19:08 [...] Signed Date: 10/11/2024 08:46 ET Workstation ID: [id number] Transcribed By: Self Edit Transcribed Date: 10/11/2024 [...] Signed Date: 10/11/2024 08:46 ET Workstation ID: [id number] Transcribed By: Self Edit Transcribed Date: 10/11/2024 08:41 ET Gordy Herrera DO IMG XR PROCEDURES Final Resu lt * GA CATHETERIZATION/CANNULATION ARTERIAL SAMPLE/MONITORING/TRANSFUSION PERC (10/11/2024 12:51 AM EDT) Gordy Maloney DO - 10/11/2024 12:51 AM EDT HERVE Merida 10/11/2024 12:58 AM Arterial Line Insertion Date/Time: 10/11/2024 12:51 AM Performed by: HERVE Merida Authorized by: HERVE Merida Consent: Consent obtained: Verbal Consent given by: Patient Risks, benefits, and alternatives were discussed: yes Rolette protocol: Patient identity confirmed: Verbally with patient [...] IV THERAPY ORDERABLES Final Resu lt * GA INSERTION NON-TUNNELED CENTRALLY INSERTED CENTRAL VENOUS CATH 5 YRS/> (10/11/2024 12:48 AM EDT) Narrative Gordy Herrera DO - 10/11/2024 12:48 AM EDT HERVE Merida 10/11/2024 12:57 AM Central Line Insertion Date/Time: 10/11/2024 12:48 AM Performed by: HERVE Merida Authorized by: HERVE Merida Consent: Consent obtained: Verbal Consent given by: Patient Risks, benefits, and alternatives were discussed: yes Rolette protocol: Patient identity confirmed: Verbally with patient [...] via CXR, catheter tip terminates in SVC Michael EDGAR IN CLINIC/BEDSIDE ORDERABLES Fin al Result * MRSA molecular study (10/10/2024 10:14 PM EDT) Pathologist [facility] [place] MRSA Screen PCR Not Detected Not Detected LAB MICROBIOLOGY METHOD 10/11/2024 12:03 AM EDT [facility] Swab Both anterior nares / Unknown Non-blood Collection / Unknown 10/10/2024 10:14 PM EDT 10/10/2024 10:41 PM EDT Michael EDGAR LAB MICROBIOLOGY - GENERAL ORDER JAIME Final Result [facility] [address] [place] [address], [place] [phone] * B-type natriuretic peptide (10/10/2024 10:00 PM EDT) BNP 98 <=100 pcg/mL LAB CHEMISTRY METHOD 10/10/2024 10:36 PM EDT [facility] Blood Venous blood specimen / Unknown Venipuncture / Unknown 10/10/2024 10:00 PM EDT 10/10/2024 10:05 PM EDT us Michael EDGAR LAB BLOOD ORDERABLES Final Resul t Performing Organization Address [facility] Co de Phone Number [facility] [address] [place] [address], [place] [phone] * (ABNORMAL) Acetaminophen level (10/10/2024 10:00 PM EDT) Acetaminophen Level <2.0(L) 10.0 - 30.0 mcg/mL LAB CHEMISTRY METHOD 10/10/2024 10:38 PM EDT [facility] Blood Venous blood specimen / Unknown Venipuncture / Unknown 10/10/2024 10:00 PM EDT 10/10/2024 10:05 PM EDT us Michael EDGAR LAB BLOOD ORDERABLES Final Resul t Performing Organization Address [facility] Co de Phone Number [facility] [address] [place] [address], [place] [phone] * (ABNORMAL) Salicylate level (10/10/2024 10:00 PM EDT) Salicylate Level <1.7(L) 2.0 - 29.0 mg/dL LAB CHEMISTRY METHOD 10/10/2024 10:38 PM EDT [facility] Blood Venous blood specimen / Unknown Venipuncture / Unknown 10/10/2024 10:00 PM EDT 10/10/2024 10:05 PM EDT us Michael EDGAR LAB BLOOD ORDERABLES Final Resul t [facility] [address] [place] [address], * CT Chest/Abdomen/Pelvis w Contrast (10/10/2024 6:19 [...] by: Saba Ward MD on 10/10/2024 19:17:29 [facility] CT PROCEDURES Final Result * CT Maxillofacial [...] Type and screen (10/10/2024 4:38 PM EDT) Pathologist [facility] [place] ABO Group O 10/10/2024 6:09 PM EDT [facility] Rh Type Positive 10/10/2024 6:09 PM EDT [facility] Antibody Screen Negative 10/10/2024 6:09 PM EDT [facility] Blood Venous blood specimen / Unknown Venipuncture / Unknown 10/10/2024 4:38 PM EDT 10/10/2024 4:56 PM EDT us Estephania EDGAR LAB BLOOD BANK TEST ORDERABLES Final Result [facility] [address] [place] [address], * Thyroid stimulating hormone with reflex to free t4 and free t3 (10/10/2024 3:41 PM EDT) TSH 3.26 0.40 - 4.00 mcIU/mL LAB CHEMISTRY METHOD 10/10/2024 7:01 PM EDT [facility] Blood Venous blood specimen / Unknown Venipuncture / Unknown 10/10/2024 3:41 PM EDT 10/10/2024 3:45 PM EDT Gordy Larryofelia DO LAB BLOOD ORDERABLES Final R esult Performing Organization Address [facility] de Phone Number [facility] [address] [place] [address], * Alpha fetoprotein tumor marker (10/10/2024 3:41 PM EDT) AFP 2.6 0.0 - 8.0 ng/mL LAB CHEMISTRY METHOD 10/10/2024 9:44 PM EDT [facility] Blood Venous blood specimen / Unknown Venipuncture / Unknown 10/10/2024 3:41 PM EDT 10/10/2024 3:45 PM EDT Narrative [facility] - 10/10/2024 9:44 PM EDT The Siemens Advia Centaur Chemiluminescent Immunoassay is used. Results obtained with different assay methods or kits cannot be used interchangeably. Results cannot be interpreted as absolute evidence of the presence or absence of malignant disease. Michael Flaherty PA LAB BLOOD ORDERABLES Final Resul t Performing Organization Address [facility] de Phone Number [facility] [address] [place] [address], * Cortisol (10/10/2024 3:41 PM EDT) Cortisol 19.9 mcg/dL LAB CHEMISTRY METHOD 10/10/2024 7:01 PM EDT [facility] Blood Venous blood specimen / Unknown Venipuncture / Unknown 10/10/2024 3:41 PM EDT 10/10/2024 3:45 PM EDT Narrative [facility] - 10/10/2024 7:01 PM EDT CORTISOL REFERENCE RANGE 8 AM SPEC: 5.0-23.0 mcg/dL 4 PM SPEC: 3.0-16.0 mcg/dL 8 PM SPEC: <5.0 mcg/dL Gordy Herrera DO LAB BLOOD ORDERABLES Final R esult [facility] [address] [place] [address], [place] [phone] * [place] [facility] 30-74 MINUTES (10/10/2024 3:04 PM EDT) Narrative Paola Hodges DO - 10/10/2024 3:04 PM EDT HERVE [...] and obtaining history from patient or surrogate Paola Hodges DO IN CLINIC/BEDSIDE ORDERAB LES Final Result * Lipid panel (05/13/2022) LDL/HDL Ratio 0 Comment:abstracted Triglycerides 0 mg/dL Comment:abstracted Cholesterol 0 mg/dL Comment:abstracted HDL 0 mg/dL Comment:abstracted LDL Cholesterol 0 mg/dL Comment:abstracted Blood Venous blood specimen / Unknown Historical Provider LAB BLOOD ORDERABLES Josefina l Result from Last 3 Months or Most Recently Relevant to Health Maintenance Insurance [address] [place] [id number] [employer] MEDICARE ADVANTAGE MEDICAID - [place] Advance Directives Documents on File Type Date Recorded Patient Director Of Social Work Expl anation Health Care Decision (hx) 12/15/2016 [...] Agents on File Name Relationship Healthcare Agent [facility] p Communication Caro Javier Relative Health Care Agent Rosalva Ramos Relative First Alternate Health Care Agent Care Teams Tile Layer Drainage Relationship Specialty Start Date End Date Henny Huff MD [address] [phone] PCP - General Internal Medicine 11/07/24
== END 2025-01-03 09:37 | disposition home or self-care (01) ==
LOC: HO.HMGCX 09:36
PROVIDERS: PCP Internal Medicine; Visit Provider Internal Medicine
DX: R18.8 Other ascites (principal)
CPT/HCPCS: 76705

== ENCOUNTER → 2025-01-03 09:38 | Outpatient (BNV) | payer MEDICARE, MEDICAID, SELFPAY | PROVIDERS: PCP Internal Medicine; Visit Provider Radiology Diagnostic Radiology | DX: R18.8 Other ascites (principal) | CPT/HCPCS: 76705 ==

== ENCOUNTER 2025-01-08 12:12 | Outpatient (AMB) | payer MEDICARE, MEDICAID, SELFPAY ==
[2025-01-08 12:21] VITALS: BP 94/60; PULSE 118; RESP 16; TEMP 36.9; O2SAT 98; BMI 31.3
--- NOTE | 2025-01-08 12:21 | A.OFFPC_ITS ---
Vital Signs 01/08/25 12:21 Height 5 ft 5 in Weight 188 lb BMI 31.3 BP 94/60 Blood Pressure Location Rt brachial Position Sitting Respiration 16 Pulse 118 H Pulse Source Pulse Oximeter Temp 98.4 F Temp Source Oral Pulse Oximetry (%) 98 Oxygen Delivery Method Room Air Intake Visit Reasons: 1 week follow up Intake Note: Pt is here today for her 1week f/u Allergies acetaminophen (From Vicodin) Allergy (Severe, Verified 01/08/25 12:26) Hives hydrocodone (From Vicodin) Allergy (Severe, Verified 01/08/25 12:26) Hives Medication List - Last Reconciled 01/08/25 by Henny Huff MD albuterol sulfate 90 mcg/actuation 2 puffs inhalation Q6H PRN azelastine 137 mcg (0.137 mL) intranasal BID blood pressure kit-extra large As directed Entresto 24-26 mg (sacubitril-valsartan) 1 tab PO BID NS fexofenadine (Jacinta Allergy) 180 mg PO DAILY folic acid 1 mg PO DAILY furosemide (Lasix) 20 mg PO DAILY magnesium oxide 400 mg PO BEDTIME [oximeter As directed] trazodone 100 mg PO BEDTIME Tobacco use date assessed: 01/08/25 Dental Screening Dental Screen Date: 01/08/25 Did you have a dental visit in the last 12 months?: No Did you have a dental problem in the last 6 months where you did not have access to dental care?: No Was dental information given to patient?: Patient has dentist HPI 1 week follow up HPI Details Patient presents for the follow-up. She is feeling stronger ambulating with a cane. Patient has been taking furosemide for chronic lower extremity swelling and edema. Abdominal ultrasound showed moderate ascites but patient has been asymptomatic from it. She has been tolerating low dose of Entresto and denies dizziness or lightheadedness despite low blood pressure. [facility] Medical History (Updated 01/08/25 @ 20:32 by Henny Huff MD) Liver cirrhosis, alcoholic Heart failure with reduced ejection fraction Herpes zoster anterior uveitis Osteoarthritis of left knee Tachycardia Anxiety Depression Back pain Bipolar disorder ETOH abuse Opiate abuse, continuous Polysubstance abuse Allergic rhinitis Surgical History H/O foot surgery H/O: hysterectomy History of back surgery History of carpal tunnel surgery Family History Mother Cervical cancer Sister Cervical cancer Social History Household Members: None Housing: Apartment Are you a primary wound care center consultant to a significant other at home: No Do you presently have visiting nurse or other home services: No Alcohol intake: current Alcohol intake frequency: 3 or more drinks per day Alcohol type: hard liquor Comment: aware of trip hazard Patient Tobacco Use Status: Current everyday Tobacco user Tobacco use type: Cigarette Cigarettes Per Day: 2 e-Cigarette/Vaping Use: Former Use (July 2020) Advance Directives Date on File: 07/24/21 service: No Current occupational status: unemployed Cognitive needs: No Hearing needs: No Vision needs: Yes Questionnaire Thrive Questionnaire Date Thrive assessed: 01/01/25 I am a: Patient What is your living situation today?: I have a steady place to live Within the past 12 months, did the food you bought not last and you didn't have the money to get more?: Never true Within the past 12 months, did you worry whether your food would run out before you got money to buy more?: Never true Do you have trouble paying for medicines?: No Do you have trouble getting transportation to medical appointments?: No Do you have trouble paying your heating and electricity bill?: No Do you have trouble taking care of your child, family member or friend?: No Do you have trouble with day-to-day activities such as bathing, preparing meals, shopping, managing finances, etc.?: No Are you currently unemployed and looking for a job?: No Are you interested in more education?: No Please select the resources that you would like help with: None Currently or been in a relationship where the following occur: No concerns reported THRIVE Score: 0 ANASTASIA-7 AMB Questionnaire ANASTASIA-7 Date ANASTASIA - 7 assessed: 01/01/25 Source: Developed by Drs. Lane Brenner, Naima Harris, Evgeny Em and colleagues, with an educational danita from [employer] Review of Systems Const All systems reviewed & are unremarkable except as noted in HPI and below ENT Reports no additional complaints Card Reports no additional complaints Resp Reports no additional complaints GI Reports no additional complaints Reports no additional complaints Physical exam (Primary Care) Vital Signs: Last Vital Signs Temp 98.4 F 01/08/25 12:21 Pulse 118 H 01/08/25 12:21 Resp 16 01/08/25 12:21 BP 94/60 01/08/25 12:21 Pulse Ox 98 01/08/25 12:21 Oxygen Delivery Method Room Air 01/08/25 12:21 BMI result Body Mass Index 31.3 Tobacco/Smoking Status: Tobacco use Status Tobacco use date assessed 01/08/25 01/08/25 12:29 Patient Tobacco Use Status Current everyday Tobacco 01/08/25 12:29 Tobacco use type Cigarette 01/08/25 12:29 e-Cigarette/Vaping Use Former Use (July 2020) 01/08/25 12:29 Thrive Assessment: Date of Thrive Assessment Date Thrive assessed 01/01/25 01/08/25 12:29 Currently or been in a relationship where the following occur: No concerns reported Const General: no acute distress HENMT Head: Yes normal to inspection Eyes General: appearance normal, both eyes and all related structures Neck Neck: Yes supple Resp Effort & Inspection: normal respiratory effort Auscultation: clear to auscultation bilaterally Cardio Rate: tachycardic Rhythm: regular rhythm Heart sounds: S1 normal heart sound present and S2 normal heart sound present GI Inspection: Yes normal to inspection Palpation (GI): Soft to palpation Auscultation: normal bowel sounds Extrem Other: 2+ pitting edema bilaterally Coding Level of Care Code Est Pt Level 4 (32407) Diagnoses Heart failure with reduced ejection fraction I50.20 Ascites R18.8 Bipolar disorder F31.9 Liver cirrhosis, alcoholic K70.30 Assessment & Plan Assessment & Plan (1) Heart failure with reduced ejection fraction: Comment: f/u PVC [facility], , Echo 2021 EF 25%, GLOBAL HYPOKINESIS. Normal coronaries on catheterization 2021 Code(s): I50.20 - Unspecified systolic (congestive) heart failure Category: Medical Plan: Continue Entresto and restart carvedilol at 3.125 mg twice a day. Follow-up in 2 weeks. Basic metabolic panel will be checked today (2) Ascites: Comment: Moderate ascites 12/2024 Code(s): R18.8 - Other ascites Category: Medical Plan: Continue furosemide, patient has been tolerating moderate arthritis without shortness or breath. She has an appointment with GI in 2 weeks (3) Bipolar disorder: Comment: follow up with psychiatry Code(s): F31.9 - Bipolar disorder, unspecified Category: Medical Plan: Established with the Psychiatry (4) Liver cirrhosis, alcoholic: Comment: 12/2024 moderate ascites Code(s): K70.30 - Alcoholic cirrhosis of liver without ascites Category: Medical Plan: Continue furosemide, follow-up with GI Orders: Orders Complete Blood Count Auto Diff Today I50.20 - Unspecified systolic (congestive) heart failure, R18.8 - Other ascites Prothrombin Time INR Today R18.8 - Other ascites Comprehensive Met. Panel Today I50.20 - Unspecified systolic (congestive) heart failure, R18.8 - Other ascites NT Pro B Type Natriuretic Pept Today I50.20 - Unspecified systolic (congestive) heart failure, R18.8 - Other ascites Medications: New carvedilol must administer with a meal/food 3.125 mg PO BID 60 tabs 1RF
== END 2025-01-08 13:27 | disposition home or self-care (01) ==
LOC: HO.HMCC 12:13
PROVIDERS: Visit Provider Internal Medicine
DX: I50.20 Unspecified systolic (congestive) heart failure (principal); R18.8 Other ascites; F31.9 Bipolar disorder, unspecified; K70.30 Alcoholic cirrhosis of liver without ascites

== ENCOUNTER → 2025-01-08 12:12 | Outpatient (BNVA) | payer MEDICARE, MEDICAID, SELFPAY | PROVIDERS: Visit Provider Internal Medicine | DX: K70.30 Alcoholic cirrhosis of liver without ascites (principal); I50.20 Unspecified systolic (congestive) heart failure; R18.8 Other ascites; F31.9 Bipolar disorder, unspecified | CPT/HCPCS: 99212 ==

== ENCOUNTER 2025-02-01 13:00 | Outpatient (AMB) | payer MEDICARE, MEDICAID, SELFPAY ==
--- NOTE | 2025-02-01 13:16 | MHC.PC.OV ---
Vital Signs 02/01/25 13:17 Height 5 ft 5 in Weight 166 lb BMI 27.6 BP 100/66 Blood Pressure Location Rt brachial Position Sitting Respiration 17 Pulse 104 H Pulse Source Pulse Oximeter Temp 98.2 F Temp Source Oral Pulse Oximetry (%) 97 Oxygen Delivery Method Room Air Intake Visit Reasons: 2 week follow up Intake Note: Pt is here today for 2 weeks follow up visit. Allergies acetaminophen (From Vicodin) Allergy (Severe, Verified 01/08/25 12:26) Hives hydrocodone (From Vicodin) Allergy (Severe, Verified 01/08/25 12:26) Hives Medication List - Last Reconciled 02/01/25 by Henny Huff MD albuterol sulfate 90 mcg/actuation 2 puffs inhalation Q6H PRN azelastine 137 mcg (0.137 mL) intranasal BID blood pressure kit-extra large As directed carvedilol 3.125 mg PO BID Entresto 24-26 mg (sacubitril-valsartan) 1 tab PO BID NS fexofenadine (Jacinta Allergy) 180 mg PO DAILY folic acid 1 mg PO DAILY furosemide (Lasix) 20 mg PO DAILY magnesium oxide 400 mg PO BEDTIME [oximeter As directed] trazodone 100 mg PO BEDTIME Tobacco use date assessed: 02/01/25 Dental Screening Dental Screen Date: 01/08/25 HPI 2 week follow up HPI Details Patient presents for the follow-up. She was hospitalized at [facility] for worsening abdominal ascites, hypotension and acute kidney failure. Patient is feeling better and has a follow-up with a liquor stores and agencies supervisor at [facility] next month. ON LICENSE OF [facility] Medical History (Updated 02/01/25 @ 15:46 by Henny Huff MD) Liver cirrhosis, alcoholic Heart failure with reduced ejection fraction Herpes zoster anterior uveitis Osteoarthritis of left knee Tachycardia Anxiety Depression Back pain Bipolar disorder ETOH abuse Opiate abuse, continuous Polysubstance abuse Allergic rhinitis Surgical History H/O foot surgery H/O: hysterectomy History of back surgery History of carpal tunnel surgery Family History Mother Cervical cancer Sister Cervical cancer Social History Household Members: None Housing: Apartment Are you a primary resident care director to a significant other at home: No Do you presently have visiting nurse or other home services: No Alcohol intake: current Alcohol intake frequency: 3 or more drinks per day Alcohol type: hard liquor Comment: aware of trip hazard Patient Tobacco Use Status: Current everyday Tobacco user Tobacco use type: Cigarette Cigarettes Per Day: 2 e-Cigarette/Vaping Use: Former Use (July 2020) Advance Directives Date on File: 07/24/21 service: No Current occupational status: unemployed Cognitive needs: No Hearing needs: No Vision needs: Yes Questionnaire Thrive Questionnaire Date Thrive assessed: 01/01/25 I am a: Patient What is your living situation today?: I have a steady place to live Within the past 12 months, did the food you bought not last and you didn't have the money to get more?: Never true Within the past 12 months, did you worry whether your food would run out before you got money to buy more?: Never true Do you have trouble paying for medicines?: No Do you have trouble getting transportation to medical appointments?: No Do you have trouble paying your heating and electricity bill?: No Do you have trouble taking care of your child, family member or friend?: No Do you have trouble with day-to-day activities such as bathing, preparing meals, shopping, managing finances, etc.?: No Are you currently unemployed and looking for a job?: No Are you interested in more education?: No Please select the resources that you would like help with: None Currently or been in a relationship where the following occur: No concerns reported THRIVE Score: 0 ANASTASIA-7 AMB Questionnaire ANASTASIA-7 Date ANASTASIA - 7 assessed: 01/01/25 Source: Developed by Drs. Lane Brenner, Naima Harris, Evgeny Em and colleagues, with an educational danita from [employer]. Review of Systems Const All systems reviewed & are unremarkable except as noted in HPI and below Eyes Reports no additional complaints ENT Reports no additional complaints Card Reports no additional complaints Resp Reports no additional complaints GI Reports no additional complaints Reports no additional complaints Physical exam (Primary Care) Vital Signs: Last Vital Signs Temp 98.2 F 02/01/25 13:17 Pulse 104 H 02/01/25 13:17 Resp 17 02/01/25 13:17 BP 100/66 02/01/25 13:17 Pulse Ox 97 02/01/25 13:17 Oxygen Delivery Method Room Air 02/01/25 13:17 BMI result Body Mass Index 27.6 Tobacco/Smoking Status: Tobacco use Status Tobacco use date assessed 02/01/25 02/01/25 13:29 Patient Tobacco Use Status Current everyday Tobacco 02/01/25 13:17 Tobacco use type Cigarette 02/01/25 13:17 e-Cigarette/Vaping Use Former Use (July 2020) 02/01/25 13:17 Thrive Assessment: Date of Thrive Assessment Date Thrive assessed 01/01/25 02/01/25 13:17 Currently or been in a relationship where the following occur: No concerns reported Const General: no acute distress HENMT Face and sinus: Yes normal facial exam Resp Effort & Inspection: normal respiratory effort Auscultation: clear to auscultation bilaterally Cardio Rhythm: regular rhythm Heart sounds: S1 normal heart sound present and S2 normal heart sound present GI Inspection: Yes distended Palpation (GI): Firmness to palpation present (GI) and No Rebound tenderness present Auscultation: normal bowel sounds Coding Level of Care Code Est Pt Level 4 (48073) Diagnoses Bipolar disorder F31.9 Heart failure with reduced ejection fraction I50.20 Liver cirrhosis, alcoholic K70.30 Assessment & Plan Assessment & Plan (1) Bipolar disorder: Comment: follow up with psychiatry Code(s): F31.9 - Bipolar disorder, unspecified Category: Medical Plan: Follow-up with psychiatry (2) Heart failure with reduced ejection fraction: Comment: f/u PVC [facility], , Echo 2021 EF 25%, GLOBAL HYPOKINESIS. Normal coronaries on catheterization 2021 Code(s): I50.20 - Unspecified systolic (congestive) heart failure Category: Medical Plan: Continue current medications (3) Liver cirrhosis, alcoholic: Comment: 12/2024 moderate ascites, multiple admission to [facility] for decompensated liver failure, established with GI [facility] Code(s): K70.30 - Alcoholic cirrhosis of liver without ascites Category: Medical Plan: Continue current medications and follow-up with GI
[2025-02-01 13:17] VITALS: BP 100/66; PULSE 104; RESP 17; TEMP 36.8; O2SAT 97; BMI 27.6
--- OUTSIDE RECORDS SUMMARY | 2025-02-01 16:13 | XMS_ITS | Clinical Summary ---
Author Organization [facility] Address [address] [place] [phone] Phone Care Team Providers Care Manager Electrical Name Role Phone Henny Huff MD Primary Care Provider [phone] Allergies Active Allergy Reactions Criticality Noted Date Comments Hydrocodone Hives 03/03/2024 Cephalexin 07/28/2024 Medications lamoTRIgine (LaMICtal) 25 mg tablet Take 1 tablet (25 mg total) by mouth 1 (one) time each day. 30 each 5 Active midodrine (PROAMATINE) 5 mg tablet Take 1 tablet (5 mg total) by mouth 3 (three) times a day before meals for 14 days. Hold if Systolic Blood Pressure is >120mmHg 42 each 5 Active furosemide (LASIX) 40 mg tablet Take 1 tablet (40 mg total) by mouth 1 (one) time each day. 30 each 5 02/18/20 25 Active carvediloL (COREG) 3.125 mg tablet Take 1 tablet (3.125 mg total) by mouth 2 (two) times a day with meals. 60 each 5 02/18/20 25 Active naltrexone (DEPADE) 50 mg tablet Take 1 tablet (50 mg total) by mouth 1 (one) time each day. 30 each 5 02/19/20 25 Active spironolactone (ALDACTONE) 50 mg tablet Take 1 tablet (50 mg total) by mouth 1 (one) time each day. 30 each 5 02/19/20 Active thiamine 100 mg tablet Take 1 tablet (100 mg total) by mouth 1 (one) time each day. 30 tablet 5 02/18/20 Active lactulose (CHRONULAC) solution Take 15 mL (10 g total) by mouth 2 (two) times a day. 400 mL 1 Active midodrine (PROAMATINE) 5 mg tablet Take 1 tablet (5 mg total) by mouth 3 (three) times a day before meals. 90 each 5 01/19/20 Discontinu ed(Stop Taking at Discharge) furosemide (LASIX) 20 mg tablet Take 1 tablet (20 mg total) by mouth every other day for 10 days. 5 01/19/20 Discontinu ed(Stop Taking at Discharge) doxycycline (MONODOX) 100 mg capsule Take 1 capsule (100 mg total) by mouth every 12 (twelve) hours for 3 days. Take with at least 8 ounces (large glass) of water, do not lie down for 30 minutes after. Administer 2 hours before or after multivitamins, antacids, or other products containing polyvalent cations (i.e., calcium, iron, magnesium, selenium, zinc). 6 each 5 01/22/20 Active Problems Problem Noted Date Diagnosed Date C. difficile colitis 11/20/2024 Decompensated liver disease ([facility] V24, [facility] V28) 10/10/2024 DVT (deep venous thrombosis) ([facility] V24, [facility] V28) 09/05/2024 HFrEF (heart failure with re duced ejection fraction) ([facility] V24, [facility] V28) 08/04/2024 Hypotension 07/28/2024 Bipolar disorder ([facility] V24, [facility] V28) 08/18 Alcohol abuse 09/08/2022 Acute pancreatitis 09/08/2022 Overview (06/02/2024): Hospitalized at [facility] in 05/2022 with alcohol induced pancreatitis and had cardiomyopathy meds held transiently in setting of volume depletion Cardiomyopathy (CMS/HCC V24, CMS/HCC V28) 2022 Overview (06/02/2024): -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 CHF (congestive heart failure) ([facility] V24, [facility] V28) 04/22/2022 Overview (06/02/2024): Last Assessment & [...] of hypotension she will send me a [employer] message. I am aware that she has [...] Problem Noted Date Diagnosed Date Resolved Date Encephalopathy acute 01/11/2025 025 On mechanically assisted latosha tilation ([facility] V24, [facility] V28) 01/11/2025 01/15/2025 Alcohol withdrawal syndrome without complication ([facility] V24, [facility] V28) 11/07/2024 11/11/2024 Septic shock ([facility] V24, [facility] V28) 10/10/2024 10/14/2024 Electrolyte abnormality 10/10/202409/18 LONG (acute kidney injury) ([facility] V24) 10/10/2024 10/14/2024 Encounters Date Type Department Care Team Description 01/10/2025 7:37 PM EDT - 01/18/2025 2:03 PM EDT Hospital Encounter [facility] [address] [place] [phone] Pierce Miller MD Levrault, Richard, DO Bukalo, Nermina, MD Kokosadze, Estate, MD Encephalopathy acute (Primary Dx); Hyperammonemia ([facility] V24); Acute respiratory failure with hypoxia ([facility] V24, [facility] V28); Hypokalemia; Alcoholic cardiomyopathy ([facility] V24, [facility] V28); Alcohol abuse; Cardiomyopathy, unspecified type ([facility] V24, [facility] V28) Discharge Disposition: Home-Health Care Svc 12/12/2024 Telephone [facility] [address] [facility] [address] [place] [address] Sundeep Kunz NP 12/07/2024 Telephone [facility] [address] [facility] [address] [place] [address] Sundeep Kunz NP 11/16/2024 9:19 AM EDT - 11/26/2024 5:14 PM EDT Hospital Encounter [facility] [address] [place] [address] Jasen Jay DO Flores, Carlos M, MD Mersier, Jasmine, DO Nasser, Nada S, MD Surendran, Anupama, MD Alcohol use disorder (Primary Dx); Elevated bilirubin; LONG (acute kidney injury) ([facility] V24) Discharge Disposition: Alf Facility 11/07/2024 9:24 AM EDT - 11/11/2024 1:09 PM EDT Hospital Encounter [facility] [address] [place] [address] Geetah Gonzalez MD Seralathan, Manikandan, MD Alcohol withdrawal syndrome without complication ([facility] V24, [facility] V28) (Primary Dx) Discharge Disposition: Home-Health Care Svc from Last 3 Months Surgical History Surgery Date Site/Laterality Comments OTHER SURGICAL HISTORY PROCEDURE: SPINAL FUSION, EA ADD'L INTERSPACE; COMMENT: cervical CARPAL TUNNEL RELEASE PROCEDURE: HISTORICAL CARPAL TUNNEL REL OTHER SURGICAL HISTORY PROCEDURE: SPINAL FUSION, EA ADD'L INTERSPACE; COMMENT: lumbar Medical History Medical History Date Comments Alcohol withdrawal ([facility] V24, [facility] V28) DX:Alcohol withdrawal ([facility]) Bipolar disorder, unspecifie d ([facility] V24, [facility] V28) DX:Bipolar disorder, unspeci fied ([facility]) Insomnia DX:Insomnia Obesity DX:Obesity Depressive disorder DX:Depressiv e disorder Anxiety CHF (congestive heart failur e) ([facility] V24, [facility] V28) Dizziness due to hypotensi on versus [...] months you may not have stable housing? Unable to respond 01/11/2025 Food Access & Nutrition Answer Date Rec orded Do you have access to a vari ety of food including fruits and vegetables? Unable to respond 01/11/2025 Access to Healthcare Answer Date Record ed Within the last 3 months, ho hansel many times did you visit the emergency department for your medical care? 3 01/11/2025 Health Literacy Answer Date Recorded How often do you need to hav e someone help you when you read instructions, pamphlets, or other written material from your doctor or pharmacy? Unable to respond 01/11/2025 Caregiver: How often do you need to have someone help you when you read instructions, pamphlets, or other written material from your doctor or pharmacy? Not on file 025 Financial Risk Answer Date Recorded How hard is it for you to pa y for the very basics like food, housing, medical care, and air conditioning / heating? Unable to respond 01/11/2025 Transportation Answer Date Recorded Has the lack of transportati on kept you from meetings, work, or from getting things needed for daily living? Unable to respond 01/11/2025 Has the lack of transportati on kept you from medical appointments or from getting medications? Unable to respond 01/11/2025 Social Isolation Answer Date Recorded How often do you feel lonely or isolated from those around you? Unable to respond 01/11/2025 Food Risk Answer Date Recorded Within the past 12 months we worried whether our food would run out before we got money to buy more. Never true 01/15/2025 Within the past 12 months th e food we bought just didn't last and we didn't have money to get more. Never true 01/15/2025 Dependent Care Answer Date Recorded Do you need help finding or paying for care for your loved ones. For example, children teacher or elderly care for an older adult? Unable to respond 01/11/2025 Education Answer Date Recorded Do you think completing more education or training, like finishing a GED, going to college, or learning a trade, would be helpful for you? Unable to respond 01/11/2025 Employment and Income Answer Date Recor ded During the last four weeks, have you been actively looking for work? Unable to respond 01/11/2025 Living Situation Answer Date Recorded What is your living situation? Unrecognized valu e 01/11/2025 Interpersonal Safety Answer Date Record ed Physical Abuse Unrecognized value 01/16/2025 Verbal Abuse Unrecognized value 01/16/2025 Comments No Sex and Gender Information Value Date Recorded Sex Assigned at Female 07/28/2024 11:02 AM EDT Legal Sex Female 8:02 AM EST Gender Identity Female 07/28/2024 11:02 AM EDT Sexual Orientation Straight 07/28/2024 11 :02 AM EDT Obstetrics History Last Filed Vital Signs Vital Sign Reading Time Taken Comments Blood Pressure 107/67 01/18/2025 11:35 AM EDT Pulse 106 01/18/2025 11:35 AM EDT Temperature 36.4 C (97.5 F) 01/18/2025 11:35 AM EDT Respiratory Rate 18 01/18/2025 11:3 5 AM EDT Oxygen Saturation 99% 01/18/2025 11: 35 AM EDT Inhaled Oxygen Concentration - - Weight 82.4 kg (181 lb 10.5 oz) 01/18/2025 5:30 AM EDT Height 162.6 cm (5' 4 ) 01/14/2025 10:2 3 AM EDT Body Mass Index 31.18 01/14/2025 10:23 AM EDT Plan of Treatment Upcoming Encounters Date Type Department Care Team (Late st Contact Info) Description 03/12/2025 11:00 AM EST Ancillary Procedure [facility] - [facility] [address] [facility] [address] [place] [address] Health Maintenance Due Date Last Done Comments Breast Cancer Screening 1972 DTaP,Tdap,and Td Vaccines (1 - Tdap) 09/11/1991 Hepatitis A Vaccines (1 of 2 - Risk 2-dose series) 09/11/1991 Hepatitis B Vaccines (1 of 3 - 19+ 3-dose series) 09/11/1991 Cervical Cancer Screening: Pap Smear 1993 HIV Screening 03/22/2022 Medicare Annual Wellness Visit 03/22/2022 RSV Immunization Adult Patients (1 - Risk 50-74 years 1-dose series) 2022 Zoster Vaccines (1 of 2) 2022 Depression Screening 04/19/2024 COVID-19 Vaccine ( season) 2024 04/15/2021, 08/07/2020, 07/10/2020 Influenza Vaccine (#1) 2024 , 03/07/2023, 03/23/2022, Additional history exists Colorectal Cancer Screening: Stool Based Tests (FOBT/FIT) 11/11/2025 11/11/2024, 10/11/2024 Social Influencers of Health Screening 01/15/2026 01/15/2025 Hypertension/CHF/CAD Annual BMP Blood Test 01/18/2026 01/18/2025, 01/17/2025, 01/17/2025, Additional history exists Cholesterol Screening (Lipid Panel) 01/10/2030 01/10/2025, 05/13/2022, 05/13/2022 Pneumococcal Vaccine: 50+ Years Completed [...] Procedure Name Priority Date/Time Associated Diagnosis Comments ECG OUTSIDE 01/19/2025 CBC WITH AUTO DIFFERENTIAL Routine 01/18/2025 6:31 AM EDT MAGNESIUM Routine 01/18/2025 6:31 AM EDT CBC AND DIFFERENTIAL Routine 01/18/2025 6:31 AM EDT BASIC METABOLIC PANEL Routine 01/18/2025 6:31 AM EDT OXYGEN THERAPY, ADULT Routine 01/17/2025 8:00 PM EDT BASIC METABOLIC PANEL STAT 01/17/2025 4:31 PM EDT OXYGEN THERAPY, ADULT Routine 01/17/2025 8:00 AM EDT CBC WITH AUTO DIFFERENTIAL Routine 01/17/2025 5:53 AM EDT BASIC METABOLIC PANEL Routine 01/17/2025 5:53 AM EDT CBC AND DIFFERENTIAL Routine 01/17/2025 5:53 AM EDT OXYGEN THERAPY, ADULT Routine 01/16/2025 8:00 PM EDT OXYGEN THERAPY, ADULT Routine 01/16/2025 8:00 AM EDT OXYGEN THERAPY, ADULT Routine 01/15/2025 8:00 PM EDT POCT GLUCOSE BLOOD Routine 01/15/2025 4: 35 PM EDT POCT GLUCOSE BLOOD Routine 01/15/2025 11:12 AM EDT OXYGEN THERAPY, ADULT Routine 01/15/2025 8:00 AM EDT PROCALCITONIN STAT Add-on 01/15/2025 4:29 AM EDT CBC WITH AUTO DIFFERENTIAL Routine 01/15/2025 4:29 AM EDT CBC AND DIFFERENTIAL Routine 01/15/2025 4:29 AM EDT AMMONIA Routine 01/15/2025 4:29 AM EDT PHOSPHORUS Routine 01/15/2025 4:29 AM EDT MAGNESIUM Routine 01/15/2025 4:29 AM EDT CALCIUM, IONIZED Routine 01/15/2025 4:29 AM EDT BASIC METABOLIC PANEL Routine 01/15/2025 4:29 AM EDT POCT GLUCOSE BLOOD Routine 01/15/2025 12:01 AM EDT OXYGEN THERAPY, ADULT Routine 01/14/2025 8:00 PM EDT POCT GLUCOSE BLOOD Routine 01/14/2025 5: 17 PM EDT PHOSPHORUS Routine 01/14/2025 1:27 PM EDT MAGNESIUM Routine 01/14/2025 1:27 PM EDT CALCIUM, IONIZED Routine 01/14/2025 1:27 PM EDT BASIC METABOLIC PANEL Routine 01/14/2025 1:27 PM EDT OXYGEN THERAPY, ADULT Routine 01/14/2025 1:03 PM EDT OXYGEN THERAPY, ADULT Routine 01/14/2025 1:03 PM EDT POCT GLUCOSE BLOOD Routine 01/14/2025 11:22 AM EDT EXTUBATION Routine 01/14/2025 11:16 AM EDT AMMONIA Routine 01/14/2025 8:09 AM EDT TRANSTHORACIC ECHOCARDIOGRAM (TTE) LIMITED WITH CONTRAST Routine 01/14/2025 8:00 AM EDT Alcoholic cardiomyopathy (CMS/HCC V24, CMS/HCC V28) XR CHEST 1 VIEW Routine 01/14/2025 5:30 AM EDT MAGNESIUM Routine 01/14/2025 4:16 AM EDT PHOSPHORUS Routine 01/14/2025 4:16 AM EDT CBC WITH AUTO DIFFERENTIAL Routine 01/14/2025 4:16 AM EDT PROCALCITONIN Routine 01/14/2025 4:16 AM EDT CALCIUM, IONIZED Routine 01/14/2025 4:16 AM EDT CBC AND DIFFERENTIAL Routine 01/14/2025 4:16 AM EDT BASIC METABOLIC PANEL Routine 01/14/2025 4:16 AM EDT ARTERIAL BLOOD GAS Routine 01/14/2025 3: 55 AM EDT POCT GLUCOSE BLOOD Routine 01/14/2025 12:18 AM EDT POCT GLUCOSE BLOOD Routine 01/13/2025 5: 36 PM EDT POCT GLUCOSE BLOOD Routine 01/13/2025 11:20 AM EDT VENTILATOR, ADULT Routine 01/13/2025 8:0 0 AM EDT XR CHEST 1 VIEW Routine 01/13/2025 5:35 AM EDT ARTERIAL BLOOD GAS Routine 01/13/2025 4: 33 AM EDT PROCALCITONIN Add-On 01/13/2025 4:11 AM EDT CBC WITH AUTO DIFFERENTIAL Routine 01/13/2025 4:11 AM EDT PHOSPHORUS Routine 01/13/2025 4:11 AM EDT MAGNESIUM Routine 01/13/2025 4:11 AM EDT COMPREHENSIVE METABOLIC PANEL Routine 01/13/2025 4:11 AM EDT CBC AND DIFFERENTIAL Routine 01/13/2025 4:11 AM EDT TRIGLYCERIDES Routine 01/13/2025 4:11 AM EDT POCT GLUCOSE BLOOD Routine 01/12/2025 11:46 PM EDT POCT GLUCOSE BLOOD Routine 01/12/2025 5: 10 PM EDT PHOSPHORUS Routine 01/12/2025 1:27 PM EDT MAGNESIUM Routine 01/12/2025 1:27 PM EDT CALCIUM, IONIZED Routine 01/12/2025 1:27 PM EDT BASIC METABOLIC PANEL Routine 01/12/2025 1:27 PM EDT NON-GYNECOLOGIC CYTOLOGY Routine 01/12/2025 11:53 AM EDT DIFFERENTIAL BODY FLUID Routine 01/12/2025 11:53 AM EDT PH, BODY FLUID Routine 01/12/2025 11:53 AM EDT GLUCOSE, BODY FLUID Routine 01/12/2025 11:53 AM EDT CELL COUNT WITH REFLEX DIFFERENTIAL, BODY FLUID Routine 01/12/2025 11:53 AM EDT ALBUMIN, BODY FLUID Routine 01/12/2025 11:53 AM EDT CULTURE BODY FLUID WITH GRAM STAIN Routine 01/12/2025 11:53 AM EDT POCT GLUCOSE BLOOD Routine 01/12/2025 11:06 AM EDT CULTURE URINE Routine 01/12/2025 8:25 AM EDT VENTILATOR, ADULT Routine 01/12/2025 8:0 1 AM EDT XR CHEST 1 VIEW STAT 01/12/2025 5:47 AM EDT CBC WITH AUTO DIFFERENTIAL Routine 01/12/2025 4:35 AM EDT CBC AND DIFFERENTIAL Routine 01/12/2025 4:35 AM EDT AMMONIA Routine 01/12/2025 4:35 AM EDT PROCALCITONIN Routine 01/12/2025 4:35 AM EDT HEPATIC FUNCTION PANEL Routine 4:35 AM EDT PHOSPHORUS Routine 01/12/2025 4:35 AM EDT MAGNESIUM Routine 01/12/2025 4:35 AM EDT CALCIUM, IONIZED Routine 01/12/2025 4:35 AM EDT BASIC METABOLIC PANEL Routine 01/12/2025 4:35 AM EDT ARTERIAL BLOOD GAS Routine 01/12/2025 4: 27 AM EDT POCT GLUCOSE BLOOD Routine 01/12/2025 12:01 AM EDT PHOSPHORUS Routine 01/11/2025 9:01 PM EDT MAGNESIUM Routine 01/11/2025 9:01 PM EDT CALCIUM, IONIZED Routine 01/11/2025 9:01 PM EDT BASIC METABOLIC PANEL Routine 01/11/2025 9:01 PM EDT VENTILATOR, ADULT Routine 01/11/2025 8:0 0 PM EDT POCT GLUCOSE BLOOD Routine 01/11/2025 5: 43 PM EDT POCT GLUCOSE BLOOD Routine 01/11/2025 11:51 AM EDT CALCIUM, IONIZED Routine 01/11/2025 11:04 AM EDT PHOSPHORUS Routine 01/11/2025 11:04 AM EDT MAGNESIUM Routine 01/11/2025 11:04 AM EDT BASIC METABOLIC PANEL Routine 01/11/2025 11:04 AM EDT CORTISOL Add-On 01/11/2025 11:04 AM EDT TREPONEMA PALLIDUM ANTIBODY WITH REFLEX TO RPR AND PARTICLE AGGLUTINATION Routine 01/11/2025 11:04 AM EDT VITAMIN B12 Add-On 01/11/2025 11:04 AM EDT INSERT PICC LINE Routine 01/11/2025 9:55 AM EDT VENTILATOR, ADULT Routine 01/11/2025 9:1 2 AM EDT VENTILATOR, ADULT Routine 01/11/2025 9:1 2 AM EDT DRUG ABUSE SCREEN 8A PANEL, URINE Routine 01/11/2025 5:51 AM EDT FOLATE Add-On 01/11/2025 4:28 AM EDT CBC WITH AUTO DIFFERENTIAL Routine 01/11/2025 4:28 AM EDT HEPATIC FUNCTION PANEL Routine 4:28 AM EDT CALCIUM, IONIZED Routine 01/11/2025 4:28 AM EDT PHOSPHORUS Routine 01/11/2025 4:28 AM EDT MAGNESIUM Routine 01/11/2025 4:28 AM EDT BASIC METABOLIC PANEL Routine 01/11/2025 4:28 AM EDT CBC AND DIFFERENTIAL Routine 01/11/2025 4:28 AM EDT CULTURE SPUTUM Routine 01/11/2025 4:09 AM EDT ARTERIAL BLOOD GAS Routine 01/11/2025 3: 38 AM EDT POCT GLUCOSE BLOOD Routine 01/11/2025 3: 37 AM EDT RESPIRATORY VIRUS PANEL MOLECULAR STUDY Routine 01/11/2025 3:29 AM EDT MRSA PCR Routine 01/11/2025 3:[address] ABDOMEN PELVIS W CONTRAST STAT 01/11/2025 2:20 AM EDT VENTILATOR, ADULT Routine 01/11/2025 1:3 0 AM EDT BANDA URINE CULTURE TUBE Routine 01/11/2025 1:22 AM EDT EXTRA TUBES Routine 01/11/2025 1:22 AM EDT URINALYSIS WITH REFLEX MICROSCOPIC STAT 01/11/2025 1:22 AM EDT URINALYSIS WITH REFLEX MICROSCOPIC STAT 01/11/2025 1:22 AM EDT XR CHEST 1 VIEW STAT 01/11/2025 1:13 AM EDT VENTILATOR, ADULT Routine 01/11/2025 12:46 AM EDT ED INTUBATION Routine 01/11/2025 12:45 AM EDT ECG ANNOTATED 01/11/2025 ECG 12-LEAD STAT 01/10/2025 10:27 PM EDT PROCALCITONIN Add-On 01/10/2025 9:27 PM EDT PROLACTIN Add-On 01/10/2025 9:27 PM EDT THYROID STIMULATING HORMONE WITH REFLEX TO FREE T4 AND FREE T3 Add-On 01/10/2025 9:27 PM EDT LIPID PANEL WITH REFLEX TO DIRECT LDL Add-On 01/10/2025 9:27 PM EDT TREPONEMA PALLIDUM ANTIBODY WITH REFLEX TO RPR AND PARTICLE AGGLUTINATION Add-On 01/10/2025 9:27 PM EDT THYROID STIMULATING HORMONE Add-On 01/10/2025 9:27 PM EDT TRIGLYCERIDES Add-On 01/10/2025 9:27 PM EDT PHOSPHORUS Add-On 01/10/2025 9:27 PM EDT CBC WITH AUTO DIFFERENTIAL STAT 01/10/2025 9:27 PM EDT AMMONIA STAT 01/10/2025 9:27 PM EDT LIPASE STAT 01/10/2025 9:27 PM EDT LACTATE, WITH REFLEX STAT 01/10/2025 9:27 PM EDT SALICYLATE LEVEL STAT 01/10/2025 9:27 PM EDT ACETAMINOPHEN LEVEL STAT 01/10/2025 9 :27 PM EDT ETHANOL STAT 01/10/2025 9:27 PM EDT COMPREHENSIVE METABOLIC PANEL STAT 01/10/2025 9:27 PM EDT MAGNESIUM STAT 01/10/2025 9:27 PM EDT TROPONIN I HIGH SENSITIVITY STAT 01/10/2025 9:27 PM EDT ACTIVATED PARTIAL THROMBOPLASTIN TIME STAT 01/10/2025 9:27 PM EDT PROTHROMBIN TIME WITH INR STAT 01/10/2025 9:27 PM EDT CBC AND DIFFERENTIAL STAT 01/10/2025 9:27 PM EDT CULTURE BLOOD STAT 01/10/2025 9:27 PM EDT CULTURE BLOOD STAT 01/10/2025 9:27 PM EDT XR CHEST 1 VIEW STAT 01/10/2025 9:[address] HEAD WO CONTRAST STAT 01/10/2025 8 :54 PM EDT [facility] 30-74 MINUTES Routine 01/10/2025 7:31 PM EDT PHOSPHORUS Add-On 11/25/2024 5:14 AM EDT MAGNESIUM Add-On 11/25/2024 5:14 AM EDT CBC WITH AUTO DIFFERENTIAL Routine 11/25/2024 5:14 AM EDT BASIC METABOLIC PANEL Routine 11/25/2024 5:14 AM EDT CBC AND DIFFERENTIAL Routine 11/25/2024 5:14 AM EDT DIFFERENTIAL BODY FLUID Routine 11/24/2024 1:08 PM EDT PROTEIN, BODY FLUID Routine [...] PM EDT POCT GLUCOSE BLOOD Routine 11/18/2024 11:19 AM EDT POCT GLUCOSE BLOOD Routine 11/18/2024 [...] 3:39 PM EDT DIFFERENTIAL BODY FLUID Routine 11/17/2024 3:39 PM EDT CELL COUNT WITH REFLEX [...] PM EDT POCT GLUCOSE BLOOD Routine 11/17/2024 11:26 AM EDT POCT GLUCOSE BLOOD Routine 11/17/2024 [...] AM EDT POCT GLUCOSE BLOOD Routine 11/17/2024 12:29 AM EDT POCT GLUCOSE BLOOD Routine 11/16/2024 10:39 PM EDT LAMOTRIGINE LEVEL Timed 11/16/2024 8:5 [...] EDT XR CHEST 2 VIEWS STAT 11/16/2024 12:08 PM EDT XR ANKLE 3+ VIEWS LEFT STAT 12:08 PM EDT POCT GLUCOSE BLOOD Routine 11/16/2024 11:33 AM EDT POCT GLUCOSE BLOOD Routine 11/16/2024 10:51 AM EDT LACTATE STAT 11/16/2024 10:23 AM [...] ECG 12-LEAD STAT 11/16/2024 10:03 AM EDT [facility] CRITICAL CARE 30-74 MINUTES Routine 11/16/2024 9:17 [...] AM EDT BANDA URINE CULTURE TUBE STAT 11/08/2024 11:41 AM EDT URINALYSIS WITH [...] EDT XR CHEST 2 VIEWS STAT 11/07/2024 12:45 PM EDT TROPONIN I HIGH SENSITIVITY Timed [...] EDT CT HEAD WO CONTRAST STAT 11/07/2024 10:[address] CERVICAL SPINE WO CONTRAST STAT 11/07/2024 10:29 AM EDT from Last 3 Months Results * ECG-Outside (01/19/2025) us Provider Onbase MD ECG ORDERABLES Final Result * (ABNORMAL) CBC auto differential (01/18/2025 6:31 AM EDT) Only the most recent of18 resultswithin the time period is included. WBC 8.1 4.8 - 10.8 K/mcL LAB HEMETOLOGY METHOD 01/18/2025 7:[address] [facility] RBC 2.90(L) 3.80 - 4.80 M/mcL LAB HEMETOLOGY METHOD 01/18/2025 7:[address] [facility] Hemoglobin 9.1(L) 11.5 - 16.0 g/dL LAB HEMETOLOGY METHOD 01/18/2025 7:[address] [facility] Hematocrit 27.5(L) 35.0 - 47.0 % LAB HEMETOLOGY METHOD 01/18/2025 7:[address] [facility] MCV 94.5 79.0 - 98.0 FL LAB HEMETOLOGY METHOD 01/18/2025 7:[address] [facility] MCH 31.3 27.0 - 32.0 pcg LAB HEMETOLOGY METHOD 01/18/2025 7:[address] [facility] MCHC 33.1 32.0 - 37.0 g/dL LAB HEMETOLOGY METHOD 01/18/2025 7:[address] [facility] RDW 14.4 11.0 - 15.0 % LAB HEMETOLOGY METHOD 01/18/2025 7:[address] [facility] Platelets 95(L) 130 - 400 K/mcL LAB HEMETOLOGY METHOD 01/18/2025 7:[address] [facility] Comment:reviewed by slide MPV 10.8 7.0 - 11.0 FL LAB HEMETOLOGY METHOD 01/18/2025 7:[address] [facility] NRBC 0.0 <1.0 % LAB HEMETOLOGY METHOD 01/18/2025 7:[address] [facility] NRBC Absolute 0.00 <0.10 K/mcL LAB HEMETOLOGY METHOD 01/18/2025 7:[address] [facility] Neutrophils Relative 54.3 % LAB HEMETOLOGY METHOD 01/18/2025 7:[address] [facility] Lymphocytes Relative 31.4 % LAB HEMETOLOGY METHOD 01/18/2025 7:[address] [facility] Monocytes Relative 8.5 % LAB HEMETOLOGY METHOD 01/18/2025 7:[address] [facility] Eosinophils Relative 5.1 % LAB HEMETOLOGY METHOD 01/18/2025 7:[address] [facility] Basophils Relative 0.2 % LAB HEMETOLOGY METHOD 01/18/2025 7:[address] [facility] Immature Granulocytes Relative 0.5 % LAB HEMETOLOGY METHOD 01/18/2025 7:[address] [facility] Neutrophils Absolute 4.39 1.50 - 7.00 K/mcL LAB HEMETOLOGY METHOD 01/18/2025 7:[address] [facility] Lymphocytes Absolute 2.54 1.00 - 5.00 K/mcL LAB HEMETOLOGY METHOD 01/18/2025 7:[address] [facility] Monocytes Absolute 0.69 0.20 - 1.00 K/mcL LAB HEMETOLOGY METHOD 01/18/2025 7:[address] [facility] Eosinophils Absolute 0.41 0.00 - 0.50 K/mcL LAB HEMETOLOGY METHOD 01/18/2025 7:[address] [facility] Basophils Absolute 0.02 0.00 - 0.20 K/mcL LAB HEMETOLOGY METHOD 01/18/2025 7:19 AM EDT [facility] Immature Granulocytes Absolute 0.04(H) 0.00 - 0.03 K/mcL LAB HEMETOLOGY METHOD 01/18/2025 7:19 AM EDT [facility] Blood Venous blood specimen / Unknown Venipuncture / Unknown 01/18/2025 6:31 AM EDT 01/18/2025 6:43 AM EDT us Gautam Hodge MD LAB BLOOD ORDERABLES Final R esult Performing Organization Address [facility] Co de Phone Number [facility] [address] [place] [address], [place] [phone] * (ABNORMAL) Magnesium (01/18/2025 6:31 AM EDT) Only the most recent of24 resultswithin the time period is included. Magnesium 1.5(L) 1.9 - 2.6 mg/dL LAB CHEMISTRY METHOD 01/18/2025 7:12 AM EDT [facility] Blood Venous blood specimen / Unknown Venipuncture / Unknown 01/18/2025 6:31 AM EDT 01/18/2025 6:42 AM EDT us Gautam Hodge MD LAB BLOOD ORDERABLES Final R esult Performing Organization Address City/[facility]/ZIP Co de Phone Number [facility] [address] [place] [address], [place] [phone] * (ABNORMAL) Basic metabolic panel (01/18/2025 6:31 AM EDT) Only the most recent of20 resultswithin the time period is included. Sodium 141 133 - 145 mmol/L LAB CHEMISTRY METHOD 01/18/2025 7:12 AM EDT [facility] Potassium 3.2(L) 3.5 - 5.5 mmol/L LAB CHEMISTRY METHOD 01/18/2025 7:[address] [facility] Chloride 107 96 - 110 mmol/L LAB CHEMISTRY METHOD 01/18/2025 7:[address] [facility] CO2 30 21 - 32 mmol/L LAB CHEMISTRY METHOD 01/18/2025 7:[address] [facility] Anion Gap 4 3 - 11 LAB CHEMISTRY METHOD 01/18/2025 7:[address] [facility] Glucose 113(H) 70 - 100 mg/dL LAB CHEMISTRY METHOD 01/18/2025 7:[address] [facility] BUN 15 5 - 25 mg/dL LAB CHEMISTRY METHOD 01/18/2025 7:[address] [facility] Creatinine 0.35(L) 0.50 - 1.10 mg/dL LAB CHEMISTRY METHOD 01/18/2025 7:[address] [facility] eGFR 123 >=60 mL/min/1. 73m2 LAB CHEMISTRY METHOD 01/18/2025 7:[address] [facility] Comment:Calculation based on the Chronic Kidney Disease Epidemiology Collaboration (CKD-EPI) equation refit without adjustment for race. BUN/Creatinine Ratio 42.9 LAB CHEMISTRY METHOD 01/18/2025 7:[address] [facility] Calcium 8.7 8.5 - 10.5 mg/dL LAB CHEMISTRY METHOD 01/18/2025 7:[address] [facility] Blood Venous blood specimen / Unknown Venipuncture / Unknown 01/18/2025 6:31 AM EDT 01/18/2025 6:42 AM EDT us Gautam Hodge MD LAB BLOOD ORDERABLES Final R esult [facility] [address] [place] [address], * (ABNORMAL) POCT Glucose, blood (01/15/2025 4:35 PM EDT) Only the most recent of33 resultswithin the time period is included. Glucose POCT 205(H) 70 - 100 mg/dL 01/15/2025 4:35 PM EDT [facility] Blood Capillary blood specimen / Unknown 01/15/2025 4:35 PM EDT 01/15/2025 4:37 PM EDT us Geetha Gonzalez MD LAB POINT OF CARE TE ST DOCKED DEVICE UNSOLICITED RESULTS Final Result [facility] [address] [place] [address], [place] [phone] * Procalcitonin (01/15/2025 4:29 AM EDT) Only the most recent of5 resultswithin the time period is included. Pathologist [facility] Procalcitonin 0.02 <=0.16 ng/mL LAB CHEMISTRY METHOD 01/15/2025 10:02 AM EDT [facility] Blood Venous blood specimen / Unknown Venipuncture / Unknown 01/15/2025 4:29 AM EDT 01/15/2025 4:43 AM EDT Narrative [facility] - 01/15/2025 10:02 AM EDT Procalcitonin > 2.00 ng/ml: Procalcitonin [...] if any concentrations <2.0 ng/mL are obtained. Geetha Gonzalez MD LAB BLOOD ORDERABLES Final Res ult Performing Organization Address City/[facility]/ZIP Co de Phone Number [facility] [address] [place] [address], [place] [phone] * Phosphorus (01/15/2025 4:29 AM EDT) Only the most recent of16 resultswithin the time period is included. Phosphorus 3.3 2.5 - 4.5 mg/dL LAB CHEMISTRY METHOD 01/15/2025 5:08 AM EDT [facility] Blood Venous blood specimen / Unknown Venipuncture / Unknown 01/15/2025 4:29 AM EDT 01/15/2025 4:43 AM EDT Gordy Herrera DO LAB BLOOD ORDERABLES Final R esult Performing Organization Address [facility] Co de Phone Number [facility] [address] [place] [address], [place] [phone] * Calcium, ionized (01/15/2025 4:29 AM EDT) Only the most recent of8 resultswithin the time period is included. Calcium Ionized 4.74 4.50 - 5.30 mg/dL 01/15/2025 4:46 AM EDT [facility] Blood Venous blood specimen / Unknown Venipuncture / Unknown 01/15/2025 4:29 AM EDT 01/15/2025 4:43 AM EDT Gordy Herrera LAB BLOOD ORDERABLES Final R esult Performing Organization Address City/[facility]/ZIP Co de Phone Number [facility] [address] [place] [address], [place] [phone] * Ammonia (01/15/2025 4:29 AM EDT) Only the most recent of6 resultswithin the time period is included. [facility] Ammonia 29 11 - 35 mcmol/L LAB CHEMISTRY METHOD 01/15/2025 5:08 AM EDT [facility] Blood Venous blood specimen / Unknown Venipuncture / Unknown 01/15/2025 4:29 AM EDT 01/15/2025 4:43 AM EDT us Gordy Herrera DO LAB BLOOD ORDERABLES Final R esult [facility] [address] [place] [address], [place] [phone] * (ABNORMAL) TRANSTHORACIC ECHOCARDIOGRAM (TTE) LIMITED WITH CONTRAST (01/14/2025 8:00 AM EDT) [facility] IVSD 1.0(A) 0.6 - 0.9 cm CV PACS LVIDD 5.0 3.8 - 5.2 cm CV PACS LVIDS 3.2 2.2 - 3.5 cm CV PACS LVPWD 0.9 0.6 - 0.9 cm CV PACS RV S' 17 cm/s CV PACS Relative Wall Thickness ratio 0.36 CV PACS FS 36 % CV PACS LV Mass 2D 170 g CV PACS LVIDD Index 2.63 cm/m2 CV PACS LVIDS Index 1.68 cm/m2 CV PACS LV Mass Index 2D 89 g/m2 CV PACS BSA 1.96 m2 CV PACS Anatomical Region Laterality Modality Ultrasound Narrative 01/15/2025 8:58 AM EDT Left ventricle cavity size is normal. Wall thickness is normal. Systolic function is low normal with an ejection fraction of 50-55%. Hypokinesis of mid-apical anteroseptum. Right ventricle cavity is normal. Right ventricular systolic function is normal. There is a left pleural effusion. Compared to previous study of 10/11/2024, left ventricular systolic function has improved overall. Left Ventricle Left ventricle cavity size is normal. Wall thickness is normal. Systolic function is low normal with an ejection fraction of 50-55%. Hypokinesis of mid-apical anteroseptum. Right Ventricle Right ventricle cavity appears normal. Systolic function is normal. Pericardium Pericardium appears normal. There is a left pleural effusion. Study Details Overall the study quality was technically difficult. Definity contrast was given to enhance imaging. Study was difficult due to: poor endocardial visualization, procedure performed with the patient in a supine position and mechanically ventilated. us Gordy Juarezofelia DO CV ECHO PROCEDURES Final Res ult * XR Chest 1 View (01/14/2025 5:30 AM EDT) Only the most recent of5 resultswithin the time period is included. Anatomical Region Laterality Modality Body Radiographic Justina ging 01/14/2025 8:25 AM EDT Impressions 01/14/2025 8:26 AM EDT No change in bibasal haziness likely effusion with underlying atelectasis. Support lines and catheters are stable. -------- FINAL REPORT -------- Dictated By: Abisai Babb Dictated Date: 01/14/2025 08:25 ET Assigned Physician: Abisai Babb Reviewed and Electronically Signed By: Abisai Babb Signed Date: 01/14/2025 08:26 ET Workstation ID: [id number] Transcribed By: Self Edit Transcribed Date: 01/14/2025 08:25 ET Narrative 01/14/2025 8:26 AM EDT Examination: Chest portable semiupright at 0530 hours. CLINICAL INDICATION: Dyspnea. COMPARISON: Chest 01/13/2025. FINDINGS: The lungs are hyperexpanded with bilateral basilar haziness likely from pleural effusion and underlying atelectasis. The upper lungs are clear. Endotracheal tube tip is 3.9 cm above the bridget. NG tube tip is below the diaphragm in the stomach. The heart size and pulmonary vascularity is normal. The right PICC line tip is in proximal SVC.. Procedure Note Abisai Babb MD - 01/14/2025 Examination: Chest portable semiupright at 0530 hours. CLINICAL INDICATION: Dyspnea. COMPARISON: Chest 01/13/2025. FINDINGS: The lungs are hyperexpanded with bilateral basilar hazinesslikely from pleural effusion and underlying atelectasis. The upper lungsare clear. Endotracheal tube tip is 3.9 cm above the bridget. NG tube tipis below the diaphragm in the stomach. The heart size and pulmonaryvascularity is normal. The right PICC line tip is in proximal SVC.. IMPRESSION: No change in bibasal haziness likely effusion with underlying atelectasis.Support lines and catheters are stable. -------- FINAL REPORT -------- Dictated By: Abisai Babb Dictated Date: 01/14/2025 08:25 ET Assigned Physician: Abisai Babb Reviewed and Electronically Signed By: Abisai Babb Signed Date: 01/14/2025 08:26 ET Workstation ID: [id number] Transcribed By: Self Edit Transcribed Date: 01/14/2025 08:25 ET Jackelyn Sheldon NP IMG XR PROCEDURES Final Result * (ABNORMAL) Arterial blood gas (01/14/2025 3:55 AM EDT) Only the most recent of4 resultswithin the time period is included. pH, Arterial 7.50(H) 7.35 - 7.45 pH 01/14/2025 4:[address] [facility] pCO2, Arterial 36 35 - 45 mmHg 01/14/2025 4:[address] [facility] pO2, Arterial 61(L) 80 - 100 mmHg 01/14/2025 4:[address] [facility] HCO3, Arterial 28.5(H) 22.0 - 26.0 mmol/L 01/14/2025 4:[address] [facility] O2 Sat, Arterial 95.1 95.0 - 98.0 % 01/14/2025 4:[address] [facility] Base Excess, Arterial 4.8(H) -2.0 - 2.0 mmol/L 01/14/2025 4:22 AM EDT [facility] Hany Test Pass Pass, Unresponsi ve, Line 01/14/2025 4:22 AM EDT [facility] FIO2 30.00 01/14/2025 4:22 AM EDT [facility] Blood Arterial blood specimen / Unknown Arterial Puncture / Unknown 01/14/2025 3:55 AM EDT 01/14/2025 4:19 AM EDT us Jackelyn Sheldon NP LAB BLOOD ORDERABLES Final Resul t Performing Organization Address [facility]/ZIP Co de Phone Number [facility] [address] [place] [address], [place] [phone] * Triglyceride Monitoring (01/13/2025 4:11 AM EDT) Only the most recent of2 resultswithin the time period is included. Triglycerides 93 0 - 150 mg/dL LAB CHEMISTRY METHOD 01/13/2025 4:51 AM EDT [facility] Blood Blood sample taken from central line / Unknown Venipuncture / Unknown 01/13/2025 4:11 AM EDT 01/13/2025 4:24 AM EDT us Jackelyn Sheldon NP LAB BLOOD ORDERABLES Final Resul t Performing Organization Address City/[facility]/ZIP Co de Phone Number [facility] [address] [place] [address], [place] [phone] * (ABNORMAL) Comprehensive metabolic panel (01/13/2025 4:11 AM EDT) Only the most recent of7 resultswithin the time period is included. Sodium 143 133 - 145 mmol/L LAB CHEMISTRY METHOD 01/13/2025 4:51 AM EDT [facility] Potassium 3.8 3.5 - 5.5 mmol/L LAB CHEMISTRY METHOD 01/13/2025 4:[address] [facility] Chloride 110 96 - 110 mmol/L LAB CHEMISTRY METHOD 01/13/2025 4:[address] [facility] CO2 28 21 - 32 mmol/L LAB CHEMISTRY METHOD 01/13/2025 4:[address] [facility] Anion Gap 5 3 - 11 LAB CHEMISTRY METHOD 01/13/2025 4:[address] [facility] Glucose 139(H) 70 - 100 mg/dL LAB CHEMISTRY METHOD 01/13/2025 4:[address] [facility] BUN 10 5 - 25 mg/dL LAB CHEMISTRY METHOD 01/13/2025 4:[address] [facility] Creatinine 0.48(L) 0.50 - 1.10 mg/dL LAB CHEMISTRY METHOD 01/13/2025 4:[address] [facility] eGFR 114 >=60 mL/min/1. 73m2 LAB CHEMISTRY METHOD 01/13/2025 4:[address] [facility] Comment:Calculation based on the Chronic Kidney Disease Epidemiology Collaboration (CKD-EPI) equation refit without adjustment for race. BUN/Creatinine Ratio 20.8 LAB CHEMISTRY METHOD 01/13/2025 4:[address] [facility] Calcium 8.6 8.5 - 10.5 mg/dL LAB CHEMISTRY METHOD 01/13/2025 4:[address] [facility] AST (SGOT) 29 10 - 42 unit/L LAB CHEMISTRY METHOD 01/13/2025 4:[address] [facility] ALT (SGPT) 22 10 - 60 unit/L LAB CHEMISTRY METHOD 01/13/2025 4:[address] [facility] Alkaline Phosphatase 78 42 - 121 unit/L LAB CHEMISTRY METHOD 01/13/2025 4:[address] [facility] Total Protein 5.5(L) 6.0 - 8.0 g/dL LAB CHEMISTRY METHOD 01/13/2025 4:51 AM EDT [facility] Albumin 3.3 3.2 - 5.0 g/dL LAB CHEMISTRY METHOD 01/13/2025 4:51 AM EDT [facility] Total Bilirubin 2.1(H) 0.0 - 1.4 mg/dL LAB CHEMISTRY METHOD 01/13/2025 4:51 AM EDT [facility] Blood Blood sample taken from central line / Unknown Venipuncture / Unknown 01/13/2025 4:11 AM EDT 01/13/2025 4:24 AM EDT us Deepali Jones BLAST FURNACE OPERATOR LAB BLOOD ORDERABLES Final Res ult [facility] [address] [place] [address], [place] [phone] * Cell count with reflex differential, body fluid (01/12/2025 11:53 AM EDT) Only the most recent of3 resultswithin the time period is included. Body Fluid Total Nucleated Cells 121 /mm3 LAB HEMETOLOGY METHOD 01/12/2025 1:22 PM EDT [facility] Body Fluid RBC <1,000 /mm3 LAB HEMETOLOGY METHOD 01/12/2025 1:22 PM EDT [facility] Body Fluid Color Yellow 01/12/2025 1:22 PM EDT [facility] Body Fluid Clarity Clear 01/12/2025 1:22 PM EDT [facility] Body Fluid Source Peritoneal 01/12/2025 1:22 PM EDT [facility] Peritoneal Fluid Peritoneal cavity structure / Unknown Non-blood Collection / Unknown 01/12/2025 11:53 AM EDT 01/12/2025 12:03 PM EDT Narrative [facility] - 01/12/2025 1:22 PM EDT No reference ranges have been established for body fluids. Clinical correlation recommended. Gordy Herrera DO LAB BODY FLUIDS AND STOOLS O RDERABLES Final Result Performing Organization Address [facility] Co de Phone Number [facility] [address] [place] [address], [place] [phone] * Culture body fluid with gram stain (01/12/2025 11:53 AM EDT) Only the most recent of3 resultswithin the time period is included. Fluid Culture No growth LAB MICROBIOLOGY METHOD 01/15/2025 12:04 PM EDT [facility] Gram Stain Result No polymorphonuclear leukocytes, No epithelial cells, and No organisms noted 01/15/2025 12:04 PM EDT [facility] Peritoneal Fluid Peritoneal cavity structure / Unknown Non-blood Collection / Unknown 01/12/2025 11:53 AM EDT 01/12/2025 12:03 PM EDT us Gordy Herrera DO LAB MICROBIOLOGY - GENERAL O RDERABLES Final Result Performing Organization Address [facility] Co de Phone Number [facility] [address] [place] [address], [place] [phone] * Differential body fluid (01/12/2025 11:53 AM EDT) Only the most recent of3 resultswithin the time period is included. Fluid Neutrophils % 36 % 01/12/2025 1:22 PM EDT [facility] Fluid Lymphocytes % 26 % 01/12/2025 1:22 PM EDT [facility] Fluid Monocytes/Macrop hages 38 % 01/12/2025 1:22 PM EDT [facility] Fluid Eosinophils % 0 % 01/12/2025 1:22 PM EDT [facility] Fluid Basophils % 0 % 01/12/2025 1:22 PM EDT [facility] Fluid Other Cells % 0 % 01/12/2025 1:22 PM EDT [facility] Peritoneal Fluid Peritoneal cavity structure / Unknown Non-blood Collection / Unknown 01/12/2025 11:53 AM EDT 01/12/2025 12:03 PM EDT Narrative [facility] - 01/12/2025 1:22 PM EDT No reference ranges have been established for body fluids. Clinical correlation recommended. Gordy Herrera LAB BODY FLUIDS AND STOOLS O RDERABLES Final Result Performing Organization Address [facility] Co de Phone Number [facility] [address] [place] [address], [place] [phone] * Glucose, body fluid (01/12/2025 11:53 AM EDT) Only the most recent of3 resultswithin the time period is included. Glucose, Fluid 158 See Comment mg/dL LAB CHEMISTRY METHOD 01/12/2025 12:44 PM EDT [facility] Ascites Peritoneal cavity structure / Unknown 01/12/2025 11:53 AM EDT 01/12/2025 12:03 PM EDT Narrative [facility] - 01/12/2025 12:44 PM EDT No reference ranges have been established for body fluids. Clinical correlation recommended. Gordy [facility] LAB BODY FLUIDS AND STOOLS O RDERABLES Final Result [facility] [address] [place] [address], [place] [phone] * Albumin, body fluid (01/12/2025 11:53 AM EDT) Only the most recent of3 resultswithin the time period is included. Albumin, Fluid 1.4 See Comment g/dL LAB CHEMISTRY METHOD 01/12/2025 12:44 PM EDT [facility] Ascites Peritoneal cavity structure / Unknown 01/12/2025 11:53 AM EDT 01/12/2025 12:03 PM EDT [facility] - 01/12/2025 12:44 PM EDT No reference ranges have been established for body fluids. Clinical correlation recommended. Jackelyn Sheldon NP LAB BODY FLUIDS AND STOOLS ORDER JAIME Final Result Performing Organization Address [facility]/ZIP Co de Phone Number [facility] [address] [place] [address], [place] [phone] * pH, body fluid (01/12/2025 11:53 AM EDT) pH, Fluid 8.5 See Comment pH 01/12/2025 12:35 PM EDT [facility] Peritoneal Fluid Peritoneal cavity structure / Unknown Non-blood Collection / Unknown 01/12/2025 11:53 AM EDT 01/12/2025 12:03 PM EDT [facility] - 01/12/2025 12:35 PM EDT No reference ranges have been established for body fluids. Clinical correlation recommended. us Gordy Herrera DO LAB BODY FLUIDS AND STOOLS O RDERABLES Final Result Performing Organization Address City/[facility]/ZIP Co de Phone Number [facility] [address] [place] [address], [place] [phone] * Non-gynecologic cytology (01/12/2025 11:53 AM EDT) Only the most recent of2 resultswithin the time period is included. Final Diagnosis A. Peritoneal Fluid, Paracentesis, (ThinPrep, cell block): Negative for malignant cells. 01/15/2025 8:52 AM EDT [facility] at 0852 EDT Specimen A Adequacy Satisfactory for evaluation 01/15/2025 8:52 AM EDT [facility] Gross Description A. Peritoneal Cavity, Peritoneal fluid: Received is 2 cc of yellow fluid. One ThinPrep and one cell block are made. Cell block placed in formalin at 1300, total formalin fixation time is 56 hours. rp 01/15/2025 8:52 AM EDT [facility] Disclaimer Unless otherwise specified, all tissue is 10% NB formalin fixed and paraffin embedded. Technical cytopathology services provided by [facility], at [address] [place] [id number] (CLIA # [id number]/Jina Floyd MD, Heating Unit Mechanic.) 01/15/2025 8:52 AM EDT [facility] Peritoneal Fluid Peritoneal cavity structure / Unknown Non-blood Collection / Unknown 01/12/2025 11:53 AM EDT 01/12/2025 12:35 PM EDT Gordy Herrera DO LAB CYTOLOGY ORDERABLES Josefina l Result Performing Organization Address City/[facility]/ZIP Co de Phone Number [facility] [address] [place] [address], [place] [phone] * Culture urine (01/12/2025 8:25 AM EDT) Only the most recent of2 resultswithin the time period is included. Culture, Urine No growth 01/14/2025 7:24 AM EDT [facility] Urine Urine specimen from urinary conduit / Unknown Non-blood Collection / Unknown 01/12/2025 8:25 AM EDT 01/12/2025 8:30 AM EDT Gordy Herrera DO LAB MICROBIOLOGY - GENERAL O RDERABLES Final Result Performing Organization Address City/[facility]/ZIP Co de Phone Number [facility] [address] [place] [address], [place] [phone] * (ABNORMAL) Hepatic function panel (01/12/2025 4:35 AM EDT) Only the most recent of4 resultswithin the time period is included. Total Protein 6.2 6.0 - 8.0 g/dL LAB CHEMISTRY METHOD 01/12/2025 5:41 AM EDT [facility] Albumin 3.6 3.2 - 5.0 g/dL LAB CHEMISTRY METHOD 01/12/2025 5:41 AM EDT [facility] Total Bilirubin 2.6(H) 0.0 - 1.4 mg/dL LAB CHEMISTRY METHOD 01/12/2025 5:[address] [facility] Bilirubin, Direct 1.8(H) 0.0 - 0.3 mg/dL LAB CHEMISTRY METHOD 01/12/2025 5:41 AM EDT [facility] Bilirubin, Indirect 0.8 0.0 - 1.1 mg/dL LAB CHEMISTRY METHOD 01/12/2025 5:[address] [facility] ALT (SGPT) 27 10 - 60 unit/L LAB CHEMISTRY METHOD 01/12/2025 5:[address] [facility] AST (SGOT) 41 10 - 42 unit/L LAB CHEMISTRY METHOD 01/12/2025 5:41 AM T [facility] Alkaline Phosphatase 101 42 - 121 unit/L LAB CHEMISTRY METHOD 01/12/2025 5:[address] [facility] Blood Blood sample taken from central line / Unknown Venipuncture / Unknown 01/12/2025 4:35 AM EDT 01/12/2025 4:43 AM EDT us Gordy Herrera DO LAB BLOOD ORDERABLES Final R esult [facility] [address] [place] [address], [place] [phone] * Treponema pallidum antibody with reflex to RPR and particle agglutination (01/11/2025 11:04 AM EDT) Only the most recent of2 resultswithin the time period is included. [facility] T. Pallidum Antibodies Negative Negative LAB CHEMISTRY METHOD 01/11/2025 12:56 PM EDT [facility] Blood Venous blood specimen / Unknown Venipuncture / Unknown 01/11/2025 11:04 AM EDT 01/11/2025 11:19 AM EDT Gordy Herrera LAB BLOOD ORDERABLES Final R esult Performing Organization Address City/[facility]/ZIP Co de Phone Number [facility] [address] [place] [address], [place] [phone] * Vitamin B12 (01/11/2025 11:04 AM EDT) [facility] Vitamin B-12 869 250 - 900 pcg/mL LAB CHEMISTRY METHOD 01/11/2025 12:11 PM EDT [facility] Blood Venous blood specimen / Unknown Venipuncture / Unknown 01/11/2025 11:04 AM EDT 01/11/2025 11:19 AM EDT Gordy Herrera DO LAB BLOOD ORDERABLES Final R esult [facility] [address] [place] [address], [place] [phone] * Cortisol (01/11/2025 11:04 AM EDT) [facility] Cortisol 124.7 mcg/dL LAB CHEMISTRY METHOD 01/11/2025 1:17 PM EDT [facility] Comment:Results verified by repeat testing Blood Venous blood specimen / Unknown Venipuncture / Unknown 01/11/2025 11:04 AM EDT 01/11/2025 11:19 AM EDT [facility] - 01/11/2025 1:17 PM EDT CORTISOL REFERENCE RANGE 8 AM SPEC: 5.0-23.0 mcg/dL 4 PM SPEC: 3.0-16.0 mcg/dL 8 PM SPEC: <5.0 mcg/dL Gordy Herrera DO LAB BLOOD ORDERABLES Final R esult [facility] [address] [place] [address], [place] [phone] * Insert PICC line (01/11/2025 9:55 AM EDT) Narrative Radha Cadet RN - 01/11/2025 9:55 AM EDT Radha Cadet RN 01/11/2025 9:58 AM PICC Line Insertion Procedure Note Procedure: Insertion of 4F Double lumen Bard Provena PowerPICC Lot: [id number] Exp: 2025-11-16 Indications: ICU level of care/electrolyte replacement/lab draws/IV medications Procedure Details: Informed consent was obtained for the procedure. Risks of thrombus and infection were discussed. Pre-procedure checklist completed at bedside. Maximum sterile technique was used including antiseptics, cap, gloves, gown, hand hygiene, mask, and sheet. US guidance utilized, vein easily accessed and catheter advanced smoothly upon first attempt. Two wires intact and discarded. 1% Lidocaine 2 ml sc administered. 4F PICC inserted to the Right Brachial vein per hospital protocol. Flushes smoothly with good blood return. Findings: Catheter cut at 40 cm and inserted to 40 cm with 0 cm exposed. Mid upper arm circumference is 34 cm. There were no changes to vital signs. Catheter was flushed with 10 cc NS and sterile CVC dressing with Biopatch applied. Patient tolerated procedure well. Recommendations: 3cg confirmation obtained: Tip at cavoatrial junction/May use line PICC Brochure given to patient with teaching instruction. us Gordy Herrera DO IV THERAPY ORDERABLES Final Result * (ABNORMAL) Drug abuse screen 8a panel, urine (01/11/2025 5:51 AM EDT) Only the most recent of2 resultswithin the time period is included. Amphetamine Screen, Ur Negative Negative LAB CHEMISTRY METHOD 8:[address] [facility] Comment:Certain OTC medicati ons containing ephedrine, phenylephrine, pseudoephedrine and phenylpropanolamine can cause false positive results. Barbiturate Screen, Ur Positive(A ) Negative LAB CHEMISTRY METHOD 8:[address] [facility] Benzodiazepine Screen, Ur Positive(A ) Negative LAB CHEMISTRY METHOD 8:[address] [facility] Cocaine Screen, Ur Positive(A ) Negative LAB CHEMISTRY METHOD 8:[address] [facility] Opiate Screen, Ur Negative Negative LAB CHEMISTRY METHOD 8:[address] [facility] Cannabinoid (THC) Screen, Ur Positive(A ) Negative LAB CHEMISTRY METHOD 8:[address] [facility] Comment:Specimens from patie nts taking pantoprazole sodium (Protonix) have been shown to produce false positive results. Oxycodone Screen, Ur Negative Negative LAB CHEMISTRY METHOD 8:[address] [facility] Fentanyl, Ur Positive(A ) Negative LAB CHEMISTRY METHOD 8:[address] [facility] Urine Urine specimen from urinary conduit / Unknown Non-blood Collection / Unknown 01/11/2025 5:51 AM EDT 01/11/2025 6:02 AM [facility] - 01/11/2025 8:01 AM EDT Assay cutoffs: Amphetamines 1000 ng/mL Barbiturates 200 ng/mL Benzodiazepines 200 ng/mL Cocaine 300 ng/mL Fentanyl 1 ng/mL Opiates 300 ng/mL Oxycodone 100 ng/mL THC 50 ng/mL Semi-quantitative assay for screening purposes only. Unconfirmed screening result should not be used for non-medical purposes. *ALTERNATE METHOD CONFIRMATION DONE UPON REQUEST ONLY* Gordy UriosteguiEXFO [facility] URINE ORDERABLES Final R [facility] Performing Organization Address [facility]/ZIP Co de Phone Number [facility] [address] [place] [address], [place] [phone] * (ABNORMAL) Folate (01/11/2025 4:28 AM EDT) [facility] Folate >20.0(H) 2.8 - 17.0 ng/ml LAB CHEMISTRY METHOD 01/11/2025 6:31 AM EDT [facility] Blood Venous blood specimen / Unknown Venipuncture / Unknown 01/11/2025 4:28 AM EDT 01/11/2025 4:35 AM EDT [facility] LAB BLOOD ORDERABLES [facility] Performing Organization Address [facility] de Phone Number [facility] [address] [place] [address], [place] [phone] * (ABNORMAL) Culture sputum (01/11/2025 4:09 AM EDT) [facility] Culture, Sputum Methicillin-Sensiti ve Staphylococcus aureus(A) MARIAN 01/14/2025 8:25 AM EDT [facility] Comment: Negative for PBP2a - indicates susceptible to Oxacillin The organism value for this result has been updated. These results have been appended to the previously preliminary verified report. Edited result: Previously reported as Staphylococcus aureus on 01/13/2025 at 0939 EDT. Gram Stain Result Few Epithelial cells(A) 01/14/2025 8:25 AM EDT [facility] Gram Stain Result Many Polymorphonuclear leukocytes(A) 01/14/2025 8:25 AM EDT [facility] Gram Stain Result Many Gram positive cocci in chains and clusters(A) 01/14/2025 8:25 AM EDT [facility] Sputum, aspirated Tracheal structure / Unknown Non-blood Collection / Unknown 01/11/2025 4:09 AM EDT 01/11/2025 8:28 AM EDT Narrative Organism Antibiotic Method Susceptibility Methicillin-Sensitive Staphylococcus aureus Benzylpenicillin MARIAN >=0.5 ug/ml: Resistant Methicillin-Sensitive Staphylococcus aureus Oxacillin MARIAN 0.5 ug/ml: Susceptible Methicillin-Sensitive Staphylococcus aureus Gentamicin MARIAN <=0.5 ug/ml: Susceptible Methicillin-Sensitive Staphylococcus aureus Ciprofloxacin MARIAN <=0.5 ug/ml: Susceptible Methicillin-Sensitive Staphylococcus aureus Levofloxacin MARIAN 0.5 ug/ml: Susceptible Methicillin-Sensitive Staphylococcus aureus Moxifloxacin MARIAN <=0.25 ug/ml: Susceptible Methicillin-Sensitive Staphylococcus aureus Erythromycin MARIAN >=8 ug/ml: Resistant Methicillin-Sensitive Staphylococcus aureus Clindamycin MARIAN <=0.25 ug/ml: Susceptible Methicillin-Sensitive Staphylococcus aureus Quinupristin/Dalfopristin MARIAN <=0.25 ug/ml: Susceptible Methicillin-Sensitive Staphylococcus aureus Linezolid MARIAN 2 ug/ml: Susceptible Methicillin-Sensitive Staphylococcus aureus Vancomycin MARIAN <=0.5 ug/ml: Susceptible Methicillin-Sensitive Staphylococcus aureus Tetracycline MARIAN <=1 ug/ml: Susceptible Methicillin-Sensitive Staphylococcus aureus Rifampin MARIAN <=0.5 ug/ml: Susceptible Methicillin-Sensitive Staphylococcus aureus Trimethoprim/Sulfamethoxazo le MARIAN <=10 ug/ml: Susceptible Jackelyn Sheldon NP LAB MICROBIOLOGY - GENERAL ORDER JAIME Final Result [facility] [address] [place] [address], * Respiratory virus panel molecular study (01/11/2025 3:29 AM EDT) Only the most recent of2 resultswithin the time period is included. [facility] Adenovirus Detection by PCR Not Detected Not Detected LAB MICROBIOLOGY METHOD 01/11/2025 4:47 AM EDT [facility] Influenza A PCR Not Detected Not Detected LAB MICROBIOLOGY METHOD 01/11/2025 4:47 AM EDT [facility] Influenza B PCR Not Detected Not Detected LAB MICROBIOLOGY METHOD 01/11/2025 4:47 AM EDT [facility] Coronavirus 229E Not Detected Not Detected LAB MICROBIOLOGY METHOD 01/11/2025 4:47 AM EDT [facility] Coronavirus HKU1 Not Detected Not Detected LAB MICROBIOLOGY METHOD 01/11/2025 4:47 AM EDT [facility] Coronavirus OC43 Not Detected Not Detected LAB MICROBIOLOGY METHOD 01/11/2025 4:47 AM EDT [facility] Coronavirus NL63 Not Detected Not Detected LAB MICROBIOLOGY METHOD 01/11/2025 4:47 AM EDT [facility] Parainfluenza Virus 1 Not Detected Not Detected LAB MICROBIOLOGY METHOD 01/11/2025 4:47 AM EDT [facility] Parainfluenza Virus 2 Not Detected Not Detected LAB MICROBIOLOGY METHOD 01/11/2025 4:47 AM EDT [facility] Parainfluenza Virus 3 Not Detected Not Detected LAB MICROBIOLOGY METHOD 01/11/2025 4:47 AM EDT [facility] Parainfluenza Virus 4 Not Detected Not Detected LAB MICROBIOLOGY METHOD 01/11/2025 4:47 AM EDT [facility] RSV PCR Not Detected Not Detected LAB MICROBIOLOGY METHOD 01/11/2025 4:47 AM EDT [facility] Human Metapneumovirus A and B Not Detected Not Detected LAB MICROBIOLOGY METHOD 01/11/2025 4:47 AM EDT [facility] Rhinovirus/Entero virus Not Detected Not Detected LAB MICROBIOLOGY METHOD 01/11/2025 4:47 AM EDT [facility] Bordetella pertussis Not Detected Not Detected LAB MICROBIOLOGY METHOD 01/11/2025 4:47 AM EDT [facility] Bordetella parapertussis Not Detected Not Detected LAB MICROBIOLOGY METHOD 01/11/2025 4:47 AM EDT [facility] Mycoplasma pneumo by PCR Not Detected Not Detected LAB MICROBIOLOGY METHOD 01/11/2025 4:47 AM EDT [facility] Chlamydia pneumoniae Not Detected Not Detected LAB MICROBIOLOGY METHOD 01/11/2025 4:47 AM EDT [facility] SARS COV-2 Not Detected Not Detected LAB MICROBIOLOGY METHOD 01/11/2025 4:47 AM EDT [facility] Swab Both anterior nares / Unknown Non-blood Collection / Unknown 01/11/2025 3:29 AM EDT 01/11/2025 3:45 AM EDT Narrative [facility] - 01/11/2025 4:47 AM EDT Testing was performed using the [employer] Respiratory Pathogen PCR Assay. All results must [...] are below the limit of detection. us Jackelyn Sheldon NP LAB MICROBIOLOGY - GENERAL ORDER JAIME Final Result [facility] [address] [place] [address], [place] [phone] * MRSA molecular study (01/11/2025 3:29 AM EDT) [facility] MRSA Screen PCR Not Detected Not Detected LAB MICROBIOLOGY METHOD 01/11/2025 8:44 AM EDT [facility] Swab Both anterior nares / Unknown Non-blood Collection / Unknown 01/11/2025 3:29 AM EDT 01/11/2025 3:45 AM EDT us Jackelyn Sheldon NP LAB MICROBIOLOGY - GENERAL ORDER JAIME Final Result [facility] [address] [place] [address], [place] [phone] * CT Abdomen Pelvis w Contrast (01/11/2025 2:20 AM EDT) Anatomical Region Laterality Modality Body Computed Tomogra phy 01/11/2025 2:57 AM EDT Addenda Addendum by Mann Blackwell on 01/11/2025 9:25 PM EDT ADDENDUM: Receipt of this report by the clinical staff was confirmed with MARGARITO Magdaleno on Jan 11, 2025 21:23:00 EDT. This document has been electronically signed by: Aure Perez on 01/11/2025 21:25:35 Addendum by Mann Blackwell on 01/11/2025 9:09 PM EDT ADDENDUM: As mentioned findings, there is a 11 x 8 mm hypoattenuating cystic structure in the pancreatic body, which can be further evaluated non-emergently with an MRI pancreas + MRCP without and with contrast. This document has been electronically signed by: Mann Blackwell MD on 01/11/2025 21:09:29 Impressions 01/11/2025 2:57 AM EDT 1. Vcgzuoid-tf-izusd volume diffuse abdominopelvic ascites, possibly secondary to portal hypertension. 2. Bilateral low volume layering pleural effusions with associated lower lobe atelectasis. This document has been electronically signed by: Mann Blackwell MD on 01/11/2025 02:57:03 ADDENDUM: As mentioned findings, there is a 11 x 8 mm hypoattenuating cystic structure in the pancreatic body, which can be further evaluated non-emergently with an MRI pancreas + MRCP without and with contrast. This document has been electronically signed by: Mann Blackwell MD on 01/11/2025 21:09:29 Narrative 01/11/2025 2:57 AM EDT INDICATION: cirrhosis, encephalopathy, abdominal distension CT abdomen and pelvis with contrast Comparison: CT - CT ABD PEL WO CONTRAST - 11/16/24 20:12 EDT Findings: Partially visualized low volume bilateral layering pleural effusions with associated lower lobe atelectasis. Unremarkable gallbladder. Unremarkable liver. 11 x 8 mm hypoattenuating structure within the pancreatic body, 3-73. Otherwise normal pancreas. Unremarkable adrenals and kidneys. No hydronephrosis. No renal stones. An enteric tube has been placed. No bowel obstruction, pneumoperitoneum, or pneumatosis. Normal appendix. Prior hysterectomy. Cox catheter has been inserted into a collapsed bladder . Coaoqihw-ih-guoua volume diffuse abdominopelvic ascites. The bones are intact. Degenerative changes of the lumbar spine Procedure Note Mann Blackwell - 01/11/2025 INDICATION: cirrhosis, encephalopathy, abdominal distension CT abdomen and pelvis with contrast Comparison: CT - CT ABD PEL WO CONTRAST - 11/16/24 20:12 EDT Findings: Partially visualized low volume bilateral layering pleural effusionswith associated lower lobe atelectasis. Unremarkable gallbladder. Unremarkable liver. 11 x 8 mm hypoattenuating structure within the pancreatic body, 3-73. Otherwise normal pancreas. Unremarkable adrenals and kidneys. No hydronephrosis. No renal stones. An enteric tube has been placed. No bowel obstruction, pneumoperitoneum, or pneumatosis. Normal appendix. Prior hysterectomy. Cox catheter has been inserted into a collapsed bladder . Tinizeoy-dc-hnkfj volume diffuse abdominopelvic ascites. The bones are intact. Degenerative changes of the lumbar spine IMPRESSION: 1. Vgxjdvoz-cy-exrcy volume diffuse abdominopelvic ascites, possibly secondary to portal hypertension. 2. Bilateral low volume layering pleural effusions with associated lower lobe atelectasis. This document has been electronically signed by: Mann Blackwell MD on 01/11/2025 02:57:03 ADDENDUM: As mentioned findings, there is a 11 x 8 mm hypoattenuating cystic structure in the pancreatic body, which can be further evaluated non-emergently with an MRI pancreas + MRCP without and with contrast. This document has been electronically signed by: Mann Blackwell MD on 01/11/2025 21:09:29 Pierce Miller MD IM CT PROCEDURES Edited Res ult - Final * (ABNORMAL) Urinalysis with reflex microscopic (01/11/2025 1:22 AM EDT) Specific [facility] Urine 1.028 1.003 - 1.030 LAB URINALYSIS - AUTOMATED METHOD 01/11/2025 2:46 AM EDT [facility] pH, Urine 6.0 5.0 - 8.0 pH LAB URINALYSIS - AUTOMATED METHOD 01/11/2025 2:[address] [facility] Leukocytes, Urine Trace(A) Negative LAB URINALYSIS - AUTOMATED METHOD 01/11/2025 2:[address] [facility] Nitrite, Urine Positive(A) Negative LAB URINALYSIS - AUTOMATED METHOD 01/11/2025 2:[address] [facility] Protein, Urine 30(A) <=Trace mg/dL LAB URINALYSIS - AUTOMATED METHOD 01/11/2025 2:[address] [facility] Glucose, Urine Negative Negative mg/dL LAB URINALYSIS - AUTOMATED METHOD 01/11/2025 2:[address] [facility] Ketones, Urine Trace(A) Negative mg/dL LAB URINALYSIS - AUTOMATED METHOD 01/11/2025 2:[address] [facility] Urobilinogen, Urine 1.0 0.2 - 1.0 mg/dL LAB URINALYSIS - AUTOMATED METHOD 01/11/2025 2:[address] [facility] Bilirubin, Urine Moderate(A) Negative LAB URINALYSIS - AUTOMATED METHOD 01/11/2025 2:[address] [facility] Blood, Urine Negative Negative LAB URINALYSIS - AUTOMATED METHOD 01/11/2025 2:[address] [facility] RBC, Urine 9(H) 0 - 4 /HPF LAB URINALYSIS - AUTOMATED METHOD 01/11/2025 2:[address] [facility] WBC, Urine 8.0(H) 0 - 4 /HPF LAB URINALYSIS - AUTOMATED METHOD 01/11/2025 2:[address] [facility] Squamous Epithelial, Urine >100(H) 0 - 60 /LPF LAB URINALYSIS - AUTOMATED METHOD 01/11/2025 2:[address] [facility] Bacteria, Urine Few(A) Negative /HPF LAB URINALYSIS - AUTOMATED METHOD 01/11/2025 2:46 AM EDT [facility] Comment:This is an appended report. These results have been appended to a previously final verified report. Hyaline Casts, Urine 105.6(H) 0 - 3 /LPF LAB URINALYSIS - AUTOMATED METHOD 01/11/2025 2:46 AM EDT [facility] Mucus, Urine Large None /HPF 01/11/2025 2:46 AM EDT [facility] Comment:This is an appended report. These results have been appended to a previously final verified report. Urine Urine specimen obtained by clean catch procedure / Unknown Non-blood Collection / Unknown 01/11/2025 1:22 AM EDT 01/11/2025 2:14 AM EDT Pierce Miller MD LAB URINE ORDERABLES Edited Result - Final Performing Organization Address [facility]/ZIP Co de Phone Number [facility] [address] [place] [address], [place] [phone] * Banda urine culture tube (01/11/2025 1:22 AM EDT) Only the most recent of2 resultswithin the time period is included. Extra Tube Hold for add-ons. 01/11/2025 4:01 AM EDT [facility] Comment:Auto resulted. Urine Urine specimen obtained by clean catch procedure / Unknown Non-blood Collection / Unknown 01/11/2025 1:22 AM EDT 01/11/2025 2:14 AM EDT us Pierce Miller MD LAB URINE ORDERABLES Final R esult Performing Organization Address [facility]/ZIP Co de Phone Number [facility] [address] [place] [address], [place] [phone] * ED INTUBATION (01/11/2025 12:45 AM EDT) Pierce Ortiz MD - 01/11/2025 12:45 AM EDT Pierce Miller MD 01/11/2025 8:33 PM Intubation Date/Time: 01/11/2025 12:45 AM Performed by: Pierce Miller MD Authorized by: Pierce Miller MD Consent: Consent obtained: Verbal Consent given by: Patient Risks, benefits, and alternatives were discussed: yes Alternatives discussed: No treatment, delayed treatment, alternative treatment and observation Pre-procedure details: Indications: airway protection and respiratory failure Patient status: Altered mental status Obstruction: none Neck mobility: normal Pharmacologic strategy: RSI Induction agents: Etomidate Paralytics: Rocuronium Procedure details: Preoxygenation: Nasal cannula CPR in progress: no Number of attempts: 1 Successful intubation attempt details: Intubation method: Oral Intubation technique: video assisted Laryngoscope blade: Mac 4 Bougie used: no Tube size (mm): 7.5 Tube type: Cuffed Tube visualized through cords: yes Placement assessment: ETT at teeth/gumline (cm): 22 Tube secured with: ETT martinez Breath sounds: Equal Placement verification: chest rise, colorimetric ETCO2, CXR verification, direct visualization, equal breath sounds and tube exhalation CXR findings: Appropriate position Post-procedure details: Procedure completion: Tolerated well, no immediate complications Pierce Miller MD IN CLINIC/BEDSIDE ORDERABLES Edited Result - Final * ECG-Annotated (01/11/2025) Only the most recent of2 resultswithin the time period is included. Provider Onbase MD ECG ORDERABLES Final Result * 12-Lead ECG (01/10/2025 10:27 PM EDT) Only the most recent of3 resultswithin the time period is included. Ventricular Rate ECG 89 BPM GEMUSE Atrial Rate 89 BPM GEMUSE P-R Interval 192 ms GEMUSE QRS Duration 104 ms GEMUSE Q-T Interval 620 ms GEMUSE QTc 754 ms GEMUSE P Wave [place] 44 degrees GEMUSE R [place] 15 degrees GEMUSE T [place] 44 degrees GEMUSE ECG Interpretation Critical Test Result: Long QTc Normal sinus rhythm Prolonged QT Abnormal ECG When compared with ECG of 16-NOV-2024 10:03, QT has lengthened Confirmed by NINOSKA LAMAS ([id number]) on 01/11/2025 11:43:05 AM GEMUSE 01/10/2025 10:2 7 PM EDT 01/11/2025 11:43 AM EDT Pierce Miller MD ECG ORDERABLES Final Result Performing Organization Address City/[facility]/ZIP Co de Phone Number GEMUSE * Lactate, with Reflex (01/10/2025 9:27 PM EDT) Only the most recent of5 resultswithin the time period is included. [facility] LACTIC ACID 1.5 0.4 - 2.0 mmol/L LAB CHEMISTRY METHOD 01/10/2025 10:12 PM EDT [facility] Blood Venous blood specimen / Unknown Venipuncture / Unknown 01/10/2025 9:27 PM EDT 01/10/2025 9:39 PM EDT Pierce Miller MD LAB BLOOD ORDERABLES Final R esult Performing Organization Address City/[facility] Co de Phone Number [facility] [address] [place] [address], [place] [phone] * Troponin I High Sensitivity (01/10/2025 9:27 PM EDT) Only the most recent of3 resultswithin the time period is included. [facility] High Sensitivity Troponin I 7 <=54 ng/L LAB CHEMISTRY METHOD 01/10/2025 10:07 PM EDT [facility] Blood Venous blood specimen / Unknown Venipuncture / Unknown 01/10/2025 9:27 PM EDT 01/10/2025 9:41 PM EDT Narrative [facility] - 01/10/2025 10:07 PM EDT High levels of biotin in samples may falsely decrease hsTroponin values. Use caution when interpreting hsTroponin results in patients taking biotin who exhibit renal impairment (eGFR <60) or in patients taking more than 20 mg/day of biotin. Pierce Miller MD LAB BLOOD ORDERABLES Final R esult Performing Organization Address [facility]/ZIP Co de Phone Number [facility] [address] [place] [address], [place] [phone] * Thyroid stimulating hormone with reflex to free t4 and free t3 (01/10/2025 9:27 PM EDT) [facility] TSH 2.24 0.40 - 4.00 mcIU/mL LAB CHEMISTRY METHOD 01/11/2025 10:15 AM EDT [facility] Blood Venous blood specimen / Unknown Venipuncture / Unknown 01/10/2025 9:27 PM EDT 01/10/2025 9:41 PM EDT Gordy Herrera DO LAB BLOOD ORDERABLES Final R esult Performing Organization Address [facility]/ZIP Co de Phone Number [facility] [address] [place] [address], [place] [phone] * (ABNORMAL) Lipid panel with reflex to direct LDL (01/10/2025 9:27 PM EDT) Cholesterol 177 0 - 200 mg/dL LAB CHEMISTRY METHOD 01/11/2025 2:15 AM EDT [facility] Triglycerides 128 0 - 150 mg/dL LAB CHEMISTRY METHOD 01/11/2025 2:15 AM EDT [facility] HDL 40 >=40 mg/dL LAB CHEMISTRY METHOD 01/11/2025 2:15 AM EDT [facility] LDL Calculated 111(H) 0 - 100 mg/dL LAB CHEMISTRY METHOD 01/11/2025 2:15 AM EDT [facility] Comment:Estimated LDL Calcul ated using equation: Total cholesterol - HDL cholesterol - (Triglycerides/5) VLDL Cholesterol Duong 25.6 mg/dL LAB CHEMISTRY METHOD 01/11/2025 2:15 AM EDT [facility] Non HDL Chol. (LDL+VLDL) 137 <145 mg/dL LAB CHEMISTRY METHOD 01/11/2025 2:15 AM EDT [facility] Chol/HDL Ratio 4.4 0.0 - 4.4 LAB CHEMISTRY METHOD 01/11/2025 2:15 AM EDT [facility] Blood Venous blood specimen / Unknown Venipuncture / Unknown 01/10/2025 9:27 PM EDT 01/10/2025 9:41 PM EDT Jackelyn Sheldon BLAST F[employer]NACE OPERATOR LAB BLOOD ORDERABLES Final Resul t Performing Organization Address City/[facility]/ZIP Co de Phone Number [facility] [address] [place] [address], * Prolactin (01/10/2025 9:27 PM EDT) Prolactin 13.00 See Comment ng/mL LAB CHEMISTRY METHOD 01/11/2025 11:54 AM EDT [facility] Comment: Prolactin Reference Ranges (ng/mL) Non 2.2 - 30.3 8.1 - 347.6 Postmenopausal 0.7 - 31.5 Blood Venous blood specimen / Unknown Venipuncture / Unknown 01/10/2025 9:27 PM EDT 01/10/2025 9:41 PM EDT Gordy Herrera DO LAB BLOOD ORDERABLES Final R esult Performing Organization Address [facility]/ZIP Co de Phone Number [facility] [address] [place] [address], [place] [phone] * Blood Culture, Peripheral #2 (01/10/2025 9:27 PM EDT) Only the most recent of6 resultswithin the time period is included. Culture, Blood No growth at 5 days 01/15/2025 10:02 PM EDT [facility] Blood Venous blood specimen / Unknown Venipuncture / Unknown 01/10/2025 9:27 PM EDT 01/10/2025 9:41 PM EDT Pierce Miller MD LAB MICROBIOLOGY - GENERAL O RDERABLES Final Result Performing Organization Address [facility]/ZIP Co de Phone Number [facility] [address] [place] [address], [place] [phone] * APTT (01/10/2025 9:27 PM EDT) Only the most recent of2 resultswithin the time period is included. aPTT 37.0 24.1 - 39.3 sec LAB COAGULATION METHOD 01/10/2025 9:58 PM EDT [facility] Blood Venous blood specimen / Unknown Venipuncture / Unknown 01/10/2025 9:27 PM EDT 01/10/2025 9:41 PM EDT Pierce Miller MD LAB BLOOD ORDERABLES Final R esult Performing Organization Address [facility] Co de Phone Number [facility] [address] [place] [address], [place] [phone] * (ABNORMAL) Protime-INR (01/10/2025 9:27 PM EDT) Only the most recent of3 resultswithin the time period is included. Protime 19.5(H) 10.6 - 13.9 sec LAB COAGULATION METHOD 01/10/2025 9:58 PM EDT [facility] INR 1.6 LAB COAGULATION METHOD 01/10/2025 9:58 PM EDT [facility] Blood Venous blood specimen / Unknown Venipuncture / Unknown 01/10/2025 9:27 PM EDT 01/10/2025 9:41 PM EDT Pierce Miller MD LAB BLOOD ORDERABLES Final R esult Performing Organization Address City/[facility]/ZIP Co de Phone Number [facility] [address] [place] [address], [place] [phone] * Thyroid stimulating hormone (01/10/2025 9:27 PM EDT) Pathologist [facility] TSH 2.24 0.40 - 4.00 mcIU/mL LAB CHEMISTRY METHOD 01/11/2025 10:15 AM EDT [facility] Blood Venous blood specimen / Unknown Venipuncture / Unknown 01/10/2025 9:27 PM EDT 01/10/2025 9:41 PM EDT Jackelyn Sheldon NP LAB BLOOD ORDERABLES Final Resul t Performing Organization Address [facility] Co de Phone Number [facility] [address] [place] [address], [place] [phone] * (ABNORMAL) Lipase (01/10/2025 9:27 PM EDT) Only the most recent of2 resultswithin the time period is included. Pathologist [facility] Lipase <10(L) 13 - 75 unit/L LAB CHEMISTRY METHOD 01/10/2025 10:24 PM EDT [facility] Blood Venous blood specimen / Unknown Venipuncture / Unknown 01/10/2025 9:27 PM EDT 01/10/2025 9:41 PM EDT Pierce Miller MD LAB BLOOD ORDERABLES Final R esult Performing Organization Address [facility]/ZIP Co de Phone Number [facility] [address] [place] [address], [place] [phone] * Ethanol (01/10/2025 9:27 PM EDT) Only the most recent of3 resultswithin the time period is included. Ethanol Level <3 0 - 10 mg/dL LAB CHEMISTRY METHOD 01/10/2025 10:24 PM EDT [facility] Blood Venous blood specimen / Unknown Venipuncture / Unknown 01/10/2025 9:27 PM EDT 01/10/2025 9:41 PM EDT us Pierce Miller MD LAB BLOOD ORDERABLES Final R esult Performing Organization Address [facility]/ZIP Co de Phone Number [facility] [address] [place] [address], [place] [phone] * (ABNORMAL) Acetaminophen level (01/10/2025 9:27 PM EDT) Acetaminophen Level <2.0(L) 10.0 - 30.0 mcg/mL LAB CHEMISTRY METHOD 01/10/2025 10:24 PM EDT [facility] Blood Venous blood specimen / Unknown Venipuncture / Unknown 01/10/2025 9:27 PM EDT 01/10/2025 9:41 PM EDT us Pierce Miller MD LAB BLOOD ORDERABLES Final R esult Performing Organization Address City/[facility]/ZIP Co de Phone Number [facility] [address] [place] [address], * (ABNORMAL) Salicylate Level (01/10/2025 9:27 PM EDT) Salicylate Level <1.7(L) 2.0 - 29.0 mg/dL LAB CHEMISTRY METHOD 01/10/2025 10:24 PM EDT [facility] Blood Venous blood specimen / Unknown Venipuncture / Unknown 01/10/2025 9:27 PM EDT 01/10/2025 9:41 PM EDT us Pierce Miller MD LAB BLOOD ORDERABLES Final R esult [facility] [address] [place] [address], * CT Head wo Contrast (01/10/2025 8:54 PM EDT) Only the most recent of3 resultswithin the time period is included. Anatomical Region Laterality Modality Head and Neck Computed Tomogra phy 01/10/2025 9:25 PM EDT Impressions 01/10/2025 9:25 PM EDT 1. No acute intracranial findings. This document has been electronically signed by: Mann Blackwell MD on 01/10/2025 21:25:45 Narrative 01/10/2025 9:25 PM EDT INDICATION: Mental status change, unknown cause CT head without contrast Comparison: CT - CT HEAD WO CONTRAST - 11/16/24 20:12 EDT Findings: No intra-axial mass, midline shift, hydrocephalus, or acute hemorrhage. No significant atrophy-like change or white matter disease. The visualized paranasal sinuses and mastoid air cells are normal. The orbits are unremarkable. No skull fracture. Procedure Note Mann Blackwell - 01/10/2025 INDICATION: Mental status change, unknown cause CT head without contrast Comparison: CT - CT HEAD WO CONTRAST - 11/16/24 20:12 EDT Findings: No intra-axial mass, midline shift, hydrocephalus, or acute hemorrhage. No significant atrophy-like change or white matter disease. The visualized paranasal sinuses and mastoid air cells are normal. The orbits are unremarkable. No skull fracture. IMPRESSION: 1. No acute intracranial findings. This document has been electronically signed by: Mann Blackwell MD on 01/10/2025 21:25:45 Pierce Miller MD IMG CT PROCEDURES Final Resu lt * [place] CRITICAL CARE 30-74 MINUTES (01/10/2025 7:31 PM EDT) Narrative Pierce Miller MD - 01/10/2025 7:31 PM EDT Pierce Miller MD 01/11/2025 8:33 PM Critical Care Performed by: Pierce Miller MD Authorized by: Pierce Miller MD Critical care provider statement: Critical care time (minutes): 45 Total face to face critical care time (minutes): 20 Critical care time was exclusive of: Separately billable procedures and treating other patients Critical care was necessary to treat or prevent imminent or life-threatening deterioration of the following conditions: JUDICIAL LAW CLERK failure or compromise, circulatory failure, respiratory failure and hepatic failure Critical care was time spent personally by me on the following activities: Development of treatment plan with patient or surrogate, discussions with consultants, evaluation of patient's response to treatment, ordering and review of laboratory studies, ordering and review of radiographic studies, re-evaluation of patient's condition, review of old charts, ordering and performing treatments and interventions, examination of patient, ventilator management, obtaining history from patient or surrogate and pulse oximetry Face to face critical care was time spent personally by me on the following activities: Ventilator management, re-evaluation of patient's condition, pulse oximetry, evaluation of patient's response to treatment, examination of patient, obtaining history from patient or surrogate and development of treatment plan with patient or surrogate I assumed direction of critical care for this patient from another provider in my specialty: no Comments: Hepatic encephalopathy requiring frequent neuroevaluation, required intubation with ventilator and sedation management, hypokalemia requiring IV potassium us Pierce Miller MD IN CLINIC/BEDSIDE ORDERABLES Edited Result - Final * Protein, body fluid (11/24/2024 1:08 PM EDT) Only the most recent of2 resultswithin the time period is included. Protein, Fluid 1.4 See Comment g/dL LAB CHEMISTRY METHOD 11/24/2024 2:40 PM EDT [facility] Ascites Peritoneal cavity structure / Unknown 11/24/2024 1:08 PM EDT 11/24/2024 1:17 PM EDT Narrative [facility] - 11/24/2024 2:40 PM EDT No reference ranges have been established for body fluids. Clinical correlation recommended. us Inna Angel MD LAB BODY FLUIDS AND STOOLS ORDERABLES Final Result [facility] [address] [place] [address], * [place] Paracentesis w Image Guidance (11/24/2024 [...] Signed Date: 11/24/2024 16:16 ET Workstation ID: [id number] Transcribed By: Self Edit Transcribed Date: 11/24/2024 [...] Signed Date: 11/24/2024 16:16 ET Workstation ID: [id number] Transcribed By: Self Edit Transcribed Date: 11/24/2024 16:15 ET us Inna Angel MD IMG US PROCEDURES Final Res ult * Lavender tube (11/21/2024 5:49 AM EDT) Pathologist [facility] Extra Tube Hold for add-ons. 11/21/2024 8:01 AM EDT [facility] Comment:Auto resulted. Blood Venous blood specimen / Unknown 11/21/2024 5:49 AM EDT 11/21/2024 6:29 AM EDT Inna Angel MD LAB BLOOD ORDERABLES Final Result [facility] [address] [place] [address], * (ABNORMAL) Bilirubin duplicate procedure to order (11/19/2024 5:34 AM EDT) Pathologist [facility] Total Bilirubin 13.4(H) 0.0 - 1.4 mg/dL LAB CHEMISTRY METHOD 11/19/2024 7:55 AM EDT [facility] Bilirubin, Direct 9.5(H) 0.0 - 0.3 mg/dL LAB CHEMISTRY METHOD 11/19/2024 7:55 AM EDT [facility] Bilirubin, Indirect 3.9(H) 0.0 - 1.1 mg/dL LAB CHEMISTRY METHOD 11/19/2024 7:55 AM EDT [facility] Blood Venous blood specimen / Unknown Venipuncture / Unknown 11/19/2024 5:34 AM EDT 11/19/2024 6:39 AM EDT Inna Angel MD LAB BLOOD ORDERABLES Final Result Performing Organization Address [facility]/ZIP Co de Phone Number [facility] [address] [place] [address], [place] [phone] * Lactate dehydrogenase, body fluid (11/17/2024 3:39 PM EDT) [facility] LD, Fluid 32 See Comment unit/L LAB CHEMISTRY METHOD 11/17/2024 4:30 PM EDT [facility] Ascites Peritoneal cavity structure / Unknown 11/17/2024 3:39 PM EDT 11/17/2024 3:45 PM EDT Narrative [facility] - 11/17/2024 4:30 PM EDT No reference ranges have been established for body fluids. Clinical correlation recommended. us Nathaly EDGAR LAB BODY FLUIDS AND STOOLS ORDERABLES Final Result Performing Organization Address [facility]/ZIP Co de Phone Number [facility] [address] [place] [address], [place] [phone] * Gastrointestinal pathogens molecular study (11/17/2024 3:18 PM EDT) [facility] Campylobacter Detection by PCR Not Detected Not Detected LAB [facility]BIOLOGY [facility] 5 [facility] Plesiomonas shigelloides Detection by PCR Not Detected Not Detected LAB MICROBIOLOGY METHOD 5 5:01 [facility] Salmonella Detection by PCR Not Detected Not Detected LAB MICROBIOLOGY METHOD 5 5:[address] [facility] Vibrio Detection by PCR Not Detected Not Detected LAB MICROBIOLOGY METHOD 5 5:01 [facility] Vibrio cholerae Detection by PCR Not Detected Not Detected LAB MICROBIOLOGY METHOD 5 5:[address] [facility] Yersinia enterocolitica Detection by PCR Not Detected Not Detected LAB MICROBIOLOGY METHOD 5 5:[address] [facility] Enteroaggregative E coli EAEC Detection by PCR Not Detected Not Detected LAB MICROBIOLOGY METHOD 5 5:01 [facility] Enteropathogenic E coli EPEC Detection Not Detected Not Detected LAB MICROBIOLOGY METHOD 5 5:01 [facility] Enterotoxigenic E coli ETEC LTST Detection Not Detected Not Detected LAB MICROBIOLOGY METHOD 5 5:[address] [facility] Shiga-like toxin producing E coli STEC STX1 STX2 Det Not Detected Not Detected LAB MICROBIOLOGY METHOD 5 5:01 [facility] Shigella Enteroinvasive E coli EIEC Detection Not Detected Not Detected LAB MICROBIOLOGY METHOD 5 5:01 [facility] Cryptosporidium Detection by PCR Not Detected Not Detected LAB MICROBIOLOGY METHOD 5 5:[address] [facility] Cyclospora cayetanensis Detection by PCR Not Detected Not Detected LAB MICROBIOLOGY METHOD 5 5:[address] [facility] Entamoeba histolytica Detection by PCR Not Detected Not Detected LAB MICROBIOLOGY METHOD 5 5:01 PM EDT [facility] Giardia lamblia Detection by PCR Not Detected Not Detected LAB MICROBIOLOGY METHOD 5 5:01 PM EDT [facility] Adenovirus F 40 41 Detection by PCR Not Detected Not Detected LAB MICROBIOLOGY METHOD 5 5:01 PM EDT [facility] Astrovirus Detection by PCR Not Detected Not Detected LAB MICROBIOLOGY METHOD 5 5:01 PM EDT [facility] Norovirus GI GII Detection by PCR Not Detected LAB MICROBIOLOGY METHOD 5 5:01 PM EDT [facility] Sapovirus Detection by PCR Not Detected Not Detected LAB MICROBIOLOGY METHOD 5 5:01 PM EDT [facility] Rotavirus A Detection by PCR Not Detected Not Detected LAB MICROBIOLOGY METHOD 5 5:01 PM EDT [facility] Stool Rectum structure / Unknown Non-blood Collection / Unknown 11/17/2024 3:18 PM EDT 11/17/2024 3:27 PM EDT Narrative [facility] - 11/17/2024 5:01 PM EDT [...] additional guidance. Testing Performed by MULTIPLEXED PCR us Maria EDGAR LAB MICROBIOLOGY - GENERAL OR DERABLES Final Result [facility] [address] [place] [address], * (ABNORMAL) Clostridium difficile molecular study (11/17/2024 3:18 PM EDT) Clostridium difficile PCR Positive (AA) Negative LAB MICROBIOLOGY METHOD 11/17/2024 5:17 PM EDT [facility] Comment: CRITICAL RESULT POSITIVE FOR TOXIN PRODUCING CLOSTRIDIOIDES DIFFICILE, NO ADDITIONAL TESTING IS NECESSARY. REPEAT SAMPLES SHOULD NOT BE SUBMITTED FOR TEST OF CURE. Stool Rectum structure / Unknown Non-blood Collection / Unknown 11/17/2024 3:18 PM EDT 11/17/2024 4:16 PM EDT Maria EDGAR LAB MICROBIOLOGY - GENERAL OR DERABLES Final Result Performing Organization Address [facility]/ZIP Co de Phone Number [facility] [address] [place] [address], [place] [phone] * Clostridium difficile toxin (11/17/2024 3:18 PM EDT) Pathologist [facility] C difficile Toxins A+B, EIA 11/17/2024 4:16 PM EDT [facility] Comment:Refer to C. difficil e PCR assay for results. Stool Rectum structure / Unknown Non-blood Collection / Unknown 11/17/2024 3:18 PM EDT 11/17/2024 3:27 PM EDT Maria EDGAR LAB MICROBIOLOGY - GENERAL OR DERABLES Final Result Performing Organization Address [facility] Co de Phone Number [facility] [address] [place] [address], [place] [phone] * XR Abdomen 1 View (11/17/2024 2:16 [...] Signed Date: 11/17/2024 14:41 ET Workstation ID: [id number] Transcribed By: Self Edit Transcribed Date: 11/17/2024 [...] Signed Date: 11/17/2024 14:41 ET Workstation ID: [id number] Transcribed By: Self Edit Transcribed Date: 11/17/2024 14:41 ET us Nathaly EDGAR IMG XR PROCEDURES Final Re [...] Signed Date: 11/17/2024 13:22 ET Workstation ID: [id number] Transcribed By: Self Edit Transcribed Date: 11/17/2024 [...] Signed Date: 11/17/2024 13:22 ET Workstation ID: [id number] Transcribed By: Self Edit Transcribed Date: 11/17/2024 13:20 ET Jasen Jay DO [facility] PROCEDURES Final Result * Hemochromatosis mutation (11/17/2024 [...] clinical information reviewed by Keri Shoemaker, Ph.D., [facility], [facility]. DETAILED ASSAY INFORMATION: Hereditary hemochromatosis (HH) [...] variants in the HFE gene, C282Y (NM 450833.2: c.845G>A, p.Dml177Vgq) and H63D (NM 748750.2: c.187C>G, p.Wpk90Fxz), that are commonly associated with HH. These [...] Health care providers, please contact your local [employer]' genetic counselor or call [phone] ( ) for assistance with the interpretation of these results. This test was developed and its analytical performance characteristics have been determined by [employer] [facility]. It has not been cleared or approved by FDA. This assay has been validated pursuant to the CLIA regulations and is used for clinical purposes. For more information, please refer to http://education.[employer].com/faq/hemochromatosis. (This link is being provided for informational/educational purposes only.) A portion of the testing was performed at [facility]. Reviewed and signed by Laboratory results and submitted clinical information reviewed by Keri Shoemaker, Ph.D., FAC, CGMB, Signed on 11/28/2024 at 07:03 Test Performed at: [employer] [address] [address] Odalys Mcclure MD, PhD, DEEPTHI Blood Venous blood specimen / Unknown Venipuncture / Unknown 11/17/2024 12:21 PM EDT 11/17/2024 12:45 PM EDT us Henny Patton MD LAB MOLECULAR DIAGNOSTICS DESIRAEShamar ZHAO Final Result [facility] [address] [place] [address] * Lactate dehydrogenase (11/17/2024 6:03 AM EDT) LDH 222 120 - 246 unit/L LAB CHEMISTRY METHOD 11/17/2024 2:38 PM EDT [facility] Blood Venous blood specimen / Unknown Venipuncture / Unknown 11/17/2024 6:03 AM EDT 11/17/2024 6:19 AM EDT Nathaly EDGAR LAB BLOOD ORDERABLES Final Result Performing Organization Address City/[facility]/ZIP Co de Phone Number [facility] [address] [place] [address], * Creatine kinase (11/17/2024 6:03 AM EDT) Total CK 68 22 - 269 unit/L LAB CHEMISTRY METHOD 11/17/2024 3:20 PM EDT [facility] Blood Venous blood specimen / Unknown Venipuncture / Unknown 11/17/2024 6:03 AM EDT 11/17/2024 6:19 AM EDT Nathaly EDGAR LAB BLOOD ORDERABLES Final Result [facility] [address] [place] [address], [place] [phone] * (ABNORMAL) Lamotrigine level (11/16/2024 8:51 PM EDT) Lamotrigine (Lamictal) Level 1.3(L) 2.0 - 15.0 ug/mL 11/20/2024 6:34 AM EDT [facility] Comment: Lamotrigine toxic level: >20 ug/mL The reference range is not well established. It may be as wide as 1 - 20 ug/mL. If applicable, any drug confirmation testing reported here was developed and the performance characteristics determined by [facility]. This confirmation testing has not been cleared or approved by the FDA. The laboratory is regulated under CLIA as qualified to perform high-complexity testing. This test is used for patient testing purposes. It should not be regarded as investigational or for research. Test performed at [facility], [address] , [place] [address] Kristi Brown MD, PhD - Heating Unit Mechanic Blood Venous blood specimen / Unknown Venipuncture / Unknown 11/16/2024 8:51 PM EDT 11/16/2024 8:51 PM EDT us Maria EDGAR LAB BLOOD ORDERABLES Final Re sult Performing Organization Address City/[facility]/ZIP Co de Phone Number [facility] [address] [place] [address] * CT Cervical Spine wo Contrast (11/16/2024 8:15 PM EDT) Only the most recent of2 [...] Levine MD on 11/16/2024 20:43:[address] PROCEDURES Final Resul t * CT [...] US Abdomen Limited (11/16/2024 2:30 PM EDT) Anatomical Region Laterality Modality Body Ultrasound 11/16/2024 [...] Signed Date: 11/16/2024 13:59 ET Workstation ID: [id number] Transcribed By: Self Edit Transcribed Date: 11/16/2024 13:57 ET Narrative 11/16/2024 1:59 PM EDT Exam: US ABDOMEN LIMITED Date of Study: 11/16/2024 12:40 PM CLINICAL INFORMATION: alcohol use disorder jaundice TECHNIQUE: Real-time ultrasound scanning of the region of interest performed by the account resolution specialist. Generator Repairer static images and video clips are submitted [...] of the region of interestperformed by the account resolution specialist. Generator Repairer static images and video clipsare submitted for [...] Del Cid Reviewed and Electronically Signed By: Krai Del Cid Signed Date: 11/16/2024 13:59 ET Workstation ID: [id number] Transcribed By: Self Edit Transcribed Date: 11/16/2024 13:57 ET us Jasen Jay IMG US PROCEDURES Final Result * XR Ankle 3+ Views Left (11/16/2024 12:08 PM EDT) Anatomical Region Laterality Modality Lower Extremities, Ankle Left Radiogr aphic Imaging 11/16/2024 12:1 3 PM EDT Impressions 11/16/2024 12:15 PM EDT No acute findings. 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 Code 77611 -------- FINAL REPORT -------- Dictated By: Darren Stafford Dictated Date: 11/16/2024 12:13 ET Assigned Physician: Darren Stafford Reviewed and Electronically Signed By: Darren Stafford Signed Date: 11/16/2024 12:15 ET Workstation ID: [id number] Transcribed By: Self Edit Transcribed Date: 11/16/2024 [...] nonunited chip fractures of themedial malleolus. Code 72191 -------- FINAL REPORT -------- Dictated By: Darren Stafford Dictated Date: 11/16/2024 12:13 ET Assigned Physician: Darren Stafford Reviewed and Electronically Signed By: Darren Stafford Signed Date: 11/16/2024 12:15 ET Workstation ID: [id number] Transcribed By: Self Edit Transcribed Date: 11/16/2024 [...] pulmonary disease. No change since 11/07/2024. Code 45230 -------- FINAL REPORT -------- Dictated By: Darren Stafford Dictated Date: 11/16/2024 12:16 ET Assigned Physician: Darren Stafford Reviewed and Electronically Signed By: Darren Stafford Signed Date: 11/16/2024 12:18 ET Workstation ID: [id number] Transcribed By: Self Edit Transcribed Date: 11/16/2024 [...] pulmonary disease. No change since 11/07/2024. Code 14762 -------- FINAL REPORT -------- Dictated By: Darren Stafford Dictated Date: 11/16/2024 12:16 ET Assigned Physician: Darren Stafford Reviewed and Electronically Signed By: Darren Stafford Signed Date: 11/16/2024 12:18 ET Workstation ID: [id number] Transcribed By: Self Edit Transcribed Date: 11/16/2024 12:16 ET Jasen Jay DO IMG XR PROCEDURES Final Result * (ABNORMAL) Lactate (11/16/2024 10:23 AM EDT) Only the most recent of2 resultswithin the time period is included. Lactate 2.8(H) 0.4 - 2.0 mmol/L LAB CHEMISTRY METHOD 11/16/2024 12:04 PM EDT [facility] Blood Venous blood specimen / Unknown Venipuncture / Unknown 11/16/2024 10:23 AM EDT 11/16/2024 11:21 AM EDT Jasen Jay DO LAB BLOOD ORDERABLES Final Resu lt [facility] [address] [place] [address], * (ABNORMAL) Manual differential (11/16/2024 10:20 AM EDT) Neutrophils % 61.0 % LAB HEMETOLOGY METHOD 11/16/2024 1:30 PM EDT [facility] Lymphocytes % 26.0 % LAB HEMETOLOGY METHOD 11/16/2024 1:30 PM EDT [facility] Monocytes % 13.0 % LAB HEMETOLOGY METHOD 11/16/2024 1:30 PM EDT [facility] Eosinophils % 0.0 % LAB HEMETOLOGY METHOD 11/16/2024 1:30 PM EDT [facility] Basophils % 0.0 % LAB HEMETOLOGY METHOD 11/16/2024 1:30 PM EDT [facility] Neutrophils Absolute Manual 7.20(H) 1.50 - 7.00 K/mcL LAB HEMETOLOGY METHOD 11/16/2024 1:30 PM EDT [facility] Lymphocytes Absolute 3.07 1.00 - 5.00 K/mcL LAB HEMETOLOGY METHOD 11/16/2024 1:30 PM EDT [facility] Monocytes Absolute Manual 1.53(H) 0.20 - 1.00 K/mcL LAB HEMETOLOGY METHOD 11/16/2024 1:30 PM EDT [facility] Eosinophils Absolute Manual 0.00 0.00 - 0.50 K/mcL LAB HEMETOLOGY METHOD 11/16/2024 1:30 PM EDT [facility] Basophils Absolute Manual 0.00 0.00 - 0.20 K/mcL LAB HEMETOLOGY METHOD 11/16/2024 1:30 PM EDT [facility] Rbc Morphology Consistent with indices Consistent with indices, Normal for LAB HEMETOLOGY METHOD 11/16/2024 1:30 PM EDT [facility] Platelet Morphology - [facility] Normal Normal LAB HEMETOLOGY METHOD 11/16/2024 1:30 PM EDT [facility] Blood Venous blood specimen / Unknown Venipuncture / Unknown 11/16/2024 10:20 AM EDT 11/16/2024 11:22 AM EDT Jasen Jay DO LAB BLOOD ORDERABLES Final Resu lt [facility] [address] [place] [address], * [place] CRITICAL CARE 30-74 MINUTES (11/16/2024 9:17 AM EDT) Jasen Manzanares DO - 11/16/2024 9:17 AM EDT Jasen [...] Care discussed with: admitting provider Jasen Jay IN CLINIC/BEDSIDE ORDERABLES Fi nal Result * Occult blood stool, guaiac (11/11/2024 12:06 AM EDT) [facility] Occult Blood, Stool #1 Negative Negative 11/11/2024 12:39 AM EDT [facility] Stool Rectum structure / Unknown Non-blood Collection / Unknown 11/11/2024 12:06 AM EDT 11/11/2024 12:12 AM EDT Sam Perez MD LAB BODY FLUIDS AND STO OLS ORDERABLES Final Result [facility] [address] [place] [address], [place] [phone] * (ABNORMAL) Urinalysis with reflex microscopic and culture (11/08/2024 11:41 AM EDT) [facility] Specific [place] Urine 1.026 1.003 - 1.030 LAB URINALYSIS - AUTOMATED METHOD [facility]2024 [facility] pH, Urine 5.5 5.0 - 8.0 [...] - AUTOMATED METHOD 11/08/2024 1:13 PM EDT [facility] Urobilinogen , Urine 2.0(A) 0.2 - 1.0 mg/dL LAB URINALYSIS - AUTOMATED METHOD 11/08/2024 1:[address] [facility] Bilirubin, Urine Large(A) Negative LAB URINALYSIS - AUTOMATED METHOD 11/08/2024 1:[address] [facility] Blood, Urine Negative Negative LAB [...] EDT us Krystyna EDGAR LAB URINE ORDERABLES Mickey al Result [facility] [address] [place] [address], * (ABNORMAL) Complete blood count (11/08/2024 5:43 AM EDT) [facility] Signature WBC 13.0(H) 4.8 - 10.8 K/mcL LAB HEMETOLOGY METHOD 11/08/2024 6:[address] [facility] RBC 2.60(L) 3.80 - 4.80 M/mcL LAB HEMETOLOGY METHOD 11/08/2024 6:43 [facility] Hemoglobin 8.4(L) 11.5 - 16.0 g/dL LAB HEMETOLOGY METHOD 11/08/2024 6:[address] [facility] Hematocrit 25.1(L) 35.0 - 47.0 % LAB HEMETOLOGY METHOD 11/08/2024 6:[address] [facility] MCV 95.4 79.0 - 98.0 FL LAB HEMETOLOGY METHOD 11/08/2024 6:[address] [facility] MCH 31.9 27.0 - 32.0 pcg LAB HEMETOLOGY METHOD 11/08/2024 6:[address] [facility] MCHC 33.5 32.0 - 37.0 g/dL LAB HEMETOLOGY METHOD 11/08/2024 6:[address] [facility] RDW 15.4(H) 11.0 - 15.0 % LAB HEMETOLOGY METHOD 11/08/2024 6:[address] [facility] Platelets 134 130 - 400 K/mcL LAB HEMETOLOGY METHOD 11/08/2024 6:[address] [facility] MPV 11.1(H) 7.0 - 11.0 FL LAB HEMETOLOGY METHOD 11/08/2024 6:[address] [facility] NRBC 0.0 <1.0 % LAB HEMETOLOGY METHOD 11/08/2024 6:[address] [facility] NRBC Absolute 0.00 <0.10 K/mcL LAB HEMETOLOGY METHOD 11/08/2024 6:43 AM EDT [facility] Blood Venous blood specimen / Unknown Venipuncture / Unknown 11/08/2024 5:43 AM EDT 11/08/2024 5:59 AM EDT Geetha Gonzalez MD LAB BLOOD ORDERABLES Final Res ult Performing Organization Address [facility] Co de Phone Number [facility] [address] [place] [address], [place] [phone] * (ABNORMAL) Vitamin B12 and folate (11/07/2024 11:11 AM EDT) [facility] Vitamin B-12 1,635(H) 250 - 900 pcg/mL LAB CHEMISTRY METHOD 11/07/2024 12:31 PM EDT [facility] Folate 11.8 2.8 - 17.0 ng/ml LAB CHEMISTRY METHOD 11/07/2024 12:31 PM EDT [facility] Blood Venous blood specimen / Unknown Venipuncture / Unknown 11/07/2024 11:11 AM EDT 11/07/2024 11:24 AM EDT us Krystyna EDGAR LAB BLOOD ORDERABLES Fin al Result Performing Organization Address [facility] Co de Phone Number [facility] [address] [place] [address], [place] [phone] * Hepatitis panel, acute with reflex to confirmation (11/07/2024 11:11 AM EDT) [facility] Hepatitis B Surface Ag Negative Negative LAB CHEMISTRY METHOD 11/07/2024 3:57 PM EDT [facility] Hepatitis A Antibody IgM Negative Negative LAB CHEMISTRY METHOD 11/07/2024 3:57 PM EDT [facility] Hep B Core IgM Negative Negative LAB CHEMISTRY METHOD 11/07/2024 3:57 PM EDT [facility] Hepatitis C Antibody Negative Negative LAB CHEMISTRY METHOD 11/07/2024 3:57 PM EDT [facility] Blood Venous blood specimen / Unknown Venipuncture / Unknown 11/07/2024 11:11 AM EDT 11/07/2024 11:24 AM EDT us Krystyna EDGAR LAB BLOOD ORDERABLES Fin al Result [facility] [address] [place] [address], from Last 3 Months Insurance [employer] MEDICARE ADVANTAGE MEDICAID - [place] Advance Directives Documents on File Type Date Recorded Patient Generator Repairer Expl anation Health Care Decision (hx) 12/15/2016 [...] on File) Date Activated Date Inactivated Comments 01/11/2025 1:30 AM 01/18/2025 4:[address] [facility] was ascertained in the following way: Code status discussion: discussion with healthcare cash posting representative sister Sherie To update the patient's code status, place a code status order. Do not modify or discontinue any currently active code status orders. * Full Code - Confirmed Date Activated Date Inactivated Comments 11/16/2024 7:47 [...] Agents on File Name Relationship Healthcare Agent [facility] p Communication Carolulu Welsh Relative Health Care Agent Rosalva Ramos Relative First Alternate Health Care Agent Care Teams Manager Electrical Relationship Specialty Start Date End Date Henny Huff MD [address] [place] [address] PCP - General Internal Medicine 11/07/24
--- OUTSIDE RECORDS SUMMARY | 2025-02-01 16:14 | XMS_ITS | Clinical Summary ---
Author Organization [facility] Address [address] [place] [address] Care Team Providers Care Coding Compliance Manager Name Role Phone Gloria Jonas Primary Care [...] 9:17 PM EDT): Follows with psychiatry in [place], outpatient regimen of acamprosate, amitriptyline, Abilify, atomoxetine [...] etoh dependance, patient's clothes are still at [facility] if someone can help her get them Toxic metabolic encephalopathy 12/16/2021 12/19/2021 Assessment & Plan (12/16/2021 9:10 PM EDT): In setting of alcohol intoxication, was receiving valium and atarax at [facility] and became altered with possible hallucinations/delirium. Patient [...] No mew medications other than valium at [facility]. - check B12, TSH, folate - Continue [...] and Follow-Up 04/19/2024 Social D[employer] of Health [facility] ual Screening 04/19/2024 COVID-19 Vaccine (4 - 2024-2 6 season) 2024 04/15/2021, 08/07/2020, 07/10/2020 Influenza Vaccine (#1) 2024 , 02/28/2021, 02/15/2020, Additional history exists RSV Vaccine (60+ years old a nd patients) (1 - 1-dose 75+ series) 09/11/2047 Hepatitis C Screening Completed 05/14/2022, 023 Procedures * Due to [place] [employer] law, this organization might not be sharing negative HIV tests. Procedure Name Priority Date/Time Associated Diagnosis Comments COMPREHENSIVE METABOLIC PANEL Routine 05/22/2022 5:36 AM EST HEPATITIS PANEL, ACUTE STAT 4:13 PM EST from Last 3 Months or Most Recently Relevant to Health Maintenance Results * Due to [place] law, this organization might not be sharing negative HIV tests. * (ABNORMAL) Comprehensive Metabolic Panel (05/22/2022 5:36 AM EST) NA 137 135 - 145 mmol/L 05/22/2022 6:35 AM EST [facility] K 3.5 3.5 - 5.3 mmol/L 05/22/2022 6:35 AM [facility] Cl 103 97 - 110 mmol/L 05/22/2022 6:35 AM [facility] CO2 25 24 - 32 mmol/L 05/22/2022 6:35 AM [facility] Anion Gap 9 5 - 15 05/22/2022 6:35 AM [facility] Glucose 112(H) 70 - 99 mg/dL 05/22/2022 6:35 AM [facility] Creatinine 0.50 0.50 - 1.20 mg/dL 05/22/2022 6:35 AM [facility] Calcium 8.7 8.7 - 10.7 mg/dL 05/22/2022 6:35 AM [facility] Total Protein 5.9(L) 6.0 - 8.0 g/dL 05/22/2022 6:35 AM [facility] Albumin 3.0(L) 3.5 - 4.8 g/dL 05/22/2022 6:35 AM [facility] Bilirubin, Total 0.6 0.3 - 1.2 mg/dL 05/22/2022 6:35 AM [facility] Alkaline Phosphatase 123(H) 30 - 115 U/L 05/22/2022 6:35 AM [facility] AST 30 10 - 40 U/L 05/22/2022 6:35 AM [facility] ALT 44(H) 10 - 40 U/L 05/22/2022 6:35 AM [facility] BUN 5(L) 7 - 23 mg/dL 05/22/2022 6:35 AM [facility] eGFR >90 >=90 mL/min/1. 73m2 [...] PhD LAB BLOOD ORDERABLES Final Resu lt [facility] [address] [place] [address], * Hepatitis Panel, Acute (05/14/2022 4:13 PM EST) Hepatitis A IgM NON-REACT TRANG NON-REACT TRANG 05/15/2022 5:50 PM EST [facility] Hepatitis B Surface Antigen NON-REACT TRANG NON-REACT TRANG 05/15/2022 5:50 PM EST [facility] Hepatitis B Core Antibody NON-REACT TRANG NON-REACT TRANG 05/15/2022 5:50 PM EST [facility] Hepatitis C Antibody NON-REACT TRANG NON-REACT TRANG 05/15/2022 5:50 PM EST [facility] Signal To Cut-Off 0.02 <1.00 05/15/2022 5:50 PM EST [facility] Comment: HCV antibody was non-reactive. There is no laboratory evidence of HCV infection. In most cases, no further action is required. However, if recent HCV exposure is suspected, a test for HCV RNA (test code 42510) is suggested. For additional information please refer to http://education.quest[facility].com/faq/WWZ36o9 (This link is being provided for informational/ educational purposes only.) For additional information, please refer to [email or web address] (This link is being provided for informational/ educational purposes only.) Blood Structure of peripheral vein / Unknown Venipuncture / Unknown 05/14/2022 4:13 PM EST 05/14/2022 4:19 PM EST Narrative [facility] 05/15/2022 5:50 PM EST [facility] Received Date: Jonh Plascencia MD LAB BLOOD ORDERABLES Final Result [facility] [address] [facility] [address] [facility], [place] [address], [facility] [address] [facility] [address] [place] [address], from Last 3 Months or Most Recently Relevant to Health Maintenance Insurance [address] [place] [address] [facility] Advance Directives Documents on File Type Date Recorded Patient Property Management Assistant Expl anation Health Care Proxy 05/22/2022 1:35 [...] Mother Alternate Health Care Agent Care Teams Coding Compliance Manager Relationship Specialty Start Date End Date Gloria Jonas PCP - General Internal Medicine 12/16/21
== END 2025-02-01 15:47 | disposition home or self-care (01) ==
LOC: HO.HMCC 13:01
PROVIDERS: PCP Internal Medicine; Visit Provider Internal Medicine
DX: F31.9 Bipolar disorder, unspecified (principal); I50.20 Unspecified systolic (congestive) heart failure; K70.30 Alcoholic cirrhosis of liver without ascites

== ENCOUNTER → 2025-02-01 13:00 | Outpatient (BNVA) | payer MEDICARE, MEDICAID, SELFPAY | PROVIDERS: PCP Internal Medicine; Visit Provider Internal Medicine | DX: I11.0 Hypertensive heart disease with heart failure (principal); I50.20 Unspecified systolic (congestive) heart failure; F31.9 Bipolar disorder, unspecified; K70.30 Alcoholic cirrhosis of liver without ascites | CPT/HCPCS: 99212 ==

== ENCOUNTER → 2025-03-09 23:59 | Outpatient (BNV) | payer MEDICARE, MEDICAID, SELFPAY | PROVIDERS: PCP Internal Medicine; Visit Provider Internal Medicine | DX: G93.40 Encephalopathy, unspecified (principal); I42.9 Cardiomyopathy, unspecified; E72.20 Disorder of urea cycle metabolism, unspecified | CPT/HCPCS: G0180 ==